=== PATIENT | male | born 1960 | race Caucasian/White ===

== ENCOUNTER → 2016-07-22 | Outpatient (CLI) | payer MEDICARE, OTHER ==
[2016-07-22 12:50] VITALS: BP 119/68; PULSE 66; RESP 16; TEMP 97.7
--- NOTE | 2016-07-22 13:18 | P.PN ---
Progress Note - Text This is a 56-year-old male with cervical and lumbar spondylosis. The patient feels increasing neck pain with a stable weakness in the right wrist due to previous fracture there. He occasionally drops things out of his right hand but this is not a constant complaint. He does have mild weakness in his right wrist extension and flexion to 4 out of 5 and also decreased right elbow flexion to 4 out of 5. There is tenderness in the cervical paravertebral musculature on the lower part of his neck. Lungs are clear to auscultation. Heart is regular no murmurs. The patient may benefit from getting cervical medial branch block under fluoroscopic guidance for levels C5-C6 and C7 bilaterally however the patient will see if he can tolerate this pain until his next visit if his pain is getting worse he will give us a call and then we can schedule her for this injection if not we will reevaluate him on his next visit and decide our course. The patient denies having any side effects to Percocet he does not show any drug -seeking behavior he does not show any suicidal ideation. I'll give him prescription for 2 months of Percocet and we'll see him then. PQRS measures: 1-Patient's medications are documented in the chart. 2-Tobacco use counseling given 3-Patient has had a pneumococcal vaccine. 4-Advanced care planning discussed, patient unable to give 5-Opioid contract signed with the patient. 6-Pain positive, follow-up visit or procedure scheduled 7-Patient's blood pressure measured and documented within normal limits. 8-Patient's weight was measured, and body mass index ABOVE the normal limits, and counseling was done. Patient instructed to follow up with PCP. 9-Patient WAS NOT identified as an unhealthy alcohol user.
== END ==
LOC: PNWHC3 12:27
PROVIDERS: ATTEND Anesthesiology
DX: M47.896 Other spondylosis, lumbar region (principal); M47.892 Other spondylosis, cervical region; Z87.81 Personal history of (healed) traumatic fracture
CPT/HCPCS: 99211

== ENCOUNTER → 2016-09-16 | Outpatient (CLI) | payer MEDICARE, OTHER ==
[2016-09-16 11:48] VITALS: BP 114/63; PULSE 70; RESP 18
--- NOTE | 2016-09-16 12:45 | P.PN ---
Subjective This is follow-up visit for this patient with a history of severe and chronic low back pain secondary to lumbar degenerative disc disease lumbar facet arthropathy, we have done interventional pain management injection, radiofrequency ablation of medial branch lumbar area several months ago, and is currently on pain medications 1-Percocet 10/325 every etc. hours when necessary 2- Zanaflex 4 mg every 8 hours 3-Lyrica 150 mg every 6 hours Patient denies any side effects of the medication, denies suicidal ideation , patient reported that he feels more pain when he does any physical activity, And he feels sleepy at night when he take the fourth tablet of Lyrica and reports that the current pain medication is helping To control the pain and improve activity of daily living Physical Examinations : 1-Constitutiona : Cooperative , not in acute distress . 2-HEENT : nech ; supple , no Lymphadenopathy , no Thyromegaly , normal thyroid size . eyes : no ptosis , no icterus, no photophobia . ENT : normal of hearing , normal oropharynx , no Thrush . 3- Respiratory : Chest clear to auscultations Bilaterally , no wheezing , no Rhonchi . 4- Cardiovascular : regular rate and rhythem , S1 , S2 , no S3 , no S4. 5- Gastrointestinal : abdomen soft no tenderness , bowel sounds positive all four quadrents , no organomegally . 6- Genitourinary : Defferred . 7- neurologic : Cranial nerve II to XII intact , no focal neurological deffecit . 8-psychatric : alert , oriented X 3 , appropriate affect , intact judgment and insight . 9-Lymphatic : no Lymphadenopathy . 10- musculoskeltal : exams of the cervical spine = motor strength normal bilateral upper extremities facet loading test cervical area positive. exams of the Lumber spine = motor strength lower extremities ,thigh and legs .5/5 deep tendon reflexes : normal Knee Jerk , normal ankle Jerk . lumber facet Loading Test positive strait leg raising test positive at 30 degree , RT ,LT , Fabere test positive RT and positive LT . Range of motion: Range of motion in flexion of the lumbar spine 30 degrees Range of motion range of motion of extension of the lumbar spine 10 Assessment and plan = - Chronic low back pain secondary to lumbar degenerative disc disease , lumbar spondylosis with facet arthropathy without myelopathy , - chronic and current use of high-risk medication (Opioids). The patient was counseled about risk of opioid use, psychological risk associated with opioids and was orally counseled to not overuse , divert,or sell dictations to take medications as prescribed only , and to restore medication in safe location , and the patient counseled against driving while using narcotic medications, and also not to use alcohol or any illicit recreational drugs, the patient's verbalized understanding that the lack of compliance will result in failure to renew narcotic prescription and possible discharge from the clinic - diagnoses, prognosis, and treatment options including but not limited to physical therapy, surgical interventions, interventional therapies , and medication management including narcotics and adjuvant medication were discussed with the patient and all The questions answered -medication management =1-continue Percocet 10/325 every 6 hours dispense 120 with one refill 2- Zanaflex 4 mg every 8 hours dispense 90 with 1 refill 3-degrees Lyrica to 150 mg every 8 hours dispense 90 with 1 refill and patient will be seen in the pain clinic in 2 months -procedure= none Objective - Vital Signs Vital signs: Vital Signs Temp Pulse 70 09/16/16 11:41 Resp 18 09/16/16 11:41 BP 114/63 09/16/16 11:41 Pulse Ox 97 09/16/16 11:41 Intake & Output 09/15/16 09/16/16 09/16/16 18:59 06:59 18:59 Weight 77.111 kg
== END | disposition home or self-care (01) ==
LOC: PNWHC3 11:22
PROVIDERS: ATTEND Specialist
DX: M51.36 Other intervertebral disc degeneration, lumbar region (principal); M47.816 Spondylosis without myelopathy or radiculopathy, lumbar region; M46.96 Unspecified inflammatory spondylopathy, lumbar region; Z79.891 Long term (current) use of opiate analgesic
CPT/HCPCS: 99211

== ENCOUNTER 2016-09-18 00:27 | Inpatient (IN) | payer MEDICARE, OTHER ==
[2016-09-18] MEDS ORDERED: ALBUTEROL NEBULIZED 2.5 MG/3 ML INHALATION STA (00:31)
[2016-09-18] MEDS ORDERED: TERBUTALINE 1 MG/ML VIAL SQ STA (00:31)
[2016-09-18] MEDS ORDERED: IPRATROPIUM 0.5 MG/2.5 ML NEBU INHALATION STA (00:31)
[2016-09-18] MEDS ORDERED: MAGNESIUM SULFATE-D5W PMX 1 GM in DEXTROSE/WATER 1 100ML.BAG IVPB STA (00:31)
[2016-09-18] MEDS ORDERED: SODIUM CHLORIDE 0.9% 1,000 ML IV STA (00:31)
--- NOTE | 2016-09-18 00:35 | ED ---
SOB HPI - General Stated Complaint: JOURDAN Time Seen by Provider: 09/18/16 00:27 Source: patient, EMS, RN notes reviewed Mode of arrival: EMS - History of Present Illness Initial Comments: This is a 56-year-old male who was a smoker who does have COPD who states he was cleaning using bleach and Lysol around 9:30 PM this past evening he started getting short of breath. It persisted he did call EMS he was brought here for evaluation he was given an updraft treatment as well as 125 mg of Solu-Medrol. He still very short of breath. He denies any chest pain fevers chills or sweats. MD Complaint: shortness of breath - Related Data Home Medications Medication Instructions Recorded Confirmed Atorvastatin Calcium [Lipitor] 40 mg PO DAILY 12/12/13 09/16/16 DULoxetine HCL [Cymbalta] 60 mg PO DAILY 12/12/13 09/16/16 ALPRAZolam 0.5 mg PO DAILY PRN 11/14/15 09/16/16 Lisinopril/Hydrochlorothiazide 1 tab PO DAILY 11/14/15 09/16/16 [Zestoretic 20-12.5 mg Tablet] Omeprazole [PriLOSEC] 20 mg PO DAILY 11/14/15 09/16/16 Folic Acid 1 mg PO DAILY 02/03/16 09/16/16 Tamsulosin HCl [Flomax] 0.8 mg PO QAM 02/03/16 09/16/16 Tamsulosin HCl [Flomax] 0.4 mg PO HS 03/08/16 09/16/16 Aspirin EC [Ecotrin Low Dose] 81 mg PO BID 07/22/16 09/16/16 Previous Rx's Medication Instructions Recorded Multivitamins, Thera [Multivitamin] 1 each PO DAILY@1200 #30 tab 03/10/16 Thiamine [Vitamin B-1] 100 mg PO DAILY@1200 #30 tab 03/10/16 Pregabalin [Lyrica] 150 mg PO Q8HR #90 capsule 09/16/16 oxyCODONE-APAP 10-325MG [Percocet 1 tab PO Q8HR PRN #120 tab 09/16/16 10-325 mg] tiZANidine [Zanaflex] 4 mg PO TID #90 tab 09/16/16 Allergies Allergy/AdvReac Type Severity Reaction Status Date / Time No Known Allergies Allergy Verified 09/18/16 00:34 Review of Systems ROS Statement: Those systems with pertinent positive or pertinent negative responses have been documented in the HPI. ROS Other: All systems not noted in ROS Statement are negative. Past Medical History Past Medical History: Hyperlipidemia, Hypertension, Liver Disease, Musculoskeletal Disorder, Osteoarthritis (OA), Prostate Disorder Additional Past Medical History / Comment(s): Hx Heart Murmur, Hx Head Injury, Migraines, Sciatica, Scoliosis, P[place] Down to KOURTNEY Feet, alcoholic cirrhosis - pt states he quit drinking in 2008,Enlarged Prostate. STATES AFTER PAIN CLINIC PROCEDURE ON 08/12/15 HIS LEGS WENT NUMB AND HE COULD NOT LIFT HIS LEG OR BEND HIS KNEE WHEN HE WAS LYING DOWN. STATES IT LASTED 12-14 HRS. HE WAS ABLE TO WALK. PT WILL SPEAK WITH PRIOR TO NEXT PROCEDURE. History of Any Multi-Drug Resistant Organisms: None Reported Past Surgical History: Hernia Repair, Orthopedic Surgery Additional Past Surgical History / Comment(s): Rt HAND, AC SEPARATION RIGHT COLLAR BONE -GRAFT FROM ELBOW, COLONOSCOPY, LEFT HIP ORIF,RT ING. HERNIA REPAIR ; MULT PAIN PROC Past Anesthesia/Blood Transfusion Reactions: No Reported Reaction Past Psychological History: Anxiety, Depression Smoking Status: Current every day smoker Past Alcohol Use History: Abuse Additional Past Alcohol Use History / Comment(s): SMOKER SINCE AGE 13 (1982)-1/ 2 ppd - pt states he had problems with alcoholism but has been clean since 2008 Past Drug Use History: None Reported - Past Family History Mother History Unknown: Yes Additional Family Medical History / Comment(s): pt was adopted General Exam - General Exam Comments Initial Comments: This is a well-developed well-nourished awake alert oriented x 3 male General appearance: alert, anxious, in distress Head exam: Present: atraumatic, normocephalic, normal inspection Eye exam: Present: normal appearance, PERRL, EOMI. Absent: scleral icterus, conjunctival injection, periorbital swelling ENT exam: Present: normal exam, mucous membranes moist Neck exam: Present: normal inspection. Absent: tenderness, meningismus, lymphadenopathy Respiratory exam: Present: wheezes, accessory muscle use, decreased breath sounds, prolonged expiratory Cardiovascular Exam: Present: normal rhythm, tachycardia GI/Abdominal exam: Present: soft, normal bowel sounds. Absent: distended, tenderness, guarding, rebound, rigid Extremities exam: Present: normal inspection, full ROM, normal capillary refill. Absent: tenderness, pedal edema, joint swelling, calf tenderness Back exam: Present: normal inspection Neurological exam: Present: alert, oriented X3, CN II-XII intact Psychiatric exam: Present: anxious Skin exam: Present: warm, dry, intact, normal color. 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 Reevaluation #2: 09/18/16 01:52 I did reevaluate the patient after the receive his medications he states he is feeling somewhat better he still dyspneic however his aeration has improved. Medical Decision Making - Medical Decision Making Patient will be admitted for further inpatient treatment. He states he mixed bleach with a snowbowll overhead cleaner because of stains with,. - Lab Data Result diagrams: 09/18/16 00:45 09/18/16 00:45 Lab Results 09/18/16 09/18/16 09/18/16 Range/Units 00:45 00:45 00:45 WBC 12.1 H (3.8-10.6) k/uL RBC 4.99 (4.30-5.90) m/uL Hgb 14.6 (13.0-17.5) gm/dL Hct 44.5 (39.0-53.0) % MCV 89.3 (80.0-100.0) fL MCH 29.2 (25.0-35.0) pg MCHC 32.7 (31.0-37.0) g/dL RDW 13.3 (11.5-15.5) % Plt Count 273 (150-450) k/uL Neutrophils % 75 % Lymphocytes % 15 % Monocytes % 4 % Eosinophils % 3 % Basophils % 0 % Neutrophils # 9.1 H (1.3-7.7) k/uL Lymphocytes # 1.9 (1.0-4.8) k/uL Monocytes # 0.5 (0-1.0) k/uL Eosinophils # 0.3 (0-0.7) k/uL Basophils # 0.0 (0-0.2) k/uL Sodium 141 (137-145) mmol/L Potassium 3.5 (3.5-5.1) mmol/L Chloride 105 (98-107) mmol/L Carbon Dioxide 23 (22-30) mmol/L Anion Gap 13 mmol/L BUN 11 (9-20) mg/dL Creatinine 0.90 (0.66-1.25) mg/dL Est GFR (MDRD) Af Amer >60 (>60 ml/min/1.73 sqM) Est GFR (MDRD) Non-Af >60 (>60 ml/min/1.73 sqM) Glucose 157 H (74-99) mg/dL Calcium 9.2 (8.4-10.2) mg/dL Magnesium 1.8 (1.6-2.3) mg/dL Total Bilirubin 0.4 (0.2-1.3) mg/dL AST 28 (17-59) U/L ALT 38 (21-72) U/L Alkaline Phosphatase 110 (38-126) U/L Total Creatine Kinase 89 (55-170) U/L CK-MB (CK-2) 0.6 (0.0-2.4) ng/mL CK-MB (CK-2) Rel Index 0.7 Troponin I <0.012 (0.000-0.034) ng/mL NT-Pro-B Natriuret Pep pg/mL Total Protein 7.2 (6.3-8.2) g/dL Albumin 4.0 (3.5-5.0) g/dL 09/18/16 Range/Units 00:45 WBC (3.8-10.6) k/uL RBC (4.30-5.90) m/uL Hgb (13.0-17.5) gm/dL Hct (39.0-53.0) % MCV (80.0-100.0) fL MCH (25.0-35.0) pg MCHC (31.0-37.0) g/dL RDW (11.5-15.5) % Plt Count (150-450) k/uL Neutrophils % % Lymphocytes % % Monocytes % % Eosinophils % % Basophils % % Neutrophils # (1.3-7.7) k/uL Lymphocytes # (1.0-4.8) k/uL Monocytes # (0-1.0) k/uL Eosinophils # (0-0.7) k/uL Basophils # (0-0.2) k/uL Sodium (137-145) mmol/L Potassium (3.5-5.1) mmol/L Chloride (98-107) mmol/L Carbon Dioxide (22-30) mmol/L Anion Gap mmol/L BUN (9-20) mg/dL Creatinine (0.66-1.25) mg/dL Est GFR (MDRD) Af Amer (>60 ml/min/1.73 sqM) Est GFR (MDRD) Non-Af (>60 ml/min/1.73 sqM) Glucose (74-99) mg/dL Calcium (8.4-10.2) mg/dL Magnesium (1.6-2.3) mg/dL Total Bilirubin (0.2-1.3) mg/dL AST (17-59) U/L ALT (21-72) U/L Alkaline Phosphatase (38-126) U/L Total Creatine Kinase (55-170) U/L CK-MB (CK-2) (0.0-2.4) ng/mL CK-MB (CK-2) Rel Index Troponin I (0.000-0.034) ng/mL NT-Pro-B Natriuret Pep 223 pg/mL Total Protein (6.3-8.2) g/dL Albumin (3.5-5.0) g/dL - Radiology Data Radiology results: report reviewed (Review the x-ray and report shows no acute findings), image reviewed Critical Care Time Critical Care Time: Yes Critical Care Time: 39 minutes of critical care time which included initial history physical lab and x-ray evaluation. Evaluation of the Supply Chain Systems Manager evaluation. Discussion with the patient regarding the findings. Reevaluation patient several occasions. Discussion with the admitting service initial orders and documentation the above. Disposition Clinical Impression: Adult respiratory distress syndrome, Acute exacerbation of chronic obstructive airways disease, Acute bronchospasm, Inhalation of cleaning agent Disposition: ADMITTED IP TO THIS HOSP Condition: Stable
[2016-09-18 00:50] LABS: Basophils % (A) 0 %; CH 29.9; CHCM 33.7; Eosinophils # (A) 0.3 k/uL (0-0.7); Eosinophils % (A) 3 %; HCT 44.5 % (39.0-53.0); HDW 2.49; HGB 14.6 gm/dL (13.0-17.5); Luc # (Auto) 0.28; Luc % (Auto) 2; Lymphocytes # (A) 1.9 k/uL (1.0-4.8); Lymphocytes % (A) 15 %; MCH 29.2 pg (25.0-35.0); MCHC 32.7 g/dL (31.0-37.0); MCV 89.3 fL (80.0-100.0); Monocytes # (A) 0.5 k/uL (0-1.0); Monocytes % (A) 4 %; Neutrophils # (A) 9.1 k/uL (1.3-7.7); Neutrophils % (A) 75 %; RBC 4.99 m/uL (4.30-5.90); RDW 13.3 % (11.5-15.5); WBC 12.1 k/uL (3.8-10.6); WBC (Perox) 12.42
[2016-09-18 01:00] LABS: ALT 38 U/L (21-72); AST 28 U/L (17-59); Alkaline Phosphatase 110 U/L (38-126); Anion Gap 13 mmol/L; Blood Urea Nitrogen 11 mg/dL (9-20); Calcium 9.2 mg/dL (8.4-10.2); Carbon Dioxide 23 mmol/L (22-30); Chloride 105 mmol/L (98-107); Glucose 157 mg/dL (74-99); Magnesium 1.8 mg/dL (1.6-2.3); Non-African American GFR(MDRD) >60 (>60 ml/min/1.73 sqM); Potassium 3.5 mmol/L (3.5-5.1); Sodium 141 mmol/L (137-145); Total Bilirubin 0.4 mg/dL (0.2-1.3); Total Protein 7.2 g/dL (6.3-8.2)
[2016-09-18 01:09] LABS: Creatine Kinase 89 U/L (55-170)
[2016-09-18 01:22] LABS: Creatine Kinase MB 0.6 ng/mL (0.0-2.4); Troponin I <0.012 ng/mL (0.000-0.034)
--- NOTE | 2016-09-18 01:34 | XR ---
EXAM: XR Chest, 1 View. CLINICAL HISTORY: Reason: Dyspnea TECHNIQUE: Frontal view of the chest. COMPARISON: X-ray 04/03/16. FINDINGS: Lungs: No consolidation. Pleural space: Unremarkable. No pneumothorax. Heart: Unremarkable. Mediastinum: Unremarkable. Bones/joints: No acute fracture. IMPRESSION: No acute cardiopulmonary disease.
[2016-09-18 01:54] LABS: Partial Thromboplastin Time 23.1 sec (22.0-30.0); Prothrombin Time 10.6 sec (9.0-12.0)
[2016-09-18] MEDS ORDERED: oxyCODONE-APAP 10-325MG 1 EACH TAB PO PRN ×2 (02:00→12:06)
[2016-09-18] MEDS ORDERED: SODIUM CHLORIDE 0.9% 1,000 ML IV SCH (02:00)
[2016-09-18 03:43] VITALS: BMI 26.6
[2016-09-18] MEDS: IPRATROPIUM-ALBUTEROL 3 ML NEB INHALATION SCH ×3 (03:45→11:21)
[2016-09-18] MEDS ORDERED: methylPREDNISolone SOD SUCCI 125 MG/2 ML VIAL IV SCH (06:00)
[2016-09-18] MEDS ORDERED: INSULIN LISPRO (humaLOG) 300 UNIT/3 ML VIAL SQ SCH (07:30)
[2016-09-18] MEDS ORDERED: PREGABALIN 75 MG CAP PO SCH (08:00)
[2016-09-18 08:26] LABS: Glucose,Whole Blood 239 mg/dL (75-99)
[2016-09-18] MEDS ORDERED: FOLIC ACID 1 MG TAB PO SCH (09:00)
[2016-09-18] MEDS ORDERED: LISINOPRIL-HCTZ 20-12.5 MG 1 EACH TAB PO SCH (09:00)
[2016-09-18] MEDS ORDERED: ATORVASTATIN 40 MG TAB PO SCH (09:00)
[2016-09-18] MEDS ORDERED: PANTOPRAZOLE 40 MG TABLET PO SCH (09:00)
[2016-09-18] MEDS ORDERED: ASPIRIN 81 MG CHEW PO SCH (09:00)
[2016-09-18] MEDS ORDERED: DULoxetine HCL 60 MG CAPSULE.DR PO SCH (09:00)
[2016-09-18 09:11] VITALS: BP 118/54; RESP 16; TEMP 97.7
[2016-09-18 11:34] VITALS: PULSE 102
[2016-09-18 11:37] LABS: Glucose,Whole Blood 316 mg/dL (75-99)
[2016-09-18] MEDS ORDERED: tiZANidine 4 MG TAB PO SCH (12:00)
[2016-09-18] MEDS ORDERED: THIAMINE 100 MG TAB PO SCH (12:00)
[2016-09-18] MEDS ORDERED: ALPRAZolam 0.25 MG TAB PO PRN (12:06)
[2016-09-18] MEDS ORDERED: TAMSULOSIN 0.4 MG CAP.ER.24H PO SCH ×2 (12:15→21:00)
[2016-09-18] MEDS ORDERED: ENOXAPARIN 40 MG/0.4 ML SYRINGE SQ SCH (12:30)
[2016-09-18] MEDS ORDERED: NICOTINE 14MG/24HR PATCH TRANSDERM SCH (12:30)
--- NOTE | 2016-09-18 14:42 | HP ---
DATE OF ADMISSION: 09/18/2016 PRESENTING COMPLAINT: Wheezing, short of breath. HISTORY OF PRESENTING COMPLAINT: This is a pleasant 56-year-old patient of Dr. Perez whose chronic stable medical conditions include anxiety, depression, BPH, cirrhosis, osteoarthritis, hypertension, hyperlipidemia, TIAs. Patient was cleaning the bathroom with a toilet glove cleaner and bleach; went out for some time, came back and was scrubbing again, and patient suddenly became very short of breath, wheezing; had to run to the window; started coughing; stuff started draining out of his nose; felt miserable; had to sit down on the floor; kept coughing and wheezing. Finally admitted to the hospital, started on Solu-Medrol and breathing treatment, to which he did respond. Denies any fever. REVIEW OF SYSTEMS: CONSTITUTIONAL: Tired. HEENT: As above. RESPIRATORY: As above. CARDIOVASCULAR: None. GASTROINTESTINAL: None. GENITOURINARY: None. MUSCULOSKELETAL: Pain in the joints. DERMATOLOGICAL: None. HEMATOLOGICAL: None. LYMPHATIC: None. PSYCHIATRY: Anxiety, depression. NEUROLOGICAL: None. PAST MEDICAL HISTORY: 1. COPD. 2. Anxiety. 3. Depression. 4. BPH. 5. Cirrhosis. 6. Osteoarthritis. 7. Hyperlipidemia. 8. Hypertension. 9. TIA. PAST SURGICAL HISTORY: 1. Hernia repair. 2. AC separation, right collar bone. 3. Colonoscopy. 4. Left hip ORIF. 5. Right inguinal hernia repair. 6. Multiple pain procedures. PAST PSYCHIATRIC HISTORY: Anxiety, depression. SOCIAL HISTORY: Patient has been smoking half pack a day for over 34 years. Stopped drinking excessive alcohol back in 2008. . FAMILY HISTORY: Patient is adopted. HOME MEDICATIONS: 1. Zanaflex 4 mg p.o. q.8. 2. Percocet 10 one tablet q.6 p.r.n. 3. Flomax 0.8 mg p.o. daily. 4. Lyrica 200 mg p.o. t.i.d. 5. Prilosec 20 mg p.o. daily. 6. Multivitamin 1 tablet p.o. daily. 7. Zestoretic 20/12.5 one tablet p.o. daily. 8. Motrin 800 mg p.o. t.i.d. p.r.n. 9. Folic acid 1 mg p.o. daily. 10. Cymbalta 60 mg p.o. daily. 11. Lipitor 40 mg p.o. daily. 12. Aspirin 81 mg p.o. b.i.d. 13. Ventolin HFA 2 puffs inhalation q.4 p.r.n. 14. Xanax 0.25 p.o. daily p.r.n. ALLERGIES: NONE. PHYSICAL EXAMINATION: VITAL SIGNS ON PRESENTATION: Temperature 97.1, pulse 106, respiration 38, blood pressure 172/77, pulse ox 96% on 2 L. Patient's breathing was labored; short of breath. GENERAL APPEARANCE: Sitting up, not in distress. EYES: Pupils equal. Conjunctivae normal. HEENT: Oral cavity normal. NECK: JVD not raised. Mass palpable. RESPIRATORY: Effort increased. LUNGS: Diminished breath sounds. Prolonged expiration and wheezing. CARDIOVASCULAR: First and second sounds normal. No edema. ABDOMEN: Soft, nontender. Liver and spleen not palpable. LYMPHATIC: No lymph node palpable in neck or axillae. PSYCHIATRY: Alert and oriented x3. Mood and affect normal. NEUROLOGICAL: Pupils equal. Cranial nerves grossly intact. Power and sensation grossly intact. INVESTIGATIONS: White count 12.1, hemoglobin 14.6. Potassium 3.5. BUN and creatinine are normal. ProBNP 223. Chest x-ray: Nil acute. ASSESSMENT: 1. Acute severe chronic obstructive pulmonary disease exacerbation probably precipitated by chemical agent. 2. Anxiety and depression not otherwise specified. 3. Benign prostatic hypertrophy. 4. Alcoholic cirrhosis, chronic, compensated. 5. Primary osteoarthritis in multiple joints, bilateral. 6. Hyperlipidemia. 7. Hypertension. 8. Chronic nicotine dependence. Patient is a smoker. PLAN: Patient was given a burst of steroids, put on nebulized bronchodilators. Home medications are resumed. Accu-Cheks will be followed. Care was discussed with the patient. Will give Lovenox for DVT prophylaxis.
[2016-09-18] MEDS ORDERED: PREGABALIN 100 MG CAP PO SCH (16:00)
--- NOTE | 2016-09-19 09:54 | DS ---
DATE OF ADMISSION: 09/18/2016 DATE OF DISCHARGE: 09/18/2016 FINAL DIAGNOSIS(ES): 1. Acute severe chronic obstructive pulmonary disease exacerbation precipitated by chemical agent. 2. Anxiety, depression, not otherwise specified. 3. Benign prostatic hypertrophy. 4. Alcoholic cirrhosis, chronic, compensated. 5. Primary osteoarthritis in multiple joints, bilateral. 6. Hyperlipidemia. 7. Essential hypertension. 8. Chronic nicotine dependence. Patient is a cigarette smoker. HOSPITAL COURSE: The patient exposed to toilet cleaning agent while cleaning and had severe COPD exacerbation, responded well to high dose ( ) steroids and nebulized bronchodilators. Reverted to baseline. On examination decreased breath sounds. CARDIOVASCULAR: First and second seconds normal. The patient advised against smoking. DISCHARGE MEDICATIONS: 1. Lipitor 40 mg a day. 2. Cymbalta 60 mg a day. 3. Xanax 0.25 mg p.o. daily p.r.n. 4. Zestoretic 20/12.5 1 tablet p.o. daily. 5. Prilosec 20 mg p.o. daily. 6. Folic acid 1 mg p.o. daily. 7. Flomax 0.8 mg p.o. daily. 8. Aspirin 81 mg b.i.d. 9. Ventolin HFA 2 puffs q.4 p.r.n. 10. Motrin 800 mg p.o. t.i.d. p.r.n. 11. Multivitamin 1 tablet p.o. daily p.r.n. 12. Nicotine 14 mg patch. 13. Lyrica 160 mg p.o. q8. 14. ( ) 200 mg p.o. t.i.d. 15. Percocet q.6 p.r.n. 16. Prednisone taper. 17. Zanaflex ( ) milligrams p.o. q.8. Follow with ( ) in three days.
== END 2016-09-18 14:20 | disposition home or self-care (01) | DRG 918 ==
LOC: EC 00:27 → 5MS5E 01:57
PROVIDERS: ADMIT Hospitalist; ATTEND Hospitalist
DX: T65.891A Toxic effect of other specified substances, accidental (unintentional), initial encounter (principal); K70.30 Alcoholic cirrhosis of liver without ascites; J44.1 Chronic obstructive pulmonary disease with (acute) exacerbation; M41.9 Scoliosis, unspecified; R00.0 Tachycardia, unspecified; I49.3 Ventricular premature depolarization; J98.01 Acute bronchospasm; I10 Essential (primary) hypertension; E78.5 Hyperlipidemia, unspecified; F41.9 Anxiety disorder, unspecified; M54.30 Sciatica, unspecified side; G43.909 Migraine, unspecified, not intractable, without status migrainosus; F32.9 Major depressive disorder, single episode, unspecified; F10.20 Alcohol dependence, uncomplicated; F17.210 Nicotine dependence, cigarettes, uncomplicated; N40.0 Benign prostatic hyperplasia without lower urinary tract symptoms; M19.91 Primary osteoarthritis, unspecified site; Z79.899 Other long term (current) drug therapy; Z86.73 Personal history of transient ischemic attack (TIA), and cerebral infarction without residual deficits; Z71.6 Tobacco abuse counseling; Z87.81 Personal history of (healed) traumatic fracture; Z87.828 Personal history of other (healed) physical injury and trauma; Z79.82 Long term (current) use of aspirin; Z79.1 Long term (current) use of non-steroidal anti-inflammatories (NSAID); Z79.891 Long term (current) use of opiate analgesic
CPT/HCPCS: 36415; 71010; 80053; 82550; 82553; 83735; 83880; 84484; 85025; 85610; 85730; 93005; 94640; 94644; 96365; 96366; 96372; 99211; 99291

== ENCOUNTER → 2016-11-11 | Outpatient (CLI) | payer MEDICARE, OTHER ==
[2016-11-11 12:36] VITALS: BP 115/67; PULSE 58; RESP 16
--- NOTE | 2016-11-11 13:00 | P.PN ---
Progress Note - Text This is a 56-year-old gentleman with history of lumbar spondylosis without myelopathy. The patient's pain has been well-controlled with a combination of opioids, non-opioid medications, and interventional pain procedures from time to time. The patient denies any side effects to his medications. He does not show any drug-seeking behavior. The patient denies any new neurologic changes in his lower extremities since last visit. I discussed with the patient the need to cut him down on Percocet 2-3 pills a day and hopefully slowly over time to much lower dose. The patient seems very acceptable to the idea. Today I'll give him prescription for Percocet up to 4 times a day for 2 months plus Zanaflex and Lyrica. On his next visit we will go down to 3 pills a day of Percocet if needed for his pain.
== END | disposition home or self-care (01) ==
LOC: PNWHC3 12:11
PROVIDERS: ATTEND Anesthesiology
DX: M47.816 Spondylosis without myelopathy or radiculopathy, lumbar region (principal); Z79.891 Long term (current) use of opiate analgesic; Z79.899 Other long term (current) drug therapy
CPT/HCPCS: 99211

== ENCOUNTER → 2017-01-05 | Outpatient (CLI) | payer MEDICARE, OTHER ==
[2017-01-05 14:08] VITALS: BP 127/76; PULSE 62; RESP 16; TEMP 97
--- NOTE | 2017-01-05 14:42 | P.PN ---
Subjective This is for visit for this 56 years old male with a chronic history of severe low back pain, diagnosed with lumbar spondylosis with lumbar facet arthropathy without myelopathy,and lumbar degenerative disc disease, pain well controlled with the medication and the radiofrequency ablation of the medial branch lumbar area, has been more than 6 months since we did the radiofrequency, antihistone pain medication Motrin 800 mg every 8 hours, Lyrica 50 mg every 8 hours, Zanaflex 4 mg every 8 hours, and Percocet 10/325 every 6 hours, he denies any side effect of the medication he denies any excessive drowsiness or sleepiness and he reported the current regimen helping him to control his pain Objective - Vital Signs Vital signs: Vital Signs Temp 97.0 F L 01/05/17 14:01 Pulse 62 01/05/17 14:01 Resp 16 01/05/17 14:01 BP 127/76 01/05/17 14:01 Pulse Ox 96 01/05/17 14:01 Intake & Output 01/04/17 01/05/17 01/05/17 18:59 06:59 18:59 Weight 78.471 kg - Exam Physical Examinations : 1-Constitutiona : Cooperative , not in acute distress . 2-HEENT : nech ; supple , no Lymphadenopathy , normal thyroid size . eyes : no ptosis , no icterus, no photophobia . ENT : normal of hearing , normal oropharynx , no Thrush . 3- Respiratory : Chest clear to auscultations Bilaterally , no wheezing , no Rhonchi . 4- Cardiovascular : regular rate and rhythem , S1 , S2 , no S3 , no S4. 5- Gastrointestinal : abdomen soft no tenderness , bowel sounds positive all four quadrents , no organomegally . 6- Genitourinary : Defferred . 7- neurologic : Cranial nerve II to XII intact , no focal neurological deffecit . 8-psychatric : alert , oriented X 3 , appropriate affect , intact judgment and insight . 9-Lymphatic : no Lymphadenopathy . 10- musculoskeltal : Lumber spine = normal moter stegnth lower extremities ,thigh and legs .11/20 Assessment and Plan Plan: Assessment and plan= chronic low back pain secondary to lumbar degenerative disc disease , lumbar spondylosis with lumbar facet arthropathy , chronic and current use of high-risk medication (opioids) Patient denies any side effects of the current pain medication and the current treatment/medication ML and the patient to do activity of daily living , Diagnoses, prognosis, treatment options, including but not limited to physical therapy, medication management, interventional therapies, and surgery, were discussed with the patient All the questions answered Patient signed the narcotic agreement, and he was orally counseled, not to overuse, not to abuse, not to Divert , not tp sell pain medication, and to take it as prescribed only, Patient was counseled not to drive or operate heavy equipment while using narcotic medication, and advised not to use alcohol or any Illicit drugs while using the narcotis, the patient's verbalized understanding that lack of compliance with any of the above instructions and will likely to cause discharge from the pain service, not to renew his narcotic prescriptions Medication managements= patient will be given prescription refills for 1-Percocet 10/325 every 6 hours dispense 120 with one refill 2-Lyrica 50 mg every 8 hours dispense 90 with 1 refill 3-Zanaflex 4 mg every 8 hours dispense 90 with 1 refill. 4-Motrin 800 mg every 8 hours dispense 90 with 1 refill Interventional pain management=none Refferal =none Follow-up= 2 month,s , Time with Patient: Less than 30
== END ==
LOC: PNWHC3 13:51
PROVIDERS: ATTEND Specialist
DX: M51.36 Other intervertebral disc degeneration, lumbar region (principal); M47.816 Spondylosis without myelopathy or radiculopathy, lumbar region; M46.86 Other specified inflammatory spondylopathies, lumbar region; G89.29 Other chronic pain; Z79.891 Long term (current) use of opiate analgesic
CPT/HCPCS: 99211

== ENCOUNTER → 2017-03-02 | Outpatient (CLI) | payer MEDICARE, OTHER ==
[2017-03-02 13:38] VITALS: BP 135/74; PULSE 61; RESP 16; TEMP 97.7
--- NOTE | 2017-03-02 14:00 | P.PN ---
Progress Note - Text Patient returns for followup for chronic back pain with some radiation to both legs. Patient has not had any interventions done recently, but got excellent benefit from lumbar RFAs done last . Patient continues on Percocet and Lyrica medications for pain with good relief. Patient denies adverse drug effects from medications. Today, pt denies new-onset weakness, bowel/bladder incontinence, or any other signs or symptoms of cauda equina syndrome. There are no signs of acute intoxication, and no indications of medication diversion or overuse. In addition to above, 13-point review of systems is also negative for chest pain , shortness of breath, changes in vision, changes in hearing, new onset weakness , abdominal pain, diarrhea, extreme fatigue, malaise, fever, skin changes, homicidal or suicidal ideation, or bowel or bladder incontinence. Vital Signs: Reviewed in EMR Gen: WDWN, AAOx3, NAD HEENT: NCAT, EOMI, hearing grossly normal Pulm: resp unlabored Abd: soft, NT, ND Neck: supple, trachea midline ROM in flexion lumbar spine: reduced ROM in extension lumbar spine: reduced Lumbar paravertebral tenderness: ++ Facet loading: ++ SI joint tenderness: + bilateral Keegan's test: neg bilateral Neuro: CN II-XII grossly intact, muscle strength lower extremities PRESERVED Imaging: Reviewed in EMR Assessment: 1. lumbar spondylosis without myelopathy 2. chronic pain syndrome 3. lumbar DDD Plan: 1. Explanation: Opioid and psychological risk scores were reviewed. Diagnoses , prognoses, and multiple treatment options including but not limited to physical therapy, interventional therapies, adjuvant medical therapies, narcotic medication therapies, and surgery were discussed with the patient and all questions were answered to the patient's satisfaction. 2. Opioid agreement: Patient has previously signed narcotic agreement, and was orally counseled to not overuse, abuse, divert, or cell medications, and to take them as prescribed by only 1 healthcare provider. The patient was also counseled to store opioid medications in a safe and preferably locked location. Patient was also counseled against driving while using narcotic medications and also to not use alcohol or any illicit or recreational drugs. The patient verbalized understanding that lack of compliance with any of the above and likely result in failure to renew narcotic prescriptions, possible discharge from the clinic, and possible legal ramifications thereafter if indicated. 3. Counseling: The patient was counseled extensively on SMOKING CESSATION, BODY MASS INDEX, EXERCISE. Specifically, the patient was instructed regarding the importance of smoking cessation, obesity, and exercise in the context of both chronic pain and overall health. 4. Procedures: R lumbar RFA, then left 5. Consultations: None 6. Investigations: UDS today (last UDS in May 2016 was negative for medications); patient states that he last used Percocet last night 7. Medications: Percocet 10/325 #105 for next month, #90 after; Lyrica, Zanaflex, and Motrin refilled 8. Disposition: f/u for procedure as scheduled PQRS measures: 1-Patient's medications are documented in the chart. 2-Tobacco use is positive/negative, counseling NOT given 3-Patient has not had a pneumococcal vaccine. 4-Advanced care planning discussed, patient unable to give. 5-Opioid contract signed with the patient. 6-Pain positive, follow-up visit or procedure scheduled 7-Patient's blood pressure measured and documented, and patient will follow up with the primary care due to hypertension. 8-Patient's weight was measured, and body mass index ABOVE the normal limits, and counseling was done. Patient instructed to follow up with PCP. 9-Patient WAS NOT identified as an unhealthy alcohol user.
== END | disposition home or self-care (01) ==
LOC: PNWHC3 12:58
PROVIDERS: ATTEND Anesthesiology
DX: M51.36 Other intervertebral disc degeneration, lumbar region (principal); M47.816 Spondylosis without myelopathy or radiculopathy, lumbar region; G89.4 Chronic pain syndrome; Z79.891 Long term (current) use of opiate analgesic
CPT/HCPCS: G0480; G0463; 80307; 80356; 80364; 99211

== ENCOUNTER 2017-04-01 06:25 | Day surgery (SDC) | payer MEDICARE, OTHER ==
[2017-03-31 09:38] VITALS: BMI 27.3
[~2017-04-01 06:25] MED LIST: LACTATED RINGERS 1,000 ML IV SCH
[2017-04-01] MEDS ORDERED: LACTATED RINGERS 1,000 ML IV ONE (06:50)
[2017-04-01 06:51] VITALS: TEMP 98
[2017-04-01] MEDS ORDERED: LIDOCAINE 1% 20 ML VIAL (10MG/ML) FOR IV START INTRADERMA ONE (06:51)
[2017-04-01] MEDS ORDERED: IV FLUID CONTINUATION 1,000 ML IV ONE (08:13)
[2017-04-01 08:17] VITALS: RESP 16
--- NOTE | 2017-04-01 08:17 | P.PCN ---
Date of Procedure: 04/01/17 Surgeon: Rafael Carrera Pathology: none sent Condition: stable Disposition: PACU Description of Procedure: PREOPERATIVE DIAGNOSIS: Lumbar spondylosis without myelopathy and facet arthropathy POSTOPERATIVE DIAGNOSIS: Lumbar spondylosis without myelopathy and facet arthropathy PROCEDURES: Right Radiofrequency thermocoagulation, L3-L4, L4-L5, and L5-S1 medial branch, with fluoroscopic guidance. ANESTHESIA: 1% lidocaine plain; Conscious sedation with versed/fentanyl EBL: Minimal PROCEDURE INDICATION: The patient with low back pain secondary to lumbar arthropathy who had more than 50% relief of pain with previous diagnostic lumbar medial branch block with bupivacaine. Patient presents for R lumbar RFA today; no use of blood thinners. PROCEDURE DESCRIPTION / TECHNIQUE: The patient was seen and identified in the preoperative area. Risks, benefits, complications, and alternatives were discussed with the patient (including but not limited to incomplete pain relief , bleeding, infection, nerve damage, and allergies to medications), the patient agreed to proceed with the procedure and signed the consent after all questions were answered. Patient was taken to the OR and time out was completed to verify proper patient , position, laterality of pain, and allergies. Pt was placed in the prone position. IV was started. Vital signs remained stable throughout the procedure. A pillow was placed under the patients chest to decrease lordosis. The lumbosacral area was prepped and draped in the usual sterile fashion. Vital signs were closely monitored during the procedure. Conscious sedation was used during the procedure to decrease patients anxiety. Using AP and then oblique fluoroscopy, the eye of the Michael dog corresponding to the connection between the superior and transverse articular processes of right L4, L5 and top of the sacrum were identified, marked, and localized with 1% lidocaine. Subsequently, a 18 gauge, 100-mm radiofrequency cannula with a 10-mm active tip was advanced guided by fluoroscopy to each of the eyes of the Michael dog at right L3, L4, and L5 medial branches. Each site then underwent sensory testing at 50 Hz and 0 to 1 volt and motor testing at 2 Hz and 0 to 3 volt with local stimulation, but no radicular symptoms down the legs. Thereafter the right L3, L4, and L5 medial branch sites underwent radiofrequency thermocoagulation at 80 degrees Celsius for 90 seconds after injecting 0.5 ml of PF lidocaine 1%. After thermocoagulation, 1 ml of the block solution containing Kenalog 40 mg and 2 mL of preservative-free normal saline was injected at the right L3, L4, and L5 medial branch levels after negative aspiration of CSF and blood and with no paresthesias. Cannulas were retracted while injecting lidocaine 1% until the needles were removed. At the end of the procedure, the skin was cleansed and bandages were applied. COMPLICATIONS: No acute complications. DISPOSITION / PLANS: The patient was placed in a supine position and transferred to the recovery area in a stable condition for observation and was discharged from the recovery room after meeting discharge criteria. Home discharge instructions given to the patient by the staff. The patient was reexamined prior to discharge and there were no issues. The patient will schedule a left lumbar RFA in 4-6 weeks.
[2017-04-01 08:30] VITALS: BP 121/58; PULSE 54
--- NOTE | 2017-04-01 10:11 | FL ---
EXAMINATION TYPE: FL guided pain mgmt statistic DATE OF EXAM: 04/01/2017 HISTORY: Pain 16 sec fl, 4 films scanned
== END 2017-04-01 08:42 | disposition home or self-care (01) ==
LOC: ORPAIN 06:25
PROVIDERS: ATTEND Anesthesiology
DX: M47.816 Spondylosis without myelopathy or radiculopathy, lumbar region (principal); G89.4 Chronic pain syndrome
CPT/HCPCS: 64635; 64636; 99152; 99153

== ENCOUNTER → 2017-04-20 | Outpatient (CLI) | payer MEDICARE, OTHER ==
[2017-04-20 11:26] VITALS: BP 122/67; PULSE 53; RESP 18; TEMP 97.7
--- NOTE | 2017-04-20 21:39 | P.PN ---
Subjective This is follow-up visit for this patient with a history of severe and chronic low back pain secondary to lumbar degenerative disc diseases , lumbar spondylosis with facet arthropathy, we have done interventional pain management injection, radiofrequency ablation of the right-sided medial branch lumbar area at L3/L4 5/L5-S1, and he will be scheduled to have the radiofrequency ablation of the medial branch lumbar area on the left side, currently on pain medication, 1-Lyrica 50 mg every 8 hours 2-Percocet 10/325 every 8 hours 3-Zanaflex 4 mg every 8 hours 4-Cymbalta 60 mg daily Patient denies any side effects of the medication, denies excessive drowsiness or sleepiness, denies suicidal ideation, and reports that the current pain medication is NOT helping To control the pain and improve activity of daily living Patient denies any motor or sensory deficit , patient denies any fever or night sweats, denies any change in the bowel movements or urination Physical Examinations : 1-Constitutiona : Cooperative , not in acute distress . 2-HEENT : nech ; supple , no Lymphadenopathy , no Thyromegaly , normal thyroid size . eyes : no ptosis , no icterus, no photophobia . ENT : normal of hearing , normal oropharynx , no Thrush . 3- Respiratory : Chest clear to auscultations Bilaterally , no wheezing , no Rhonchi . 4- Cardiovascular : regular rate and rhythem , S1 , S2 , no S3 , no S4. 5- Gastrointestinal : abdomen soft no tenderness , bowel sounds positive all four quadrents , no organomegally . 6- Genitourinary : Defferred . 7- neurologic : Cranial nerve II to XII intact , no focal neurological deffecit . 8-psychatric : alert , oriented X 3 , appropriate affect , intact judgment and insight . 9-Lymphatic : no Lymphadenopathy . 10- musculoskeltal : exams of the cervical spine = motor strength normal bilateral upper extremities facet loading test cervical area positive. exams of the Lumber spine = motor strength lower extremities ,thigh and legs .5/5 deep tendon reflexes : normal Knee Jerk , normal ankle Jerk . lumber facet Loading Test positive strait leg raising test positive at 30 degree , RT ,LT , Fabere test positive RT and positive LT . Range of motion: Range of motion in flexion of the lumbar spine 30 degrees Range of motion range of motion of extension of the lumbar spine 10 Sever tenderness over the Sacroiliac joint on the Right , and Left side Assessment and plan = Chronic low back pain secondary to lumbar degenerative disc disease , lumbar spondylosis with facet arthropathy without myelopathy , chronic and current use of high-risk medication (Opioids). The patient was counseled about risk of opioid use, psychological risk associated with opioids and was orally counseled to not overuse , divert,or sell dictations to take medications as prescribed only , and to restore medication in safe location , and the patient counseled against driving while using narcotic medications, and also not to use alcohol or any illicit recreational drugs, the patient's verbalized understanding that the lack of compliance will result in failure to renew narcotic prescription and possible discharge from the clinic - diagnoses, prognosis, and treatment options including but not limited to physical therapy, surgical interventions, interventional therapies , and medication management including narcotics and adjuvant medication were discussed with the patient and all the questions answered Patient given prescription refill for his pain medication Lyrica 50 mg every 8 hours dispense 90 with 1 refill Percocet 10/325 every 8 hours dispense 90 with 1 refill Zanaflex 4 mg every 8 hours dispense 90 with 1 refill and patient getting Cymbalta from his primary care 60 mg daily , we did order a urine drug screen today and also patient will be scheduled to have radiofrequency ablation of the medial branch lumbar area on the left side at the L3/L4 5/L5-S1 Objective - Vital Signs Vital signs: Vital Signs Temp 97.7 F 04/20/17 11:17 Pulse 53 L 04/20/17 11:17 Resp 18 04/20/17 11:17 BP 122/67 04/20/17 11:17 Pulse Ox 99 04/20/17 11:17 Intake & Output 04/20/17 04/20/17 04/21/17 06:59 18:59 06:59 Weight 79.379 kg
== END | disposition home or self-care (01) ==
LOC: PNWHC3 10:59
PROVIDERS: ATTEND Specialist
DX: M51.36 Other intervertebral disc degeneration, lumbar region (principal); M47.816 Spondylosis without myelopathy or radiculopathy, lumbar region; M46.86 Other specified inflammatory spondylopathies, lumbar region
CPT/HCPCS: 80307; G0480; G0463; 80356; 99211

== ENCOUNTER 2017-05-19 08:42 | Day surgery (SDC) | payer MEDICARE, OTHER ==
[2017-04-15 09:16] VITALS: BMI 28.1
[2017-05-19 09:02] VITALS: RESP 16; TEMP 97.7
[2017-05-19] MEDS ORDERED: LIDOCAINE 1% 20 ML VIAL (10MG/ML) FOR IV START INTRADERMA ONE (09:12)
--- NOTE | 2017-05-19 09:43 | P.PCN ---
Date of Procedure: 05/19/17 Surgeon: Rafael Carrera Pathology: none sent Condition: stable Disposition: PACU Description of Procedure: PREOPERATIVE DIAGNOSIS: Lumbar spondylosis without myelopathy and facet arthropathy POSTOPERATIVE DIAGNOSIS: Lumbar spondylosis without myelopathy and facet arthropathy PROCEDURES: Left Radiofrequency thermocoagulation, L3-L4, L4-L5, and L5-S1 medial branch, with fluoroscopic guidance. ANESTHESIA: 1% lidocaine plain; Conscious sedation with versed/fentanyl EBL: Minimal PROCEDURE INDICATION: The patient with low back pain secondary to lumbar arthropathy who had more than 50% relief of pain with previous diagnostic lumbar medial branch block with bupivacaine. Patient presents for left lumbar RFA today; no use of blood thinners. PROCEDURE DESCRIPTION / TECHNIQUE: The patient was seen and identified in the preoperative area. Risks, benefits, complications, and alternatives were discussed with the patient (including but not limited to incomplete pain relief , bleeding, infection, nerve damage, and allergies to medications), the patient agreed to proceed with the procedure and signed the consent after all questions were answered. Patient was taken to the OR and time out was completed to verify proper patient , position, laterality of pain, and allergies. Pt was placed in the prone position. IV was started. Vital signs remained stable throughout the procedure. A pillow was placed under the patients chest to decrease lordosis. The lumbosacral area was prepped and draped in the usual sterile fashion. Vital signs were closely monitored during the procedure. Conscious sedation was used during the procedure to decrease patients anxiety. Using AP and then oblique fluoroscopy, the eye of the Michael dog corresponding to the connection between the superior and transverse articular processes of left L4, L5 and top of the sacrum were identified, marked, and localized with 1% lidocaine. Subsequently, a 18 gauge, 100-mm radiofrequency cannula with a 10-mm active tip was advanced guided by fluoroscopy to each of the eyes of the Michael dog at left L3, L4, and L5 medial branches. Each site then underwent sensory testing at 50 Hz and 0 to 1 volt and motor testing at 2 Hz and 0 to 3 volt with local stimulation, but no radicular symptoms down the legs. Thereafter the left L3, L4, and L5 medial branch sites underwent radiofrequency thermocoagulation at 80 degrees Celsius for 90 seconds after injecting 0.5 ml of PF lidocaine 1%. After thermocoagulation, 1 ml of the block solution containing Kenalog 40 mg and 2 mL of preservative-free normal saline was injected at the left L3, L4, and L5 medial branch levels after negative aspiration of CSF and blood and with no paresthesias. Cannulas were retracted while injecting lidocaine 1% until the needles were removed. At the end of the procedure, the skin was cleansed and bandages were applied. COMPLICATIONS: No acute complications. DISPOSITION / PLANS: The patient was placed in a supine position and transferred to the recovery area in a stable condition for observation and was discharged from the recovery room after meeting discharge criteria. Home discharge instructions given to the patient by the staff. The patient was reexamined prior to discharge and there were no issues. The patient will schedule a follow-up in clinic next in 4-6 weeks.
[2017-05-19] MEDS ORDERED: IV FLUID CONTINUATION 1,000 ML IV ONE ×2 (09:57)
--- NOTE | 2017-05-19 10:34 | FL ---
EXAMINATION TYPE: FL guided pain mgmt statistic DATE OF EXAM: 05/19/2017 HISTORY: Flouroscopy time 18 seconds of fluoroscopy provided. IMPRESSION: 1. Fluoroscopy time.
[2017-05-19 10:44] VITALS: BP 178/80; PULSE 60
== END 2017-05-19 10:44 | disposition home or self-care (01) ==
LOC: ORPAIN 08:42
PROVIDERS: ATTEND Anesthesiology
DX: G89.29 Other chronic pain (principal); M47.816 Spondylosis without myelopathy or radiculopathy, lumbar region; M51.36 Other intervertebral disc degeneration, lumbar region; M46.96 Unspecified inflammatory spondylopathy, lumbar region; Z79.891 Long term (current) use of opiate analgesic; Z79.899 Other long term (current) drug therapy
CPT/HCPCS: 64635; 64636; 99152; 99153

== ENCOUNTER → 2017-06-07 | Outpatient (CLI) | payer MEDICARE, OTHER ==
[2017-06-07 12:48] VITALS: BP 155/55; PULSE 67; RESP 18
--- NOTE | 2017-06-07 13:11 | P.PN ---
Progress Note - Text Progress Note Date: 06/07/17 This is a 57-year-old male with history of lumbar degenerative disc disease and facet arthropathy. He is status post left lumbar medial branch RFA. This pain gets better after the procedure but he still gets fluctuations of his pain from time to time depending on his activities. He was hunting for the last week or so as he states and the and this had increased his pain however is doing well overall. He is alert oriented 3 in no apparent distress. He does not show any drug- seeking behavior at this point. He denies any suicidal or homicidal thoughts. No changes in the neurologic signs or symptoms in the lower extremities since his last visit. The his prescription for Percocet Lyrica Zanaflex and Motrin. PQRS measures: 1-Patient's medications are documented in the chart. 2-Tobacco use is positive, counseling given 3-Patient has not had a pneumococcal vaccine. 4-Advanced care planning discussed, patient unable to give 5-Opioid contract signed with the patient. 6-Pain positive, follow-up visit or procedure scheduled 7-Patient's blood pressure measured and documented , slightly elevated. Patient is recommended to follow up with his primary care physician. 8-Patient's weight was measured, and body mass index ABOVE the normal limits, and counseling was done. Patient instructed to follow up with PCP. 9-Patient WAS NOT identified as an unhealthy alcohol user.
== END | disposition home or self-care (01) ==
LOC: PNWHC3 12:31
PROVIDERS: ATTEND Anesthesiology
DX: M54.5 Low back pain (principal)
CPT/HCPCS: 99211

== ENCOUNTER → 2017-09-02 | Outpatient (CLI) | payer MEDICARE, OTHER ==
[2017-09-02 13:24] LABS: HCT 44.9 % (39.0-53.0); MCH 30.2 pg (25.0-35.0); MCHC 33.5 g/dL (31.0-37.0); Mean Platelet Volume 8.3; Platelet Count 255 k/uL (150-450); RBC 4.99 m/uL (4.30-5.90); RDW 13.3 % (11.5-15.5); WBC 8.1 k/uL (3.8-10.6)
[2017-09-02 13:31] LABS: ALT 26 U/L (21-72); AST 30 U/L (17-59); Albumin 4.2 g/dL (3.5-5.0); Alkaline Phosphatase 89 U/L (38-126); Anion Gap 8 mmol/L; Blood Urea Nitrogen 13 mg/dL (9-20); Calcium 9.7 mg/dL (8.4-10.2); Carbon Dioxide 28 mmol/L (22-30); Chloride 100 mmol/L (98-107); Cholesterol 218 mg/dL (<200); Glucose 98 mg/dL (74-99); HDL Cholesterol 45 mg/dL (40-60); LDL Cholesterol,Calculated 142 mg/dL (0-99); Potassium 4.5 mmol/L (3.5-5.1); Sodium 136 mmol/L (137-145); Total Bilirubin 0.7 mg/dL (0.2-1.3); Total Protein 7.3 g/dL (6.3-8.2); Triglycerides 157 mg/dL (<150)
[2017-09-02 13:47] LABS: T4, Free (Free Thyroxine) 1.11 ng/dL (0.78-2.19)
[2017-09-02 14:01] LABS: Prostate Specific Antigen 1.36 ng/mL (0.00-4.00)
[2017-09-02 14:26] LABS: Appearance,Urine Clear (Clear); Bilirubin,Urine Negative (Negative); Blood,Urine Negative (Negative); Color,Urine Light Yellow; Glucose,Urine (UA) Negative (Negative); Ketones,Urine Negative (Negative); Leukocyte Esterase,Urine Negative (Negative); Nitrite,Urine Negative (Negative); PH, Urine 6.5 (5.0-8.0); Protein,Urine Negative (Negative); Specific Gravity,Urine 1.007 (1.001-1.035); Urobilinogen,Urine <2.0 mg/dL (<2.0)
--- NOTE | 2017-09-02 14:51 | P.PN ---
Subjective Progress Note Date: 09/02/17 This is follow-up visit for this patient with a history of severe and chronic low back pain secondary to lumbar degenerative disc disease, lumbar facet arthropathy, we have done Radiofrequency ablation of the medial branch lumbar area done a few months ago , and this helped to improve his pain patient currently on Percocet 10/325 every 8 hours , Zanaflex 4 mg every 8 hours, Lyrica 50 mg every 8 hours, Motrin 800 mg 3 times a day Patient denies any side effects of the medication, denies excessive drowsiness or sleepiness, denies suicidal ideation, and reports that the current pain medication is helping To control the pain and improve activity of daily living . Patient denies any motor or sensory deficit, denies change in bowel movement or urination, patient denies any fever or night sweats and patient here for follow-up visit and medication refill Objective - Exam Physical Examinations : 1-Constitutiona : Cooperative , not in acute distress . 2-HEENT : nech ; supple , no Lymphadenopathy , normal thyroid size . eyes : no ptosis , no icterus, no photophobia . ENT : normal of hearing , normal oropharynx , no Thrush . 3- Respiratory : Chest clear to auscultations Bilaterally , no wheezing , no Rhonchi . 4- Cardiovascular : regular rate and rhythem , S1 , S2 , no S3 , no S4. 5- Gastrointestinal : abdomen soft no tenderness , bowel sounds positive all four quadrents , no organomegally . 6- Genitourinary : Defferred . 7- neurologic : Cranial nerve II to XII intact , no focal neurological deffecit . 8-psychatric : alert , oriented X 3 , appropriate affect , intact judgment and insight . 9-Lymphatic : no Lymphadenopathy . 10- musculoskeltal : , Lumber spine = normal moter stegnth lower extremities ,thigh and legs .5/5 - Labs CBC & Chem 7: 09/02/17 12:58 09/02/17 12:58 Labs: Abnormal Lab Results - Last 24 Hours (Table) 09/02/17 Range/Units 12:58 Sodium 136 L (137-145) mmol/L Triglycerides 157 H (<150) mg/dL Cholesterol 218 H (<200) mg/dL LDL Cholesterol, Calc 142 H (0-99) mg/dL Assessment and Plan Plan: Assessment and plan= chronic low back pain secondary to lumbar degenerative disc disease , lumbar spondylosis with lumbar facet arthropathy , chronic and current use of high-risk medication (opioids) Patient denies any side effects of the current pain medication and the current treatment/medication ML and the patient to do activity of daily living , Diagnoses, prognosis, treatment options, including but not limited to physical therapy, medication management, interventional therapies, and surgery, were discussed with the patient All the questions answered Patient signed the narcotic agreement, and he was orally counseled, not to overuse, not to abuse, not to Divert , not tp sell pain medication, and to take it as prescribed only, Patient was counseled not to drive or operate heavy equipment while using narcotic medication, and advised not to use alcohol or any Illicit drugs while using the narcotis, the patient's verbalized understanding that lack of compliance with any of the above instructions and will likely to cause discharge from the pain service, not to renew his narcotic prescriptions Medication managements= patient will be E prescription refills for Zanaflex 4 mg every 8 hours dispense 90 with 1 refill, Percocet 10/325 every 8 hours dispense 90 with 1 refill, Lyrica 50 mg every 8 hours dispense 90 with 1 refill , Motrin 800 mg 3 times a day dispense 90 with 1 refill, Patient's blood pressure today was 173/86 , and patient had history of high blood pressure , I encouraged patient to to see his primary care [facility],, and explained to the patient the risk of not treating her blood pressure could affect his heart and kidney and brain and vision , patient's sound understood and he is scheduled to see his primary care [facility] , Time with Patient: Less than 30
--- NOTE | 2017-09-02 15:55 | US ---
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 EXAM MEASUREMENTS: Post Void Residual Volume: 1.76 ml mL Color Doppler performed to assess ureteral jets. Bilateral Jets seen: yes Normal Post Void Residual (less than 50ml): yes IMPRESSION: No distinct abnormality seen.
== END | disposition home or self-care (01) ==
LOC: RADUSWWP 12:41
PROVIDERS: ATTEND Family Medicine
DX: N40.1 Benign prostatic hyperplasia with lower urinary tract symptoms (principal); I10 Essential (primary) hypertension; E78.5 Hyperlipidemia, unspecified
CPT/HCPCS: 36415; 76857; 80053; 80061; 81003; 84153; 84439; 84443; 85027

== ENCOUNTER → 2017-09-02 | Outpatient (CLI) | payer MEDICARE, OTHER ==
[2017-09-02 14:17] VITALS: BP 173/86; PULSE 67; RESP 16; TEMP 97.8
--- NOTE | 2017-09-02 14:51 | P.PN ---
Subjective Progress Note Date: 09/02/17 This is follow-up visit for this patient with a history of severe and chronic low back pain secondary to lumbar degenerative disc disease, lumbar facet arthropathy, we have done Radiofrequency ablation of the medial branch lumbar area done a few months ago , and this helped to improve his pain patient currently on Percocet 10/325 every 8 hours , Zanaflex 4 mg every 8 hours, Lyrica 50 mg every 8 hours, Motrin 800 mg 3 times a day Patient denies any side effects of the medication, denies excessive drowsiness or sleepiness, denies suicidal ideation, and reports that the current pain medication is helping To control the pain and improve activity of daily living . Patient denies any motor or sensory deficit, denies change in bowel movement or urination, patient denies any fever or night sweats and patient here for follow-up visit and medication refill Objective - Exam Physical Examinations : 1-Constitutiona : Cooperative , not in acute distress . 2-HEENT : nech ; supple , no Lymphadenopathy , normal thyroid size . eyes : no ptosis , no icterus, no photophobia . ENT : normal of hearing , normal oropharynx , no Thrush . 3- Respiratory : Chest clear to auscultations Bilaterally , no wheezing , no Rhonchi . 4- Cardiovascular : regular rate and rhythem , S1 , S2 , no S3 , no S4. 5- Gastrointestinal : abdomen soft no tenderness , bowel sounds positive all four quadrents , no organomegally . 6- Genitourinary : Defferred . 7- neurologic : Cranial nerve II to XII intact , no focal neurological deffecit . 8-psychatric : alert , oriented X 3 , appropriate affect , intact judgment and insight . 9-Lymphatic : no Lymphadenopathy . 10- musculoskeltal : , Lumber spine = normal moter stegnth lower extremities ,thigh and legs .5/5 - Labs Labs: Abnormal Lab Results - Last 24 Hours (Table) 09/02/17 Range/Units 12:58 Sodium 136 L (137-145) mmol/L Triglycerides 157 H (<150) mg/dL Cholesterol 218 H (<200) mg/dL LDL Cholesterol, Calc 142 H (0-99) mg/dL Assessment and Plan Plan: Assessment and plan= chronic low back pain secondary to lumbar degenerative disc disease , lumbar spondylosis with lumbar facet arthropathy , chronic and current use of high-risk medication (opioids) Patient denies any side effects of the current pain medication and the current treatment/medication ML and the patient to do activity of daily living , Diagnoses, prognosis, treatment options, including but not limited to physical therapy, medication management, interventional therapies, and surgery, were discussed with the patient All the questions answered Patient signed the narcotic agreement, and he was orally counseled, not to overuse, not to abuse, not to Divert , not tp sell pain medication, and to take it as prescribed only, Patient was counseled not to drive or operate heavy equipment while using narcotic medication, and advised not to use alcohol or any Illicit drugs while using the narcotis, the patient's verbalized understanding that lack of compliance with any of the above instructions and will likely to cause discharge from the pain service, not to renew his narcotic prescriptions Medication managements= patient will be E prescription refills for Zanaflex 4 mg every 8 hours dispense 90 with 1 refill, Percocet 10/325 every 8 hours dispense 90 with 1 refill, Lyrica 50 mg every 8 hours dispense 90 with 1 refill , Motrin 800 mg 3 times a day dispense 90 with 1 refill, Patient's blood pressure today was 173/86 , and patient had history of high blood pressure , I encouraged patient to to see his primary care [facility],, and explained to the patient the risk of not treating her blood pressure could affect his heart and kidney and brain and vision , patient's sound understood and he is scheduled to see his primary care [facility] , Time with Patient: Less than 30
== END | disposition home or self-care (01) ==
LOC: PNWHC3 13:26
PROVIDERS: ATTEND Specialist
DX: G89.29 Other chronic pain (principal); M51.36 Other intervertebral disc degeneration, lumbar region; M47.816 Spondylosis without myelopathy or radiculopathy, lumbar region; M46.96 Unspecified inflammatory spondylopathy, lumbar region; Z79.899 Other long term (current) drug therapy; Z79.1 Long term (current) use of non-steroidal anti-inflammatories (NSAID)
CPT/HCPCS: 99211

== ENCOUNTER → 2017-10-28 | Outpatient (CLI) | payer MEDICARE, OTHER ==
[2017-10-28 14:15] VITALS: BP 152/83; PULSE 61; RESP 18
--- NOTE | 2017-10-28 14:59 | P.PN ---
Progress Note - Text Progress Note Date: 10/28/17 Patient returns for follow-up visit with chief complaint of low back pain, neck pain. Patient is status post left RFA back in May, patient states that he has had good relief with radiofrequency ablation. Patient does not present with any new complaints, and he senses that the radio frequency ablation is beginning to wear off slightly and will want to be rescheduled for one in the future. Patient had elevated blood pressure on previous visit, however currently blood pressure is significantly improved. 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 Patient is tolerating his medications well is not describe any side effects. Today, pt denies new-onset weakness, bowel/bladder incontinence, or any other signs or symptoms of cauda equina syndrome. There are no signs of acute intoxication, and no indications of medication diversion or overuse. In addition to above, 13-point review of systems is also negative for chest pain , shortness of breath, changes in vision, changes in hearing, new onset weakness , abdominal pain, diarrhea, extreme fatigue, malaise, fever, skin changes, homicidal or suicidal ideation, or bowel or bladder incontinence. Vital Signs: Reviewed in EMR Gen: WDWN, AAOx3, NAD HEENT: NCAT, EOMI, hearing grossly normal Pulm: resp unlabored Abd: soft, NT, ND Neck: supple, trachea midline ROM in flexion lumbar spine: reduced ROM in extension lumbar spine: reduced Lumbar paravertebral tenderness: ++ Facet loading: ++ Bilateral SI joint tenderness: + bilateral Keegan's test: neg bilateral Neuro: CN II-XII grossly intact, muscle strength lower extremities PRESERVED Imaging: Reviewed in EMR Assessment: 1. lumbar spondylosis without myelopathy 2. chronic pain syndrome 3. lumbar DDD Plan: 1. Explanation: Opioid and psychological risk scores were reviewed. Diagnoses , prognoses, and multiple treatment options including but not limited to physical therapy, interventional therapies, adjuvant medical therapies, narcotic medication therapies, and surgery were discussed with the patient and all questions were answered to the patient's satisfaction. 2. Opioid agreement: Patient has previously signed narcotic agreement, and was orally counseled to not overuse, abuse, divert, or cell medications, and to take them as prescribed by only 1 healthcare provider. The patient was also counseled to store opioid medications in a safe and preferably locked location. Patient was also counseled against driving while using narcotic medications and also to not use alcohol or any illicit or recreational drugs. The patient verbalized understanding that lack of compliance with any of the above and likely result in failure to renew narcotic prescriptions, possible discharge from the clinic, and possible legal ramifications thereafter if indicated. 3. Counseling: The patient was counseled extensively on SMOKING CESSATION, BODY MASS INDEX, EXERCISE. Specifically, the patient was instructed regarding the importance of smoking cessation, obesity, and exercise in the context of both chronic pain and overall health. 4. Procedures: none 5. Consultations: None 6. Investigations: none 7. Medications: Percocet 10/325 #90 with one refill, #90 after; Lyrica, Zanaflex, and Motrin refilled with three refills 8. Disposition: patient advised to go to ER for extremely high BP; otherwise, f /u for re-eval 8 weeks PQRS measures: 1-Patient's medications are documented in the chart. 2-Tobacco use is positive/negative, counseling NOT given 3-Patient has not had a pneumococcal vaccine. 4-Advanced care planning discussed, patient unable to give. 5-Opioid contract signed with the patient. 6-Pain positive, follow-up visit or procedure scheduled 7-Patient's blood pressure measured and documented, and patient will follow up with the primary care due to hypertension. 8-Patient's weight was measured, and body mass index ABOVE the normal limits, and counseling was done. Patient instructed to follow up with PCP. 9-Patient WAS NOT identified as an unhealthy alcohol user.
== END | disposition home or self-care (01) ==
LOC: PNWHC3 12:38
PROVIDERS: ATTEND Anesthesiology
DX: G89.4 Chronic pain syndrome (principal); M51.36 Other intervertebral disc degeneration, lumbar region; M47.816 Spondylosis without myelopathy or radiculopathy, lumbar region
CPT/HCPCS: 99211

== ENCOUNTER → 2017-12-23 | Outpatient (CLI) | payer MEDICARE, OTHER ==
[2017-12-23 13:33] VITALS: BP 121/70; PULSE 57; RESP 18
--- NOTE | 2017-12-23 14:00 | P.PN ---
Progress Note - Text Progress Note Date: 12/23/17 Patient returns for followup for chronic back pain with some radiation to both legs. Patient has had relief from left lumbar RFA done in May. Patient continues on Percocet/Zanaflex, and Lyrica medications for pain with good relief. Patient denies adverse drug effects from medications. Today, pt denies new-onset weakness, bowel/bladder incontinence, or any other signs or symptoms of cauda equina syndrome. There are no signs of acute intoxication, and no indications of medication diversion or overuse. In addition to above, 13-point review of systems is also negative for chest pain , shortness of breath, changes in vision, changes in hearing, new onset weakness , abdominal pain, diarrhea, extreme fatigue, malaise, fever, skin changes, homicidal or suicidal ideation, or bowel or bladder incontinence. Vital Signs: Reviewed in EMR Gen: WDWN, AAOx3, NAD HEENT: NCAT, EOMI, hearing grossly normal Pulm: resp unlabored Abd: soft, NT, ND Neck: supple, trachea midline ROM in flexion lumbar spine: reduced ROM in extension lumbar spine: reduced Lumbar paravertebral tenderness: ++ Facet loading: ++ bilateral SI joint tenderness: + bilateral Keegan's test: neg Imaging: Reviewed in EMR Assessment: 1. lumbar spondylosis without myelopathy 2. chronic pain syndrome 3. lumbar DDD Plan: 1. Explanation: Opioid and psychological risk scores were reviewed. Diagnoses , prognoses, and multiple treatment options including but not limited to physical therapy, interventional therapies, adjuvant medical therapies, narcotic medication therapies, and surgery were discussed with the patient and all questions were answered to the patient's satisfaction. 2. Opioid agreement: Patient has previously signed narcotic agreement, and was orally counseled to not overuse, abuse, divert, or cell medications, and to take them as prescribed by only 1 healthcare provider. The patient was also counseled to store opioid medications in a safe and preferably locked location. Patient was also counseled against driving while using narcotic medications and also to not use alcohol or any illicit or recreational drugs. The patient verbalized understanding that lack of compliance with any of the above and likely result in failure to renew narcotic prescriptions, possible discharge from the clinic, and possible legal ramifications thereafter if indicated. 3. Counseling: The patient was counseled extensively on SMOKING CESSATION, BODY MASS INDEX, EXERCISE. Specifically, the patient was instructed regarding the importance of smoking cessation, obesity, and exercise in the context of both chronic pain and overall health. 4. Procedures: R lumbar RFA 3-4 weeks 5. Consultations: None 6. Investigations: UDS today; MAPS queried and appropriate 7. Medications: Percocet 10/325 #90 with no refill; Lyrica, Zanaflex both refilled with one refill 8. MME/day: 45 (unchanged) 9. Disposition: f/u for procedure as scheduled PQRS measures: 1-Patient's medications are documented in the chart. 2-Tobacco use is positive, counseling given 3-Patient has not had a pneumococcal vaccine. 4-Advanced care planning discussed, patient unable to give. 5-Opioid contract signed with the patient. 6-Pain positive, follow-up visit or procedure scheduled 7-Patient's blood pressure measured and documented, and patient will follow up with the primary care due to hypertension. 8-Patient's weight was measured, and body mass index ABOVE the normal limits, and counseling was done. Patient instructed to follow up with PCP. 9-Patient WAS NOT identified as an unhealthy alcohol user.
== END | disposition home or self-care (01) ==
LOC: PNWHC3 13:08
PROVIDERS: ATTEND Anesthesiology
DX: G89.4 Chronic pain syndrome (principal); M51.36 Other intervertebral disc degeneration, lumbar region; M47.816 Spondylosis without myelopathy or radiculopathy, lumbar region; Z79.891 Long term (current) use of opiate analgesic; Z79.899 Other long term (current) drug therapy; Z72.0 Tobacco use
CPT/HCPCS: 80356; 99211

== ENCOUNTER → 2018-01-20 | Outpatient (CLI) | payer MEDICARE, OTHER ==
[2018-01-20 13:52] VITALS: BP 135/83; PULSE 68; RESP 20
--- NOTE | 2018-01-20 14:37 | P.PAINPG ---
Subjective Progress Note Date: 01/20/18 Principal diagnosis: Low back pain This is a 57 showed gentleman with a history of significant low back pain. He is undergone radio frequency ablation in the past. This is been helpful for him to reduce his pain. He is now wanting to repeat this procedure as his pain has returned significantly. He also complains of abdominal swelling. Both the patient and his report that this is a variable experience and that his abdomen will expand based on different foods. They also report that he is quite constipated. He denies bowel or bladder dysfunction or lumbar radicular symptoms. Objective - Vital Signs Vital signs: Vital Signs Temp Pulse 68 01/20/18 13:44 Resp 20 01/20/18 13:44 BP 135/83 01/20/18 13:44 Pulse Ox 98 01/20/18 13:44 Intake & Output 01/19/18 01/20/18 01/20/18 18:59 06:59 18:59 Weight 74.843 kg - Exam General: The patient is alert and oriented. Patient is not sedateded Patient answers all question appropriately. Cardiac: Heart is regular in rate and rhythm Respiratory: Clear to auscultation. No audible wheezes. Abdomen: His abdomen is distended and nontender. It is tympanic to percussion. Lower extremities: Strength is normal bilaterally. Sensation is normal bilaterally. Reflexes are preserved and symmetric bilaterally. Straight leg raise is negative bilaterally. Facet loading maneuvers are positive on the left and somewhat positive on the right. Assessment and Plan Plan: Plan of Care 1. Medications: I reviewed the patient's maps report. It reveals appropriate results. He has signed a consent talking form. I will refill his medicines today. He reports that these are helpful and to improve his functioning. He is requesting an elevation of his opiates which I have denied. I've encouraged him to pursue Senokot and a gluten-free diet to see if these maneuvers will help with his abdominal distention which I believe is playing a role in his back pain. I have reviewed the patient's MAPS report and it reveals expected results. Patient has signed an opiate agreement as well as opiate consent for treatment in our clinic. They understand the risks and benefits of opiate medications. They are aware of the potential for addiction. 2. Interventions: We'll schedule the patient for left lumbar radio frequency ablation at L4, L5 and the sacral ala. This will be scheduled in April. 3. Referrals: I refer the patient back to his family physician for evaluation of his abdominal distention and management of his hypertension 4. Testing: None 5. Psychological: Patient denies depression or anxiety today. I would not refer him to a psychologist. PQRS Measure Charge Sheet Measure #130: Documentation of Current Meds in Medical Chart: Patient's medications documented in chart Measure #226: Tobacco Use: Screen & Cessation Intervention: Pt screened for tobacco use AND intervention given Measure #111: Pneumonia Vaccination: Pneumococcal vaccine NOT administered or previously given Measure #47: Advance Care Plan: Advance care planning discussed & documented, pt chose/unable to give Measure #412: Opioid Treatment Agreement: Documented signed opioid trtmnt agreemnt min once during opioid trtmnt Measure #408: Opioid Therapy Follow-up Evaluation: Patient had f/u eval minimum every 3 months during opioid therapy Measure #317: Preventitive Care & Scrn High Bld Press & F/U: Pre-hypertensive or hypertensive BP documented, pt will f/u with PCP Measure #128: Body Mass Index (BMI) Screening & Follow-up: BMI documented ABOVE normal parameters - f/u documented Measure #131: Pain Assessment & Follow-up: Pain positive & plan documented Measure #431: Unhealthy Alcohol Use Preventative Care & Scrn: Patient not identified as an unhealthy alcohol user PQRS Narrative: Smoking Status Current every day smoker Do You Want the Pneumonia No Vaccine AT THIS TIME? Narcotic Agreement Date Signed 04/04/12 Blood Pressure 135/83 Pain Intensity [Left Lower 10 Back] Scale Used Numeric (1 - 10) Hx Alcohol Use (MH) No Home Medications: Ambulatory Orders DULoxetine HCL [Cymbalta] 60 mg PO DAILY 12/12/13 Lisinopril/Hydrochlorothiazide [Zestoretic 20-12.5] 1 tab PO DAILY 11/14/15 Tamsulosin HCl [Flomax] 0.8 mg PO HS 02/03/16 Aspirin EC [Ecotrin Low Dose] 162 mg PO TID 07/22/16 Albuterol Inhaler [Ventolin Hfa Inhaler] 2 puff INHALATION RT-Q4H PRN 09/18/16 Naproxen [Naprosyn] 1 tab PO TID 10/28/17 Pregabalin [Lyrica] 150 mg PO Q8HR #90 capsule 12/23/17 oxyCODONE-APAP 10-325MG [Percocet 10-325 mg] 1 tab PO Q8HR PRN 30 Days #90 tab 12/23/17 tiZANidine [Zanaflex] 4 mg PO Q8H PRN 30 Days #90 tab 12/23/17 Controlled Substance Measures - Controlled Substance Measures Is patient prescribed a controlled substance at discharge?: Yes When asked, does pt state using other controlled substances?: No If Rx opioid, was Start Talking consent form obtained?: Yes Was information provided regarding opioid addiction?: Yes
== END | disposition home or self-care (01) ==
LOC: PNWHC3 12:58
PROVIDERS: ATTEND Pain Medicine Pain Medicine
DX: M54.5 Low back pain (principal); F17.200 Nicotine dependence, unspecified, uncomplicated; Z79.899 Other long term (current) drug therapy; Z79.82 Long term (current) use of aspirin; Z79.2 Long term (current) use of antibiotics; Z79.891 Long term (current) use of opiate analgesic
CPT/HCPCS: 99211

== ENCOUNTER → 2018-02-17 | Outpatient (CLI) | payer MEDICARE, OTHER ==
[2018-02-17 13:00] VITALS: BP 133/56; PULSE 56
--- NOTE | 2018-02-17 13:35 | P.PN ---
Subjective Progress Note Date: 02/17/18 A 57-year-old gentleman with history of lower back pain that fluctuates in intensity and radiates down both legs. Sometimes if his the right side is worse than the left side and other days if it is the opposite. He denies any bowel or bladder dysfunction or any weakness in the lower extremities. He takes Percocet 3 times a day which helps him do his daily activities however he asked me to increase the dose for increasing intensity of pain. In addition to above, 13-point review of systems is also negative for chest pain , shortness of breath, changes in vision, changes in hearing, new onset weakness , abdominal pain, diarrhea, extreme fatigue, malaise, fever, skin changes, homicidal or suicidal ideation, or bowel or bladder incontinence. Vital Signs: Reviewed in EMR Gen: WDWN, AAOx3, NAD HEENT: NCAT, EOMI, hearing grossly normal Pulm: resp unlabored Neck: supple, trachea midline ROM in flexion lumbar spine: reduced ROM in extension lumbar spine: reduced Lumbar paravertebral tenderness: ++ Facet loading: ++ bilateral SI joint tenderness: + bilateral Keegan's test: neg Imaging: Reviewed in EMR Assessment: 1. lumbar spondylosis without myelopathy 2. chronic pain syndrome 3. lumbar DDD Plan: 1. Explanation: Opioid and psychological risk scores were reviewed. Diagnoses , prognoses, and multiple treatment options including but not limited to physical therapy, interventional therapies, adjuvant medical therapies, narcotic medication therapies, and surgery were discussed with the patient and all questions were answered to the patient's satisfaction. 2. Opioid agreement: Patient has previously signed narcotic agreement, and was orally counseled to not overuse, abuse, divert, or cell medications, and to take them as prescribed by only 1 healthcare provider. The patient was also counseled to store opioid medications in a safe and preferably locked location. Patient was also counseled against driving while using narcotic medications and also to not use alcohol or any illicit or recreational drugs. The patient verbalized understanding that lack of compliance with any of the above and likely result in failure to renew narcotic prescriptions, possible discharge from the clinic, and possible legal ramifications thereafter if indicated. 3. Counseling: The patient was counseled extensively on SMOKING CESSATION, BODY MASS INDEX, EXERCISE. Specifically, the patient was instructed regarding the importance of smoking cessation, obesity, and exercise in the context of both chronic pain and overall health. 4. Procedures: None at this point 5. Consultations: None 6. Investigations: MAPS queried and appropriate 7. Medications: Percocet 10/325 #90 with no refill; Lyrica, Zanaflex both refilled with one refill. I denied the patient's request to increase his Percocet dose at this point. 8. MME/day: 45 (unchanged) 9. Disposition: Follow up in the pain clinic in 2 months. Objective - Vital Signs Vital signs: Vital Signs Temp Pulse 56 L 02/17/18 12:49 Resp BP 133/56 02/17/18 12:49 Pulse Ox 99 02/17/18 12:49 Intake & Output 02/16/18 02/17/18 02/17/18 18:59 06:59 18:59 Weight 74.843 kg
== END | disposition home or self-care (01) ==
LOC: PNWHC3 11:40
PROVIDERS: ATTEND Anesthesiology
DX: G89.4 Chronic pain syndrome (principal); M54.5 Low back pain; M51.36 Other intervertebral disc degeneration, lumbar region; M47.816 Spondylosis without myelopathy or radiculopathy, lumbar region; Z79.891 Long term (current) use of opiate analgesic
CPT/HCPCS: 99211

== ENCOUNTER → 2018-03-01 | Outpatient (CLI) | payer MEDICARE, OTHER ==
[2018-03-01 14:09] LABS: Basophils % (A) 0 %; Eosinophils # (A) 0.1 k/uL (0-0.7); Eosinophils % (A) 0 %; HCT 43.2 % (39.0-53.0); HGB 14.9 gm/dL (13.0-17.5); Lymphocytes # (A) 1.4 k/uL (1.0-4.8); Lymphocytes % (A) 9 %; MCH 30.6 pg (25.0-35.0); MCHC 34.5 g/dL (31.0-37.0); MCV 88.7 fL (80.0-100.0); Mean Platelet Volume 8.3; Monocytes # (A) 0.8 k/uL (0-1.0); Monocytes % (A) 6 %; Neutrophils # (A) 12.3 k/uL (1.3-7.7); Neutrophils % (A) 83 %; Platelet Count 248 k/uL (150-450); RBC 4.87 m/uL (4.30-5.90); RDW 13.4 % (11.5-15.5); WBC 14.9 k/uL (3.8-10.6)
[2018-03-01 14:22] LABS: ALT 24 U/L (21-72); AST 17 U/L (17-59); Alkaline Phosphatase 97 U/L (38-126); Amylase 45 U/L (30-110); Anion Gap 7 mmol/L; Blood Urea Nitrogen 11 mg/dL (9-20); Calcium 9.7 mg/dL (8.4-10.2); Carbon Dioxide 28 mmol/L (22-30); Chloride 102 mmol/L (98-107); Glucose 102 mg/dL (74-99); Potassium 4.6 mmol/L (3.5-5.1); Sodium 137 mmol/L (137-145); Total Bilirubin 0.6 mg/dL (0.2-1.3); Total Protein 6.9 g/dL (6.3-8.2)
--- NOTE | 2018-03-01 14:36 | CT ---
EXAMINATION TYPE: CT angio abdomen DATE OF EXAM: 03/01/2018 COMPARISON: CT abdomen and pelvis December 30, 2010 HISTORY: Abdominal distension and LLQ pain. Severe pain for [address] DLP: 567 mGycm, Automated Exposure Control for Dose Reduction was Utilized. CONTRAST: CTA scan of the abdomen is performed without oral and with IV Contrast, patient injected with 100 mL of Isovue 370. Three-D reconstructed images are created and reviewed. FINDINGS: VASCULAR: There is moderate mixed plaque in the abdominal aorta extending into iliac branch vessels. There is patent celiac access, SMA, bilateral single renal renal arteries and HUONG without significant plaque or stenosis. Patent internal/external iliac arteries are seen bilaterally without significant stenosis. No aneurysmal change is evident. No linear hypodensity to suggest dissection is seen. LUNG BASES: New small patchy lingular consolidation and/or atelectasis axial image 3. LIVER/GB: No significant abnormality is appreciated. PANCREAS: No significant abnormality is seen. SPLEEN: No significant abnormality is seen. ADRENALS: No significant abnormality is seen. KIDNEYS: There is 3.2 cm simple appearing cyst anteriorly lower pole level left kidney axial image 39 redemonstrated. BOWEL: No significant abnormality is seen. LYMPH NODES: No greater than 1cm abdominal lymph nodes are appreciated. There is new prominent but s ubcentimeter right iliac chain lymph node measuring 8 x 8 mm axial image 52. OSSEOUS STRUCTURES: Moderate multilevel lateral spurring in the visualized lower thoracic spine is no kervin. OTHER: There is new small fat-containing left periumbilical hernia axial image 46. IMPRESSION: No abdominal aortic aneurysm or dissection. No ascites is noted.
== END | disposition home or self-care (01) ==
LOC: RADCTMAIN 12:54
PROVIDERS: ATTEND Family Medicine
DX: R14.0 Abdominal distension (gaseous) (principal); R10.84 Generalized abdominal pain
CPT/HCPCS: 80053; 82150; 85025; 74175; 36415; Q9967

== ENCOUNTER 2018-03-02 15:40 | Inpatient (IN) | payer MEDICARE, OTHER ==
[2018-03-02] MEDS ORDERED: SODIUM CHLORIDE 0.9% 1,000 ML IV STA ×2 (16:29)
[2018-03-02] MEDS ORDERED: ONDANSETRON 4 MG/2 ML VIAL IVP STA (16:29)
[2018-03-02 16:46] LABS: Basophils % (A) 0 %; Eosinophils # (A) 0.1 k/uL (0-0.7); Eosinophils % (A) 1 %; HCT 39.2 % (39.0-53.0); HGB 13.1 gm/dL (13.0-17.5); Lymphocytes # (A) 1.1 k/uL (1.0-4.8); Lymphocytes % (A) 7 %; MCH 29.8 pg (25.0-35.0); MCHC 33.5 g/dL (31.0-37.0); MCV 88.9 fL (80.0-100.0); Mean Platelet Volume 7.9; Monocytes # (A) 1.4 k/uL (0-1.0); Monocytes % (A) 9 %; Neutrophils # (A) 13.1 k/uL (1.3-7.7); Neutrophils % (A) 82 %; Platelet Count 234 k/uL (150-450); RBC 4.41 m/uL (4.30-5.90); RDW 13.4 % (11.5-15.5); WBC 16.1 k/uL (3.8-10.6)
[2018-03-02 16:55] LABS: Prothrombin Time 10.2 sec (9.0-12.0)
--- NOTE | 2018-03-02 17:00 | ED ---
General Adult HPI - General Chief complaint: Abdominal Pain Stated complaint: altered mental status Time Seen by Provider: 03/02/18 16:18 Source: EMS, RN notes reviewed, old records reviewed Mode of arrival: EMS Limitations: altered mental status - History of Present Illness Initial comments: This is a 57-year-old male the ER for evaluation. Please presenting for evaluation regards to fever, not feeling well. Patient is brought in per history obtained by secondary to patient's altered mental state. Patient' s poor strain secondary to clinical status. Patient has known fever per patient denies any nausea vomiting diarrhea no rashes. States patient was seen by family doctor and labwork and CAT scan negative and is is not improved. Patient denies any complaint - Related Data Home Medications Medication Instructions Recorded Confirmed DULoxetine HCL [Cymbalta] 60 mg PO DAILY 12/12/13 03/02/18 Lisinopril/Hydrochlorothiazide 1 tab PO DAILY 11/14/15 03/02/18 [Zestoretic 20-12.5] Tamsulosin HCl [Flomax] 0.4 mg PO HS 02/03/16 03/02/18 Aspirin EC [Ecotrin Low Dose] 81 mg PO DAILY 07/22/16 03/02/18 Acetaminophen [Tylenol] 500 mg PO TID PRN 03/02/18 03/02/18 Atorvastatin [Lipitor] 40 mg PO HS 03/02/18 03/02/18 Folic Acid 1 mg PO DAILY 03/02/18 03/02/18 Omeprazole 20 mg PO DAILY 03/02/18 03/02/18 oxyCODONE-APAP 10-325MG [Percocet 1 tab PO Q6HR PRN 03/02/18 03/02/18 10-325 mg] Previous Rx's Medication Instructions Recorded Pregabalin [Lyrica] 150 mg PO Q8HR #90 capsule 12/23/17 tiZANidine [Zanaflex] 4 mg PO Q8H PRN 30 Days #90 tab 12/23/17 Allergies Allergy/AdvReac Type Severity Reaction Status Date / Time No Known Allergies Allergy Verified 03/02/18 17:46 Review of Systems ROS Statement: Those systems with pertinent positive or pertinent negative responses have been documented in the HPI. ROS Other: All systems not noted in ROS Statement are negative. Past Medical History Past Medical History: Hyperlipidemia, Hypertension, Liver Disease, Musculoskeletal Disorder, Osteoarthritis (OA), Prostate Disorder Additional Past Medical History / Comment(s): Hx Heart Murmur, Hx Head Injury, Migraines, Sciatica, Scoliosis, Pins & Rochelle Down to KOURTNEY Feet, alcoholic cirrhosis , Enlarged Prostate History of Any Multi-Drug Resistant Organisms: None Reported Past Surgical History: Hernia Repair, Orthopedic Surgery Additional Past Surgical History / Comment(s): Rt HAND, AC SEPARATION RIGHT COLLAR BONE -GRAFT FROM ELBOW, COLONOSCOPY, LEFT HIP ORIF,RT ING. HERNIA REPAIR ; MULT PAIN PROC Past Anesthesia/Blood Transfusion Reactions: No Reported Reaction Past Psychological History: Anxiety, Depression Smoking Status: Current every day smoker Past Alcohol Use History: Occasional Past Drug Use History: None Reported - Past Family History Mother History Unknown: Yes Family Medical History: Unable to Obtain Additional Family Medical History / Comment(s): pt was adopted General Exam Limitations: altered mental status General appearance: alert, in no apparent distress, in distress, obese Head exam: Present: atraumatic, normocephalic, normal inspection Eye exam: Present: normal appearance, PERRL, EOMI. Absent: scleral icterus, conjunctival injection, periorbital swelling ENT exam: Present: normal exam, mucous membranes moist Neck exam: Present: normal inspection. Absent: tenderness, meningismus, lymphadenopathy Respiratory exam: Present: normal lung sounds bilaterally. Absent: respiratory distress, wheezes, rales, rhonchi, stridor Cardiovascular Exam: Present: regular rate, normal rhythm, normal heart sounds. Absent: systolic murmur, diastolic murmur, rubs, gallop, clicks GI/Abdominal exam: Present: soft, normal bowel sounds. Absent: distended, tenderness, guarding, rebound, rigid Extremities exam: Present: normal inspection, full ROM, normal capillary refill. Absent: tenderness, pedal edema, joint swelling, calf tenderness Back exam: Present: normal inspection Neurological exam: Present: alert, oriented X3, CN II-XII intact Psychiatric exam: Present: normal affect, normal mood Skin exam: Present: warm, dry, intact, normal color. Absent: rash Course Vital Signs 03/02/18 03/02/18 16:14 17:07 Temperature 101.4 F H Pulse Rate 66 71 Respiratory 18 18 Rate Blood Pressure 104/58 102/53 O2 Sat by Pulse 95 96 Oximetry - Reevaluation(s) Reevaluation #1: 03/02/18 18:09 Patient has does have significant improvement in mental state with IV hydration fever control Reevaluation #2: 03/02/18 18:09 Medical records thoroughly reviewed including prior CAT scans EKG Findings - EKG Comments: EKG Findings:: EKG shows sinus rhythm rate of 66, NE 122, QRS 86, QTC 369 Medical Decision Making - Medical Decision Making 57 male the ER for evaluation of persistent fever, patient will be admitted to rule out bacteremia. Patient is CAT scan of abdomen and pelvis is normal, chest x-ray is negative. No source of fever found - Lab Data Result diagrams: 03/02/18 16:32 03/02/18 16:32 Lab Results 03/02/18 03/02/1818 Range/Units 16:32 16:32 16:32 WBC (3.8-10.6) k/uL RBC (4.30-5.90) m/uL Hgb (13.0-17.5) gm/dL Hct (39.0-53.0) % MCV (80.0-100.0) fL MCH (25.0-35.0) pg MCHC (31.0-37.0) g/dL RDW (11.5-15.5) % Plt Count (150-450) k/uL Neutrophils % % Lymphocytes % % Monocytes % % Eosinophils % % Basophils % % Neutrophils # (1.3-7.7) k/uL Lymphocytes # (1.0-4.8) k/uL Monocytes # (0-1.0) k/uL Eosinophils # (0-0.7) k/uL Basophils # (0-0.2) k/uL PT (9.0-12.0) sec INR (<1.2) APTT (22.0-30.0) sec Sodium 135 L (137-145) mmol/L Potassium 4.1 (3.5-5.1) mmol/L Chloride 100 (98-107) mmol/L Carbon Dioxide 25 (22-30) mmol/L Anion Gap 10 mmol/L BUN 16 (9-20) mg/dL Creatinine 1.45 H (0.66-1.25) mg/dL Est GFR (CKD-EPI)AfAm 62 (>60 ml/min/1.73 sqM) Est GFR (CKD-EPI)NonAf 53 (>60 ml/min/1.73 sqM) Glucose 101 H (74-99) mg/dL Plasma Lactic Acid Gurwinder 1.4 (0.7-2.0) mmol/L Calcium 9.0 (8.4-10.2) mg/dL Total Bilirubin 0.6 (0.2-1.3) mg/dL AST 17 (17-59) U/L ALT 19 L (21-72) U/L Alkaline Phosphatase 75 (38-126) U/L Ammonia <9 (<30) umol/L Total Creatine Kinase 43 L (55-170) U/L CK-MB (CK-2) <0.2 (0.0-2.4) ng/mL CK-MB (CK-2) Rel Index Troponin I <0.012 (0.000-0.034) ng/mL Total Protein 6.4 (6.3-8.2) g/dL Albumin 3.5 (3.5-5.0) g/dL Amylase 41 (30-110) U/L Lipase 29 (23-300) U/L Urine Color Urine Appearance (Clear) Urine pH (5.0-8.0) Ur Specific [place] (1.001-1.035) Urine Protein (Negative) Urine Glucose (UA) (Negative) Urine Ketones (Negative) Urine Blood (Negative) Urine Nitrite (Negative) Urine Bilirubin (Negative) Urine Urobilinogen (<2.0) mg/dL Ur Leukocyte Esterase (Negative) Serum Alcohol <10 mg/dL 03/02/18 03/02/18 03/02/18 Range/Units 16:32 16:32 17:25 WBC 16.1 H (3.8-10.6) k/uL RBC 4.41 (4.30-5.90) m/uL Hgb 13.1 (13.0-17.5) gm/dL Hct 39.2 (39.0-53.0) % MCV 88.9 (80.0-100.0) fL MCH 29.8 (25.0-35.0) pg MCHC 33.5 (31.0-37.0) g/dL RDW 13.4 (11.5-15.5) % Plt Count 234 (150-450) k/uL Neutrophils % 82 % Lymphocytes % 7 % Monocytes % 9 % Eosinophils % 1 % Basophils % 0 % Neutrophils # 13.1 H (1.3-7.7) k/uL Lymphocytes # 1.1 (1.0-4.8) k/uL Monocytes # 1.4 H (0-1.0) k/uL Eosinophils # 0.1 (0-0.7) k/uL Basophils # 0.0 (0-0.2) k/uL PT 10.2 (9.0-12.0) sec INR 1.0 (<1.2) APTT 28.0 (22.0-30.0) sec Sodium (137-145) mmol/L Potassium (3.5-5.1) mmol/L Chloride (98-107) mmol/L Carbon Dioxide (22-30) mmol/L Anion Gap mmol/L BUN (9-20) mg/dL Creatinine (0.66-1.25) mg/dL Est GFR (CKD-EPI)AfAm (>60 ml/min/1.73 sqM) Est GFR (CKD-EPI)NonAf (>60 ml/min/1.73 sqM) Glucose (74-99) mg/dL Plasma Lactic Acid Gurwinder (0.7-2.0) mmol/L Calcium (8.4-10.2) mg/dL Total Bilirubin (0.2-1.3) mg/dL AST (17-59) U/L ALT (21-72) U/L Alkaline Phosphatase (38-126) U/L Ammonia (<30) umol/L Total Creatine Kinase (55-170) U/L CK-MB (CK-2) (0.0-2.4) ng/mL CK-MB (CK-2) Rel Index Troponin I (0.000-0.034) ng/mL Total Protein (6.3-8.2) g/dL Albumin (3.5-5.0) g/dL Amylase (30-110) U/L Lipase (23-300) U/L Urine Color Yellow Urine Appearance Clear (Clear) Urine pH 6.0 (5.0-8.0) Ur Specific [place] 1.007 (1.001-1.035) Urine Protein Negative (Negative) Urine Glucose (UA) Negative (Negative) Urine Ketones Negative (Negative) Urine Blood Negative (Negative) Urine Nitrite Negative (Negative) Urine Bilirubin Negative (Negative) Urine Urobilinogen <2.0 (<2.0) mg/dL Ur Leukocyte Esterase Negative (Negative) Serum Alcohol mg/dL - Radiology Data Radiology results: report reviewed (Chest x-ray negative for acute disease), image reviewed Disposition Clinical Impression: Acute exacerbation of chronic obstructive airways disease, Abdominal pain, Fever Narrative: ro Bacteremia Disposition: ADMITTED IP TO THIS HOSP Condition: Fair Is patient prescribed a controlled substance at d/c from ED?: No Referrals: Ariel Guerra DO [Primary Care Provider] - 1-2 days
[2018-03-02 17:04] LABS: Ammonia <9 umol/L (<30); Lactic Acid, Venous 1.4 mmol/L (0.7-2.0)
[2018-03-02 17:12] LABS: ALT 19 U/L (21-72); AST 17 U/L (17-59); Albumin 3.5 g/dL (3.5-5.0); Alcohol <10 mg/dL; Alkaline Phosphatase 75 U/L (38-126); Amylase 41 U/L (30-110); Anion Gap 10 mmol/L; Blood Urea Nitrogen 16 mg/dL (9-20); Carbon Dioxide 25 mmol/L (22-30); Chloride 100 mmol/L (98-107); Glucose 101 mg/dL (74-99); Lipase 29 U/L (23-300); Potassium 4.1 mmol/L (3.5-5.1); Sodium 135 mmol/L (137-145); Total Bilirubin 0.6 mg/dL (0.2-1.3); Total Protein 6.4 g/dL (6.3-8.2)
[2018-03-02 17:17] LABS: Creatine Kinase 43 U/L (55-170)
[2018-03-02 17:28] LABS: Creatine Kinase MB <0.2 ng/mL (0.0-2.4); Troponin I <0.012 ng/mL (0.000-0.034)
--- NOTE | 2018-03-02 17:31 | XR ---
EXAMINATION TYPE: XR chest 2V DATE OF EXAM: 03/02/2018 COMPARISON: 07/08/2017 HISTORY: Altered mental status TECHNIQUE: Frontal and lateral views of the chest are obtained. FINDINGS: There is mild linear density at the left lung base. The other lung skelton are clear. There is no heart failure. Heart size is normal. There is no pleural effusion. Bony thorax is intact. IMPRESSION: Mild scarring at the left lung base without change. Normal heart.
[2018-03-02 17:48] LABS: Appearance,Urine Clear (Clear); Bilirubin,Urine Negative (Negative); Blood,Urine Negative (Negative); Color,Urine Yellow; Glucose,Urine (UA) Negative (Negative); Ketones,Urine Negative (Negative); Leukocyte Esterase,Urine Negative (Negative); Nitrite,Urine Negative (Negative); Protein,Urine Negative (Negative); Specific Gravity,Urine 1.007 (1.001-1.035); Urobilinogen,Urine <2.0 mg/dL (<2.0)
[2018-03-02] MEDS ORDERED: PIPERACILLIN-TAZOBACTAM 3.375 GM in DEXTROSE/WATER 1 50ML.BAG IVPB STA (18:07)
[2018-03-02] MEDS ORDERED: VANCOMYCIN IV PER PHARMACY 1 EACH MISC MISCELLANE PRN (18:07)
[2018-03-02] MEDS ORDERED: IPRATROPIUM-ALBUTEROL 3 ML NEB INHALATION PRN (18:10)
[2018-03-02] MEDS ORDERED: PNEUMONIA PROTOCOL UTILIZED 1 EACH MISC PO PRN (18:10)
[2018-03-02] MEDS ORDERED: VANCOMYCIN 1,500 MG in SODIUM CHLORIDE 0.9% 250 ML IVPB ONE (19:00)
[2018-03-02] MEDS: SODIUM CHLORIDE 0.9% 1,000 ML IV SCH (20:23)
[2018-03-02 20:44] VITALS: BMI 26.7
[2018-03-02] MEDS ORDERED: HYDROcodone/APAP 5-325MG 1 EACH TAB PO PRN (21:11)
[2018-03-02] MEDS ORDERED: TAMSULOSIN 0.4 MG CAP.ER.24H PO SCH (21:11)
[2018-03-02] MEDS: PREGABALIN 50 MG CAP PO SCH (22:00)
[2018-03-02] MEDS: TAMSULOSIN 0.4 MG CAP.ER.24H PO SCH (22:01)
[2018-03-03] MEDS: PIPERACILLIN-TAZOBACTAM 3.375 GM in DEXTROSE/WATER 1 50ML.BAG IVPB SCH ×3 (00:11→17:07)
[2018-03-03] MEDS ORDERED: ACETAMINOPHEN TAB 500 MG TAB PO PRN (00:23)
[2018-03-03] MEDS ORDERED: oxyCODONE-APAP 10-325MG 1 EACH TAB PO PRN (00:23)
[2018-03-03] MEDS ORDERED: ALPRAZolam 0.25 MG TAB PO PRN (00:25)
[2018-03-03] MEDS ORDERED: TEMAZEPAM 15 MG CAP PO PRN (00:25)
[2018-03-03] MEDS: tiZANidine 4 MG TAB PO PRN ×2 (01:55→10:14)
[2018-03-03] MEDS: SODIUM CHLORIDE 0.9% 1,000 ML IV SCH ×2 (04:26→13:46)
--- NOTE | 2018-03-03 05:20 | HP ---
HISTORY AND PHYSICAL DATE OF SERVICE: 03/02/2018 CHIEF COMPLAINTS: Fever, rigors, chills and abdominal distention. HISTORY OF PRESENT ILLNESS: This 57-year-old gentleman with a past medical history of multiple medical problems including COPD, hypertension, hyperlipidemia, liver disease, history of heart murmurs, anxiety, depression, being followed by Dr. Guerra in the outpatient setting, not feeling well for the past several days. The patient had a high white count. The patient also feeling chills and cold sweats and patient came to [facility] and admitted for evaluation and treatment. The patient also had COPD. There is no history of any headache, loss of consciousness or seizures at this time. The white count is elevated to 16.1. PAST MEDICAL HISTORY: History of COPD, hypertension, hyperlipidemia, liver disease, history of DJD, history of prostate disorder. MEDICATIONS: Medications prior to admission include: 1. Flomax 0.4 t.i.d. 2. Zanaflex 4 mg p.o. q.8. 3. Percocet 1 tablet q.6 p.r.n. 4. Lyrica 150 mg p.o. q.8. 5. Omeprazole 20 mg p.o. daily. 6. Zestoretic 1 tablet p.o. daily. 7. Folic acid 1 mg. 8. Cymbalta 60 mg daily. 9. Lipitor 40 mg at bedtime. 10.Ecotrin 81 mg daily. 11.Tylenol 500 mg t.i.d. p.r.n. ALLERGIES: Allergies are none. FAMILY HISTORY: The patient is adopted, unable to obtain. SOCIAL HISTORY: History of smoking. Previous history of alcohol intake. REVIEW OF SYSTEMS: ENT: No diminished hearing or diminished vision. CARDIOVASCULAR SYSTEM: No angina. RESPIRATORY SYSTEM: No cough or hemoptysis. GI: As mentioned earlier. : No dysuria. NERVOUS SYSTEM: No numbness or weakness. ALLERGY/IMMUNOLOGY: No asthma. MUSCULOSKELETAL: As mentioned earlier. HEMATOLOGY/ONCOLOGY: No history of anemia. ENDOCRINE: No history of diabetes or hypothyroidism. CONSTITUTIONAL: As mentioned earlier. DERMATOLOGY: Negative. RHEUMATOLOGY: Negative. PSYCHIATRY: As mentioned earlier. PHYSICAL EXAMINATION: The patient is alert and oriented x3. Pulse is 75, blood pressure 121/52, respiration 18, temperature 97.8, pulse ox 96% on room air. LEGS: No edema. No swelling. ABDOMEN: Soft. Diffuse distention. No ascites. LABS: WBC 16.1, hemoglobin 13.1, sodium 135. ASSESSMENT: 1. Fever for evaluation, possible sepsis. 2. Increased WBC. 3. Possible alcoholic liver disease. 4. Increased creatinine with mild acute renal failure, possibly prerenal. 5. History of chronic pain syndrome. 6. History of chronic obstructive pulmonary disease. 7. Hypertension. 8. Hyperlipidemia. 9. History of degenerative joint disease. 10.History of prostate disorder. 11.History of head injury. 12.History of migraine. 13.History of hernia repair. 14.Anxiety, depression. 15.History of nicotine dependence. RECOMMENDATIONS AND DISCUSSION: This 57-year-old gentleman who presented with multiple complex medical issues. Will monitor the patient closely. Continue the current medications. Continue symptomatic treatment. Broad-spectrum IV antibiotic has been initiated. Recommend gastroenterology and infectious disease evaluation, blood cultures otherwise resume the home medications, symptomatic treatment provided, DVT prophylaxis. Guarded prognosis because of multiple complex medical issues. Further recommendations to follow. A copy of dictation forwarded to Dr. Guerra, who is the primary physician. MMODL / IJN: [id number] / MTDD
[2018-03-03] MEDS ORDERED: IOPAMIDOL-300 CONTRAST 30 ML VIAL (ORAL USE) PO PRN (06:00)
[2018-03-03] MEDS ORDERED: VANCOMYCIN 1,250 MG in SODIUM CHLORIDE 0.9% 250 ML IVPB SCH (08:00)
[2018-03-03 08:03] LABS: ALT 24 U/L (21-72); AST 19 U/L (17-59); Alkaline Phosphatase 79 U/L (38-126); Anion Gap 7 mmol/L; Blood Urea Nitrogen 11 mg/dL (9-20); Calcium 8.4 mg/dL (8.4-10.2); Carbon Dioxide 24 mmol/L (22-30); Chloride 104 mmol/L (98-107); Glucose 111 mg/dL (74-99); Potassium 3.8 mmol/L (3.5-5.1); Sodium 135 mmol/L (137-145); Total Bilirubin 0.3 mg/dL (0.2-1.3); Total Protein 5.6 g/dL (6.3-8.2)
[2018-03-03] MEDS: TAMSULOSIN 0.4 MG CAP.ER.24H PO SCH (08:15)
[2018-03-03] MEDS: PREGABALIN 50 MG CAP PO SCH ×2 (08:34→17:07)
[2018-03-03] MEDS ORDERED: PANTOPRAZOLE 40 MG/10 ML VIAL IVP SCH (09:00)
[2018-03-03] MEDS ORDERED: TAMSULOSIN 0.4 MG CAP.ER.24H PO SCH (09:00)
[2018-03-03] MEDS ORDERED: ASPIRIN 81 MG PO SCH (09:00)
[2018-03-03] MEDS ORDERED: LISINOPRIL-HCTZ 20-12.5 MG 1 EACH TAB PO SCH (09:00)
[2018-03-03] MEDS ORDERED: DULoxetine HCL 60 MG CAPSULE.DR PO SCH (09:00)
[2018-03-03] MEDS ORDERED: ENOXAPARIN 40 MG/0.4 ML SYRINGE SQ SCH (09:00)
[2018-03-03] MEDS ORDERED: NON-FORMULARY DRUG (Omeprazole [Omeprazole] 20 MG) PO SCH (09:00)
[2018-03-03 09:30] LABS: HCT 35.4 % (39.0-53.0); HGB 12.1 gm/dL (13.0-17.5); MCH 30.7 pg (25.0-35.0); MCHC 34.3 g/dL (31.0-37.0); MCV 89.6 fL (80.0-100.0); Mean Platelet Volume 8.9; Platelet Count 207 k/uL (150-450); RBC 3.95 m/uL (4.30-5.90); RDW 13.5 % (11.5-15.5); WBC 13.3 k/uL (3.8-10.6)
[2018-03-03] MEDS ORDERED: FOLIC ACID 1 MG TAB PO SCH (12:00)
--- NOTE | 2018-03-03 14:33 | XR ---
EXAMINATION TYPE: XR chest 2V DATE OF EXAM: 03/03/2018 COMPARISON: 03/02/2018 TECHNIQUE: PA and lateral views submitted. HISTORY: Pain FINDINGS: The lungs are clear and there is no pneumothorax, pleural effusion, or focal pneumonia. Hypertrophi c and degenerative change spine. Hyperinflation noted. Subsegmental changes seen at the left lung bas e. IMPRESSION: 1. Left basilar atelectasis favored over pneumonia correlate clinically for confirmation..
--- NOTE | 2018-03-03 14:38 | US ---
EXAMINATION TYPE: US abdomen complete DATE OF EXAM: 03/03/2018 COMPARISON: CT 2018 CLINICAL HISTORY: fever , vomiting. Abdomen pain and distension. EXAM MEASUREMENTS: Liver Length: 13.9 cm Gallbladder Wall: 0.2 cm CBD: 0.3 cm Spleen: 10.0 cm Right Kidney: 11.0 x 5.4 x 5.3 cm Left Kidney: 11.2 x 5.7 x 5.2 cm Pancreas: Pancreas Limited by bowel gas. Liver: Liver somewhat heterogeneous in pattern Gallbladder: wnl Evidence for sonographic Souza's sign: yes CBD: visualized portions wnl, limited by overlying bowel gas Spleen: wnl Right Kidney: wnl Left Kidney: 3.5 x 2.5 x 2.9cm hypoechoic area medial inferior pole Upper IVC: wnl Abd Aorta: visualized portions wnl, limited by overlying midline bowel gas IMPRESSION: 1. Liver is somewhat heterogeneous pattern consider fatty infiltration. Hepatitis or hepatocellular d isease in the differential. 2. Left simple renal cyst
[2018-03-03 15:24] VITALS: BP 114/73; PULSE 62; RESP 16; TEMP 97.8
[2018-03-03] MEDS ORDERED: VANCOMYCIN 1,500 MG in SODIUM CHLORIDE 0.9% 250 ML IVPB SCH (19:00)
[2018-03-03] MEDS ORDERED: ATORVASTATIN 40 MG TAB PO SCH (21:00)
--- NOTE | 2018-03-03 21:41 | P.DS ---
Providers Date of admission: 03/02/18 18:10 Attending physician: Reno Ding Consults: 03/03/18 00:03 Consult Physician Routine Consulting Provider: Lata White Consult Reason/Comments: Abdominal distention Do you want consulting provider notified?: Yes, Notify in am 03/03/18 00:24 Consult Physician Routine Consulting Provider: Dallas King Consult Reason/Comments: sepsis Do you want consulting provider notified?: Yes Primary care physician: [facility] Mental Health Course: Patient left AMA Plan - Discharge Summary New Discharge Prescriptions: No Action DULoxetine HCL [Cymbalta] 60 mg PO DAILY Lisinopril/Hydrochlorothiazide [Zestoretic 20-12.5] 1 tab PO DAILY Tamsulosin HCl [Flomax] 0.4 mg PO TID@0900,2100 Aspirin EC [Ecotrin Low Dose] 81 mg PO DAILY Pregabalin [Lyrica] 150 mg PO Q8HR #90 capsule tiZANidine [Zanaflex] 4 mg PO Q8H PRN 30 Days #90 tab PRN Reason: Spasms Acetaminophen [Tylenol] 500 mg PO TID PRN PRN Reason: Pain Or Fever > 100.5 Atorvastatin [Lipitor] 40 mg PO HS Folic Acid 1 mg PO DAILY Omeprazole 20 mg PO DAILY oxyCODONE-APAP 10-325MG [Percocet 10-325 mg] 1 tab PO Q6HR PRN PRN Reason: Pain Discharge Medication List DULoxetine HCL [Cymbalta] 60 mg PO DAILY 12/12/13 [History] Lisinopril/Hydrochlorothiazide [Zestoretic 20-12.5] 1 tab PO DAILY 11/14/15 [ History] Tamsulosin HCl [Flomax] 0.4 mg PO TID@0900,2100 02/03/16 [History] Aspirin EC [Ecotrin Low Dose] 81 mg PO DAILY 07/22/16 [History] Pregabalin [Lyrica] 150 mg PO Q8HR #90 capsule 12/23/17 [Rx] tiZANidine [Zanaflex] 4 mg PO Q8H PRN 30 Days #90 tab 12/23/17 [Rx] Acetaminophen [Tylenol] 500 mg PO TID PRN 03/02/18 [History] Atorvastatin [Lipitor] 40 mg PO HS 03/02/18 [History] Folic Acid 1 mg PO DAILY 03/02/18 [History] Omeprazole 20 mg PO DAILY 03/02/18 [History] oxyCODONE-APAP 10-325MG [Percocet 10-325 mg] 1 tab PO Q6HR PRN 03/02/18 [History ] Follow up Appointment(s)/Referral(s): Ariel Guerra DO [Primary Care Provider] - 1-2 days Discharge Disposition: Left Against Medical Advice
--- NOTE | 2018-03-04 07:27 | CONS ---
CONSULTATION DATE OF SERVICE: 03/03/2018. REASON FOR CONSULTATION: Fever and possible sepsis. HISTORY OF PRESENT ILLNESS: The patient is a 57-year-old male presenting to the ER at [facility] yesterday afternoon for evaluation of a fever and not feeling well. The patient recently did have a component in outpatient setting with the patient did have a CT of abdomen that was negative for any obstruction. The patient also had blood work and he was told that his white count was elevated. Subsequently he was advised to go back to the ER for further evaluation of the same. The patient denies any redness or chills and denies any headache or URI symptoms. No chest pain, shortness of breath. Very minimal cough. No abdominal pain. The patient complaining of some nausea and some vomiting. No diarrhea though. With these symptoms, the patient was evaluated by the ER physician. On arrival to the ER, the patient and did have a fever of 101.4 degrees Fahrenheit. The patient did have an elevated white count of 16,000. The patient did have a UA that was negative. The patient did have a chest x-ray, shows mild scarring in the left lung base without any change. Repeat x-ray done this morning shows the left pneumonia. The patient has been treated with Zosyn. Infectious Disease was consulted for further recommendation regarding antibiotic therapy. Patient is seen on rounds this morning. REVIEW OF SYSTEMS: Constitutional: Positive for weakness and fever. Eyes: No complaint. ENT no complaint. Respiratory as per HPI. Cardiovascular: No complaint. Genitourinary no complaint. Gastrointestinal: As per HPI. Musculoskeletal no complaint. Integumentary: No complaint. Psychological no complaint. Endocrine no complaint. Neurologic no complaint. Psychological: No complaint. PAST MEDICAL HISTORY: Significant for hypertension, hyperlipidemia, prostate disorder. Osteoarthritis. Alcoholic liver cirrhosis and . PAST SURGICAL HISTORY: Hernia repair. Left hip ORIF, colonoscopy. Right inguinal repair. SOCIAL HISTORY: The patient is currently every day smoker. Patient drinks. No drug use. FAMILY HISTORY: No pertinent findings noticed. ALLERGIES: No known drug allergies. MEDICATIONS: The patient is currently on Tylenol, [place], DuoNeb, Xanax, aspirin, Lipitor, Cymbalta, Lovenox, folic acid, Zestoretic. Percocet, Protonix, Zosyn 3.375 g q8. EXAMINATION: Blood pressure is 114/73 with a pulse of 62, temperature 97.8. He is 97% on room air. General description is a middle aged male up in the bed in no distress. No tachypnea or respiration muscles use. HEENT: Shows no pallor or scleral icterus. Oral mucosa membranes dry. Neck: Neck trachea central. No thyromegaly. Lungs unlabored breathing with decreased breath sounds in the bases. No wheeze. Heart S1, S2. Regular rate and rhythm. ABDOMEN: Soft, mildly distended. No guarding. No rigidity. No organomegaly. EXTREMITIES: No edema of the feet. Skin examination: No rash or mass palpable. Neurological: Patient is awake, alert and oriented times three. Mood and affect normal. LABS: White count was elevated at 16,000. Urine is negative. Chest x-ray with left lower lobe atelectasis. The patient did have a CT of abdomen that was reported to be negative. DIAGNOSTIC IMPRESSION/PLAN: Patient admitted to the hospital with sepsis. The patient did have fever, did have elevated white count. The patient symptoms have been cough and vomiting with source questionably left lower lobe pneumonia. However in view of his alcoholic liver disease, with underlying abdominal source needs to be ruled out, especially peritonitis spontaneous bacteria likely intraabdominal pathogen. PLAN: 1. We will obtain ultrasound of the abdomen evidence of ascitic fluid recommend tapping of the same. 2. We will try to obtain sputum for Gram stain culture and sensitivity. 3. We will keep the patient on Zosyn 3.75 g q.8 hours while workup is completed. 4. We will follow up on clinical condition and culture to further adjust medication if needed. Thank you for this consultation. We will follow this patient along with you. MMODL / IJN: [id number] /
[2018-03-04] MEDS ORDERED: PANTOPRAZOLE 40 MG TABLET PO SCH (07:30)
--- NOTE | 2018-03-04 19:59 | P.PN ---
Subjective Progress Note Date: 03/03/18 Progress note being dictated for Dr. Ding. Interval history: This is a 57-year-old gentleman admitted with fever for evaluation, possible sepsis, possible alcoholic liver disease, acute renal failure and multiple other medical issues. Chest x-ray reporting left basilar atelectasis, possible pneumonia. Ultrasound reporting to be infiltrated liver, hepatitis or hepatocellular disease, left simple renal cyst. Afebrile. Improving WBC. Objective - Vital Signs Vital signs: Vital Signs Temp 97.8 F 03/03/18 15:00 Pulse 62 03/03/18 15:00 Resp 16 03/03/18 15:00 BP 114/73 03/03/18 15:00 Pulse Ox 97 03/03/18 15:00 Intake & Output 03/03/18 03/03/18 03/04/18 06:59 18:59 06:59 Intake Total 725 Balance 725 Weight 77.4 kg Intake: Oral 725 Other: Voiding Method Toilet # Voids 3 2 - Exam PHYSICAL EXAM: VITAL SIGNS: As above GENERAL: Sitting up at side, no acute distress HEENT: Conjunctivae normal. eyes normal. Oral mucosa moist NECK: No JVD. No thyroid enlargement. No LNs CARDIOVASCULAR: S1, S2 muffled. No murmur RESPIRATION: Breath sounds diminished in the bases. No rhonchi or crackles. No expiratory wheezing ABDOMEN: Soft, mildly distended, nontender . No guarding. no masses palpable. No ascites.Bowel sounds heard. LEGS: No edema. no swelling PSYCHIATRY: Alert and oriented -3, mood and affect normal. NERVOUS SYSTEM: Cranial N 2-12 grossly normal. Moves all 4 limbs. Diffuse weakness No focal deficits Skin: no ulcer no rash - Labs CBC & Chem 7: 03/03/18 07:07 03/03/18 07:07 Labs: Abnormal Lab Results - Last 24 Hours (Table) 03/03/18 03/03/18 Range/Units 07:07 07:07 WBC 13.3 H (3.8-10.6) k/uL RBC 3.95 L (4.30-5.90) m/uL Hgb 12.1 L (13.0-17.5) gm/dL Hct 35.4 L (39.0-53.0) % Sodium 135 L (137-145) mmol/L Glucose 111 H (74-99) mg/dL Total Protein 5.6 L (6.3-8.2) g/dL Albumin 3.0 L (3.5-5.0) g/dL Microbiology - Last 24 Hours (Table) 03/02/18 18:30 Blood Culture - Preliminary Blood No Growth after 24 hours 03/02/18 16:05 Blood Culture - Preliminary Blood No Growth after 24 hours 03/02/18 17:25 Urine Culture - Preliminary Urine,Voided Assessment and Plan Assessment: 1. Fever for evaluation, possible sepsis secondary to possible acute UTI, left lower lobe pneumonia or intra-abdominal related. 2. Leukocytosis 3. Possible alcoholic liver disease, fatty liver 4. Acute renal failure, improving 5. Chronic pain syndrome 6. History of COPD Plan: Continue current medication regime ,monitoring and symptomatic treatment. Maintain IV antibiotics of Zosyn as per infectious disease. Sputum culture ordered. Follow cultures closely. Patient is eager for discharge as he has no one at home to take care of his dogs. senior sourcing manager notified. Discussed possibly discharge home tomorrow further recommendations to follow. The impression and plan of care has been dictated as directed. : I performed a history and examination of this patient, discussed the same with the dictator. I agree with the dictator's note ,documented as a scribe. Any additional findings or plans will be noted..
== END 2018-03-03 18:30 | disposition left against medical advice (07) | DRG 872 ==
LOC: EC 15:40 → 4MS4W 18:10
PROVIDERS: ADMIT Hospitalist; ATTEND Hospitalist
DX: A41.9 Sepsis, unspecified organism (principal); J44.0 Chronic obstructive pulmonary disease with (acute) lower respiratory infection; J44.1 Chronic obstructive pulmonary disease with (acute) exacerbation; N17.9 Acute kidney failure, unspecified; E78.5 Hyperlipidemia, unspecified; F17.200 Nicotine dependence, unspecified, uncomplicated; F32.9 Major depressive disorder, single episode, unspecified; F41.9 Anxiety disorder, unspecified; G89.4 Chronic pain syndrome; I10 Essential (primary) hypertension; J98.4 Other disorders of lung; K70.30 Alcoholic cirrhosis of liver without ascites; M41.9 Scoliosis, unspecified; N40.0 Benign prostatic hyperplasia without lower urinary tract symptoms; Z79.899 Other long term (current) drug therapy; Z87.820 Personal history of traumatic brain injury
CPT/HCPCS: 36415; 71046; 76700; 80053; 80320; 81003; 82140; 82150; 82550; 82553; 83605; 83690; 84484; 85025; 85027; 85610; 85730; 87040; 87086; 96361; 96374; 99285

== ENCOUNTER → 2018-04-14 | Outpatient (CLI) | payer MEDICARE, OTHER ==
[2018-04-13 10:32] VITALS: BMI 26.6
[2018-04-14 13:07] VITALS: BP 130/69; PULSE 61; RESP 16
--- NOTE | 2018-04-14 19:22 | P.PAINPG ---
Subjective Progress Note Date: 04/14/18 This is follow-up visit for this patient with a history of severe and chronic low back pain secondary to lumbar degenerative disc diseases , lumbar spondylosis with facet arthropathy, We have done interventional pain procedures, radiofrequency ablation of the medial branch lumbar area and this helped his low back pain significantly Patients currently on Percocet 10/325 every 8 hours, Lyrica 50 mg 3 times a day , Zanaflex 4 mg every 8 hours Patient denies any side effects of the medication, denies excessive drowsiness or sleepiness, denies suicidal ideation, and reports that the current pain medication is helping to control the pain ,and improve activity of daily living Patient denies any motor or sensory deficit , patient denies any fever or night sweats, denies any change in the bowel movements or urination Physical Examinations : 1-Constitutional : Cooperative , not in acute distress . 2-HEENT : nech ; supple , no Lymphadenopathy , no Thyromegaly , normal thyroid size . eyes : no ptosis , no icterus, no photophobia . ENT : normal of hearing , normal oropharynx , no Thrush . 3- Respiratory : Chest clear to auscultations Bilaterally , no wheezing , no Rhonchi . 4- Cardiovascular : regular rate and rhythem , S1 , S2 , no S3 , no S4. 5- Gastrointestinal : abdomen soft no tenderness , bowel sounds positive all four quadrents , no organomegally . 6- Genitourinary : Defferred . 7- neurologic: Cranial nerve II to XII intact , no focal neurological deffecit . 8- Psychatric: alert , oriented X 3 , appropriate affect , intact judgment and insight . 9- Lymphatic : no Lymphadenopathy . 10- Musculoskeltal : exams of the cervical spine = motor strength normal bilateral upper extremities facet loading test cervical area positive. exams of the Lumber spine =motor strength lower extremities ,thigh and legs .5/5 deep tendon reflexes : normal Knee Jerk , normal ankle Jerk . lumber facet Loading Test positive strait leg raising test positive at 30 degree , RT ,LT , Fabere test positive RT 30 and positive LT . Range of motion: Range of motion in flexion of the lumbar spine 30 degrees Range of motion range of motion of extension of the lumbar spine 10 Sever tenderness over the Sacroiliac joint on the Right , and Left side Assessment and plan = Chronic low back pain secondary to lumbar degenerative disc disease , lumbar spondylosis with facet arthropathy without myelopathy chronic and current use of high-risk medication (Opioids). The patient was counseled about risk of opioid use, psychological risk associated with opioids and was orally counseled to not overuse , divert,or sell dictations to take medications as prescribed only , and to restore medication in safe location , the patient counseled against driving while using narcotic medications , and also not to use alcohol or any illicit recreational drugs, patient's verbalized understanding that the lack of compliance will result in failure to renew narcotic prescription and possible discharge from the clinic - diagnoses, prognosis, and treatment options including but not limited to physical therapy, surgical interventions, interventional therapies , and medication management including narcotics and adjuvant medication were discussed with the patient and all the questions answered MAPS reviewed and it was apropriate Prescription refill for Percocet 10/325 every 8 hours dispense 90 with 1 refill, Lyrica 150 mg 3 times a day dispense 90 with 1 refill, Zanaflex 4 mg every 8 hours dispense 90 with 1 refill. Patient already scheduled to have radiofrequency ablation of the medial branch lumbar area in the next few days Objective - Vital Signs Vital signs: Vital Signs Temp Pulse 61 04/14/18 12:58 Resp 16 04/14/18 12:58 BP 130/69 04/14/18 12:58 Pulse Ox 98 04/14/18 12:58 PQRS Measure Charge Sheet Measure #130: Documentation of Current Meds in Medical Chart: Patient's medications documented in chart Measure #226: Tobacco Use: Screen & Cessation Intervention: Pt screened for tobacco use AND intervention given Measure #111: Pneumonia Vaccination: Pneumococcal vaccine NOT administered or previously given Measure #47: Advance Care Plan: Advance care planning discussed & documented, pt chose/unable to give Measure #412: Opioid Treatment Agreement: Documented signed opioid trtmnt agreemnt min once during opioid trtmnt Measure #408: Opioid Therapy Follow-up Evaluation: Patient had f/u eval minimum every 3 months during opioid therapy Measure #317: Preventitive Care & Scrn High Bld Press & F/U: Normal blood pressure, f/u not required Measure #128: Body Mass Index (BMI) Screening & Follow-up: BMI documented within normal parameters Measure #131: Pain Assessment & Follow-up: Pain positive & plan documented, Follow-up scheduled Measure #431: Unhealthy Alcohol Use Preventative Care & Scrn: Patient not identified as an unhealthy alcohol user PQRS Narrative: Smoking Status Current every day smoker Do You Want the Pneumonia No Vaccine AT THIS TIME? Narcotic Agreement Date Signed 07/21/16 Blood Pressure 130/69 Pain Intensity [Bilateral 7 Lower Back] Scale Used Numeric (1 - 10) Hx Alcohol Use (MH) No Home Medications: Ambulatory Orders DULoxetine HCL [Cymbalta] 60 mg PO DAILY 12/12/13 Lisinopril/Hydrochlorothiazide [Zestoretic 20-12.5] 1 tab PO DAILY 11/14/15 Tamsulosin HCl [Flomax] 0.4 mg PO TID@0900,2100 02/03/16 Aspirin EC [Ecotrin Low Dose] 81 mg PO DAILY 07/22/16 Acetaminophen [Tylenol] 500 mg PO TID PRN 03/02/18 Atorvastatin [Lipitor] 40 mg PO HS 03/02/18 Folic Acid 1 mg PO DAILY 03/02/18 Omeprazole 20 mg PO DAILY 03/02/18 Pregabalin [Lyrica] 150 mg PO Q8HR #90 capsule 04/14/18 oxyCODONE-APAP 10-325MG [Percocet 10-325 mg] 1 tab PO Q8H PRN #90 tab 04/14/18 oxyCODONE-APAP 10-325MG [Percocet 10-325 mg] 1 tab PO Q8HR PRN 30 Days #90 tab 04/14/18 tiZANidine [Zanaflex] 4 mg PO Q8H PRN 30 Days #90 tab 04/14/18 Controlled Substance Measures - Controlled Substance Measures Is patient prescribed a controlled substance at discharge?: Yes When asked, does pt state using other controlled substances?: No If prescribed controlled substance>3 days was MAPS reviewed?: Yes If Rx opioid, was Start Talking consent form obtained?: Yes If opioid is for acute pain is fill amount 7 days or less?: No Was information provided regarding opioid addiction?: Yes
== END | disposition home or self-care (01) ==
LOC: PNWHC3 11:57
PROVIDERS: ATTEND Specialist
DX: G89.29 Other chronic pain (principal); M54.5 Low back pain; M51.36 Other intervertebral disc degeneration, lumbar region; M47.816 Spondylosis without myelopathy or radiculopathy, lumbar region; M46.86 Other specified inflammatory spondylopathies, lumbar region; F11.90 Opioid use, unspecified, uncomplicated; F17.200 Nicotine dependence, unspecified, uncomplicated; Z71.89 Other specified counseling; Z71.6 Tobacco abuse counseling; Z79.899 Other long term (current) drug therapy
CPT/HCPCS: 99211

== ENCOUNTER 2018-04-18 06:58 | Day surgery (SDC) | payer MEDICARE, OTHER ==
[2018-04-13 10:44] VITALS: BMI 26.6
[2018-04-18] MEDS ORDERED: LACTATED RINGERS 1,000 ML IV SCH (07:00)
[2018-04-18 07:22] VITALS: RESP 16; TEMP 97.8
[2018-04-18] MEDS ORDERED: LIDOCAINE 1% 20 ML VIAL (10MG/ML) FOR IV START INTRADERMA ONE (07:29)
--- NOTE | 2018-04-18 08:25 | P.PCN ---
Date of Procedure: 04/18/18 Procedure(s) Performed: PREOPERATIVE DIAGNOSIS: 1-Lumbar Spondylosis with Facet Arthropathy without myelopathy. 2- Lumber degenerative disc disease POSTOPERATIVE DIAGNOSIS: 1- Lumbar Spondylosis with Facet Arthropathy without myelopathy. 2- Lumber degenerative disc disease PROCEDURES : Right Radiofrequency thermocoagulation, L3-L4, L4-L5, and L5-S1 medial branch, with fluoroscopic guidance ANESTHESIA: Moderate sedation with intravenous versed 2 mg and fentaneyl 100 mcg, and local infiltration with Ropivacaine 0.5 % . EBL: Minimal PROCEDURE INDICATION: The patient with low back pain secondary to lumbar facet arthropathy who had more than 50% relief of her pain with previous diagnostic lumbar medial branch block with bupivacaine. PROCEDURE DESCRIPTION / TECHNIQUE: The patient was seen and identified in the preoperative area. Risks, benefits, complications, including but not limited to risk of infection ,bleeding , allergic reactions to the medications and no complete pain releife , and alternatives were discussed with the patient, the patient agreed to proceed with the procedure and signed the consent. IV was started. Vital signs remained stable throughout the procedure. Patient was taken to the OR and time out was completed. The patient was placed in the prone position on the procedure table. The lumber area was prepped and draped in the usual sterile fashion. . Vital signs were closely monitored during the procedure .IV sedation was used during the procedure to decrease patients anxiety. Using AP and then oblique fluoroscopy, the ``eye of the Michael dog corresponding to the connection between the superior and transverse articular processes of right L3, L4, and L5 were identified, marked, and localized with 1% lidocaine. Subsequently, a 18 -ax ( VENUM ) radiofrequency cannula with a 10-mm active tip was advanced guided by fluoroscopy to each of the `` eyes of the Michael dog at right L3, L4, and L5. Each site then underwent sensory testing at 50 Hz and 0 to 1 volt and motor testing at 2.5 Hz and 0 to 3 volt with local stimulation, but no radicular symptoms down the legs. Thereafter the right L3-4, L4-5, and L5-S1 sites underwent radiofrequency thermocoagulation at 80 degrees celsius for 90 seconds after injecting 0.5 ml of PF Ropivacaine 1ml ,then After the thermocoagulation done , 1 ml of the block solution containing Kenalog 40 mg and 3 ml of Ropivacaine 0.5% was injected at the right L3-4 , L4-5 , and L5-S1, levels after negative aspiration of CSF and blood and with no paresthesias. Cannulas were retracted while injecting lidocaine 1% until the needle is out. At the end of the procedure, the skin was cleansed and bandages were applied. COMPLICATIONS: No acute complications. DISPOSITION / PLANS: The patient was placed in a supine position and transferred to the recovery area in a stable condition for observation and was discharged from the recovery room after meeting discharge criteria. Home discharge instructions given to the patient by the staff. The patient was reexamined prior to discharge. The patient will schedule a follow up in the clinic in 2-4 weeks.
[2018-04-18] MEDS ORDERED: IV FLUID CONTINUATION 700 ML IV ONE (08:31)
--- NOTE | 2018-04-18 08:49 | FL ---
EXAMINATION TYPE: FL guided pain mgmt statistic DATE OF EXAM: 04/18/2018 HISTORY: Flouroscopy time 7 seconds of fluoroscopy provided. IMPRESSION: 1. Fluoroscopy time.
[2018-04-18 08:50] VITALS: BP 134/80; PULSE 54
== END 2018-04-18 09:03 | disposition home or self-care (01) ==
LOC: ORPAIN 06:58
PROVIDERS: ATTEND Specialist
DX: M47.816 Spondylosis without myelopathy or radiculopathy, lumbar region (principal); M51.36 Other intervertebral disc degeneration, lumbar region; F17.200 Nicotine dependence, unspecified, uncomplicated
CPT/HCPCS: 64635; 64636; 64633; J2250; J3301; J3010; 99152

== ENCOUNTER → 2018-06-14 | Outpatient (CLI) | payer MEDICARE, OTHER ==
[2018-06-14 13:16] VITALS: BP 145/83; PULSE 60; RESP 18
--- NOTE | 2018-06-14 14:19 | P.PN ---
Subjective Progress Note Date: 06/14/18 This is follow-up visit for this patient with a history of severe and chronic low back pain secondary to lumbar degenerative disc diseases , lumbar spondylosis with facet arthropathy, We have done interventional pain procedures, radiofrequency ablation of the right medial branch lumbar area and this helped his low back pain significantly Patients currently on Percocet 10/325 every 8 hours, Lyrica 50 mg 3 times a day , Zanaflex 4 mg every 8 hours Patient denies any side effects of the medication, denies excessive drowsiness or sleepiness, denies suicidal ideation, and reports that the current pain medication is helping to control the pain ,and improve activity of daily living Patient denies any motor or sensory deficit , patient denies any fever or night sweats, denies any change in the bowel movements or urination Physical Examinations : 1-Constitutional : Cooperative , not in acute distress . 2-HEENT : nech ; supple , no Lymphadenopathy , no Thyromegaly , normal thyroid size . eyes : no ptosis , no icterus, no photophobia . ENT : normal of hearing , normal oropharynx , no Thrush . 3- Respiratory : Chest clear to auscultations Bilaterally , no wheezing , no Rhonchi . 4- Cardiovascular : regular rate and rhythem , S1 , S2 , no S3 , no S4. 5- Gastrointestinal : abdomen soft no tenderness , bowel sounds positive all four quadrents , no organomegally . 6- Genitourinary : Defferred . 7- neurologic: Cranial nerve II to XII intact , no focal neurological deffecit . 8- Psychatric: alert , oriented X 3 , appropriate affect , intact judgment and insight . 9- Lymphatic : no Lymphadenopathy . 10- Musculoskeltal : exams of the cervical spine = motor strength normal bilateral upper extremities facet loading test cervical area positive. exams of the Lumber spine =motor strength lower extremities ,thigh and legs .5/5 deep tendon reflexes : normal Knee Jerk , normal ankle Jerk . lumber facet Loading Test positive strait leg raising test positive at 30 degree , RT ,LT , Fabere test positive RT 30 and positive LT . Range of motion: Range of motion in flexion of the lumbar spine 30 degrees Range of motion range of motion of extension of the lumbar spine 10 Sever tenderness over the Sacroiliac joint on the Right , and Left side Assessment and plan = Chronic low back pain secondary to lumbar degenerative disc disease , lumbar spondylosis with facet arthropathy without myelopathy chronic and current use of high-risk medication (Opioids). The patient was counseled about risk of opioid use, psychological risk associated with opioids and was orally counseled to not overuse , divert,or sell dictations to take medications as prescribed only , and to restore medication in safe location , the patient counseled against driving while using narcotic medications , and also not to use alcohol or any illicit recreational drugs, patient's verbalized understanding that the lack of compliance will result in failure to renew narcotic prescription and possible discharge from the clinic - diagnoses, prognosis, and treatment options including but not limited to physical therapy, surgical interventions, interventional therapies , and medication management including narcotics and adjuvant medication were discussed with the patient and all the questions answered MAPS reviewed and it was apropriate Prescription refill for Percocet 10/325 every 8 hours dispense 90 with 1 refill, Lyrica 150 mg 3 times a day dispense 90 with 1 refill, Zanaflex 4 mg every 8 hours dispense 90 with 1 refill. Patient signed the narcotic agreement renewal today Patient already scheduled to have radiofrequency ablation of the left medial branch lumbar area in the next few days PQRS Measure Charge Sheet Measure #130: Documentation of Current Meds in Medical Chart: Patient's medications documented in chart Measure #226: Tobacco Use: Screen & Cessation Intervention: Pt screened for tobacco use AND intervention given Measure #111: Pneumonia Vaccination: Pneumococcal vaccine NOT administered or previously given Measure #47: Advance Care Plan: Advance care planning discussed & documented, pt chose/unable to give Measure #412: Opioid Treatment Agreement: Documented signed opioid trtmnt agreemnt min once during opioid trtmnt Measure #408: Opioid Therapy Follow-up Evaluation: Patient had f/u eval minimum every 3 months during opioid therapy Measure #317: Preventitive Care & Scrn High Bld Press & F/U: hypertensive, patient will follow up with her primary care Measure #128: Body Mass Index (BMI) Screening & Follow-up: BMI documented , above the normal parameters Measure #131: Pain Assessment & Follow-up: Pain positive & plan documented, Follow-up scheduled Measure #431: Unhealthy Alcohol Use Preventative Care & Scrn: Patient not identified as an unhealthy alcohol user PQRS Narrative: Smoking Status Current every day smoker Do You Want the Pneumonia No Vaccine AT THIS TIME? Narcotic Agreement Date Signed today 06/14/18 Blood Pressure 145/83 Pain Intensity [Bilateral 7 Lower Back] Scale Used Numeric (1 - 10) Hx Alcohol Use (MH) No Home Medications: Ambulatory Orders DULoxetine HCL [Cymbalta] 60 mg PO DAILY 12/12/13 Lisinopril/Hydrochlorothiazide [Zestoretic 20-12.5] 1 tab PO DAILY 11/14/15 Tamsulosin HCl [Flomax] 0.4 mg PO TID@0900,2100 02/03/16 Aspirin EC [Ecotrin Low Dose] 81 mg PO DAILY 07/22/16 Acetaminophen [Tylenol] 500 mg PO TID PRN 03/02/18 Atorvastatin [Lipitor] 40 mg PO HS 03/02/18 Folic Acid 1 mg PO DAILY 03/02/18 Omeprazole 20 mg PO DAILY 03/02/18 Pregabalin [Lyrica] 150 mg PO Q8HR #90 capsule 04/14/18 oxyCODONE-APAP 10-325MG [Percocet 10-325 mg] 1 tab PO Q8H PRN #90 tab 04/14/18 oxyCODONE-APAP 10-325MG [Percocet 10-325 mg] 1 tab PO Q8HR PRN 30 Days #90 tab 04/14/18 tiZANidine [Zanaflex] 4 mg PO Q8H PRN 30 Days #90 tab 04/14/18 Controlled Substance Measures - Controlled Substance Measures Is patient prescribed a controlled substance at discharge?: Yes When asked, does pt state using other controlled substances?: No If prescribed controlled substance>3 days was MAPS reviewed?: Yes If Rx opioid, was Start Talking consent form obtained?: Yes If opioid is for acute pain is fill amount 7 days or less?: No Was information provided regarding opioid addiction?: Yes Additional CC's: Ariel Guerra Objective - Vital Signs Vital signs: Vital Signs Temp Pulse 60 06/14/18 13:16 Resp 18 06/14/18 13:16 BP 145/83 06/14/18 13:16 Pulse Ox 98 06/14/18 13:16 Intake & Output 06/13/18 06/14/18 06/14/18 18:59 06:59 18:59 Weight 77.111 kg
== END | disposition home or self-care (01) ==
LOC: PNWHC3 12:47
PROVIDERS: ATTEND Specialist
DX: G89.29 Other chronic pain (principal); M51.36 Other intervertebral disc degeneration, lumbar region; M47.816 Spondylosis without myelopathy or radiculopathy, lumbar region; M46.96 Unspecified inflammatory spondylopathy, lumbar region; F17.200 Nicotine dependence, unspecified, uncomplicated; Z79.891 Long term (current) use of opiate analgesic; Z79.899 Other long term (current) drug therapy; Z79.82 Long term (current) use of aspirin
CPT/HCPCS: 99211

== ENCOUNTER → 2018-08-09 | Outpatient (CLI) | payer MEDICARE, OTHER ==
[2018-08-09 14:22] VITALS: BP 150/72; PULSE 66; RESP 18
--- NOTE | 2018-08-09 14:44 | P.PN ---
Subjective Progress Note Date: 08/09/18 This is follow-up visit for this 58 years old male with history of severe and chronic low back pain secondary to lumbar degenerative disc diseases , lumbar spondylosis with facet arthropathy, We have done interventional pain procedures, radiofrequency ablation of the medial branch lumbar area on the right side and he is supposed to have the radiofrequency and the medial branch lumbar area on the left side but the day of the procedure he had a family emergency as to counseled. Patients currently on Percocet 10/325 every 8 hours, Lyrica 150 mg 3 times a day , Zanaflex 4 mg every 8 hours Patient denies any side effects of the medication, denies excessive drowsiness or sleepiness, denies suicidal ideation, and reports that the current pain medication is helping to control the pain ,and improve activity of daily living Patient denies any motor or sensory deficit , patient denies any fever or night sweats, denies any change in the bowel movements or urination Physical Examinations : 1-Constitutional : Cooperative , not in acute distress . 2-HEENT : nech ; supple , no Lymphadenopathy , no Thyromegaly , normal thyroid size . eyes : no ptosis , no icterus, no photophobia . ENT : normal of hearing , normal oropharynx , no Thrush . 3- Respiratory : Chest clear to auscultations Bilaterally , no wheezing , no Rhonchi . 4- Cardiovascular : regular rate and rhythem , S1 , S2 , no S3 , no S4. 5- Gastrointestinal : abdomen soft no tenderness , bowel sounds positive all four quadrents , no organomegally . 6- Genitourinary : Defferred . 7- neurologic: Cranial nerve II to XII intact , no focal neurological deffecit . 8- Psychatric: alert , oriented X 3 , appropriate affect , intact judgment and insight . 9- Lymphatic : no Lymphadenopathy . 10- Musculoskeltal : exams of the cervical spine = motor strength normal bilateral upper extremities exams of the Lumber spine =motor strength lower extremities ,thigh and legs .5/5 deep tendon reflexes : normal Knee Jerk , normal ankle Jerk . lumber facet Loading Test positive strait leg raising test positive at 30 degree , RT ,LT , Fabere test positive RT 30 and positive LT . Range of motion: Range of motion in flexion of the lumbar spine 30 degrees Range of motion range of motion of extension of the lumbar spine 10 Assessment and plan = Chronic low back pain secondary to lumbar degenerative disc disease , lumbar spondylosis with facet arthropathy without myelopathy chronic and current use of high-risk medication (Opioids). The patient was counseled about risk of opioid use, psychological risk associated with opioids and was orally counseled to not overuse , divert,or sell dictations to take medications as prescribed only , and to restore medication in safe location , the patient counseled against driving while using narcotic medications , and also not to use alcohol or any illicit recreational drugs, patient's verbalized understanding that the lack of compliance will result in failure to renew narcotic prescription and possible discharge from the clinic - diagnoses, prognosis, and treatment options including but not limited to physical therapy, surgical interventions, interventional therapies , and medication management including narcotics and adjuvant medication were discussed with the patient and all the questions answered MAPS reviewed and it was apropriate Prescription refill for Percocet 10/325 every 8 hours dispense 90 with 1 refill, Lyrica 150 mg 3 times a day dispense 90 with 1 refill, Zanaflex 4 mg every 8 hours dispense 90 with 1 refill. Patient already scheduled to have radiofrequency ablation of the Left medial branch lumbar area PQRS Measure Charge Sheet Measure #130: Documentation of Current Meds in Medical Chart: Patient's medications documented in chart Measure #226: Tobacco Use: Screen & Cessation Intervention: Pt screened for tobacco use AND intervention given Measure #111: Pneumonia Vaccination: Pneumococcal vaccine NOT administered or previously given Measure #47: Advance Care Plan: Advance care planning discussed & documented, pt chose/unable to give Measure #412: Opioid Treatment Agreement: Documented signed opioid trtmnt agreemnt min once during opioid trtmnt Measure #408: Opioid Therapy Follow-up Evaluation: Patient had f/u eval minimum every 3 months during opioid therapy Measure #317: Preventitive Care & Scrn High Bld Press & F/U: blood pressure elevated 150/72 and he will follow up with his primary care Measure #128: Body Mass Index (BMI) Screening & Follow-up: BMI above the normal barameters 26.2 Measure #131: Pain Assessment & Follow-up: Pain positive & plan documented, Follow-up scheduled Measure #431: Unhealthy Alcohol Use Preventative Care & Scrn: Patient not identified as an unhealthy alcohol user PQRS Narrative: - Controlled Substance Measures Is patient prescribed a controlled substance at discharge?: Yes When asked, does pt state using other controlled substances?: No If prescribed controlled substance>3 days was MAPS reviewed?: Yes If Rx opioid, was Start Talking consent form obtained?: Yes If opioid is for acute pain is fill amount 7 days or less?: No Was information provided regarding opioid addiction?: Yes Objective - Vital Signs Vital signs: Vital Signs Temp Pulse 66 08/09/18 14:16 Resp 18 08/09/18 14:16 BP 150/72 08/09/18 14:16 Pulse Ox 97 08/09/18 14:16 Intake & Output 08/08/18 08/09/18 08/09/18 18:59 06:59 18:59 Weight 75.75 kg
== END ==
LOC: PNWHC3 13:54
PROVIDERS: ATTEND Specialist
DX: G89.29 Other chronic pain (principal); M51.36 Other intervertebral disc degeneration, lumbar region; M47.816 Spondylosis without myelopathy or radiculopathy, lumbar region; M46.96 Unspecified inflammatory spondylopathy, lumbar region; Z79.891 Long term (current) use of opiate analgesic; Z79.899 Other long term (current) drug therapy
CPT/HCPCS: 99211

== ENCOUNTER 2018-08-29 07:54 | Day surgery (SDC) | payer MEDICARE, OTHER ==
[~2018-08-29 07:54] MED LIST changes: -LACTATED RINGERS 1,000 ML IV SCH; +SODIUM CHLORIDE 0.9% 500 ML 500 ML IV SCH
[2018-08-29 08:22] VITALS: TEMP 98.4
[2018-08-29] MEDS ORDERED: LACTATED RINGERS 1,000 ML IV ONE ×2 (08:31→09:33)
--- NOTE | 2018-08-29 09:32 | P.PCN ---
Date of Procedure: 08/29/18 Description of Procedure: PREOPERATIVE DIAGNOSIS: 1-Lumbar Spondylosis with Facet Arthropathy without myelopathy. 2- Lumber degenerative disc disease POSTOPERATIVE DIAGNOSIS: 1- Lumbar Spondylosis with Facet Arthropathy without myelopathy. 2- Lumber degenerative disc disease PROCEDURES : Left Radiofrequency thermocoagulation, L3-L4, L4-L5, and L5-S1 medial branch, with fluoroscopic guidance ANESTHESIA: Moderate sedation with intravenous versed 2 mg and fentaneyl 100 mcg, and local infiltration with lidocaine 1% % . EBL: Minimal PROCEDURE INDICATION: Patient had excellent relief with previous previous lumbar radio frequency ablation is greater than 80%. PROCEDURE DESCRIPTION / TECHNIQUE: The patient was seen and identified in the preoperative area. Risks, benefits, complications, including but not limited to risk of infection ,bleeding , allergic reactions to the medications and no complete pain relief , and alternatives were discussed with the patient, the patient agreed to proceed with the procedure and signed the consent. IV was started. Vital signs remained stable throughout the procedure. Patient was taken to the OR and time out was completed. The patient was placed in the prone position on the procedure table. The lumber area was prepped and draped in the usual sterile fashion. . Vital signs were closely monitored during the procedure .IV sedation was used during the procedure to decrease patients anxiety. Using AP and then oblique fluoroscopy, the `eye of the Michael dog corresponding to the connection between the superior and transverse articular processes of right L3, L4, and L5 were identified, marked, and localized with 1% lidocaine. Subsequently, a 18 [id number] ( VENUM ) radiofrequency cannula with a 10-mm active tip was advanced guided by fluoroscopy to each of the `` eyes of the Michael dog at right L3, L4, and L5. Each site then underwent sensory testing at 50 Hz and 0 to 1 volt and motor testing at 2.5 Hz and 0 to 3 volt with local stimulation, but no radicular symptoms down the legs. Thereafter the right L3-4, L4-5, and L5-S1 sites underwent radiofrequency thermocoagulation at 80 degrees celsius for 90 seconds after injecting 0.5 ml of PF Ropivacaine 1ml ,then After the thermocoagulation done , 1 ml of the block solution containing Depo-Medrol 40 mg and 3 ml of lidocaine 1% % was injected at the left L3-4 , L4-5 , and L5-S1, levels after negative aspiration of CSF and blood and with no paresthesias. Cannulas were retracted while injecting lidocaine 1% until the needle is out. At the end of the procedure, the skin was cleansed and bandages were applied. COMPLICATIONS: No acute complications. DISPOSITION / PLANS: The patient was placed in a supine position and transferred to the recovery area in a stable condition for observation and was discharged from the recovery room after meeting discharge criteria. Home discharge instructions given to the patient by the staff. The patient was reexamined prior to discharge. The patient will schedule a follow up in the clinic in 4 weeks.
[2018-08-29 09:38] VITALS: RESP 16
--- NOTE | 2018-08-29 09:39 | P.GSHP ---
History of Present Illness H&P Date: 08/29/18 58-year-old male presenting for left radio frequency ablation of left L3-L4, L4- L5, L5-S1 medial branches. Had right-sided done recently with greater than 60% relief. Has had them in the past with overall improved function and ADLs. Pain today is a 4-10 in severity. Physical exam: CVS: Regular rate and rhythm, no peripheral edema. Pulmonary: Nonlabored, no wheezing. plan: Left lumbar radiofrequency ablation L3-L4, L4-L5, L5-S1 area follow up in clinic in 4-8 weeks. Past Medical History Past Medical History: COPD, Hyperlipidemia, Hypertension, Liver Disease, Musculoskeletal Disorder, Osteoarthritis (OA), Prostate Disorder Additional Past Medical History / Comment(s): Hx Heart Murmur, Hx Head Injury, Migraines, Sciatica, Scoliosis, Pins & [place] Down to KOURTNEY Feet, alcoholic cirrhosis , Enlarged Prostate History of Any Multi-Drug Resistant Organisms: None Reported Past Surgical History: Hernia Repair, Orthopedic Surgery Additional Past Surgical History / Comment(s): Rt HAND, AC SEPARATION RIGHT COLLAR BONE -GRAFT FROM ELBOW, COLONOSCOPY, LEFT HIP ORIF,RT ING. HERNIA REPAIR ; MULT PAIN PROC Past Anesthesia/Blood Transfusion Reactions: No Reported Reaction Past Psychological History: Anxiety, Depression Smoking Status: Current every day smoker Past Alcohol Use History: Occasional Additional Past Alcohol Use History / Comment(s): SMOKER SINCE AGE 11 1 pack per day. Patient states he had problems with alcoholism ; quit in 2008 but now drinks occ. Past Drug Use History: None Reported - Past Family History Mother History Unknown: Yes Family Medical History: Unable to Obtain Additional Family Medical History / Comment(s): pt was adopted Medications and Allergies Home Medications Medication Instructions Recorded Confirmed Type DULoxetine HCL [Cymbalta] 60 mg PO QAM 12/12/13 08/29/18 History Lisinopril/Hydrochlorothiazide 1 tab PO QAM 11/14/15 08/29/18 History [Zestoretic 20-12.5] Tamsulosin HCl [Flomax] 0.4 mg PO DAILY 02/03/16 08/29/18 History Aspirin EC [Ecotrin Low Dose] 81 mg PO DAILY 07/22/16 08/29/18 History Acetaminophen [Tylenol] 500 mg PO TID PRN 03/02/18 08/29/18 History Atorvastatin [Lipitor] 40 mg PO HS 03/02/18 08/29/18 History Folic Acid 1 mg PO DAILY 03/02/18 08/29/18 History Omeprazole 20 mg PO QAM 03/02/18 08/29/18 History Pregabalin [Lyrica] 150 mg PO Q8HR #90 capsule 08/09/18 08/29/18 Rx oxyCODONE-APAP 10-325MG [Percocet 1 tab PO Q8HR PRN 30 Days #90 tab 08/09/1806/06 Rx 10-325 mg] tiZANidine [Zanaflex] 4 mg PO Q8H PRN 30 Days #90 tab 08/09/18 08/29/18 Rx Allergies Allergy/AdvReac Type Severity Reaction Status Date / Time No Known Allergies Allergy Verified 08/29/18 08:06 Surgical - Exam Vital Signs Temp Pulse Resp BP Pulse Ox 98.4 F 65 18 178/96 98 08/29/18 08:19 08/29/18 08:19 08/29/18 08:19 08/29/18 08:19 08/29/18 08:19
--- NOTE | 2018-08-29 09:49 | FL ---
Fluoroscopy HISTORY: Pain 3 seconds fluoroscopy time supplied to the referring clinician. 2 intraoperative C-arm images docume nt the procedure. See dictated report from anesthesia.
[2018-08-29 09:51] VITALS: BP 164/90; PULSE 59
== END 2018-08-29 10:04 | disposition home or self-care (01) ==
LOC: ORPAIN 07:54
PROVIDERS: ATTEND Anesthesiology
DX: G89.29 Other chronic pain (principal); M47.816 Spondylosis without myelopathy or radiculopathy, lumbar region; M51.36 Other intervertebral disc degeneration, lumbar region; J44.9 Chronic obstructive pulmonary disease, unspecified; E78.5 Hyperlipidemia, unspecified; I10 Essential (primary) hypertension; M19.90 Unspecified osteoarthritis, unspecified site; N40.0 Benign prostatic hyperplasia without lower urinary tract symptoms; G43.909 Migraine, unspecified, not intractable, without status migrainosus; M54.30 Sciatica, unspecified side; M41.9 Scoliosis, unspecified; K70.30 Alcoholic cirrhosis of liver without ascites; F41.9 Anxiety disorder, unspecified; F32.9 Major depressive disorder, single episode, unspecified; F17.210 Nicotine dependence, cigarettes, uncomplicated; F10.21 Alcohol dependence, in remission; Z79.891 Long term (current) use of opiate analgesic; Z79.899 Other long term (current) drug therapy; Z79.82 Long term (current) use of aspirin
CPT/HCPCS: 64635; 64636; J2250; J1030; J2001; J3010; 99152

== ENCOUNTER → 2018-10-04 | Outpatient (CLI) | payer MEDICARE, OTHER ==
[2018-10-04 13:43] VITALS: BP 144/89; PULSE 77; RESP 16
--- NOTE | 2018-10-06 14:47 | P.PAINPG ---
Subjective Progress Note Date: 10/06/18 Principal diagnosis: Lumbar spondylosis, bilateral sacroiliitis This is a 58-year-old gentleman who has a long-standing history of mechanical low back pain. He presents today for medication management. He reports that he is doing status quo since we last saw him. He is requesting a refill of his Percocet as well as Lyrica and Zanaflex. He says his medications are very helpful in controlling his symptoms and he believes that his functioning would be significantly worse without them. He denies bowel or bladder dysfunction. He denies any new onset of neurologic symptoms. Objective - Vital Signs Vital signs: Vital Signs Temp Pulse 77 10/04/18 13:38 Resp 16 10/04/18 13:38 BP 144/89 10/04/18 13:38 Pulse Ox 98 10/04/18 13:38 - Exam General: The patient is alert and oriented. Patient is not sedated Patient answers all question appropriately. Cardiac: Heart is regular in rate and rhythm Respiratory: Clear to auscultation. No audible wheezes. Abdomen: Soft nontender nondistended. Musculoskeletal: Strength is normal bilaterally. Sensation is normal bilaterally. Straight leg raise is negative bilaterally. Neurological: Reflexes are preserved and symmetric bilaterally. Assessment and Plan (1) Degenerative disc disease Narrative/Plan: We will refill the patient's medications today. I reviewed his maps report and urine drug screen in these revealed expected results. He will follow-up in 8 weeks. Current Visit: Yes Status: Acute Code(s): ZQO0249 - SNOMED Code(s): 64341051 (2) Lumbar spondylosis Current Visit: Yes Status: Acute Code(s): M47.816 - SPONDYLOSIS W/O MYELOPATHY OR RADICULOPATHY, LUMBAR REGION SNOMED Code(s): 955266758 (3) Chronic, continuous use of opioids Narrative/Plan: We will continue the patient is currently medications. He is taking Percocet as well as Lyrica and Zanaflex. He reports that these are helpful in controlling his pain. He denies any signs or symptoms of addiction. I reviewed his urine drug screen as well as his maps report and these revealed expected results. Current Visit: No Status: Acute Code(s): F11.90 - OPIOID USE, UNSPECIFIED, UNCOMPLICATED SNOMED Code(s): 311061785 (4) Lumbar facet arthropathy Current Visit: No Status: Chronic Code(s): M46.96 - UNSPECIFIED INFLAMMATORY SPONDYLOPATHY, LUMBAR REGION SNOMED Code(s): 666412660 (5) Sacroiliitis Current Visit: No Status: Chronic Code(s): M46.1 - SACROILIITIS, NOT ELSEWHERE CLASSIFIED SNOMED Code(s): 20115078 PQRS Measure Charge Sheet Measure #130: Documentation of Current Meds in Medical Chart: Patient's medications documented in chart Measure #226: Tobacco Use: Screen & Cessation Intervention: Pt screened for tobacco use AND intervention given Measure #111: Pneumonia Vaccination: Pneumococcal vaccine administered or previously received Measure #47: Advance Care Plan: Advance care planning discussed & documented, plan or surrogate given Measure #412: Opioid Treatment Agreement: Documented signed opioid trtmnt agreemnt min once during opioid trtmnt Measure #408: Opioid Therapy Follow-up Evaluation: Patient had f/u eval minimum every 3 months during opioid therapy Measure #317: Preventitive Care & Scrn High Bld Press & F/U: Normal blood pressure, f/u not required Measure #128: Body Mass Index (BMI) Screening & Follow-up: BMI documented ABOVE normal parameters - f/u documented Measure #131: Pain Assessment & Follow-up: Pain positive & plan documented Measure #431: Unhealthy Alcohol Use Preventative Care & Scrn: Patient not identified as an unhealthy alcohol user PQRS Narrative: Smoking Status Current every day smoker Do You Want the Pneumonia No Vaccine AT THIS TIME? Narcotic Agreement Date Signed 08/09/18 Blood Pressure 144/89 Pain Intensity [Lower Back] 7 Scale Used Numeric (1 - 10) Hx Alcohol Use (MH) Yes: social Home Medications: Ambulatory Orders DULoxetine HCL [Cymbalta] 60 mg PO QAM 12/12/13 Lisinopril/Hydrochlorothiazide [Zestoretic 20-12.5] 1 tab PO QAM 11/14/15 Tamsulosin HCl [Flomax] 0.4 mg PO DAILY 02/03/16 Aspirin EC [Ecotrin Low Dose] 81 mg PO DAILY 07/22/16 Acetaminophen [Tylenol] 500 mg PO TID PRN 03/02/18 Atorvastatin [Lipitor] 40 mg PO HS 03/02/18 Folic Acid 1 mg PO DAILY 03/02/18 Omeprazole 20 mg PO QAM 03/02/18 Pregabalin [Lyrica] 150 mg PO Q8HR #90 capsule 08/09/18 oxyCODONE-APAP 10-325MG [Percocet 10-325 mg] 1 tab PO Q8HR PRN 30 Days #90 tab 08/09/18 tiZANidine [Zanaflex] 4 mg PO Q8H PRN 30 Days #90 tab 08/09/18 Controlled Substance Measures - Controlled Substance Measures Is patient prescribed a controlled substance at discharge?: Yes When asked, does pt state using other controlled substances?: No If prescribed controlled substance>3 days was MAPS reviewed?: Yes
== END | disposition home or self-care (01) ==
LOC: PNWHC3 13:30
PROVIDERS: ATTEND Pain Medicine Pain Medicine
DX: M51.36 Other intervertebral disc degeneration, lumbar region (principal); M47.816 Spondylosis without myelopathy or radiculopathy, lumbar region; M46.96 Unspecified inflammatory spondylopathy, lumbar region; M46.1 Sacroiliitis, not elsewhere classified; F17.200 Nicotine dependence, unspecified, uncomplicated; Z79.891 Long term (current) use of opiate analgesic
CPT/HCPCS: 99211

== ENCOUNTER → 2018-10-13 | Outpatient (CLI) | payer MEDICARE, OTHER | END | disposition home or self-care (01) | LOC: LABWHC1 12:18 | PROVIDERS: ATTEND Family Medicine | DX: R00.2 Palpitations (principal); K70.30 Alcoholic cirrhosis of liver without ascites; R41.3 Other amnesia | CPT/HCPCS: 36415; 82140 ==

== ENCOUNTER → 2018-10-14 | Outpatient (CLI) | payer MEDICARE, OTHER ==
--- NOTE | 2018-10-14 15:20 | CT ---
EXAMINATION TYPE: CT brain wo con DATE OF EXAM: 10/14/2018 COMPARISON: 07/08/2017 HISTORY: Short term memory loss CT DLP: 1121 mGycm Automated exposure control for dose reduction was used. FINDINGS: There is no acute intracranial hemorrhage or midline shift identified. Central ventricular system is slightly prominent relative to the sulci overlying the convexities. The globes are intact bilaterally. There is moderate mucosal thickening visualized portion of right m axillary sinus on current study. Remainder paranasal sinuses are clear. There is old slightly displac ed fracture deformity of nasal bones redemonstrated. IMPRESSION: THERE IS PROMINENCE OF THE CENTRAL VENTRICULAR SYSTEM WHICH COULD BE ON THE BASIS OF NORMAL PRESSURE HYDROCEPHALUS OR HYDROCEPHALUS. MRI FOLLOW-UP IS RECOMMENDED.
== END | disposition home or self-care (01) ==
LOC: RADCTMAIN 14:50
PROVIDERS: ATTEND Family Medicine
DX: R41.3 Other amnesia (principal)
CPT/HCPCS: 70450

== ENCOUNTER → 2018-10-21 | Outpatient (CLI) | payer MEDICARE, OTHER ==
--- NOTE | 2018-10-23 18:06 | US ---
EXAMINATION TYPE: US kidneys/renal and bladder DATE OF EXAM: 10/21/2018 COMPARISON: NONE CLINICAL HISTORY: R74.8 Abnormal Levels of Serum Enzymes. EXAM MEASUREMENTS: Right Kidney: 9.6 x 4.6 x 5.0 cm Left Kidney: 10.9 x 6.3 x 5.0 cm Right Kidney: cyst noted measuring 0.7 x .06 x 0.7cm Left Kidney: inferior cyst noted measuring 2.0 x 2.3 x 2.2cm, triangular anechoic structure seen in sinus measuring 0.9 x 0.7 x 0.5, tubular anechoic area seen within superior sinus measuring 2.8 x 0.7 x 1.0cm Bladder: wnl IMPRESSION: 1. There appear to be cysts within the left kidney. One of these at the superior pole is somewhat mor e linear arrangement. Peripelvic cysts could be considered. Dilated infundibulum could be considered. Follow-up is recommended.
== END | disposition home or self-care (01) ==
LOC: RADUSWWP 15:41
PROVIDERS: ATTEND Family Medicine
DX: R74.8 Abnormal levels of other serum enzymes (principal)
CPT/HCPCS: 76770

== ENCOUNTER → 2018-11-08 | Outpatient (CLI) | payer MEDICARE, OTHER ==
--- NOTE | 2018-11-08 10:53 | MR ---
EXAMINATION TYPE: MR brain wo/w con DATE OF EXAM: 11/08/2018 COMPARISON: Prior head CT 07/08/2017, brain MRI 03/09/2016 HISTORY: Hydrocephalus TECHNIQUE: Multiplanar, multisequence images of the brain and brainstem is performed without and with IV contras t, utilizing 7.5 mL intravenous Gadavist . FINDINGS: There is artifact on the exam, likely patient motion. Diffusion weighted images demonstrate no evidence of a recent infarct or other diffusion abnormality. There is no extra-axial fluid collection or significant interval change in white matter signal abno rmality. Some scattered hyperintensities in the deep white matter are again noted, approximately 10 l esions. The ventricular system and cisternal spaces are normal in size and appearance. The brain vol ume is age appropriate. Midline structures demonstrate normal morphology. The craniocervical junction appears within normal limits. Post contrast images demonstrate no abnormal enhancement. The dural venous sinuses appear pa tent. The visualized sinuses are improved, minimal mucosal disease present in the right maxillary sin us, ethmoid air cells and the globes are intact. IMPRESSION: Essentially stable brain MRI. Ventricles are stable in size and configuration.
== END | disposition home or self-care (01) ==
LOC: RADMRIMAIN 09:48
PROVIDERS: ATTEND Family Medicine
DX: G91.9 Hydrocephalus, unspecified (principal)
CPT/HCPCS: 70553; A9585

== ENCOUNTER → 2018-11-28 | Outpatient (CLI) | payer MEDICARE, OTHER ==
[2018-11-28 13:20] VITALS: BP 161/83; PULSE 72; RESP 16
--- NOTE | 2018-11-28 13:22 | P.PN ---
Progress Note - Text Progress Note Date: 11/28/18 Patient returns for follow-up visit with chief complaint of low back pain, neck pain. Patient is status post left lumbar RFA. Patient states that he has had good relief with radiofrequency ablation. He's complaining of left hip pain, he is had a history of dislocated left hip over 30 years ago. He has limited mobility with regards to hip flexion and internal rotation. Pain radiates into the posterior part of his hamstring to his knee. He reports very intermittent n umbness and tingling in his left toes as well. We discussed getting imaging of his left hip as well as doing a left intra-articular hip injection. Patient is tolerating his medications well is not describe any side effects. Today, pt denies new-onset weakness, bowel/bladder incontinence, or any other signs or symptoms of cauda equina syndrome. There are no signs of acute intoxication, and no indications of medication diversion or overuse. In addition to above, 13-point review of systems is also negative for chest pain, shortness of breath, changes in vision, changes in hearing, new onset w eakness, abdominal pain, diarrhea, extreme fatigue, malaise, fever, skin changes, homicidal or suicidal ideation, or bowel or bladder incontinence. Vital Signs: Reviewed in EMR Gen: WDWN, AAOx3, NAD HEENT: NCAT, EOMI, hearing grossly normal Pulm: resp unlabored Abd: soft, NT, ND Neck: supple, trachea midline ROM in flexion lumbar spine: reduced ROM in extension lumbar spine: reduced Lumbar paravertebral tenderness: No tenderness present Facet loading: Set loading negative SI joint tenderness: Mild tenderness to palpation bilateral SI joints. Keegan's test: neg bilateral Left hip exam: Positive pain with hip flexion, positive pain with flexion and internal rotation, positive crepitus noted in pain with motion. Neuro: CN II-XII grossly intact, muscle strength lower extremities PRESERVED Imaging: Reviewed in EMR Assessment: 1. lumbar spondylosis without myelopathy 2. chronic pain syndrome 3. lumbar DDD 4. Left hip osteoarthritis Plan: 1. Explanation: Opioid and psychological risk scores were reviewed. Diagnoses, prognoses, and multiple treatment options including but not limited to physical therapy, interventional therapies, adjuvant medical therapies, narcotic medication therapies, and surgery were discussed with the patient and all questions were answered to the patient's satisfaction. 2. Opioid agreement: Patient has previously signed narcotic agreement, and was orally counseled to not overuse, abuse, divert, or cell medications, and to take them as prescribed by only 1 healthcare provider. The patient was also counseled to store opioid medications in a safe and preferably locked location. Patient was also counseled against driving while using narcotic medications and also to not use alcohol or any illicit or recreational drugs. The patient verbalized understanding that lack of compliance with any of the above and likely result in failure to renew narcotic prescriptions, possible discharge from the clinic, and possible legal ramifications thereafter if indicated. 3. Counseling: The patient was counseled extensively on obesity and exercise in the context of both chronic pain and overall health. 4. Procedures: Left hip intra-articular injection with fluoroscopy 5. Consultations: None 6. Investigations: MRI left hip fell contrast. 7. Medications: Percocet 10/325 #80 with one refill, #90 after; Lyrica, Zanaflex 8. Disposition: Follow-up for left hip injection, MRI left hip. Risks and benefits procedure discussed with patient which include infection, bleeding, rare nerve injury. Patient wants to proceed knowing these risks. Tobacco negative, counseling NOT given 3-Patient has not had a pneumococcal vaccine. 4-Advanced care planning discussed, patient unable to give. 5-Opioid contract signed with the patient. 6-Pain positive, follow-up visit or procedure scheduled 7-Patient's blood pressure measured and documented, and patient will follow up with the primary care due to hypertension. 8-Patient's weight was measured, and body mass index ABOVE the normal limits, and counseling was done. Patient instructed to follow up with PCP. 9-Patient WAS NOT identified as an unhealthy alcohol user.
== END | disposition home or self-care (01) ==
LOC: PNWHC3 13:00
PROVIDERS: ATTEND Anesthesiology
DX: G89.4 Chronic pain syndrome (principal); M51.36 Other intervertebral disc degeneration, lumbar region; M47.816 Spondylosis without myelopathy or radiculopathy, lumbar region; M16.12 Unilateral primary osteoarthritis, left hip; E66.9 Obesity, unspecified; Z51.81 Encounter for therapeutic drug level monitoring; Z98.890 Other specified postprocedural states; Z79.891 Long term (current) use of opiate analgesic; Z68.27 Body mass index [BMI] 27.0-27.9, adult
CPT/HCPCS: 80307; G0482

== ENCOUNTER → 2018-12-10 | Outpatient (CLI) | payer MEDICARE, OTHER ==
--- NOTE | 2018-12-12 22:21 | MR ---
MR left hip HISTORY: Osteoarthritis Multiplanar multisequence imaging obtained through the pelvis with small [id number] images through the left hip. No comparisons There is serpiginous low signal with some central high signal on T1, low signal on T2-weighted sequen yumiko within the femoral head on the left, mild contour anomaly present, there is marginal spurring, pr ominence along the femoral neck which could be indicative of osteoarthritis or possibly femoral aceta bular impingement. Minimal similar signal noted in the right femoral head. There is no sizable joint effusion. The right hip show some cluster of grapes T2 intense signal lateral to the acetabulum which may represent a para labral cyst. Some increased signal is less conspicuous lateral to the acetabula r labrum on the left with abnormal labral signal on T2-weighted sequences, findings suggest paralabra l cysts and labral tears. Articular cartilage signal relatively maintained, apparent joint space loss , possible chondromalacia grade 2. Some questionable abnormal signal felt possible herniation. Lung the anterior proximal femur on the r ight. No free fluid in the pelvis. IMPRESSION: Osteonecrosis of the femoral head, bilateral labral tears, consider femoral acetabular im pingement, suspect some osteoarthritis bilateral hips
== END | disposition home or self-care (01) ==
LOC: RADMRIMAIN 14:39
PROVIDERS: ATTEND Anesthesiology
DX: S73.102A Unspecified sprain of left hip, initial encounter (principal); S73.101A Unspecified sprain of right hip, initial encounter; M87.852 Other osteonecrosis, left femur; M25.852 Other specified joint disorders, left hip; M16.12 Unilateral primary osteoarthritis, left hip

== ENCOUNTER 2018-12-14 07:50 | Day surgery (SDC) | payer MEDICARE, OTHER ==
[2018-12-09 09:42] VITALS: BMI 27.1
[~2018-12-14 07:50] MED LIST changes: +LACTATED RINGERS 1,000 ML IV SCH; -SODIUM CHLORIDE 0.9% 500 ML 500 ML IV SCH
[2018-12-14 08:07] VITALS: RESP 18; TEMP 97.8
[2018-12-14] MEDS ORDERED: LIDOCAINE 1% 20 ML VIAL (10MG/ML) FOR IV START INTRADERMA ONE (08:14)
[2018-12-14] MEDS ORDERED: LACTATED RINGERS 1,000 ML IV ONE (08:14)
--- NOTE | 2018-12-14 09:24 | P.PCN ---
Date of Procedure: 12/14/18 Procedure(s) Performed: PREOPERATIVE DIAGNOSIS: Left hip osteoarthritis POSTOPERATIVE DIAGNOSIS: same as Pre op Diagnosis. PROCEDURES: left intra-articular hip injection with fluoroscopy ANESTHESIA:Moderate sedation with versed 2 mg ,and fentanyl 50 mcg . EBL: Minimal PROCEDURE INDICATION: The patient with left hip pain secondary to osteoarthritis who has been unresponsive to conservative therapy. No use of blood thinners. PROCEDURE DESCRIPTION / TECHNIQUE: The patient was seen and identified in the preoperative area. Risks, benefits, complications, and alternatives were discussed with the patient (including but not limited to incomplete pain relief, bleeding, infection, nerve damage, and allergies to medications), the patient agreed to proceed with the procedure and signed the consent after all questions were answered. Patient was taken to the OR and time out was completed ,patient, placed in supine position, Vital signs remained stable throughout the procedure. Sedation was given to decrese the patient's exactly , the left hip and groin area prepped with chlorhexidine 3 Using AP fluoroscopy, the femoral neck was identified, marked, and localized with 1% lidocaine. Subsequently, a 22 gauge 3.5-inch spinal needle was advanced guided by fluoroscopy to the 1 o'clock position on the left femoral neck until the needle was felt entering the left hip capsule. Isovue 2 mL injected, showed appropriate needle placement and there was no intravascular spread, demonstrate an arthrogram. After negative aspiration for CSF or heme and in the absence of paresthesias, the full 5 ml ml of the block solution containing Depo- Medrol 40 mg and 5 mL of preservative-free 0.5% Ropivacaine was injected. At the end of the procedure, the skin was cleansed and bandages were applied. COMPLICATIONS: No acute complications.
[2018-12-14] MEDS ORDERED: IV FLUID CONTINUATION 600 ML IV ONE (09:25)
[2018-12-14 09:43] VITALS: BP 122/74; PULSE 68
--- NOTE | 2018-12-14 10:54 | FL ---
EXAMINATION TYPE: FL guided pain mgmt statistic DATE OF EXAM: 12/14/2018 HISTORY: Pain dr. méndez supervised use of abelardo for pain management 12 secs fl paper image
== END 2018-12-14 09:54 | disposition home or self-care (01) ==
LOC: ORPAIN 07:50
PROVIDERS: ATTEND Specialist
DX: M16.12 Unilateral primary osteoarthritis, left hip (principal); M51.36 Other intervertebral disc degeneration, lumbar region; M47.816 Spondylosis without myelopathy or radiculopathy, lumbar region
CPT/HCPCS: 20610; J2250; J1030; J3010; Q9966; 99152

== ENCOUNTER 2018-12-17 09:06 | Emergency (ER) | payer MEDICARE, OTHER ==
[2018-12-17 09:14] VITALS: PULSE 63; TEMP 97.5
[2018-12-17] MEDS ORDERED: ONDANSETRON 4 MG/2 ML VIAL IVP STA (09:25)
[2018-12-17] MEDS ORDERED: MORPHINE SULFATE 4 MG/ML SYRINGE IV STA (09:25)
[2018-12-17] MEDS ORDERED: SODIUM CHLORIDE 0.9% 1,000 ML IV STA (09:25)
[2018-12-17] MEDS ORDERED: SODIUM CHLORIDE 0.9% 2,000 ML IV ONE (09:26)
--- NOTE | 2018-12-17 09:32 | ED ---
Male Urogenital HPI - General Chief complaint: Urogenital Stated complaint: swollen testicle Time Seen by Provider: 12/17/18 09:15 Source: patient, RN notes reviewed Mode of arrival: wheelchair Limitations: no limitations - History of Present Illness Initial comments: 58-year-old male presents emergency Department with chief complaint of scrotal pain and swelling. Patient states started a few days ago he is now developed low back pain, dysuria. Patient states she has no history kidney stones. Denies any trauma to the scrotum. Patient states his does not feel well denies any nausea vomiting diarrhea constipation no chest pain or shortness breath patient does take Percocet but states that it is not helping his pain at this time. - Related Data Home Medications Medication Instructions Recorded Confirmed DULoxetine HCL [Cymbalta] 60 mg PO QAM 12/12/13 12/17/18 Lisinopril/Hydrochlorothiazide 1 tab PO QAM 11/14/15 12/17/18 [Zestoretic 20-12.5] Tamsulosin HCl [Flomax] 0.4 mg PO DAILY 02/03/16 12/17/18 Aspirin EC [Ecotrin Low Dose] 81 mg PO DAILY 07/22/16 12/17/18 Acetaminophen [Tylenol] 500 mg PO TID PRN 03/02/18 12/17/18 Atorvastatin [Lipitor] 10 mg PO HS 12/17/18 12/17/18 Pregabalin [Lyrica] 150 mg PO Q6H 12/17/18 12/17/18 Previous Rx's Medication Instructions Recorded oxyCODONE-APAP 10-325MG [Percocet 1 tab PO Q8HR PRN 30 Days #90 tab 08/09/18 10-325 mg] tiZANidine [Zanaflex] 4 mg PO Q8H PRN 30 Days #90 tab 08/09/18 Ciprofloxacin HCl [Cipro] 500 mg PO Q12HR #20 tablet 12/17/18 Allergies Allergy/AdvReac Type Severity Reaction Status Date / Time No Known Allergies Allergy Verified 12/17/18 09:57 Review of Systems ROS Statement: Those systems with pertinent positive or pertinent negative responses have been documented in the HPI. ROS Other: All systems not noted in ROS Statement are negative. Past Medical History Past Medical History: COPD, Hyperlipidemia, Hypertension, Liver Disease, Musculoskeletal Disorder, Osteoarthritis (OA), Prostate Disorder Additional Past Medical History / Comment(s): "11/29/18 had fluid drained from [facility] brain [facility]. Was having severe migraines and balance issues. Goes back for recheck 12/22/18." Hx Heart Murmur. Hx Head Injury. Migraines, Sciatica, Scoliosis. Pins & [place] bilateral legs, feet and back. Alcoholic cirrhosis, Enlarged Prostate. History of Any Multi-Drug Resistant Organisms: None Reported Past Surgical History: Hernia Repair, Orthopedic Surgery Additional Past Surgical History / Comment(s): "11/29/18 Had fluid drained from around brain." Right hand surgery, AC SEPARATION RIGHT COLLAR BONE -GRAFT FROM ELBOW, COLONOSCOPY, LEFT HIP SURGERY, RIGHT INGUINAL HERNIA REPAIR, MULTIPLE PAIN PROCEDURES. Past Anesthesia/Blood Transfusion Reactions: No Reported Reaction Past Psychological History: Anxiety, Depression Smoking Status: Current every day smoker Past Alcohol Use History: Occasional Past Drug Use History: None Reported - Past Family History Mother History Unknown: Yes Family Medical History: Unable to Obtain Additional Family Medical History / Comment(s): Pt was adopted. General Exam Limitations: no limitations General appearance: alert, in no apparent distress Head exam: Present: atraumatic, normocephalic, normal inspection Eye exam: Present: normal appearance, PERRL, EOMI. Absent: scleral icterus, conjunctival injection, periorbital swelling ENT exam: Present: normal exam, normal oropharynx, mucous membranes moist Respiratory exam: Present: wheezes. Absent: respiratory distress, rales, rhonchi, stridor Cardiovascular Exam: Present: regular rate, normal rhythm, normal heart sounds. Absent: systolic murmur, diastolic murmur, rubs, gallop, clicks GI/Abdominal exam: Present: soft, tenderness (Mild lower abdominal), normal bowel sounds. Absent: distended, guarding, rebound, rigid exam: Present: testicular tenderness, scrotal swelling (Right-sided), circumcision. Absent: normal inspection, urethral discharge Back exam: Present: full ROM. Absent: tenderness, CVA tenderness (R), CVA t enderness (L) Neurological exam: Present: alert, oriented X3, CN II-XII intact Skin exam: Present: warm, dry, intact, normal color. Absent: rash Course Vital Signs 12/17/18 12/17/18 12/17/18 09:10 09:53 10:00 Temperature 97.5 F L Pulse Rate 63 Respiratory 18 16 Rate Blood Pressure 85/52 111/60 111/60 O2 Sat by Pulse 97 Oximetry 12/17/18 10:27 Temperature Pulse Rate Respiratory Rate Blood Pressure 114/62 O2 Sat by Pulse Oximetry Medical Decision Making - Medical Decision Making 58-year-old male presented from for scrotal pain, abdominal pain. Patient had lab work, ultrasound and CT. This does reveal evidence of epididymal orchitis. Patient was given Rocephin emergency department will be discharged on ciprofloxacin.patient will follow-up with urology and return parameters were di scussed. - Lab Data Result diagrams: 12/17/18 09:44 12/17/18 09:44 Lab Results 12/17/18 12/17/18 12/17/18 Range/Units 09:44 09:44 09:44 WBC 21.4 H (3.8-10.6) k/uL RBC 4.75 (4.30-5.90) m/uL Hgb 13.7 (13.0-17.5) gm/dL Hct 40.8 (39.0-53.0) % MCV 86.0 (80.0-100.0) fL MCH 28.9 (25.0-35.0) pg MCHC 33.7 (31.0-37.0) g/dL RDW 15.0 (11.5-15.5) % Plt Count 299 (150-450) k/uL Sodium 135 L (137-145) mmol/L Potassium 3.8 (3.5-5.1) mmol/L Chloride 98 (98-107) mmol/L Carbon Dioxide 28 (22-30) mmol/L Anion Gap 9 mmol/L BUN 16 (9-20) mg/dL Creatinine 1.21 (0.66-1.25) mg/dL Est GFR (CKD-EPI)AfAm 77 (>60 ml/min/1.73 sqM) Est GFR (CKD-EPI)NonAf 66 (>60 ml/min/1.73 sqM) Glucose 102 H (74-99) mg/dL Plasma Lactic Acid Gurwinder 1.2 (0.7-2.0) mmol/L Calcium 9.8 (8.4-10.2) mg/dL Total Bilirubin 0.7 (0.2-1.3) mg/dL AST 14 L (17-59) U/L ALT 12 L (21-72) U/L Alkaline Phosphatase 83 (38-126) U/L Total Protein 7.0 (6.3-8.2) g/dL Albumin 4.0 (3.5-5.0) g/dL Lipase 32 (23-300) U/L Urine Color Urine Appearance (Clear) Urine pH (5.0-8.0) Ur Specific [place] (1.001-1.035) Urine Protein (Negative) Urine Glucose (UA) (Negative) Urine Ketones (Negative) Urine Blood (Negative) Urine Nitrite (Negative) Urine Bilirubin (Negative) Urine Urobilinogen (<2.0) mg/dL Ur Leukocyte Esterase (Negative) Urine RBC (0-5) /hpf Urine WBC (0-5) /hpf Urine Bacteria (None) /hpf Urine Mucus (None) /hpf 12/17/18 Range/Units 11:09 WBC (3.8-10.6) k/uL RBC (4.30-5.90) m/uL Hgb (13.0-17.5) gm/dL Hct (39.0-53.0) % MCV (80.0-100.0) fL MCH (25.0-35.0) pg MCHC (31.0-37.0) g/dL RDW (11.5-15.5) % Plt Count (150-450) k/uL Sodium (137-145) mmol/L Potassium (3.5-5.1) mmol/L Chloride (98-107) mmol/L Carbon Dioxide (22-30) mmol/L Anion Gap mmol/L BUN (9-20) mg/dL Creatinine (0.66-1.25) mg/dL Est GFR (CKD-EPI)AfAm (>60 ml/min/1.73 sqM) Est GFR (CKD-EPI)NonAf (>60 ml/min/1.73 sqM) Glucose (74-99) mg/dL Plasma Lactic Acid Gurwinder (0.7-2.0) mmol/L Calcium (8.4-10.2) mg/dL Total Bilirubin (0.2-1.3) mg/dL AST (17-59) U/L ALT (21-72) U/L Alkaline Phosphatase (38-126) U/L Total Protein (6.3-8.2) g/dL Albumin (3.5-5.0) g/dL Lipase (23-300) U/L Urine Color Yellow Urine Appearance Clear (Clear) Urine pH 6.5 (5.0-8.0) Ur Specific [place] 1.013 (1.001-1.035) Urine Protein Negative (Negative) Urine Glucose (UA) Negative (Negative) Urine Ketones Negative (Negative) Urine Blood Negative (Negative) Urine Nitrite Positive (Negative) Urine Bilirubin Negative (Negative) Urine Urobilinogen <2.0 (<2.0) mg/dL Ur Leukocyte Esterase Large H (Negative) Urine RBC <1 (0-5) /hpf Urine WBC 26 H (0-5) /hpf Urine Bacteria Moderate H (None) /hpf Urine Mucus Few H (None) /hpf Disposition Clinical Impression: Epididymo-orchitis Disposition: HOME SELF-CARE Condition: Stable Instructions (If sedation given, give patient instructions): Epididymo-Orchitis (ED) Additional Instructions: Please return to the Emergency Department if symptoms worsen or any other concerns. Prescriptions: Ciprofloxacin HCl [Cipro] 500 mg PO Q12HR #20 tablet Is patient prescribed a controlled substance at d/c from ED?: No Referrals: Ariel Guerra DO [Primary Care Provider] - 1-2 days Varghese Wilson MD [STAFF PHYSICIAN] - 1-2 days Time of Disposition: 12:16
[2018-12-17 09:53] VITALS: RESP 16
[2018-12-17 10:25] LABS: HCT 40.8 % (39.0-53.0); HGB 13.7 gm/dL (13.0-17.5); MCH 28.9 pg (25.0-35.0); MCHC 33.7 g/dL (31.0-37.0); Mean Platelet Volume 7.9; Platelet Count 299 k/uL (150-450); RBC 4.75 m/uL (4.30-5.90); WBC 21.4 k/uL (3.8-10.6)
--- NOTE | 2018-12-17 10:25 | US ---
EXAMINATION TYPE: US scrotum with doppler. Grayscale and color Doppler Duplex imaging performed of t el scrotum. DATE OF EXAM: 12/17/2018 COMPARISON: NONE CLINICAL HISTORY: Pain. Right sided testicular pain and swelling x2 days, worse today EXAM MEASUREMENTS: TESTICLES: Right Testicle: 3.2 x 2.4 x 2.5 cm Left Testicle: 3.8 x 1.9 x 2.1 cm EPIDIDYMIS HEAD: Right Epididymis: 1.3 cm Left Epididymis: 1.1 cm Doppler performed to assess for testicular vascularity; good bilateral color flow and waveforms are s een. There is no evidence of testicular torsion. Presence of hydroceles: Yes, complex fluid collection visualized on the right Presence of varicoceles: No Right epididymis and testicle appear hypervascular, possible right sided epididymo-orchitis. IMPRESSION: 1. COMPLEX RIGHT-SIDED HYDROCELE. 2. HYPERVASCULARITY OF THE RIGHT EPIDIDYMIS AND TESTICLE SUGGESTS RIGHT-SIDED EPIDIDYMOORCHITIS.
[2018-12-17 10:28] LABS: Calcium 9.8 mg/dL (8.4-10.2); Potassium 3.8 mmol/L (3.5-5.1); Total Bilirubin 0.7 mg/dL (0.2-1.3)
[2018-12-17] MEDS ORDERED: cefTRIAXone IN SWFI 1,000 MG/10 ML SYRINGE IVP STA (10:41)
--- NOTE | 2018-12-17 12:03 | CT ---
EXAMINATION TYPE: CT abdomen pelvis w con DATE OF EXAM: 12/17/2018 REFERENCE: Previous study dated 03/01/2018 HISTORY: Pain CT DLP: 1051 mGy Automated exposure control for dose reduction was used. TECHNIQUE: Helical acquisition through the abdomen and pelvis was obtained following the oral ingesti on of without Oral Contrast and following intravenous administration of 100 mL of Isovue 300. The laura a was reformatted in axial, coronal and sagittal projections. FINDINGS: There is some scarring or atelectasis at the right lung base. There is no pleural or peric ardial fluid. The heart is not enlarged. Within the abdomen, the liver, spleen and gallbladder appear normal. Both adrenal glands appear normal. There is a 3 cm cyst involving the left kidney which appears simply cystic and is unchanged from prev ious. The kidneys are otherwise unremarkable. The pancreas appears normal. There is moderate atheromatous calcification of the visualized arterial tree. There is no significant retroperitoneal, iliac or inguinal adenopathy. The bladder is unremarkable. There is evidence of a right-sided hydrocele and the right testicle appears to be hypervascular. There is no significant diverticular change and there is no radiographic evidence of diverticulitis. The appendix is unremarkable. Small bowel loops are normal. There is no free fluid and no free air. There is a periumbilical hernia containing fat only with a mouth measuring 16 mm. There are degenerative changes present in both hips. There is hypertrophic spondylosis, facet arthrop athy and degenerative disc disease within the spine. IMPRESSION: 1. RIGHT-SIDED HYDROCELE WITH A HYPERVASCULAR TESTICLE MAY REFLECT EPIDIDYMOORCHITIS. 2. SIMPLE APPEARING LEFT RENAL CYST. 3. DEGENERATIVE CHANGES WITHIN THE SPINE. 4. PERIUMBILICAL HERNIA CONTAINING FAT ONLY WITH A 13 MM MOUTH.
[2018-12-17 12:06] LABS: Appearance,Urine Clear (Clear); Bacteria,Urine Moderate /hpf; Bilirubin,Urine Negative (Negative); Blood,Urine Negative (Negative); Color,Urine Yellow; Glucose,Urine (UA) Negative (Negative); Ketones,Urine Negative (Negative); Leukocyte Esterase,Urine Large (Negative); Mucus,Urine Few /hpf; Nitrite,Urine Positive (Negative); PH, Urine 6.5 (5.0-8.0); Protein,Urine Negative (Negative); RBC,Urine <1 /hpf (0-5); Specific Gravity,Urine 1.013 (1.001-1.035); Urobilinogen,Urine <2.0 mg/dL (<2.0)
[2018-12-17 12:14] LABS: Eosinophils # (M) 0.21 k/uL (0-0.7); Lymphocytes # (M) 2.14 k/uL (1.0-4.8); Monocytes # (M) 2.14 k/uL (0-1.0); Neutrophils # (M) 16.91 k/uL (1.3-7.7); Neutrophils % (M) 79 %; Nucleated Red Blood Cells 0 /100 WBC (0-0); Total Cells Counted 100
[2018-12-17 12:35] VITALS: BP 124/68
== END 2018-12-17 12:44 | disposition home or self-care (01) ==
LOC: EC 09:06
DX: N45.3 Epididymo-orchitis (principal); N43.3 Hydrocele, unspecified; N28.1 Cyst of kidney, acquired; F41.9 Anxiety disorder, unspecified; F32.9 Major depressive disorder, single episode, unspecified; I10 Essential (primary) hypertension; E78.5 Hyperlipidemia, unspecified; F17.200 Nicotine dependence, unspecified, uncomplicated; Z79.82 Long term (current) use of aspirin; Z79.899 Other long term (current) drug therapy
CPT/HCPCS: 99284; 96374; 96375 ×2; 96361 ×2; 36415; 80053; 83605; 83690; 85025; 81001; 87086; 87077; 87186; 93975; 76870; 74177; J2270; J2405; J0696; Q9967

== ENCOUNTER 2018-12-17 23:10 | Observation (INO) | payer MEDICARE, OTHER ==
--- NOTE | 2018-12-17 23:30 | ED ---
Weakness HPI - General Chief complaint: Weakness Stated complaint: Weakness Time Seen by Provider: 12/17/18 23:26 Source: patient Mode of arrival: ambulatory Limitations: no limitations - History of Present Illness Initial comments: This patient is a 58-year-old man who comes in by ambulance to be evaluated for generalized weakness and fatigue. The patient states he has been feeling rundown for 1-2 days. He states that he was seen here earlier for right scrotum pain and swelling, and diagnosed with a "scrotal infection." The patient states was given antibiotic and then is to start prescription for same. Patient denies focal weakness. MD Complaint: generalized weakness, lack of energy -: hour(s) Location: generalized Severity: moderate Consistency: constant Improves with: none Worsens with: none Context: recent illness Associated Symptoms: other (Right scrotal pain) - Related Data Home Medications Medication Instructions Recorded Confirmed DULoxetine HCL [Cymbalta] 60 mg PO QAM 12/12/13 12/18/18 Lisinopril/Hydrochlorothiazide 1 tab PO QAM 11/14/15 12/18/18 [Zestoretic 20-12.5] Tamsulosin HCl [Flomax] 0.4 mg PO DAILY 02/03/16 12/18/18 Aspirin EC [Ecotrin Low Dose] 81 mg PO DAILY 07/22/16 12/18/18 Acetaminophen [Tylenol] 500 mg PO TID PRN 03/02/18 12/18/18 Atorvastatin [Lipitor] 10 mg PO HS 12/17/18 12/18/18 Pregabalin [Lyrica] 150 mg PO Q6H 12/17/18 12/18/18 Previous Rx's Medication Instructions Recorded oxyCODONE-APAP 10-325MG [Percocet 1 tab PO Q8HR PRN 30 Days #90 tab 08/09/18 10-325 mg] tiZANidine [Zanaflex] 4 mg PO Q8H PRN 30 Days #90 tab 08/09/18 Amoxicillin/Potassium Clav 1 tab PO Q12HR #56 tab 12/20/18 [Augmentin 875-125 Tablet] Allergies Allergy/AdvReac Type Severity Reaction Status Date / Time No Known Allergies Allergy Verified 12/18/18 08:15 Review of Systems ROS Statement: Those systems with pertinent positive or pertinent negative responses have been documented in the HPI. ROS Other: All systems not noted in ROS Statement are negative. Constitutional: Reports: chills, weakness Respiratory: Denies: cough, dyspnea Cardiovascular: Denies: chest pain, palpitations, orthopnea, edema, syncope Gastrointestinal: Reports: nausea. Denies: abdominal pain, vomiting, diarrhea Genitourinary: Reports: testicular pain, testicular mass. Denies: dysuria, frequency, hematuria Musculoskeletal: Denies: back pain Skin: Denies: rash Neurological: Denies: headache, weakness, numbness Past Medical History Past Medical History: COPD, Hyperlipidemia, Hypertension, Liver Disease, Musculoskeletal Disorder, Osteoarthritis (OA), Prostate Disorder Additional Past Medical History / Comment(s): "11/29/18 had fluid drained from ar ound brain at [facility]. Was having severe migraines and balance issues. Goes back for recheck 12/22/18." Hx Heart Murmur. Hx Head Injury. Migraines, Sciatica, Scoliosis. Pins & [place] bilateral legs, feet and back. Alcoholic cirrhosis, Enlarged Prostate. History of Any Multi-Drug Resistant Organisms: None Reported Past Surgical History: Hernia Repair, Orthopedic Surgery Additional Past Surgical History / Comment(s): "11/29/18 Had fluid drained from around brain." Right hand surgery, AC SEPARATION RIGHT COLLAR BONE -GRAFT FROM ELBOW, COLONOSCOPY, LEFT HIP SURGERY, RIGHT INGUINAL HERNIA REPAIR, MULTIPLE PA IN PROCEDURES. Past Anesthesia/Blood Transfusion Reactions: No Reported Reaction Past Psychological History: Anxiety, Depression Smoking Status: Current every day smoker Past Alcohol Use History: Occasional Past Drug Use History: None Reported - Past Family History Mother History Unknown: Yes Family Medical History: Unable to Obtain Additional Family Medical History / Comment(s): Pt was adopted. General Exam Limitations: no limitations General appearance: alert, in no apparent distress Head exam: Present: atraumatic, normocephalic Eye exam: Present: normal appearance. Absent: scleral icterus, conjunctival injection ENT exam: Present: mucous membranes dry Neck exam: Present: full ROM. Absent: meningismus Respiratory exam: Present: normal lung sounds bilaterally. Absent: respiratory distress, wheezes, rales, rhonchi, stridor Cardiovascular Exam: Present: regular rate, normal rhythm, normal heart sounds. Absent: systolic murmur, diastolic murmur, rubs, gallop GI/Abdominal exam: Present: soft, hernia (Umbilical hernia which is nontender). Absent: distended, tenderness, guarding, rebound, rigid, mass, pulsatile mass exam: Present: other (There is Tenderness and swelling of the right hemiscrotum/testicle.) Extremities exam: Present: normal inspection, normal capillary refill. Absent: pedal edema, calf tenderness Back exam: Present: normal inspection. Absent: CVA tenderness (R), CVA tenderness (L) Neurological exam: Present: alert, oriented X3. Absent: motor sensory deficit Skin exam: Present: warm, dry, intact, normal color. Absent: rash Course Vital Signs 12/17/18 12/18/18 23:14 02:15 Temperature 98.7 F Pulse Rate 55 L 55 L Respiratory 20 20 Rate Blood Pressure 100/55 112/66 O2 Sat by Pulse 99 98 Oximetry EKG Findings - EKG Results: EKG: interpreted by ERMD, sinus rhythm, normal axis, normal QRS, normal ST/T, no acute changes EKG shows: bradycardia (Rate 53 bpm) Medical Decision Making - Medical Decision Making Patient's 58-year-old man seen here earlier and diagnosed with epididymal orchitis. Patient discharged but has had worsening symptoms. On presentation tonight process appears to be the same however the patient did have some mental status changes and given this and his intractable pain will admit the patient for further IV antibiotics and treatment as well as neurology consultation. - Lab Data Result diagrams: 12/20/18 08:19 12/20/18 08:19 Lab Results 12/17/18 12/17/18 12/17/18 Range/Units 23:51 23:51 23:51 WBC 19.9 H (3.8-10.6) k/uL RBC 4.42 (4.30-5.90) m/uL Hgb 12.7 L (13.0-17.5) gm/dL Hct 38.3 L (39.0-53.0) % MCV 86.8 (80.0-100.0) fL MCH 28.8 (25.0-35.0) pg MCHC 33.1 (31.0-37.0) g/dL RDW 14.8 (11.5-15.5) % Plt Count 229 (150-450) k/uL Neutrophils % 86 % Lymphocytes % 7 % Monocytes % 5 % Eosinophils % 1 % Basophils % 0 % Neutrophils # 17.1 H (1.3-7.7) k/uL Lymphocytes # 1.3 (1.0-4.8) k/uL Monocytes # 1.1 H (0-1.0) k/uL Eosinophils # 0.1 (0-0.7) k/uL Basophils # 0.1 (0-0.2) k/uL PT 11.2 (9.0-12.0) sec INR 1.1 (<1.2) APTT 27.0 (22.0-30.0) sec Sodium 136 L (137-145) mmol/L Potassium 3.7 (3.5-5.1) mmol/L Chloride 105 (98-107) mmol/L Carbon Dioxide 23 (22-30) mmol/L Anion Gap 8 mmol/L BUN 21 H (9-20) mg/dL Creatinine 1.67 H (0.66-1.25) mg/dL Est GFR (CKD-EPI)AfAm 52 (>60 ml/min/1.73 sqM) Est GFR (CKD-EPI)NonAf 45 (>60 ml/min/1.73 sqM) Glucose 118 H (74-99) mg/dL Plasma Lactic Acid Gurwinder (0.7-2.0) mmol/L Calcium 8.6 (8.4-10.2) mg/dL Magnesium 2.1 (1.6-2.3) mg/dL Total Bilirubin 0.6 (0.2-1.3) mg/dL AST 13 L (17-59) U/L ALT 10 L (21-72) U/L Alkaline Phosphatase 73 (38-126) U/L Ammonia (<30) umol/L Troponin I (0.000-0.034) ng/mL Total Protein 6.0 L (6.3-8.2) g/dL Albumin 3.3 L (3.5-5.0) g/dL Urine Color Urine Appearance (Clear) Urine pH (5.0-8.0) Ur Specific [place] (1.001-1.035) Urine Protein (Negative) Urine Glucose (UA) (Negative) Urine Ketones (Negative) Urine Blood (Negative) Urine Nitrite (Negative) Urine Bilirubin (Negative) Urine Urobilinogen (<2.0) mg/dL Ur Leukocyte Esterase (Negative) Urine RBC (0-5) /hpf Urine WBC (0-5) /hpf Ur Squamous Epith Cells (0-4) /hpf Urine Bacteria (None) /hpf 12/17/18 12/17/18 12/18/18 Range/Units 23:51 23:51 00:01 WBC (3.8-10.6) k/uL RBC (4.30-5.90) m/uL Hgb (13.0-17.5) gm/dL Hct (39.0-53.0) % MCV (80.0-100.0) fL MCH (25.0-35.0) pg MCHC (31.0-37.0) g/dL RDW (11.5-15.5) % Plt Count (150-450) k/uL Neutrophils % % Lymphocytes % % Monocytes % % Eosinophils % % Basophils % % Neutrophils # (1.3-7.7) k/uL Lymphocytes # (1.0-4.8) k/uL Monocytes # (0-1.0) k/uL Eosinophils # (0-0.7) k/uL Basophils # (0-0.2) k/uL PT (9.0-12.0) sec INR (<1.2) APTT (22.0-30.0) sec Sodium (137-145) mmol/L Potassium (3.5-5.1) mmol/L Chloride (98-107) mmol/L Carbon Dioxide (22-30) mmol/L Anion Gap mmol/L BUN (9-20) mg/dL Creatinine (0.66-1.25) mg/dL Est GFR (CKD-EPI)AfAm (>60 ml/min/1.73 sqM) Est GFR (CKD-EPI)NonAf (>60 ml/min/1.73 sqM) Glucose (74-99) mg/dL Plasma Lactic Acid Gurwinder 1.3 (0.7-2.0) mmol/L Calcium (8.4-10.2) mg/dL Magnesium (1.6-2.3) mg/dL Total Bilirubin (0.2-1.3) mg/dL AST (17-59) U/L ALT (21-72) U/L Alkaline Phosphatase (38-126) U/L Ammonia 13 (<30) umol/L Troponin I <0.012 (0.000-0.034) ng/mL Total Protein (6.3-8.2) g/dL Albumin (3.5-5.0) g/dL Urine Color Yellow Urine Appearance Clear (Clear) Urine pH 5.5 (5.0-8.0) Ur Specific [place] 1.024 (1.001-1.035) Urine Protein Negative (Negative) Urine Glucose (UA) Negative (Negative) Urine Ketones Negative (Negative) Urine Blood Negative (Negative) Urine Nitrite Negative (Negative) Urine Bilirubin Negative (Negative) Urine Urobilinogen <2.0 (<2.0) mg/dL Ur Leukocyte Esterase Small H (Negative) Urine RBC 1 (0-5) /hpf Urine WBC 18 H (0-5) /hpf Ur Squamous Epith Cells <1 (0-4) /hpf Urine Bacteria Rare H (None) /hpf Disposition Clinical Impression: Epididymo-orchitis, Altered mental status, Intractable pain Disposition: ADMITTED IP TO THIS HOSP Condition: Serious
[2018-12-18 00:26] LABS: Basophils # (A) 0.1 k/uL (0-0.2); Basophils % (A) 0 %; Eosinophils # (A) 0.1 k/uL (0-0.7); Eosinophils % (A) 1 %; HCT 38.3 % (39.0-53.0); HGB 12.7 gm/dL (13.0-17.5); Lymphocytes # (A) 1.3 k/uL (1.0-4.8); Lymphocytes % (A) 7 %; MCH 28.8 pg (25.0-35.0); MCHC 33.1 g/dL (31.0-37.0); MCV 86.8 fL (80.0-100.0); Mean Platelet Volume 7.8; Monocytes # (A) 1.1 k/uL (0-1.0); Monocytes % (A) 5 %; Neutrophils # (A) 17.1 k/uL (1.3-7.7); Neutrophils % (A) 86 %; Platelet Count 229 k/uL (150-450); RBC 4.42 m/uL (4.30-5.90); RDW 14.8 % (11.5-15.5); WBC 19.9 k/uL (3.8-10.6)
[2018-12-18 00:37] LABS: Lactic Acid, Venous 1.3 mmol/L (0.7-2.0)
[2018-12-18 00:38] LABS: Albumin 3.3 g/dL (3.5-5.0); Calcium 8.6 mg/dL (8.4-10.2); Magnesium 2.1 mg/dL (1.6-2.3); Potassium 3.7 mmol/L (3.5-5.1); Total Bilirubin 0.6 mg/dL (0.2-1.3)
[2018-12-18 00:40] LABS: INR 1.1 (<1.2); Prothrombin Time 11.2 sec (9.0-12.0)
[2018-12-18] MEDS ORDERED: SODIUM CHLORIDE 0.9% 1,000 ML IV ONE (00:41)
[2018-12-18] MEDS ORDERED: SODIUM CHLORIDE 0.9% 1,000 ML IV STA (00:41)
[2018-12-18 00:42] LABS: Appearance,Urine Clear (Clear); Bacteria,Urine Rare /hpf; Bilirubin,Urine Negative (Negative); Blood,Urine Negative (Negative); Color,Urine Yellow; Glucose,Urine (UA) Negative (Negative); Ketones,Urine Negative (Negative); Leukocyte Esterase,Urine Small (Negative); Nitrite,Urine Negative (Negative); PH, Urine 5.5 (5.0-8.0); Protein,Urine Negative (Negative); RBC,Urine 1 /hpf (0-5); Specific Gravity,Urine 1.024 (1.001-1.035); Squamous Epithelial Cell,Urine <1 /hpf (0-4); Urobilinogen,Urine <2.0 mg/dL (<2.0); WBC,Urine 18 /hpf (0-5)
[2018-12-18] MEDS ORDERED: NALOXONE 0.4 MG/ML 1 ML VIAL IV PRN (00:43)
[2018-12-18] MEDS ORDERED: ONDANSETRON 4 MG/2 ML VIAL IVP PRN (00:43)
--- NOTE | 2018-12-18 00:43 | XR ---
EXAM: XR Chest, 2 Views CLINICAL HISTORY: ITS.REASON XR Reason: Weakness TECHNIQUE: Frontal and lateral views of the chest. COMPARISON: 03/03/18 FINDINGS: Lungs: Left basilar atelectasis or scarring. No consolidation. Pleural space: Unremarkable. No pneumothorax. Heart: Unremarkable. No cardiomegaly. Mediastinum: Unremarkable. Bones/joints: Unremarkable. IMPRESSION: No acute findings.
--- NOTE | 2018-12-18 01:11 | CT ---
EXAM: CT Head Without Intravenous Contrast CLINICAL HISTORY: ITS.REASON CT Reason: weakness TECHNIQUE: Axial computed tomography images of the head/brain without intravenous contrast. CTDI is 49 mGy and DLP is 1015 mGy-cm. This CT exam was performed using one or more of the following dose reduction techniques: automated exposure control, adjustment of the mA and/or kV according to patient size, and/or use of iterative reconstruction technique. COMPARISON: CT head 10/14/18 FINDINGS: Brain: No hemorrhage, large hypodensity, or mass effect. Ventricles: No hydrocephalus. Bones/joints: Unremarkable. Soft tissues: Unremarkable. Sinuses: Unremarkable. Mastoid air cells: Clear. IMPRESSION: No acute hemorrhage, hydrocephalus, or mass effect.
[2018-12-18] MEDS ORDERED: LEVOFLOXACIN 750MG-D5W PMX 750 MG in DEXTROSE/WATER 1 150ML.BAG IVPB SCH (02:00)
[2018-12-18] MEDS: MORPHINE SULFATE 4 MG/ML SYRINGE IV PRN ×2 (02:31→08:13)
[2018-12-18] MEDS ORDERED: oxyCODONE-APAP 10-325MG 1 EACH TAB PO PRN (09:44)
[2018-12-18] MEDS ORDERED: LISINOPRIL-HCTZ 20-12.5 MG 1 EACH TAB PO SCH (10:00)
[2018-12-18] MEDS: PREGABALIN 75 MG CAP PO SCH ×3 (10:07→21:23)
[2018-12-18] MEDS: TAMSULOSIN 0.4 MG CAP.ER.24H PO SCH (10:08)
[2018-12-18] MEDS: DULoxetine HCL 60 MG CAPSULE.DR PO SCH (10:08)
[2018-12-18] MEDS: tiZANidine 4 MG TAB PO PRN (10:43)
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
[2018-12-18] MEDS: ACETAMINOPHEN TAB 325 MG TAB PO PRN (14:56)
[2018-12-18] MEDS: ATORVASTATIN 10 MG TAB PO SCH (21:23)
[2018-12-18] MEDS: ENOXAPARIN 40 MG/0.4 ML SYRINGE SQ SCH (21:26)
[2018-12-18] MEDS: PIPERACILLIN-TAZOBACTAM 3.375 GM in SODIUM CHLORIDE 0.9% 100 ML IVPB SCH (21:28)
[2018-12-18] MEDS: LACTATED RINGERS 1,000 ML IV SCH (21:29)
--- NOTE | 2018-12-18 22:18 | HP ---
HISTORY AND PHYSICAL DATE OF ADMISSION: December 18, 2018. DATE OF SERVICE: December 18, 2018. PRESENTING COMPLAINT: Swelling, painful right scrotum. HISTORY OF PRESENTING COMPLAINT: This is a 58-year-old patient of Dr. Guerra. Chronic stable medical conditions include COPD, hypertension, hyperlipidemia, osteoarthritis, has fluid drained from around the brain [facility] on October [facility]. History of head injury. He had a scoliosis and what appears to be radiculopathy, alcoholic cirrhosis, enlarged prostate. The patient for 3 days noted increasing swelling in the right scrotum. He also developed fever. The patient presented to the ER. Earlier yesterday, was discharged on ciprofloxacin, started feeling weak, tired, rundown, low blood pressure, febrile, and decided to come back. Patient is started on antibiotics and admitted for the same. Urology was consulted. The patient denies any boil or any local trauma. Pretty tender in the right scrotum. REVIEW OF SYSTEMS: CONSTITUTIONAL fever. HEENT: None. RESPIRATORY: Some shortness of breath at baseline. CARDIOVASCULAR none. GASTROINTESTINAL none. GENITOURINARY as above. MUSCULOSKELETAL: Arthritic pain in the joints. DERMATOLOGICAL, HEMATOLOGIC, LYMPHATIC: none. PSYCHIATRY none. NEUROLOGICAL: Some numbness and tingling in the hands and legs. PAST MEDICAL HISTORY: COPD, hyperlipidemia, hypertension, osteoarthritis, enlarged prostate. The patient on November 29 this year had fluid drained from around the brain at [facility], was having headaches and balance issues. Supposed to go back for a recheck, migraines, sciatica, scoliosis, pins and needles in both the legs, alcoholic cirrhosis, enlarged prostate. PAST SURGICAL HISTORY: As above including hernia surgery, right hand surgery, colonoscopy, left hip surgery, right inguinal hernia repair, multiple pain procedures. PSYCH HISTORY: Anxiety, depression. SOCIAL HISTORY: The patient is smoking a pack a day for close to 47 years, alcohol problems up till 2009. . FAMILY HISTORY: The patient is adopted. HOME MEDICATIONS: 1. Zanaflex 4 mg q.8 p.r.n. 2. Percocet 10 one tablet every 8 p.r.n. 3. Flomax 0.4 mg p.o. daily. 4. Lyrica 150 mg p.o. q.6h. 5. Zestoretic 20/12.5 one tab p.o. daily. 6. Cymbalta 60 mg daily. 7. Cipro 500 mg q.12. 8. Lipitor 10 mg q.h.s. 9. Aspirin 81 mg p.o. daily. 10.Tylenol 500 mg t.i.d. p.r.n. ALLERGIES: None. PHYSICAL EXAMINATION: VITAL SIGNS: Temperature 102.8, pulse 83, respiratory rate 20. Blood pressure 106/77. Pulse ox 95% on room air. GENERAL APPEARANCE: Average build, lying in bed, tired-appearing. EYES: Pupils are equal. Conjunctivae normal. HEENT: External appearance of nose and ears normal. Oral cavity normal. NECK: JVD not raised. Mass not palpable. RESPIRATORY: Effort normal. LUNGS: Slightly decreased breath sounds. CARDIOVASCULAR: 1st and 2nd sounds no edema. ABDOMEN: Soft, nontender. Liver and spleen not palpable. LYMPHATICS: No lymph nodes palpable in the neck and axilla. PSYCHIATRY: Alert and oriented x3. Mood and affect normal. NEUROLOGICAL: Pupils equal. Cranial nerves grossly intact. GENITOURINARY: The right scrotum is enlarged. He has got a hydrocele, firm feeling. Very tender on the outside. INVESTIGATIONS: White count 19.9, hemoglobin 12.7, potassium 3.7, BUN 21, creatinine 1.67. The patient's BUN and creatinine earlier was 60/1.21. The patient's creatinine was 0.96 back on March 03, 2018. UA showing leuko esterase. WBC and moderate bacteria. ASSESSMENT: 1. Acute prostatitis with acute epididymitis and possibly orchitis, suspect bacterial organism causing sepsis, POA. 2. Acute renal failure likely acute tubular necrosis. 3. Chronic obstructive pulmonary disease in a current smoker. 4. Hyperlipidemia. 5. Essential hypertension. 6. Primary osteoarthritis. 7. Benign prostatic hypertrophy. 8. Fluid around the brain, problem being worked up by Neurology as an outpatient. PLAN: Patient was put on Levaquin in the ER. We will switch the patient over to IV Zosyn. Other home medications to continue. Blood cultures were done. Urology was consulted. Care was discussed with the patient. Questions were answered. Also patient will be put on IV fluids and Lovenox for DVT prophylaxis. Copy to Dr. Guerra. HAILEY / FRANDY: [id number] /
[2018-12-19] MEDS: PREGABALIN 75 MG CAP PO SCH ×4 (04:38→20:51)
[2018-12-19] MEDS: PIPERACILLIN-TAZOBACTAM 3.375 GM in SODIUM CHLORIDE 0.9% 100 ML IVPB SCH ×3 (05:15→20:55)
[2018-12-19] MEDS: LACTATED RINGERS 1,000 ML IV SCH ×3 (05:16→20:51)
[2018-12-19] MEDS: DULoxetine HCL 60 MG CAPSULE.DR PO SCH (09:34)
[2018-12-19] MEDS: ASPIRIN 81 MG PO SCH (09:34)
[2018-12-19] MEDS: ENOXAPARIN 40 MG/0.4 ML SYRINGE SQ SCH (09:34)
[2018-12-19] MEDS: TAMSULOSIN 0.4 MG CAP.ER.24H PO SCH (09:34)
[2018-12-19] MEDS: ACETAMINOPHEN TAB 325 MG TAB PO PRN ×2 (09:40→20:51)
[2018-12-19 10:01] LABS: African American GFR (CKD) >90 (>60 ml/min/1.73 sqM); Anion Gap 9 mmol/L; Blood Urea Nitrogen 10 mg/dL (9-20); Calcium 9.1 mg/dL (8.4-10.2); Carbon Dioxide 24 mmol/L (22-30); Chloride 101 mmol/L (98-107); Glucose 136 mg/dL (74-99); Sodium 134 mmol/L (137-145)
[2018-12-19 10:04] LABS: Basophils % (A) 0 %; Eosinophils # (A) 0.1 k/uL (0-0.7); Eosinophils % (A) 1 %; HCT 39.3 % (39.0-53.0); HGB 13.2 gm/dL (13.0-17.5); Lymphocytes # (A) 1.2 k/uL (1.0-4.8); Lymphocytes % (A) 9 %; MCH 28.8 pg (25.0-35.0); MCHC 33.5 g/dL (31.0-37.0); Mean Platelet Volume 8.5; Monocytes # (A) 0.7 k/uL (0-1.0); Monocytes % (A) 6 %; Neutrophils # (A) 10.8 k/uL (1.3-7.7); Neutrophils % (A) 83 %; Platelet Count 256 k/uL (150-450); RBC 4.57 m/uL (4.30-5.90); RDW 14.9 % (11.5-15.5); WBC 13.1 k/uL (3.8-10.6)
--- NOTE | 2018-12-19 13:22 | P.PN ---
Subjective Progress Note Date: 12/19/18 The patient is in his second hospital day for a right epididymal orchitis. He is afebrile. His white count is down from 19,000 to 13,000. He is feeling better. His exam is less tender. Once the culture and sensitivities back he can be sent home on oral antibiotics. He should be treated for 30 days because this was consistent with a prostatitis with a secondary epididymal orchitis. Objective - Vital Signs Vital signs: Vital Signs Temp 98.0 F 12/19/18 05:20 Pulse 64 12/19/18 05:20 Resp 16 12/19/18 08:00 BP 160/70 12/19/18 05:20 Pulse Ox 97 12/19/18 07:08 Intake & Output 12/18/18 12/19/18 12/19/18 18:59 06:59 18:59 Intake Total 320 320 Balance 320 320 Intake: Oral 320 320 Other: Voiding Method Toilet Toilet # Voids 2 2 # Bowel Movements 0 - Labs CBC & Chem 7: 12/19/18 09:12 12/19/18 09:12 Labs: Abnormal Lab Results - Last 24 Hours (Table) 12/19/18 12/19/18 Range/Units 09:12 09:12 WBC 13.1 H (3.8-10.6) k/uL Neutrophils # 10.8 H (1.3-7.7) k/uL Sodium 134 L (137-145) mmol/L Glucose 136 H (74-99) mg/dL Microbiology - Last 24 Hours (Table) 12/18/18 01:26 Blood Culture - Preliminary Blood No Growth after 24 hours
[2018-12-19] MEDS: ATORVASTATIN 10 MG TAB PO SCH (20:51)
[2018-12-19] MEDS: tiZANidine 4 MG TAB PO PRN (20:53)
--- NOTE | 2018-12-19 22:25 | PN ---
PROGRESS NOTE DATE OF SERVICE: December 19, 2018. PRESENTING COMPLAINT: Painful right scrotum. INTERVAL HISTORY: This patient presented with acute prostatitis and acute epididymal orchitis. Pain and swelling is better today. Patient is able to actually touch it, it is less angry appearing. Fevers are settling down. Last fever was yesterday afternoon. The patient is actually able to walk around the bed. REVIEW OF SYSTEMS: Done for constitutional, cardiovascular, GI, pulmonary; relevant findings as above. CURRENT MEDICATIONS: Reviewed that include IV Zosyn. PHYSICAL EXAMINATION: VITAL SIGNS: On examination T-max 102.8 yesterday evening. No fever today. Pulse 64, respiration 16, blood pressure 160/70, pulse ox 97% on room air. GENERAL APPEARANCE: Sitting up. More comfortable. EYES: Pupils are equal. Conjunctivae normal. NECK: JVD not raised. Mass not palpable. RESPIRATORY effort normal. LUNGS: Decreased breath sounds. CARDIOVASCULAR: 1st and 2nd sounds normal. No edema. ABDOMEN: Soft, nontender. Liver and spleen not palpable. GENITOURINARY: Decreased tenderness and redness of the right scrotum. Hydrocele is a bit more lax. INVESTIGATIONS: White count 13.1, potassium 4.0, creatinine 0.79. Blood cultures negative till now. ASSESSMENT: 1. Acute prostatitis with acute epididymis and orchitis, suspect bacterial causing sepsis, POA. 2. Acute renal failure likely acute tubular necrosis, POA. 3. Chronic obstructive pulmonary disease in a current smoker. 4. Hyperlipidemia. 5. Essential hypertension. 6. Primary osteoarthritis. 7. Benign prostatic hypertrophy. 8. Fluid around the brain, chronic, being worked up by Neurology as an outpatient. PLAN: Care was discussed with the patient. The patient responding well to IV Zosyn. Hoping patient can probably be discharged by tomorrow. MMODL / IJN: [id number] /
[2018-12-20] MEDS: PREGABALIN 75 MG CAP PO SCH ×2 (04:56→08:15)
[2018-12-20] MEDS: tiZANidine 4 MG TAB PO PRN (04:57)
[2018-12-20] MEDS: LACTATED RINGERS 1,000 ML IV SCH (04:59)
[2018-12-20] MEDS: PIPERACILLIN-TAZOBACTAM 3.375 GM in SODIUM CHLORIDE 0.9% 100 ML IVPB SCH (05:01)
[2018-12-20 05:18] VITALS: BP 145/76; PULSE 56; TEMP 98.1
[2018-12-20] MEDS: ENOXAPARIN 40 MG/0.4 ML SYRINGE SQ SCH (08:15)
[2018-12-20] MEDS: TAMSULOSIN 0.4 MG CAP.ER.24H PO SCH (08:15)
[2018-12-20] MEDS: ASPIRIN 81 MG PO SCH (08:15)
[2018-12-20] MEDS: DULoxetine HCL 60 MG CAPSULE.DR PO SCH (08:15)
[2018-12-20 09:16] LABS: Basophils % (A) 0 %; Eosinophils # (A) 0.3 k/uL (0-0.7); Eosinophils % (A) 3 %; HCT 40.6 % (39.0-53.0); HGB 13.2 gm/dL (13.0-17.5); Lymphocytes # (A) 0.9 k/uL (1.0-4.8); Lymphocytes % (A) 11 %; MCH 28.5 pg (25.0-35.0); MCHC 32.5 g/dL (31.0-37.0); MCV 87.7 fL (80.0-100.0); Monocytes # (A) 0.5 k/uL (0-1.0); Monocytes % (A) 6 %; Neutrophils # (A) 6.6 k/uL (1.3-7.7); Neutrophils % (A) 77 %; Platelet Count 256 k/uL (150-450); RBC 4.63 m/uL (4.30-5.90); RDW 15.3 % (11.5-15.5); WBC 8.6 k/uL (3.8-10.6)
[2018-12-20 09:34] LABS: African American GFR (CKD) >90 (>60 ml/min/1.73 sqM); Anion Gap 7 mmol/L; Blood Urea Nitrogen 8 mg/dL (9-20); Calcium 9.2 mg/dL (8.4-10.2); Carbon Dioxide 27 mmol/L (22-30); Chloride 102 mmol/L (98-107); Glucose 128 mg/dL (74-99); Potassium 4.9 mmol/L (3.5-5.1); Sodium 136 mmol/L (137-145)
[2018-12-20 11:18] VITALS: RESP 18
--- NOTE | 2018-12-22 12:45 | DS ---
DISCHARGE SUMMARY DATE OF ADMISSION: 12/18/2018. DATE OF DISCHARGE: 12/20/2018 FINAL DIAGNOSES: 1. Acute severe prostatitis with acute epididymitis and orchitis causing sepsis on admission. 2. Acute renal failure, acute tubular necrosis from sepsis on admission. 3. Chronic obstructive pulmonary disease in a current smoker. 4. Hyperlipidemia. 5. Essential hypertension. 6. Primary osteoarthritis. 7. Benign prostatic hypertrophy. 8. Fluid around the brain, chronic, being followed as an outpatient by Neurology. HOSPITAL COURSE: This patient presented with acute prostatitis, acute hepatitis now currently manifesting as acute painful swelling of the right scrotum with sepsis picture. Blood cultures were negative. The patient is doing much better at the time of discharge. The swelling had greatly come down. Nontender. Patient was seen by Dr. Wilson from Urology. PHYSICAL EXAMINATION: Temperature 98.1, pulse 67, respiration 20, blood pressure 140/76. The swelling of the right scrotum is present, but not point tenderness, less angry appearing. INVESTIGATIONS: White count 8.6, potassium 4.9, BUN 8, creatinine 0.81. Creatinine was 1.6 on admission. Cultures were negative. CONSULTATION: Dr. Wilson from Urology. DISCHARGE MEDICATIONS: 1. Cymbalta 60 mg p.o. daily. 2. Zestoretic 20/12.5 one tablet p.o. daily. 3. Flomax 0.4 mg p.o. daily. 4. Aspirin 81 mg p.o. daily. 5. Tylenol 500 mg p.o. t.i.d. p.r.n. 6. Percocet 10 one tablet q.8 p.r.n. 7. Zanaflex 4 mg q.8 p.r.n. 8. Lipitor 10 mg q.h.s. 9. Lyrica 150 mg p.o. q.6. 10.Augmentin 875 one tablet p.o. q.12, 56 tablets status for 4 weeks. Follow up with Dr. Guerra on 12/27/2018, follow up with Dr. Wilson on 01/13/2019. MMODL / IJN: [id number] /
== END 2018-12-20 13:50 | disposition home or self-care (01) ==
LOC: EC 23:10 → 4MS4W 12-18 00:45
PROVIDERS: ADMIT Hospitalist; ATTEND Hospitalist
DX: A41.9 Sepsis, unspecified organism (principal); R65.20 Severe sepsis without septic shock; N45.3 Epididymo-orchitis; N41.0 Acute prostatitis; N17.0 Acute kidney failure with tubular necrosis; J44.9 Chronic obstructive pulmonary disease, unspecified; E78.5 Hyperlipidemia, unspecified; I10 Essential (primary) hypertension; N43.3 Hydrocele, unspecified; M19.91 Primary osteoarthritis, unspecified site; N40.0 Benign prostatic hyperplasia without lower urinary tract symptoms; F17.210 Nicotine dependence, cigarettes, uncomplicated; M47.9 Spondylosis, unspecified; K70.30 Alcoholic cirrhosis of liver without ascites; G43.909 Migraine, unspecified, not intractable, without status migrainosus; M41.9 Scoliosis, unspecified; M54.30 Sciatica, unspecified side; F41.9 Anxiety disorder, unspecified; F32.9 Major depressive disorder, single episode, unspecified; F10.21 Alcohol dependence, in remission; R20.2 Paresthesia of skin; R20.0 Anesthesia of skin; G91.9 Hydrocephalus, unspecified; Z79.82 Long term (current) use of aspirin; Z79.891 Long term (current) use of opiate analgesic; Z79.899 Other long term (current) drug therapy; Z87.820 Personal history of traumatic brain injury; Z87.828 Personal history of other (healed) physical injury and trauma
CPT/HCPCS: 99285 ×2; 96376; 96361 ×3; 96366 ×3; 96367 ×2; 96372 ×3; 96365; 96375; 36415; 93005; 80053; 80048 ×2; 82140; 83605; 83735; 84484; 85025 ×3; 85610; 85730; 81001; 87040; 71046; 70450; G0378 ×3; J2543 ×3; J2270; J1650 ×3; J0696; J1956

== ENCOUNTER → 2019-01-23 | Outpatient (CLI) | payer MEDICARE, OTHER ==
[2019-01-23 11:53] VITALS: BP 154/89; PULSE 67; RESP 16
--- NOTE | 2019-01-23 12:15 | P.PAINPG ---
Subjective Progress Note Date: 01/23/19 Patient returns for follow-up visit with chief complaint of low back pain, left hip pain and neck pain. He is complaining of left hip pain, he has a history of dislocated left hip over 30 years ago. He underwent a left hip intra-articular steroid injection on [id number] and returns for follow-up today. He reports that this injection gave him a reasonable amount of pain relief, and he still has ongoing pain relief. He would like to schedule a repeat procedure. He has limited mobility with regards to hip flexion and internal rotation. Pain radiates into the posterior part of his hamstring to his knee. He reports that he was [facility] in [place] on where a lumbar puncture was done to "relieve the fluid around his brain". He also had cervical paraspinal trigger point injections done with that clinic. Patient is tolerating his medications well and does not describe any side effects. Today, pt denies new-onset weakness, bowel/bladder incontinence, or any other signs or symptoms of cauda equina syndrome. There are no signs of acute intoxication, and no indications of medication diversion or overuse. In addition to above, 4-point review of systems is also negative for new onset weakness, constipation, homicidal or suicidal ideation, or bowel or bladder incontinence. Vital Signs: Reviewed in EMR Gen: WDWN, AAOx3, NAD HEENT: NCAT, EOMI, hearing grossly normal Pulm: resp unlabored Abd: ND Neck: supple, trachea midline ROM in flexion lumbar spine: Normal ROM in extension lumbar spine: reduced Lumbar paravertebral tenderness: No tenderness present Facet loading: Positive bilaterally SI joint tenderness: None Keegan's test: neg on right, reduced range of motion of left hip and unable to perform test. Left hip exam: Positive pain with hip flexion, positive pain with flexion and internal rotation Neuro: CN II-XII grossly intact, muscle strength lower extremities PRESERVED Imaging: MRI left hip done on [id number] showed osteonecrosis of the left femoral head, labral tear, osteoarthritis, with concern for femoral neck impingement. Assessment: 1. lumbar spondylosis without myelopathy 2. chronic pain syndrome 3. lumbar DDD 4. Left hip osteoarthritis 5. Chronic opioid use Plan: 1. Explanation: Opioid and psychological risk scores were reviewed. Diagnoses, prognoses, and multiple treatment options including but not limited to physical therapy, interventional therapies, adjuvant medical therapies, narcotic medication therapies, and surgery were discussed with the patient and all questions were answered to the patient's satisfaction. 2. Opioid agreement: Patient has previously signed narcotic agreement, and was orally counseled to not overuse, abuse, divert, or cell medications, and to take them as prescribed by only 1 healthcare provider. The patient was also counseled to store opioid medications in a safe and preferably locked location. Patient was also counseled against driving while using narcotic medications and also to not use alcohol or any illicit or recreational drugs. The patient v erbalized understanding that lack of compliance with any of the above and likely result in failure to renew narcotic prescriptions, possible discharge from the clinic, and possible legal ramifications thereafter if indicated. 3. Counseling: The patient was counseled on exercise in the context of both chronic pain and overall health. 4. Procedures: Repeat Left hip intra-articular injection with fluoroscopy to be scheduled 5. Consultations: None, in the future, if no benefit from hip injection, would recommend orthopedic evaluation. 6. Investigations: None 7. Medications: Percocet 10/325 #90 with one refill; Lyrica 150 mg #90 with 2 refills, Zanaflex 8. Disposition: Follow-up for left hip injection. Objective - Vital Signs Vital signs: Intake & Output 01/22/19 01/23/19 01/23/19 18:59 06:59 18:59 Weight 77.111 kg PQRS Measure Charge Sheet Measure #226: Tobacco Use: Screen & Cessation Intervention: Pt screened for tobacco use AND intervention given Measure #111: Pneumonia Vaccination: Pneumococcal vaccine NOT administered or previously given Measure #47: Advance Care Plan: Advance care planning discussed & documented, pt chose/unable to give Measure #412: Opioid Treatment Agreement: Documented signed opioid trtmnt agreemnt min once during opioid trtmnt Measure #317: Preventitive Care & Scrn High Bld Press & F/U: Pre-hypertensive or hypertensive BP documented, pt will f/u with PCP Measure #128: Body Mass Index (BMI) Screening & Follow-up: BMI documented within normal parameters Measure #131: Pain Assessment & Follow-up: Pain positive & plan documented, Follow-up scheduled Measure #431: Unhealthy Alcohol Use Preventative Care & Scrn: Patient not identified as an unhealthy alcohol user PQRS Narrative: Smoking Status Current every day smoker Narcotic Agreement Date Signed 08/09/18 Hx Alcohol Use (MH) Yes: social Home Medications: Ambulatory Orders DULoxetine HCL [Cymbalta] 60 mg PO QAM 12/12/13 Lisinopril/Hydrochlorothiazide [Zestoretic 20-12.5] 1 tab PO QAM 11/14/15 Tamsulosin HCl [Flomax] 0.4 mg PO DAILY 02/03/16 Aspirin EC [Ecotrin Low Dose] 81 mg PO DAILY 07/22/16 Acetaminophen [Tylenol] 500 mg PO TID PRN 03/02/18 Atorvastatin [Lipitor] 10 mg PO HS 12/17/18 Pregabalin [Lyrica] 150 mg PO Q6H 30 Days #90 capsule 01/23/19 oxyCODONE-APAP 10-325MG [Percocet 10-325 mg] 1 tab PO Q8HR PRN 30 Days #90 tab 01/23/19 oxyCODONE-APAP 10-325MG [Percocet 10-325 mg] 1 tab PO Q8HR PRN 30 Days #90 tab 01/23/19 tiZANidine [Zanaflex] 4 mg PO Q8H PRN 30 Days #90 tab 01/23/19 Controlled Substance Measures - Controlled Substance Measures Is patient prescribed a controlled substance at discharge?: Yes When asked, does pt state using other controlled substances?: No If prescribed controlled substance>3 days was MAPS reviewed?: Yes If Rx opioid, was Start Talking consent form obtained?: Yes If opioid is for acute pain is fill amount 7 days or less?: No Was information provided regarding opioid addiction?: Yes
== END | disposition home or self-care (01) ==
LOC: PNWHC3 11:26
PROVIDERS: ATTEND Anesthesiology
DX: G89.4 Chronic pain syndrome (principal); M51.36 Other intervertebral disc degeneration, lumbar region; M47.816 Spondylosis without myelopathy or radiculopathy, lumbar region; M16.12 Unilateral primary osteoarthritis, left hip; F11.90 Opioid use, unspecified, uncomplicated; F17.200 Nicotine dependence, unspecified, uncomplicated; Z79.82 Long term (current) use of aspirin; Z79.899 Other long term (current) drug therapy
CPT/HCPCS: 99211

== ENCOUNTER → 2019-03-21 | Outpatient (CLI) | payer MEDICARE, OTHER ==
[2019-03-21 11:42] VITALS: BP 157/78; PULSE 60; RESP 18
--- NOTE | 2019-03-23 06:24 | P.PAINPG ---
Subjective Progress Note Date: 03/21/19 This is follow-up visit for this patient with a history of severe and chronic low back pain secondary to lumbar degenerative disc diseases , lumbar spondylosis with facet arthropathy,and left hip artheralgia ,We have done interventional pain procedures, radiofrequency ablation of the medial branch lumbar area and this helped his low back pain significantly, and we have done left hip intraarticular steroid injections ,which helped his left hip pain significantly Patients currently on Percocet 10/325 every 8 hours, Lyrica 50 mg 3 times a day, Zanaflex 4 mg every 8 hours Patient denies any side effects of the medication, denies excessive drowsiness or sleepiness, denies suicidal ideation, and reports that the current pain medication is helping to control the pain ,and improve activity of daily living Patient denies any motor or sensory deficit , patient denies any fever or night sweats, denies any change in the bowel movements or urination Physical Examinations : -Constitutional : Cooperative , not in acute distress . -HEENT : nech ; supple , no Lymphadenopathy , no Thyromegaly , normal thyroid size . eyes : no ptosis , no icterus, no photophobia . - neurologic: Cranial nerve II to XII intact , no focal neurological de ffecit . - Psychatric: alert , oriented X 3 , appropriate affect , intact judgment and insight . - Lymphatic : no Lymphadenopathy . - Musculoskeltal : exams of the cervical spine = motor strength normal bilateral upper extremities facet loading test cervical area positive. exams of the Lumber spine =motor strength lower extremities ,thigh and legs .5/5 deep tendon reflexes : normal Knee Jerk , normal ankle Jerk . lumber facet Loading Test positive strait leg raising test positive at 30 degree , RT ,LT , Fabere test positive RT 30 and positive LT . Range of motion: Range of motion in flexion of the lumbar spine 30 degrees Range of motion range of motion of extension of the lumbar spine 10 Assessment and plan = Chronic low back pain secondary to lumbar degenerative disc disease , lumbar spondylosis with facet arthropathy without myelopathy chronic and current use of high-risk medication (Opioids). The patient was counseled about risk of opioid use, psychological risk associated with opioids and was orally counseled to not overuse , divert,or sell dictations to take medications as prescribed only , and to restore medication in safe location , the patient counseled against driving while using narcotic medications, and also not to use alcohol or any illicit recreational drugs, patient's verbalized understanding that the lack of compliance will result in failure to renew narcotic prescription and possible discharge from the clinic - diagnoses, prognosis, and treatment options including but not limited to physical therapy, surgical interventions, interventional therapies , and medication management including narcotics and adjuvant medication were discussed with the patient and all the questions answered MAPS reviewed and it was apropriate Prescription refill for Percocet 10/325 every 8 hours dispense 90 with 1 refill, Lyrica 150 mg 3 times a day dispense 90 with 1 refill, Zanaflex 4 mg every 8 hours dispense 90 with 1 refill. Urine drug screen done last visit it was negative for opioid , (she was distracted by his neurosurgeon to stop taking any opioid for special test to be done, MRI ) We will repeat urine drug screen in the near future PQRS Measure Charge Sheet Measure #130: Documentation of Current Meds in Medical Chart: Patient's medications documented in chart Measure #226: Tobacco Use: Screen & Cessation Intervention: Pt screened for tobacco use AND intervention given Measure #111: Pneumonia Vaccination: Pneumococcal vaccine NOT administered or previously given Measure #47: Advance Care Plan: Advance care planning discussed & documented, pt chose/unable to give Measure #412: Opioid Treatment Agreement: Documented signed opioid trtmnt agreemnt min once during opioid trtmnt Measure #408: Opioid Therapy Follow-up Evaluation: Patient had f/u eval minimum every 3 months during opioid therapy Measure #317: Preventitive Care & Scrn High Bld Press & F/U: Pre-hypertensive or hypertensive BP documented, pt will f/u with PCP Measure #128: Body Mass Index (BMI) Screening & Follow-up: BMI documented ABOVE normal parameters - f/u documented Measure #131: Pain Assessment & Follow-up: Pain positive & plan documented, Follow-up scheduled Measure #431: Unhealthy Alcohol Use Preventative Care & Scrn: Patient not cain ntified as an unhealthy alcohol user PQRS Narrative: Smoking Status Current every day smoker Narcotic Agreement Date Signed 08/09/18 Hx Alcohol Use (MH) Yes: social Home Medications: Ambulatory Orders DULoxetine HCL [Cymbalta] 60 mg PO QAM 12/12/13 Lisinopril/Hydrochlorothiazide [Zestoretic 20-12.5] 1 tab PO QAM 11/14/15 Tamsulosin HCl [Flomax] 0.4 mg PO DAILY 02/03/16 Aspirin EC [Ecotrin Low Dose] 81 mg PO DAILY 07/22/16 Acetaminophen [Tylenol] 500 mg PO TID PRN 03/02/18 Atorvastatin [Lipitor] 10 mg PO HS 12/17/18 Pregabalin [Lyrica] 150 mg PO Q8H 30 Days #90 capsule 03/21/19 oxyCODONE HCL/ACETAMINOPHEN [Percocet 10-325 mg] 1 tab PO Q8HR PRN 30 Days #90 tab 03/21/19 oxyCODONE-APAP 10-325MG [Percocet 10-325 mg] 1 tab PO Q8HR PRN 30 Days #90 tab 03/21/19 tiZANidine [Zanaflex] 4 mg PO Q8H PRN 30 Days #90 tab 03/21/19 Controlled Substance Measures - Controlled Substance Measures Is patient prescribed a controlled substance at discharge?: Yes When asked, does pt state using other controlled substances?: No If prescribed controlled substance>3 days was MAPS reviewed?: Yes If Rx opioid, was Start Talking consent form obtained?: Yes If opioid is for acute pain is fill amount 7 days or less?: No Was information provided regarding opioid addiction?: Yes
== END | disposition home or self-care (01) ==
LOC: PNWHC3 11:21
PROVIDERS: ATTEND Specialist
DX: G89.29 Other chronic pain (principal); M51.36 Other intervertebral disc degeneration, lumbar region; M47.816 Spondylosis without myelopathy or radiculopathy, lumbar region; M46.96 Unspecified inflammatory spondylopathy, lumbar region; F17.200 Nicotine dependence, unspecified, uncomplicated; Z79.891 Long term (current) use of opiate analgesic; Z79.899 Other long term (current) drug therapy; Z79.82 Long term (current) use of aspirin
CPT/HCPCS: 99211

== ENCOUNTER 2019-05-03 09:49 | Emergency (ER) | payer MEDICARE, OTHER ==
[2019-05-03 09:57] VITALS: RESP 18; TEMP 97.9
[2019-05-03] MEDS ORDERED: MORPHINE SULFATE 4 MG/ML SYRINGE IVP STA ×2 (10:05→11:58)
[2019-05-03] MEDS ORDERED: ONDANSETRON 4 MG/2 ML VIAL IVP STA (10:05)
--- NOTE | 2019-05-03 10:17 | ED ---
Fall HPI - General Chief Complaint: Fall Stated Complaint: fall Time Seen by Provider: 05/03/19 09:58 Source: patient, RN notes reviewed Mode of arrival: ambulatory Limitations: no limitations - History of Present Illness Initial Comments: 59-year-old male presents emergency Department with chief complaint of fall, left-sided chest and abdominal pain. Patient states that he was up on a farm elevator and states that he fell because he lost his footing. Patient fell directly onto one of the ridges of the elevator. Patient states that this was a ground-level. Patient went to severe pain is left-sided his abdomen with bruising, chest pain on the left side and pain with deep inspiration along with shortness of breath. Patient states the pain is uncontrolled this time no head injury no loss conscious no known blood thinners. - Related Data Home Medications Medication Instructions Recorded Confirmed DULoxetine HCL [Cymbalta] 60 mg PO DAILY 12/12/13 05/03/19 Lisinopril/Hydrochlorothiazide 1 tab PO DAILY 11/14/15 05/03/19 [Zestoretic 20-12.5] Tamsulosin HCl [Flomax] 0.4 mg PO DAILY 02/03/16 05/03/19 Aspirin EC [Ecotrin Low Dose] 81 mg PO BID 07/22/16 05/03/19 Acetaminophen [Tylenol] 500 mg PO TID PRN 03/02/18 05/03/19 Atorvastatin [Lipitor] 10 mg PO HS 12/17/18 05/03/19 Folic Acid 1 mg PO DAILY 05/03/19 05/03/19 Omeprazole [PriLOSEC] 20 mg PO AC-BRKFST 05/03/19 05/03/19 Pregabalin [Lyrica] 150 mg PO TID 05/03/19 05/03/19 Previous Rx's Medication Instructions Recorded oxyCODONE HCL/ACETAMINOPHEN 1 tab PO Q8HR PRN 30 Days #90 tab 03/21/19 [Percocet 10-325 mg] tiZANidine [Zanaflex] 4 mg PO Q8H PRN 30 Days #90 tab 03/21/19 Ketorolac [Toradol] 10 mg PO Q8HR #15 tab 05/03/19 Allergies Allergy/AdvReac Type Severity Reaction Status Date / Time No Known Allergies Allergy Verified 05/03/19 11:49 Review of Systems ROS Statement: Those systems with pertinent positive or pertinent negative responses have been documented in the HPI. ROS Other: All systems not noted in ROS Statement are negative. Past Medical History Past Medical History: COPD, Hyperlipidemia, Hypertension, Liver Disease, Mus culoskeletal Disorder, Osteoarthritis (OA), Prostate Disorder Additional Past Medical History / Comment(s): "11/29/18 had fluid drained from around brain at [facility]. Was having severe migraines and balance issues. Goes back for recheck 12/22/18." Hx Heart Murmur. Hx Head Injury. Migraines, Sciatica, Scoliosis. [place] bilateral legs, feet and back. Alcoholic cirrhosis, Enlarged Prostate. Pt. states (on 01-23-19) that his follow- up visit with Neuro/Spine clinic is moved to April 2019. Right Testicular Swelling - October 2018 (antibiotics started) History of Any Multi-Drug Resistant Organisms: None Reported Past Surgical History: Hernia Repair, Orthopedic Surgery Additional Past Surgical History / Comment(s): "11/29/18 Had fluid drained from around brain." Right hand surgery, AC SEPARATION RIGHT COLLAR BONE -GRAFT FROM ELBOW, COLONOSCOPY, LEFT HIP SURGERY, RIGHT INGUINAL HERNIA REPAIR, MULTIPLE PAIN PROCEDURES. Past Anesthesia/Blood Transfusion Reactions: No Reported Reaction Past Psychological History: Anxiety, Depression Smoking Status: Current every day smoker Past Alcohol Use History: Occasional Past Drug Use History: None Reported - Past Family History Mother History Unknown: Yes Family Medical History: Unable to Obtain Additional Family Medical History / Comment(s): Pt was adopted. General Exam Limitations: no limitations General appearance: alert, in no apparent distress Head exam: Present: atraumatic, normocephalic, normal inspection Eye exam: Present: normal appearance, PERRL, EOMI. Absent: scleral icterus, conjunctival injection, periorbital swelling ENT exam: Present: normal exam, mucous membranes moist Neck exam: Present: normal inspection, full ROM. Absent: tenderness, meningismus, lymphadenopathy Respiratory exam: Present: normal lung sounds bilaterally, chest wall tenderness (Moderate left-sided ). Absent: respiratory distress, wheezes, rales, rhonchi, stridor Cardiovascular Exam: Present: regular rate, normal rhythm, normal heart sounds. Absent: systolic murmur, diastolic murmur, rubs, gallop, clicks GI/Abdominal exam: Present: soft, tenderness (Left-sided with ecchymosis noted ), normal bowel sounds. Absent: distended, guarding, rebound, rigid Back exam: Absent: CVA tenderness (R), CVA tenderness (L) Neurological exam: Present: alert, oriented X3, CN II-XII intact, reflexes normal. Absent: motor sensory deficit Skin exam: Present: warm, dry, intact, normal color. Absent: rash Course Vital Signs 05/03/19 05/03/19 09:55 11:46 Temperature 97.9 F Pulse Rate 63 52 L Respiratory 18 18 Rate Blood Pressure 113/63 121/69 O2 Sat by Pulse 99 97 Oximetry Medical Decision Making - Medical Decision Making 59-year-old male presented for fall, injury CT chest and approximate pain no acute abnormality. Patient has rib contusions, abdominal contusion. I did discuss return parameters. Patient was improved after morphine in emergency department. - Lab Data Result diagrams: 05/03/19 10:20 05/03/19 10:20 Lab Results 05/03/19 05/03/19 05/03/19 Range/Units 10:20 10:20 11:45 WBC 7.0 (3.8-10.6) k/uL RBC 4.74 (4.30-5.90) m/uL Hgb 14.6 (13.0-17.5) gm/dL Hct 42.0 (39.0-53.0) % MCV 88.6 (80.0-100.0) fL MCH 30.8 (25.0-35.0) pg MCHC 34.8 (31.0-37.0) g/dL RDW 12.7 (11.5-15.5) % Plt Count 259 (150-450) k/uL Neutrophils % 64 % Lymphocytes % 20 % Monocytes % 8 % Eosinophils % 4 % Basophils % 1 % Neutrophils # 4.5 (1.3-7.7) k/uL Lymphocytes # 1.4 (1.0-4.8) k/uL Monocytes # 0.5 (0-1.0) k/uL Eosinophils # 0.3 (0-0.7) k/uL Basophils # 0.0 (0-0.2) k/uL Sodium 136 L (137-145) mmol/L Potassium 4.4 (3.5-5.1) mmol/L Chloride 100 (98-107) mmol/L Carbon Dioxide 26 (22-30) mmol/L Anion Gap 10 mmol/L BUN 15 (9-20) mg/dL Creatinine 0.90 (0.66-1.25) mg/dL Est GFR (CKD-EPI)AfAm >90 (>60 ml/min/1.73 sqM) Est GFR (CKD-EPI)NonAf >90 (>60 ml/min/1.73 sqM) Glucose 68 L (74-99) mg/dL Calcium 9.7 (8.4-10.2) mg/dL Urine Color Light Yellow Urine Appearance Clear (Clear) Urine pH 6.5 (5.0-8.0) Ur Specific [place] 1.028 (1.001-1.035) Urine Protein Negative (Negative) Urine Glucose (UA) Negative (Negative) Urine Ketones Negative (Negative) Urine Blood Negative (Negative) Urine Nitrite Negative (Negative) Urine Bilirubin Negative (Negative) Urine Urobilinogen <2.0 (<2.0) mg/dL Ur Leukocyte Esterase Negative (Negative) Disposition Clinical Impression: Fall, Contusion of rib on left side, Abdominal contusion Disposition: HOME SELF-CARE Condition: Stable Instructions (If sedation given, give patient instructions): Rib Contusion (ED) Additional Instructions: Please return to the Emergency Department if symptoms worsen or any other concerns. Prescriptions: Ketorolac [Toradol] 10 mg PO Q8HR #15 tab Is patient prescribed a controlled substance at d/c from ED?: No Referrals: Ariel Guerra DO [Primary Care Provider] - 1-2 days Time of Disposition: 12:00
[2019-05-03 10:52] LABS: African American GFR (CKD) >90 (>60 ml/min/1.73 sqM); Anion Gap 10 mmol/L; Blood Urea Nitrogen 15 mg/dL (9-20); Calcium 9.7 mg/dL (8.4-10.2); Carbon Dioxide 26 mmol/L (22-30); Chloride 100 mmol/L (98-107); Glucose 68 mg/dL (74-99); Potassium 4.4 mmol/L (3.5-5.1); Sodium 136 mmol/L (137-145)
[2019-05-03 10:54] LABS: Basophils % (A) 1 %; Eosinophils # (A) 0.3 k/uL (0-0.7); Eosinophils % (A) 4 %; HGB 14.6 gm/dL (13.0-17.5); Lymphocytes # (A) 1.4 k/uL (1.0-4.8); Lymphocytes % (A) 20 %; MCH 30.8 pg (25.0-35.0); MCHC 34.8 g/dL (31.0-37.0); MCV 88.6 fL (80.0-100.0); Mean Platelet Volume 7.1; Monocytes # (A) 0.5 k/uL (0-1.0); Monocytes % (A) 8 %; Neutrophils # (A) 4.5 k/uL (1.3-7.7); Neutrophils % (A) 64 %; Platelet Count 259 k/uL (150-450); RBC 4.74 m/uL (4.30-5.90); RDW 12.7 % (11.5-15.5)
--- NOTE | 2019-05-03 11:43 | CT ---
EXAMINATION TYPE: CT ChestAbdPelvis w con DATE OF EXAM: 05/03/2019 COMPARISON: CT abdomen and pelvis December 17, 2018 HISTORY: Fall and trauma injury, left sided abdomen, dyspnea CT DLP: 694.3 mGycm. Automated Exposure Control for Dose Reduction was Utilized. CONTRAST: CT scan of the thorax, abdomen and pelvis is performed with IV Contrast, patient injected with 100 ml mL of Isovue 370. FINDINGS: LUNGS: Slightly elevated left hemidiaphragm with left basilar linear scarring and/or atelectasis.. No suspicious focal consolidation or groundglass opacity. No pleural effusion or pneumothorax. MEDIASTINUM: There are no greater than 1 cm hilar or mediastinal lymph nodes. No cardiomegaly or pe ricardial effusion is seen. OTHER: No additional significant abnormality is seen. LIVER/GB: No significant abnormality is appreciated. PANCREAS: No significant abnormality is seen. SPLEEN: No significant abnormality is seen. ADRENALS: No significant abnormality is seen. KIDNEYS: Simple appearing thin-walled 2.8 cm cyst anteriorly left kidney axial image 76. BOWEL: Some redundancy of the sigmoid colon. Scattered distal colonic diverticula. No CT evidence for acute diverticulitis. GENITAL ORGANS: No gross abnormality seen. LYMPH NODES: No greater than 1cm abdominal or pelvic lymph nodes are appreciated. OSSEOUS STRUCTURES: Facet arthropathy lower lumbar spine. Moderate narrowing and spurring in both hip joints. Nonspecific sclerotic lesion right hip coronal image 62 favors benign bone island. OTHER: Small moderate-sized fat-containing umbilical hernia. Moderate calcification of the abdominal aorta extending to iliac branch vessels. Small fat-containing left inguinal hernia. Small fat-contain ing left inguinal hernia. IMPRESSION: No acute posttraumatic finding in particular no acute osseous fracture, abnormal fluid co llection, or evidence of solid organ injury in the thorax, abdomen, or pelvis.
[2019-05-03 11:47] VITALS: PULSE 52
[2019-05-03 11:56] LABS: Appearance,Urine Clear (Clear); Bilirubin,Urine Negative (Negative); Blood,Urine Negative (Negative); Color,Urine Light Yellow; Glucose,Urine (UA) Negative (Negative); Ketones,Urine Negative (Negative); Leukocyte Esterase,Urine Negative (Negative); Nitrite,Urine Negative (Negative); PH, Urine 6.5 (5.0-8.0); Protein,Urine Negative (Negative); Specific Gravity,Urine 1.028 (1.001-1.035); Urobilinogen,Urine <2.0 mg/dL (<2.0)
[2019-05-03] MEDS ORDERED: KETOROLAC 30 MG/ML 1 ML VIAL IVP STA (11:58)
[2019-05-03 12:25] VITALS: BP 108/73
== END 2019-05-03 12:25 | disposition home or self-care (01) ==
LOC: EC 09:49
DX: S20.212A Contusion of left front wall of thorax, initial encounter (principal); S30.1XXA Contusion of abdominal wall, initial encounter; J44.9 Chronic obstructive pulmonary disease, unspecified; I10 Essential (primary) hypertension; E78.5 Hyperlipidemia, unspecified; F41.9 Anxiety disorder, unspecified; F32.9 Major depressive disorder, single episode, unspecified; F17.200 Nicotine dependence, unspecified, uncomplicated; Z79.82 Long term (current) use of aspirin; Z79.899 Other long term (current) drug therapy; W17.89XA Other fall from one level to another, initial encounter
CPT/HCPCS: 36415; 80048; 85025; 81003; 71260; 74177; 99284; 96374; 96375 ×2; 96376; J2270; J2405; J1885; Q9967

== ENCOUNTER → 2019-05-17 | Outpatient (CLI) | payer MEDICARE, OTHER ==
[2019-05-17 09:28] VITALS: BP 113/54; PULSE 66; RESP 16
--- NOTE | 2019-05-17 13:55 | P.PAINPG ---
Subjective Progress Note Date: 05/17/19 Patient returns for follow-up visit with chief complaint of low back pain, he has been managed with a combination of interventional pain procedures and medications. He continues to take Percocet 10/325 every 8 hours when necessary, Lyrica 150 mg 3 times a day and Zanaflex 4 mg to 8 hours when necessary. He does get significant pain benefit from this procedure, it allows him to function on a daily basis, he denies any side effects. Today, pt denies new-onset weakness, bowel/bladder incontinence, or any other signs or symptoms of cauda equina syndrome. There are no signs of acute intoxication, and no indications of medication diversion or overuse. Review of systems is negative for chest pain, shortness of breath, new onset weakness, numbness/tingling, abdominal pain, malaise, fever, night sweats, chills, homicidal or suicidal ideation, or bowel or bladder incontinence. Physical exam: Vitals: Reviewed in EMR GENERAL: Well appearing, in no acute distress PSYCH: Mood and affect is appropriate. Awake, alert, and oriented SKIN: Skin color, texture, turgor normal, no rashes or lesions HEENT: Normocephalic, atraumatic. EOM intact CV: No pedal edema RESP: Respirations are unlabored, no audible wheezing GI: Abdomen non-distended MUSCULOSKELETAL: Bilateral lower extremity strength is normal and symmetric. No atrophy or tone abnormalities are noted. Lumbar spine: Tenderness to palpation over the lumbar spine and paraspinous muscles bilaterally. Positive for pain with facet loading and back extension/rotation. Reduced range of motion of lumbar spine Extremities: Peripheral joint ROM is full and pain free without obvious instability or laxity in all four extremities. No edema or skin discolorations noted. Gait: Gait is normal NEUR: Cranial nerves are grossly intact Imaging: MRI left hip done on [id number] showed osteonecrosis of the left femoral head, labral tear, osteoarthritis, with concern for femoral neck impingement. Assessment: 1. lumbar spondylosis without myelopathy 2. chronic pain syndrome 3. lumbar DDD 4. Left hip osteoarthritis 5. Chronic opioid use Plan: 1. Explanation: Opioid and psychological risk scores were reviewed. Diagnoses, prognoses, and multiple treatment options including but not limited to physical therapy, interventional therapies, adjuvant medical therapies, narcotic medication therapies, and surgery were discussed with the patient and all questions were answered to the patient's satisfaction. 2. Opioid agreement: Patient has previously signed narcotic agreement, and was orally counseled to not overuse, abuse, divert, or cell medications, and to take them as prescribed by only 1 healthcare provider. The patient was also counseled to store opioid medications in a safe and preferably locked location. Patient was also counseled against driving while using narcotic medications and also to not use alcohol or any illicit or recreational drugs. The patient verbalized understanding that lack of compliance with any of the above and likely result in failure to renew narcotic prescriptions, possible discharge f rom the clinic, and possible legal ramifications thereafter if indicated. 3. Counseling: The patient was counseled on exercise in the context of both chronic pain and overall health. He was also counseled for 3 minutes on smoking cessation, as it pertains to chronic pain. He has cut down from about 3 packs per day to 1 pack a day of cigarettes. I provided him with lumbar stretching and strengthening as well as core strengthening exercise handout. 4. Procedures: None at this time 5. Consultations: None 6. Investigations: Urine drug screen ordered today 7. Medications: Percocet 10/325 #90 with one refill; Lyrica 150 mg #90 with 1 refills, Zanaflex 4 mg #90 with 1 refill 8. Disposition: In 8 weeks for medication management Objective - Vital Signs Vital signs: Vital Signs Temp Pulse 66 05/17/19 09:22 Resp 16 05/17/19 09:22 BP 113/54 05/17/19 09:22 Pulse Ox 96 05/17/19 09:22 PQRS Measure Charge Sheet Measure #130: Documentation of Current Meds in Medical Chart: Patient's medications documented in chart Measure #226: Tobacco Use: Screen & Cessation Intervention: Pt screened for tobacco use AND intervention given Measure #111: Pneumonia Vaccination: Pneumococcal vaccine NOT administered or previously given Measure #47: Advance Care Plan: Advance care planning discussed & documented, pt chose/unable to give Measure #412: Opioid Treatment Agreement: Documented signed opioid trtmnt agreemnt min once during opioid trtmnt Measure #408: Opioid Therapy Follow-up Evaluation: Patient had f/u eval minimum every 3 months during opioid therapy Measure #317: Preventitive Care & Scrn High Bld Press & F/U: Normal blood pressure, f/u not required Measure #128: Body Mass Index (BMI) Screening & Follow-up: BMI documented within normal parameters Measure #131: Pain Assessment & Follow-up: Pain positive & plan documented, Follow-up scheduled Measure #431: Unhealthy Alcohol Use Preventative Care & Scrn: Patient not identified as an unhealthy alcohol user PQRS Narrative: Smoking Status Current every day smoker Narcotic Agreement Date Signed 08/09/18 Blood Pressure 113/54 Pain Intensity [Lower Back] 7 Scale Used Numeric (1 - 10) Hx Alcohol Use (MH) Yes: social Home Medications: Ambulatory Orders DULoxetine HCL [Cymbalta] 60 mg PO DAILY 12/12/13 Lisinopril/Hydrochlorothiazide [Zestoretic 20-12.5] 1 tab PO DAILY 11/14/15 Tamsulosin HCl [Flomax] 0.4 mg PO DAILY 02/03/16 Aspirin EC [Ecotrin Low Dose] 81 mg PO BID 07/22/16 Acetaminophen [Tylenol] 500 mg PO TID PRN 03/02/18 Atorvastatin [Lipitor] 10 mg PO HS 12/17/18 Folic Acid 1 mg PO DAILY 05/03/19 Ketorolac [Toradol] 10 mg PO Q8HR #15 tab 05/03/19 Omeprazole [PriLOSEC] 20 mg PO AC-BRKFST 05/03/19 Pregabalin [Lyrica] 150 mg PO TID #90 cap 05/17/19 oxyCODONE-APAP 10-325MG [Percocet 10-325 mg] 1 tab PO Q8HR PRN 30 Days #90 tab 05/17/19 tiZANidine [Zanaflex] 4 mg PO Q8H PRN 30 Days #90 tab 05/17/19 Controlled Substance Measures - Controlled Substance Measures Is patient prescribed a controlled substance at discharge?: Yes When asked, does pt state using other controlled substances?: No If prescribed controlled substance>3 days was MAPS reviewed?: Yes If Rx opioid, was Start Talking consent form obtained?: Yes If opioid is for acute pain is fill amount 7 days or less?: No Was information provided regarding opioid addiction?: Yes
== END ==
LOC: PNWHC3 08:52
PROVIDERS: ATTEND Anesthesiology
DX: M54.5 Low back pain (principal); M47.816 Spondylosis without myelopathy or radiculopathy, lumbar region; G89.4 Chronic pain syndrome; M51.36 Other intervertebral disc degeneration, lumbar region; M16.12 Unilateral primary osteoarthritis, left hip; Z79.891 Long term (current) use of opiate analgesic; F17.200 Nicotine dependence, unspecified, uncomplicated; Z79.899 Other long term (current) drug therapy; Z79.82 Long term (current) use of aspirin
CPT/HCPCS: 80307; G0482; G0463; 99211

== ENCOUNTER → 2019-07-06 | Outpatient (CLI) | payer MEDICARE, OTHER ==
[2019-07-06 12:54] VITALS: BP 157/92; PULSE 86; RESP 16
--- NOTE | 2019-07-11 11:04 | P.PAINPG ---
Subjective Progress Note Date: 07/06/19 Patient returns for follow-up visit with chief complaint of low back pain, he has been managed with a combination of interventional pain procedures and medications. He continues to take Percocet 10/325 every 8 hours when necessary, Lyrica 150 mg 3 times a day and Zanaflex 4 mg to 8 hours when necessary. He does get significant pain benefit from this, it allows him to function on a daily basis, he denies any side effects. Today, pt denies new-onset weakness, bowel/bladder incontinence, or any other signs or symptoms of cauda equina syndrome. There are no signs of acute intoxication, and no indications of medication diversion or overuse. Review of systems is negative for chest pain, shortness of breath, new onset weakness, numbness/tingling, abdominal pain, malaise, fever, night sweats, chills, homicidal or suicidal ideation, or bowel or bladder incontinence. Physical exam: Vitals: Reviewed in EMR GENERAL: Well appearing, in no acute distress PSYCH: Mood and affect is appropriate. Awake, alert, and oriented SKIN: Skin color, texture, turgor normal, no rashes or lesions HEENT: Normocephalic, atraumatic. EOM intact CV: No pedal edema RESP: Respirations are unlabored, no audible wheezing GI: Abdomen non-distended MUSCULOSKELETAL: Bilateral lower extremity strength is normal and symmetric. No atrophy or tone abnormalities are noted. Lumbar spine: Tenderness to palpation over the lumbar spine and paraspinous muscles bilaterally. Positive for pain with facet loading and back extension/rotation. Reduced range of motion of lumbar spine Extremities: Peripheral joint ROM is full and pain free without obvious instability or laxity in all four extremities. No edema or skin discolorations noted. Gait: Gait is normal NEUR: Cranial nerves are grossly intact Imaging: MRI left hip done on [id number] showed osteonecrosis of the left femoral head, labral tear, osteoarthritis, with concern for femoral neck impingement. Assessment: 1. lumbar spondylosis without myelopathy 2. chronic pain syndrome 3. lumbar DDD 4. Left hip osteoarthritis 5. Chronic opioid use Plan: 1. Explanation: Opioid and psychological risk scores were reviewed. Diagnoses, prognoses, and multiple treatment options including but not limited to physical therapy, interventional therapies, adjuvant medical therapies, narcotic medication therapies, and surgery were discussed with the patient and all questions were answered to the patient's satisfaction. 2. Opioid agreement: Patient has previously signed narcotic agreement, and was orally counseled to not overuse, abuse, divert, or cell medications, and to take them as prescribed by only 1 healthcare provider. The patient was also counseled to store opioid medications in a safe and preferably locked location. Patient was also counseled against driving while using narcotic medications and also to not use alcohol or any illicit or recreational drugs. The patient verbalized understanding that lack of compliance with any of the above and likely result in failure to renew narcotic prescriptions, possible discharge from the clinic, and possible legal ramifications thereafter if indicated. 3. Counseling: The patient was counseled on exercise in the context of both chronic pain and overall health. He was also counseled for 3 minutes on smoking cessation, as it pertains to chronic pain. 4. Procedures: In the past, he has benefitted from lumbar RFA, last done in August 2018. He will likely benefit from repeat procedure. Will schedule left side first, L3,L4,L5 medial branches. 5. Consultations: None 6. Investigations: Urine drug screen ordered today 7. Medications: Percocet 10/325 #90 with one refill; Lyrica 150 mg #90 with 1 refills, Zanaflex 4 mg #90 with 1 refill. I also provided a new prescription for mobic 7.5mg daily, as his pain is worse in winter. We will plan on gradually weaning opioids in summer. I also gave him a script for a back brace and asked him to use it only with activity. 8. Disposition: for above mentioned procedure and in 8 weeks for medication management PQRS Measure Charge Sheet Measure #130: Documentation of Current Meds in Medical Chart: Patient's medications documented in chart Measure #226: Tobacco Use: Screen & Cessation Intervention: Pt screened for tobacco use AND intervention given Measure #111: Pneumonia Vaccination: Pneumococcal vaccine NOT administered or previously given Measure #47: Advance Care Plan: Advance care planning discussed & documented, pt chose/unable to give Measure #412: Opioid Treatment Agreement: Documented signed opioid trtmnt agreemnt min once during opioid trtmnt Measure #408: Opioid Therapy Follow-up Evaluation: Patient had f/u eval minimum every 3 months during opioid therapy Measure #317: Preventitive Care & Scrn High Bld Press & F/U: pre-hypertensive or hypertensive, followup with primary care physician Measure #128: Body Mass Index (BMI) Screening & Follow-up: BMI documented within normal parameters Measure #131: Pain Assessment & Follow-up: Pain positive & plan documented, Follow-up scheduled Measure #431: Unhealthy Alcohol Use Preventative Care & Scrn: Patient not identified as an unhealthy alcohol user Objective - Vital Signs Vital signs: Vital Signs Temp Pulse 86 07/06/19 12:48 Resp 16 07/06/19 12:48 BP 157/92 07/06/19 12:48 Pulse Ox 94 L 07/06/19 12:48 PQRS Measure Charge Sheet PQRS Narrative: Smoking Status Current every day smoker Narcotic Agreement Date Signed 08/09/18 Blood Pressure 157/92 Pain Intensity [Lower Back] 6 Scale Used Numeric (1 - 10) Hx Alcohol Use (MH) Yes: social Home Medications: Ambulatory Orders DULoxetine HCL [Cymbalta] 60 mg PO DAILY 12/12/13 Lisinopril/Hydrochlorothiazide [Zestoretic 20-12.5] 1 tab PO DAILY 11/14/15 Tamsulosin HCl [Flomax] 0.4 mg PO DAILY 02/03/16 Aspirin EC [Ecotrin Low Dose] 81 mg PO DAILY 07/22/16 Acetaminophen [Tylenol] 500 mg PO TID PRN 03/02/18 Atorvastatin [Lipitor] 10 mg PO HS 12/17/18 Folic Acid 1 mg PO DAILY 05/03/19 Ketorolac [Toradol] 10 mg PO Q8HR #15 tab 05/03/19 Omeprazole [PriLOSEC] 20 mg PO AC-BRKFST 05/03/19 Pregabalin [Lyrica] 150 mg PO TID #90 cap 05/17/19 oxyCODONE-APAP 10-325MG [Percocet 10-325 mg] 1 tab PO Q8HR PRN 30 Days #90 tab 05/17/19 tiZANidine [Zanaflex] 4 mg PO Q8H PRN 30 Days #90 tab 05/17/19 Meloxicam [Mobic] 1 tab PO DAILY 07/06/19 Controlled Substance Measures - Controlled Substance Measures Is patient prescribed a controlled substance at discharge?: Yes When asked, does pt state using other controlled substances?: No If prescribed controlled substance>3 days was MAPS reviewed?: Yes If Rx opioid, was Start Talking consent form obtained?: Yes If opioid is for acute pain is fill amount 7 days or less?: No Was information provided regarding opioid addiction?: Yes
== END | disposition home or self-care (01) ==
LOC: PNWHC3 12:10
PROVIDERS: ATTEND Anesthesiology
DX: M47.816 Spondylosis without myelopathy or radiculopathy, lumbar region (principal); G89.29 Other chronic pain; M51.36 Other intervertebral disc degeneration, lumbar region; M16.12 Unilateral primary osteoarthritis, left hip; F11.20 Opioid dependence, uncomplicated; F17.200 Nicotine dependence, unspecified, uncomplicated; Z79.891 Long term (current) use of opiate analgesic; Z79.899 Other long term (current) drug therapy; Z79.82 Long term (current) use of aspirin; Z79.1 Long term (current) use of non-steroidal anti-inflammatories (NSAID)
CPT/HCPCS: 99211

== ENCOUNTER → 2019-09-06 | Outpatient (CLI) | payer MEDICARE, OTHER ==
[2019-09-06 13:45] VITALS: BP 124/80; PULSE 61; RESP 18
--- NOTE | 2019-09-06 13:58 | P.PAINPG ---
Subjective Progress Note Date: 09/06/19 Rip is a 59-year-old gentleman who presents today for follow-up and medication refill. He is a gentleman with chronic low back pain. He's been on chronic Percocet 10 mg 3 times a day and reports that the medication significantly improve his overall function. The offer him significant pain benefit. He feels that the medications Changes life for the better when he uses them. He uses Percocet 10 mg 3 times a day as well as Lyrica. He denies any side effects from the medications. As for his pain he reports today VAS is been about 8 out of 10. He has pain going across his back and reporting increase in muscle spasms in his low back. He does have radicular symptoms which sometimes when on his left leg to the mid and in his right leg to about the top of the knee. He reports this is on and off sensation. Denies any bowel or bladder incontinence. He denies any chest pain or shortness of breath. Denies any syncope. He denies any significant constipation or diarrhea. Objective - Exam General: Awake and alert oriented 3 no distress Respiratory exam: No audible wheezing no accessory muscle usage Cardiovascular exam: regular rate, palpable bilateral pulses, no lower extremity edema Abdominal exam: No distention nontender to palpation Cervical spine: Normal alignment, Spurling's negative, facet loading negative, Communications Systems Engineer strength is 5/5, pacheco negative Lumbar spine: Loss of lumbar lordosis, normal alignment, tender to palpation over bilateral paraspinal muscles, facet loading is positive bilaterally. Straight leg raise is negative. Limited range of motion due to pain with flexion, extension and side bending. Sacroiliac joints: Nontender to palpation, IGOR is negative, [place] negative Neuro exam: Normal sensation in bilateral upper extremities, deep tendon reflexes are 2+ bilateral upper extremities. Normal sensation in bilateral lower extremities. Deep tendon reflexes are 2+ in lower extremities Psych exam: Cooperative, appropriate mood Assessment and Plan Assessment: #1 lumbar spondylosis without myelopathy #2 chronic opioid dependence #3 chronic pain syndrome. Plan: After review the records and examination the patient, we discussed the patient's pain medication in detail. The patient continues use the pain medication responsibly. We discussed using medications only as needed. Maps were checked, opioid start talking form is on the chart. SOAP score is documented. Patient is given refills for Percocet 10 mg 3 times a day for 2 months dated 28 days apart. We also given a prescription for Lyrica 150 g 3 times a day, as well as Zanaflex 4 mg 3 times a day. We'll schedule him for a left-sided radiofrequency ablation of L3 4, L4 5, L5-S1 and then to the right side of the separate occasion. PQRS Measure Charge Sheet Measure #130: Documentation of Current Meds in Medical Chart: Patient's medications documented in chart Measure #226: Tobacco Use: Screen & Cessation Intervention: Pt screened for tobacco use AND intervention given Measure #111: Pneumonia Vaccination: Pneumococcal vaccine NOT administered or previously given Measure #47: Advance Care Plan: Advance care planning discussed & documented, pt chose/unable to give Measure #412: Opioid Treatment Agreement: Documented signed opioid trtmnt agreemnt min once during opioid trtmnt Measure #408: Opioid Therapy Follow-up Evaluation: Patient had f/u eval minimum every 3 months during opioid therapy Measure #317: Preventitive Care & Scrn High Bld Press & F/U: Normal blood pressure, f/u not required Measure #128: Body Mass Index (BMI) Screening & Follow-up: BMI documented within normal parameters Measure #131: Pain Assessment & Follow-up: Pain positive & plan documented Measure #431: Unhealthy Alcohol Use Preventative Care & Scrn: Patient not identified as an unhealthy alcohol user PQRS Narrative: Smoking Status Current every day smoker Narcotic Agreement Date Signed 08/09/18 Pain Intensity [Lower Back] 8 Scale Used Numeric (1 - 10) Hx Alcohol Use (MH) Yes: social Home Medications: Ambulatory Orders DULoxetine HCL [Cymbalta] 60 mg PO DAILY 12/12/13 Lisinopril/Hydrochlorothiazide [Zestoretic 20-12.5] 1 tab PO DAILY 11/14/15 Tamsulosin HCl [Flomax] 0.4 mg PO DAILY 02/03/16 Aspirin EC [Ecotrin Low Dose] 81 mg PO DAILY 07/22/16 Acetaminophen [Tylenol] 500 mg PO TID PRN 03/02/18 Atorvastatin [Lipitor] 10 mg PO HS 12/17/18 Folic Acid 1 mg PO DAILY 05/03/19 Omeprazole [PriLOSEC] 20 mg PO AC-BRKFST 05/03/19 Pregabalin [Lyrica] 150 mg PO TID #90 cap 05/17/19 oxyCODONE-APAP 10-325MG [Percocet 10-325 mg] 1 tab PO Q8HR PRN 30 Days #90 tab 05/17/19 tiZANidine [Zanaflex] 4 mg PO Q8H PRN 30 Days #90 tab 05/17/19 Meloxicam [Mobic] 1 tab PO DAILY 07/06/19 Controlled Substance Measures - Controlled Substance Measures Is patient prescribed a controlled substance at discharge?: Yes When asked, does pt state using other controlled substances?: No If prescribed controlled substance>3 days was MAPS reviewed?: Yes If Rx opioid, was Start Talking consent form obtained?: Yes If opioid is for acute pain is fill amount 7 days or less?: No Was information provided regarding opioid addiction?: Yes
== END | disposition home or self-care (01) ==
LOC: PNWHC3 13:10
PROVIDERS: ATTEND Hospitalist
DX: G89.29 Other chronic pain (principal); M47.816 Spondylosis without myelopathy or radiculopathy, lumbar region; F11.20 Opioid dependence, uncomplicated; F17.200 Nicotine dependence, unspecified, uncomplicated; Z79.82 Long term (current) use of aspirin; Z79.1 Long term (current) use of non-steroidal anti-inflammatories (NSAID); Z79.899 Other long term (current) drug therapy
CPT/HCPCS: 99211

== ENCOUNTER 2019-09-18 08:03 | Day surgery (SDC) | payer MEDICARE, OTHER ==
[2019-09-14 13:11] VITALS: BMI 27.8
[2019-09-18 08:28] VITALS: TEMP 97
[2019-09-18] MEDS ORDERED: LIDOCAINE 1% (10MG/ML) FOR IV START INTRADERMA ONE (08:35)
[2019-09-18] MEDS ORDERED: fentaNYL (PF) 50 MCG/ML 2 ML AMP ONE (08:56)
[2019-09-18] MEDS ORDERED: LIDOCAINE 4% (PF) 5 ML AMP ONE (08:56)
[2019-09-18] MEDS ORDERED: MIDAZOLAM 2 MG/2 ML VIAL ONE (08:56)
[2019-09-18] MEDS ORDERED: IV FLUID CONTINUATION 1,000 ML IV ONE (09:26)
--- NOTE | 2019-09-18 09:30 | FL ---
EXAMINATION TYPE: FL guided pain mgmt statistic DATE OF EXAM: 09/18/2019 CLINICAL HISTORY: Low back pain. TECHNIQUE: Fluoroscopy. COMPARISON: None. FINDINGS: Fluoroscopic guidance was provided during pain relief procedure performed by Dr. Tirado . A total of 13 seconds of fluoroscopic time was utilized during the procedure and 7 spot images are acquired. Images acquired shows needle localization of the lumbosacral junction. IMPRESSION: As Above.
--- NOTE | 2019-09-18 09:52 | P.PCN ---
Date of Procedure: 09/18/19 Procedure(s) Performed: PREOPERATIVE DIAGNOSIS: Lumbar Spondylosis POSTOPERATIVE DIAGNOSIS: Same PROCEDURES: Radiofrequency ablation of the L3, L4, L5 medial branches with fluoroscopic guidance on the left side SURGEON: Emily Bruno MD. ANESTHESIA: Lidocaine 1% 5 mL, Moderate sedation with intravenous Versed and fentanyl, sedation time 21 minutes EBL: Minimal Fluoroscopy was used for the procedure and images were saved in the radiology portion of the chart. PROCEDURE INDICATION: The patient with low back pain secondary to lumbar facet arthropathy who had more than 50% relief of pain with previous diagnostic lumbar medial branch block X2. PROCEDURE DESCRIPTION / TECHNIQUE: The patient was seen and identified in the preoperative area. Risks, benefits, complications, including but not limited to risk of infection ,bleeding , allergic reactions to the medications and incomplete pain relief , and alternatives were discussed with the patient, the patient agreed to proceed with the procedure and signed the consent. IV was started. The operative site was marked. Patient was taken to the OR and time out was completed. The patient was placed in the prone position on the procedure table. The lumbar area was prepped and draped in the usual sterile fashion. . Vital signs were closely monitored during the procedure .IV sedation was used during the procedure to decrease patients anxiety. Using AP and then oblique fluoroscopy, the "eye of the Michael dog" corresponding to the connection between the superior and transverse articular processes of the L4 and L5 as well as the sacral ala were identified, marked, and localized with 1% lidocaine. Subsequently, an 18 guage 100 mm radiofrequency cannula with a 10-mm active tip was advanced guided by fluoroscopy to the identified target at each site. Needle positioning was confirmed on AP, oblique and lateral fluoroscopy. Motor testing at 2.5 Hz was done with paraspinal muscle stimulation only, and no radicular symptoms down the legs. Then 1 mL of 4% lidocaine was injected in each site. Radiofrequency thermocoagulation at 80 degrees celsius for 90 seconds was then performed. [place] were removed. Sterile dressings were applied. COMPLICATIONS: No acute complications. DISPOSITION / PLANS: The patient was placed in a supine position and transferred to the recovery area in a stable condition for observation and was discharged from the recovery room after meeting discharge criteria. Home discharge instructions given to the patient by the staff. The patient will follow up for right-sided radiofrequency ablation in 2 weeks.
[2019-09-18 09:54] VITALS: BP 146/79; PULSE 61; RESP 17
== END 2019-09-18 10:11 | disposition home or self-care (01) ==
LOC: ORPAIN 08:03
PROVIDERS: ATTEND Anesthesiology
DX: M47.816 Spondylosis without myelopathy or radiculopathy, lumbar region (principal)
CPT/HCPCS: 64635; 64636; J2001; J2250; J3010; 99152

== ENCOUNTER 2019-09-19 08:37 | Emergency (ER) | payer MEDICARE, OTHER ==
[2019-09-19 08:43] VITALS: TEMP 97.8
[2019-09-19] MEDS ORDERED: KETOROLAC 30 MG/ML 1 ML VIAL IVP STA (08:54)
[2019-09-19] MEDS ORDERED: NITROGLYCERIN SL TABS 0.4 MG TAB SUBLINGUAL STA (08:54)
[2019-09-19] MEDS ORDERED: ASPIRIN 81 MG PO STA (08:54)
[2019-09-19] MEDS ORDERED: SODIUM CHLORIDE 0.9% 500 ML 500 ML IV STA (08:54)
[2019-09-19] MEDS ORDERED: SODIUM CHLORIDE 0.9% 1,000 ML IV STA (08:54)
--- NOTE | 2019-09-19 08:59 | ED ---
Chest Pain HPI - General Chief Complaint: Chest Pain Stated Complaint: chest pain Time Seen by Provider: 09/19/19 08:45 Source: patient, RN notes reviewed Mode of arrival: wheelchair Limitations: no limitations - History of Present Illness Initial Comments: This is a 59-year-old male who presents with complaints of chest pain back pain he states last night started developing difficulty with breathing exertional dyspnea. He is a smoker who does not want to quit he states the pain was in the upper back he's describes as being at times sharp dull achy throbbing as severe as 8/10 in severity. No cough or phlegm production no fevers chills or sweats of note he did have an ablation done of his low back yesterday he states. Additionally he also states he feels very full after eating he gets midsternal pain he has no history of gallbladder disease. Information obtained both from him and his . MD Complaint: chest pain, other - Related Data Home Medications Medication Instructions Recorded Confirmed DULoxetine HCL [Cymbalta] 60 mg PO DAILY 12/12/13 09/19/19 Lisinopril/Hydrochlorothiazide 1 tab PO DAILY 11/14/15 09/19/19 [Zestoretic 20-12.5] Tamsulosin HCl [Flomax] 0.4 mg PO HS 02/03/16 09/19/19 Acetaminophen [Tylenol] 500 mg PO TID PRN 03/02/18 09/19/19 Atorvastatin [Lipitor] 10 mg PO HS 12/17/18 09/19/19 Folic Acid 1 mg PO DAILY@1200 05/03/19 09/19/19 Previous Rx's Medication Instructions Recorded Pregabalin [Lyrica] 150 mg PO TID #90 cap 05/17/19 oxyCODONE-APAP 10-325MG [Percocet 1 tab PO Q8HR PRN 30 Days #90 tab 05/17/19 10-325 mg] tiZANidine [Zanaflex] 4 mg PO Q8H PRN 30 Days #90 tab 05/17/19 Azithromycin [Zithromax Z-pack] 250 mg PO DIRECTED #6 tab 09/19/19 Ibuprofen 800 mg PO Q6HR PRN #20 tablet 09/19/19 Allergies Allergy/AdvReac Type Severity Reaction Status Date / Time No Known Allergies Allergy Verified 09/19/19 10:29 Review of Systems ROS Statement: Those systems with pertinent positive or pertinent negative responses have been documented in the HPI. ROS Other: All systems not noted in ROS Statement are negative. EKG Findings - EKG Results: EKG: interpreted by BRITTANI, sinus rhythm (Says bradycardia rate of 52. Interval 120 QRS duration 100 QT since QTC 422/[address]-T wave changes) Past Medical History Past Medical History: Asthma, COPD, Hyperlipidemia, Hypertension, Liver Disease, Osteoarthritis (OA), Prostate Disorder Additional Past Medical History / Comment(s): Hx Heart Murmur. Hx Head Injury. Migraines, Sciatica, Scoliosis. Pins & [employer] bilateral legs, feet and back. Alcoholic cirrhosis, Enlarged Prostate. fx ribs on left side 05/03/19-fell on roof of a barn, hiatal hernia History of Any Multi-Drug Resistant Organisms: None Reported Past Surgical History: Hernia Repair, Orthopedic Surgery Additional Past Surgical History / Comment(s): "11/29/18 Had fluid drained from around brain." Right hand surgery, AC SEPARATION RIGHT COLLAR BONE -GRAFT FROM ELBOW, COLONOSCOPY, LEFT HIP SURGERY, RIGHT INGUINAL HERNIA REPAIR, MULTIPLE PAIN PROCEDURES. Past Anesthesia/Blood Transfusion Reactions: No Reported Reaction, Unable to Obtain Additional Past Anesthesia/Blood Transfusion Reaction / Comment(s): adopted Past Psychological History: Anxiety, Depression Smoking Status: Current every day smoker Past Alcohol Use History: Occasional Past Drug Use History: None Reported - Past Family History Mother History Unknown: Yes Family Medical History: Unable to Obtain Additional Family Medical History / Comment(s): Pt was adopted. General Exam - General Exam Comments Initial Comments: This is a well-developed well-nourished awake alert oriented 3 male Limitations: no limitations General appearance: alert, in no apparent distress Head exam: Present: atraumatic, normocephalic, normal inspection Eye exam: Present: normal appearance, PERRL, EOMI. Absent: scleral icterus, conjunctival injection, periorbital swelling ENT exam: Present: mucous membranes dry Neck exam: Present: normal inspection, full ROM, other. Absent: tenderness, meningismus, lymphadenopathy Respiratory exam: Present: normal lung sounds bilaterally, chest wall tenderness. Absent: respiratory distress, wheezes, rales, rhonchi, stridor Cardiovascular Exam: Present: regular rate, normal rhythm, normal heart sounds. Absent: systolic murmur, diastolic murmur, rubs, gallop, clicks GI/Abdominal exam: Present: soft, normal bowel sounds. Absent: distended, tenderness, guarding, rebound, rigid, bruit, pulsatile mass Rectal exam: Present: deferred Extremities exam: Present: normal inspection, full ROM, normal capillary refill. Absent: tenderness, pedal edema, joint swelling, calf tenderness Back exam: Present: normal inspection, other. Absent: tenderness Neurological exam: Present: alert, oriented X3, CN II-XII intact Psychiatric exam: Present: normal affect, normal mood Skin exam: Present: warm, dry, intact, normal color. Absent: rash Course Vital Signs 09/19/19 09/19/19 08:39 09:13 Temperature 97.8 F Pulse Rate 61 52 L Respiratory 18 16 Rate Blood Pressure 165/100 124/76 O2 Sat by Pulse 100 99 Oximetry - Reevaluation(s) Reevaluation #1: 09/19/19 10:14 EKG is compared to one dated 12/17/18 no acute changes Procedures - Smoking Cessation Time Spent Discussing Smoking Cessation w/Patient (Minutes): 3 Patient Acknowledges Need for Cessation: No (States he has no desire to stop smoking) Chest Pain MDM - MDM I did review the imaging and report is some evidence of possible early lingular infiltrate. Patient has not had any cough fevers chills sweats or other symptoms we did discuss this current presentation is consistent with costochondritis and exacerbation of his chronic back pain he did get relief from the medication that was given with respect to the Toradol. He'll be discharged we did discuss the possibility of pneumonia he'll be given a prescription to be taken only if he starts developing symptoms we did discuss. He does family are in agreement with this. Disposition Clinical Impression: Costochondritis, Chest wall syndrome Disposition: HOME SELF-CARE Condition: Good Instructions (If sedation given, give patient instructions): Costochondritis (ED) Additional Instructions: Using antibiotic only if he started developing these symptoms we discussed Prescriptions: Ibuprofen 800 mg PO Q6HR PRN #20 tablet PRN Reason: Pain Azithromycin [Zithromax Z-pack] 250 mg PO DIRECTED #6 tab Is patient prescribed a controlled substance at d/c from ED?: No Referrals: Ariel Guerra DO [Primary Care Provider] - 1-2 days
[2019-09-19 09:14] LABS: Basophils % (A) 0 %; Eosinophils # (A) 0.2 k/uL (0-0.7); Eosinophils % (A) 3 %; HGB 16.4 gm/dL (13.0-17.5); Lymphocytes # (A) 1.8 k/uL (1.0-4.8); Lymphocytes % (A) 20 %; MCH 29.8 pg (25.0-35.0); MCHC 34.2 g/dL (31.0-37.0); MCV 87.2 fL (80.0-100.0); Mean Platelet Volume 9.8; Monocytes # (A) 0.6 k/uL (0-1.0); Monocytes % (A) 7 %; Neutrophils # (A) 6.2 k/uL (1.3-7.7); Neutrophils % (A) 68 %; Platelet Count 285 k/uL (150-450); RBC 5.51 m/uL (4.30-5.90); RDW 12.7 % (11.5-15.5); WBC 9.1 k/uL (3.8-10.6)
[2019-09-19 09:17] VITALS: BP 124/76; PULSE 52; RESP 16
--- NOTE | 2019-09-19 09:30 | XR ---
EXAMINATION TYPE: XR chest 2V DATE OF EXAM: 09/19/2019 COMPARISON: 12/18/2018 INDICATION: Chest pain, short of breath TECHNIQUE: Frontal and lateral views of the chest are obtained. FINDINGS: The heart size is normal. The pulmonary vasculature is normal. Mild lingular infiltrate is present. Correlate for developing pneumonia.. IMPRESSION: 1. Clinical correlation recommended for developing lingular pneumonia.
[2019-09-19 09:31] LABS: ALT 18 U/L (4-49); African American GFR (CKD) >90 (>60 ml/min/1.73 sqM); Albumin 4.6 g/dL (3.5-5.0); Anion Gap 10 mmol/L; Blood Urea Nitrogen 11 mg/dL (9-20); Calcium 10.1 mg/dL (8.4-10.2); Carbon Dioxide 24 mmol/L (22-30); Chloride 101 mmol/L (98-107); Creatine Kinase 158 U/L (55-170); Glucose 90 mg/dL (74-99); Non-African American GFR(CKD) >90 (>60 ml/min/1.73 sqM); Sodium 135 mmol/L (137-145); Total Bilirubin 0.8 mg/dL (0.2-1.3)
[2019-09-19 09:36] LABS: D-Dimer 0.46 mg/L FEU (<0.60); INR 0.9 (<1.2); Prothrombin Time 9.7 sec (9.0-12.0)
[2019-09-19 09:38] LABS: Partial Thromboplastin Time 18.6 sec (22.0-30.0)
[2019-09-19 09:44] LABS: AST 31 U/L (17-59); Alkaline Phosphatase 105 U/L (38-126); Potassium 4.5 mmol/L (3.5-5.1)
== END 2019-09-19 11:26 | disposition home or self-care (01) ==
LOC: EC 08:37
DX: M94.0 Chondrocostal junction syndrome [Tietze] (principal); Z71.6 Tobacco abuse counseling; M54.6 Pain in thoracic spine; G89.29 Other chronic pain; R06.09 Other forms of dyspnea; E78.5 Hyperlipidemia, unspecified; I10 Essential (primary) hypertension; M19.90 Unspecified osteoarthritis, unspecified site; N40.0 Benign prostatic hyperplasia without lower urinary tract symptoms; F32.9 Major depressive disorder, single episode, unspecified; F41.9 Anxiety disorder, unspecified; F17.200 Nicotine dependence, unspecified, uncomplicated; Z79.891 Long term (current) use of opiate analgesic; Z79.899 Other long term (current) drug therapy; Z98.890 Other specified postprocedural states; Z53.8 Procedure and treatment not carried out for other reasons
CPT/HCPCS: 36415; 93005; 85379; 83880; 80053; 82550; 83690; 83735; 84484; 85025; 85610; 85730; 71046; 99285; 96374; 99406; J1885

== ENCOUNTER → 2019-12-04 | Outpatient (CLI) | payer MEDICARE, OTHER ==
--- NOTE | 2019-12-04 10:27 | P.PAINPG ---
Subjective Progress Note Date: 12/04/19 THIS ENCOUNTER WAS PERFORMED A TELEMEDICINE VISIT VIA SECURE TWO-WAY AUDIO TO MINIMIZE RISK AND TRANSMISSION OF COVID-19Ya Erwin is a 59-year-old gentleman who presents today for follow-up and medication refill. He is a gentleman with chronic low back pain, diagnosed with lumbar spondylosis. He has been managed with a combination of interventional pain procedures and medications. He most recently underwent left-sided lumbar radiofrequency ablation on 09/18/2019. He reports good ongoing relief from this. Unfortunately, we were not able to perform the right side due to coronavirus outbreak. He's been on Percocet 10 mg 3 times a day , Lyrica 150 mg 3 times a day and Zanaflex 4 mg 3 times a day. He reports that the medication significantly improve his overall function. The offer him significant pain benefit. He denies any side effects from the medications. Current pain located in low back R>L, radiating to b/l buttock and into leg, rated as 8/10, described as sharp, throbbing, pins and needles, spasms, worse with weather, mowing lawn; better with medications. Review of systems is negative for chest pain, shortness of breath, new onset weakness, numbness/tingling, malaise, fever, night sweats, chills, homicidal or suicidal ideation, or bowel or bladder incontinence. He does have abdominal pain from a hernia. Objective Physical exam was unable to be performed due to audio only telemetry medicine visit Assessment and Plan Assessment: #1 lumbar spondylosis without myelopathy #2 chronic opioid dependence #3 chronic pain syndrome. Plan: Maps were checked, opioid contract is on the chart. Patient is given refills for Percocet 10 mg 3 times a day for 2 months dated 28 days apart. We also given a prescription for Lyrica 150 g 3 times a day, as well as Zanaflex 8 mg 3 times a day. (increased from 4mg TID). Patient was also told to take OTC magnesium glycinate 400mg QD for muscle spasms. We'll schedule him for a right radiofrequency ablation of L3, L4, L5 medial branches for facets L4-5 and L5-S1 PQRS Measure Charge Sheet PQRS Narrative: Smoking Status Current every day smoker Narcotic Agreement Date Signed 09/06/19 Hx Alcohol Use (MH) Yes: social Home Medications: Ambulatory Orders DULoxetine HCL [Cymbalta] 60 mg PO DAILY 12/12/13 Lisinopril/Hydrochlorothiazide [Zestoretic 20-12.5] 1 tab PO DAILY 11/14/15 Tamsulosin HCl [Flomax] 0.4 mg PO HS 02/03/16 Acetaminophen [Tylenol] 500 mg PO TID PRN 03/02/18 Atorvastatin [Lipitor] 10 mg PO HS 12/17/18 Folic Acid 1 mg PO DAILY@1200 05/03/19 Pregabalin [Lyrica] 150 mg PO TID #90 cap 10/23/19 oxyCODONE-APAP 10-325MG [Percocet 10-325 mg] 1 tab PO Q8HR PRN 30 Days #90 tab 10/23/19 tiZANidine [Zanaflex] 4 mg PO Q8H PRN 30 Days #90 tab 10/23/19 Controlled Substance Measures - Controlled Substance Measures Is patient prescribed a controlled substance at discharge?: Yes When asked, does pt state using other controlled substances?: No If prescribed controlled substance>3 days was MAPS reviewed?: Yes If Rx opioid, was Start Talking consent form obtained?: Yes If opioid is for acute pain is fill amount 7 days or less?: No Was information provided regarding opioid addiction?: Yes
== END | disposition home or self-care (01) ==
LOC: PNWHC3 07:40
PROVIDERS: ATTEND Anesthesiology
DX: Z53.9 Procedure and treatment not carried out, unspecified reason (principal)

== ENCOUNTER → 2019-12-15 | Outpatient (CLI) | payer MEDICARE, OTHER | END | disposition home or self-care (01) | LOC: LABWHC1 09:35 | PROVIDERS: ATTEND Family Medicine | DX: Z11.59 Encounter for screening for other viral diseases (principal) ==

== ENCOUNTER 2019-12-19 08:38 | Day surgery (SDC) | payer MEDICARE, OTHER ==
[2019-12-18 12:27] VITALS: BMI 27.8
[2019-12-19 09:13] VITALS: RESP 16; TEMP 97.2
--- NOTE | 2019-12-19 09:25 | P.PCN ---
Date of Procedure: 12/19/19 Description of Procedure: PREOPERATIVE DIAGNOSIS: Lumbar Facet Arthropathy without myelopathy POSTOPERATIVE DIAGNOSIS: Same PROCEDURES: RIGHT Radiofrequency thermocoagulation of L3-4, L4-5, L5-S1 medial branches, with fluoroscopic guidance ANESTHESIA: IV sedation with versed and fentanyl and local infiltration with lidocaine 1% 10 ml Imaging: Fluoroscopy was used, images where saved to the medical record PROCEDURE INDICATION: The patient with low back pain secondary to lumbar facet arthropathy who had more than 50% relief of pain with previous diagnostic lumbar medial branch block with local anesthetic. PROCEDURE DESCRIPTION / TECHNIQUE: The patient was seen and identified in the preoperative area. Risks, benefits, complications, including but not limited to risk of infection, bleeding, allergic reactions to the medications and no complete pain relief, and alternatives were discussed with the patient, the patient agreed to proceed with the procedure and signed the consent. IV was started. Vital signs remained stable throughout the procedure. Patient was taken to the OR and time out was completed. The patient was placed in the prone position on the procedure table. The lumber area was prepped and draped in the usual sterile fashion. Vital signs were closely monitored during the procedure. IV sedation was used during the procedure to decrease patient anxiety. Using AP and then oblique fluoroscopy, the eye of the Michael dog corresponding to the connection between the superior and transverse articular processes of L4, L5, and sacral Ala were identified, marked, and localized with 1% lidocaine. Subsequently, a 20 [id number] radiofrequency cannula with a 10-mm active tip was advanced guided by fluoroscopy to the junction of the pedicle and transverse process of each identified level. Each site then underwent sensory testing at 50 Hz and 0 to 1 volt and motor testing at 2.5 Hz and 0 to 3 volt with local stimulation, no radicular symptoms sensed by the patient and no obvious motor stimulation noted. Thereafter the tested sites underwent radiofrequency thermocoagulation at 80 degrees celsius for 90 seconds after injecting 1 ml of PF lidocaine 1%. Then after the thermocoagulation was done, 1 ml of the block solution containing ropivaciane 0.5% was injected at the lesioned sites after negative aspiration of CSF and blood and with no paresthesias. Cannulas were retracted. At the end of the procedure, the skin was cleansed and bandages were applied. COMPLICATIONS: No acute complications. DISPOSITION / PLANS: The patient was placed in a supine position and transferred to the recovery area in a stable condition for observation and was discharged from the recovery room after meeting discharge criteria. Home discharge instructions given to the patient by the staff. The patient was reexamined prior to discharge. Patient will follow up as directed For med refill
[2019-12-19] MEDS ORDERED: LIDOCAINE 1% (10MG/ML) FOR IV START INTRADERMA ONE (09:30)
[2019-12-19] MEDS ORDERED: fentaNYL (PF) 50 MCG/ML 2 ML AMP ONE (09:38)
[2019-12-19] MEDS ORDERED: BUPIVACAINE (PF) 0.5% 30 ML VIAL ONE (09:38)
[2019-12-19] MEDS ORDERED: MIDAZOLAM 2 MG/2 ML VIAL ONE (09:38)
--- NOTE | 2019-12-19 10:07 | FL ---
EXAMINATION TYPE: FL guided pain mgmt statistic DATE OF EXAM: 12/19/2019 HISTORY: Fluoroscopy time Less than 60 seconds of fluoroscopy provided. IMPRESSION: 1. Fluoroscopy time.
[2019-12-19] MEDS ORDERED: IV FLUID CONTINUATION 1,000 ML IV ONE (10:16)
[2019-12-19 10:17] VITALS: BP 149/83; PULSE 57
== END 2019-12-19 10:31 | disposition home or self-care (01) ==
LOC: ORPAIN 08:38
PROVIDERS: ATTEND Hospitalist
DX: M47.816 Spondylosis without myelopathy or radiculopathy, lumbar region (principal)
CPT/HCPCS: 64635; 64636 ×2; J2250; J3010; 99152

== ENCOUNTER → 2020-01-24 | Outpatient (CLI) | payer MEDICARE, OTHER ==
--- NOTE | 2020-01-24 12:41 | P.PAINPG ---
Subjective Progress Note Date: 01/24/20 This is follow-up visit for this patient with a history of severe and chronic low back pain secondary to lumbar degenerative disc diseases , lumbar spondylosis with facet arthropathy,and left hip artheralgia , his pain management between interventional pain management and medication management, rec ently we did RFA of the medial branch lumbar area Patients currently on Percocet 10/325 every 8 hours, Lyrica 150 mg 3 times a day, Zanaflex 4 mg every 8 hours Patient denies any side effects of the medication, denies excessive drowsiness or sleepiness, denies suicidal ideation, and reports that the current pain medication is helping to control the pain ,and improve activity of daily living Patient denies any motor or sensory deficit , patient denies any fever or night sweats, denies any change in the bowel movements or urination Objective - Vital Signs Vital signs: Intake & Output 01/23/20 01/24/20 01/24/20 18:59 06:59 18:59 Weight 81.647 kg - Exam Physical Examinations : -Constitutiona : Cooperative , not in acute distress . -HEENT : nech : supple , no Lymphadenopathy , normal thyroid size . : eyes : no ptosis , no icterus, no photophobia . - neurologic : Cranial nerve II to XII intact , no focal neurological deffecit . -psychatric : alert , oriented X 3 , appropriate affect , intact judgment and insight . -Lymphatic : no Lymphadenopathy . - musculoskeltal : Lumber spine moter stegnth lower extremities ,thigh and legs 5/5 Right side , 5/5 Left side deep tendon reflexes : normal Knee Jerk , normal ankle Jerk lumber facet Loading Test =positive Right , positive Left Range of motion of the lumbar spine Flexion 30 degrees, extension 10 degrees strait leg raising test = positive at 45 degree Fabere test= positive Right , and positive LT . mild tenderness over the Sacroiliac joint on the Right , and Left sides Assessment and Plan Plan: Chronic low back pain secondary to lumbar degenerative disc disease , lumbar spondylosis with facet arthropathy without myelopathy chronic and current use of high-risk medication (Opioids). The patient was counseled about risk of opioid use, psychological risk associated with opioids and was orally counseled to not overuse , divert,or sell dictations to take medications as prescribed only , and to restore medication in safe location , the patient counseled against driving while using narcotic medications, and also not to use alcohol or any illicit recreational drugs, patient's verbalized understanding that the lack of compliance will result in failure to renew narcotic prescription and possible discharge from the clinic - diagnoses, prognosis, and treatment options including but not limited to physical therapy, surgical interventions, interventional therapies , and medication management including narcotics and adjuvant medication were discussed with the patient and all the questions answered MAPS reviewed and it was apropriate Prescription refill for Percocet 10/325 every 8 hours dispense 90 with 1 refill, Lyrica 150 mg 3 times a day dispense 90 with 1 refill, Zanaflex 4 mg every 8 hours dispense 90 with 1 refill. Urine drug screen done earlier today, Time with Patient: Less than 30 PQRS Measure Charge Sheet Measure #130: Documentation of Current Meds in Medical Chart: Patient's medications documented in chart Measure #226: Tobacco Use: Screen & Cessation Intervention: Pt screened for tobacco use AND intervention given Measure #111: Pneumonia Vaccination: Pneumococcal vaccine NOT administered or previously given Measure #47: Advance Care Plan: Advance care planning discussed & documented, pt chose/unable to give Measure #412: Opioid Treatment Agreement: Documented signed opioid trtmnt agreemnt min once during opioid trtmnt Measure #408: Opioid Therapy Follow-up Evaluation: Patient had f/u eval minimum every 3 months during opioid therapy Measure #317: Preventitive Care & Scrn High Bld Press & F/U: Normal blood pressure, f/u not required Measure #128: Body Mass Index (BMI) Screening & Follow-up: BMI documented ABOVE normal parameters - f/u documented Measure #131: Pain Assessment & Follow-up: Pain positive & plan documented, Follow-up scheduled Measure #431: Unhealthy Alcohol Use Preventative Care & Scrn: Patient not identified as an unhealthy alcohol user PQRS Narrative: Smoking Status Current every day smoker Narcotic Agreement Date Signed 09/06/19 Pain Intensity [Lower Back] 8 Hx Alcohol Use (MH) Yes: occ. Home Medications: Ambulatory Orders DULoxetine HCL [Cymbalta] 60 mg PO DAILY 12/12/13 Lisinopril/Hydrochlorothiazide [Zestoretic 20-12.5] 1 tab PO DAILY 11/14/15 Tamsulosin HCl [Flomax] 0.4 mg PO HS 07/18/16 Acetaminophen [Tylenol] 500 mg PO TID PRN 03/02/18 Atorvastatin [Lipitor] 10 mg PO HS 12/17/18 Folic Acid 1 mg PO DAILY@1200 05/03/19 Pregabalin 150 mg PO TID 30 Days #90 cap 12/04/19 oxyCODONE-APAP 10-325MG [Percocet 10-325 mg] 1 tab PO Q8HR PRN 30 Days #90 tab 12/04/19 tiZANidine [Zanaflex] 4 - 8 mg PO Q8H PRN 01/23/20 Controlled Substance Measures - Controlled Substance Measures Is patient prescribed a controlled substance at discharge?: Yes When asked, does pt state using other controlled substances?: No If prescribed controlled substance>3 days was MAPS reviewed?: Yes If Rx opioid, was Start Talking consent form obtained?: Yes If opioid is for acute pain is fill amount 7 days or less?: No Was information provided regarding opioid addiction?: Yes
== END | disposition home or self-care (01) ==
LOC: PNWHC3 12:45
PROVIDERS: ATTEND Specialist
DX: G89.29 Other chronic pain (principal); M51.36 Other intervertebral disc degeneration, lumbar region; M47.816 Spondylosis without myelopathy or radiculopathy, lumbar region; F11.90 Opioid use, unspecified, uncomplicated; F17.200 Nicotine dependence, unspecified, uncomplicated; Z79.899 Other long term (current) drug therapy
CPT/HCPCS: 99211

== ENCOUNTER → 2020-03-20 | Outpatient (CLI) | payer MEDICARE, OTHER ==
[2020-03-20 11:12] VITALS: BP 138/79; PULSE 64; RESP 14; TEMP 98.1
--- NOTE | 2020-03-23 07:14 | P.PAINPG ---
Subjective Progress Note Date: 03/20/20 This is follow-up visit for this patient with a history of severe and chronic low back pain secondary to lumbar degenerative disc diseases , lumbar spondylosis with facet arthropathy,and left hip artheralgia , his pain management between interventional pain management and medication management, rec ently we did RFA of the medial branch lumbar area Patients currently on Percocet 10/325 every 8 hours, Lyrica 150 mg 3 times a day, Zanaflex 4 mg every 8 hours Patient denies any side effects of the medication, denies excessive drowsiness or sleepiness, denies suicidal ideation, and reports that the current pain medication is helping to control the pain ,and improve activity of daily living patient reported he had frequent muscle spasm in the low back area and the lower extremity and the current muscle relaxant Zanaflex is not helping ,Patient denies any motor or sensory deficit , patient denies any fever or night sweats, denies any change in the bowel movements or urination Physical Examinations : -Constitutiona : Cooperative , not in acute distress . -HEENT : nech : supple , no Lymphadenopathy , normal thyroid size . : eyes : no ptosis , no icterus, no nell tophobia . - neurologic : Cranial nerve II to XII intact , no focal neurological deffecit . -psychatric : alert , oriented X 3 , appropriate affect , intact judgment and insight . -Lymphatic : no Lymphadenopathy . - musculoskeltal : Lumber spine moter stegnth lower extremities ,thigh and legs 5/5 Right side , 5/5 Left side deep tendon reflexes : normal Knee Jerk , normal ankle Jerk lumber facet Loading Test =positive Right , positive Left Range of motion of the lumbar spine Flexion 30 degrees, extension 10 degrees strait leg raising test = positive at 45 degree Fabere test= positive Right , and positive LT . mild tenderness over the Sacroiliac joint on the Right , and Left sides Assessment and Plan Chronic low back pain secondary to lumbar degenerative disc disease , lumbar spondylosis with facet arthropathy without myelopathy chronic and current use of high-risk medication (Opioids). The patient was counseled about risk of opioid use, psychological risk associated with opioids and was orally counseled to not overuse , divert,or sell dictations to take medications as prescribed only , and to restore medication in safe location , the patient counseled against driving while using narcotic medications, and also not to use alcohol or any illicit recreational drugs, patient's verbalized understanding that the lack of compliance will result in failure to renew narcotic prescription and possible discharge from the clinic - diagnoses, prognosis, and treatment options including but not limited to physical therapy, surgical interventions, interventional therapies , and medication management including narcotics and adjuvant medication were discussed with the patient and all the questions answered MAPS reviewed and it was apropriate Prescription refill for Percocet 10/325 every 8 hours dispense 90 with 1 refill, Lyrica 150 mg 3 times a day dispense 90 with 1 refill, discontinue Zanaflex Start baclofen 10 mg every 8 hour Objective - Vital Signs Vital signs: Vital Signs Temp 98.1 F 03/20/20 11:02 Pulse 64 03/20/20 11:02 Resp 14 03/20/20 11:02 BP 138/79 03/20/20 11:02 Pulse Ox 97 03/20/20 11:02 Assessment and Plan Time with Patient: Less than 30 PQRS Measure Charge Sheet Measure #130: Documentation of Current Meds in Medical Chart: Patient's medications documented in chart Measure #226: Tobacco Use: Screen & Cessation Intervention: Pt screened for tobacco use AND intervention given Measure #111: Pneumonia Vaccination: Pneumococcal vaccine NOT administered or previously given Measure #47: Advance Care Plan: Advance care planning discussed & documented, pt chose/unable to give Measure #412: Opioid Treatment Agreement: Documented signed opioid trtmnt agreemnt min once during opioid trtmnt Measure #408: Opioid Therapy Follow-up Evaluation: Patient had f/u eval minimum every 3 months during opioid therapy Measure #317: Preventitive Care & Scrn High Bld Press & F/U: Normal blood pressure, f/u not required Measure #128: Body Mass Index (BMI) Screening & Follow-up: BMI documented ABOVE normal parameters - f/u documented Measure #131: Pain Assessment & Follow-up: Pain positive & plan documented, Follow-up scheduled Measure #431: Unhealthy Alcohol Use Preventative Care & Scrn: Patient not identified as an unhealthy alcohol user PQRS Narrative: Smoking Status Current every day smoker Narcotic Agreement Date Signed 09/06/19 Blood Pressure 138/79 Pain Intensity [Lower Back] 6 Scale Used Numeric (1 - 10) Hx Alcohol Use (MH) Yes: occ. Home Medications: Ambulatory Orders DULoxetine HCL [Cymbalta] 60 mg PO DAILY 12/12/13 Lisinopril/Hydrochlorothiazide [Zestoretic 20-12.5] 1 tab PO DAILY 11/14/15 Tamsulosin HCl [Flomax] 0.4 mg PO HS 02/03/16 Acetaminophen [Tylenol] 500 mg PO TID PRN 03/02/18 Atorvastatin [Lipitor] 10 mg PO HS 12/17/18 Folic Acid 1 mg PO DAILY@1200 05/03/19 Baclofen [Lioresal] 10 mg PO TID #90 tablet 03/20/20 Pregabalin 150 mg PO TID 30 Days #90 cap 03/20/20 oxyCODONE HCL/ACETAMINOPHEN [Percocet 10-325 mg] 1 tab PO Q8HR PRN 30 Days #90 tab 03/20/20 oxyCODONE-APAP 10-325MG [Percocet 10-325 mg] 1 tab PO Q8HR PRN 30 Days #90 tab 03/20/20 Controlled Substance Measures - Controlled Substance Measures Is patient prescribed a controlled substance at discharge?: Yes
== END | disposition home or self-care (01) ==
LOC: PNWHC3 10:38
PROVIDERS: ATTEND Specialist
DX: G89.29 Other chronic pain (principal); M51.36 Other intervertebral disc degeneration, lumbar region; M47.816 Spondylosis without myelopathy or radiculopathy, lumbar region; M25.552 Pain in left hip; F17.200 Nicotine dependence, unspecified, uncomplicated; Z98.890 Other specified postprocedural states; Z79.899 Other long term (current) drug therapy
CPT/HCPCS: 99211

== ENCOUNTER 2020-05-15 18:55 | Emergency (ER) | payer MEDICARE, OTHER ==
[2020-05-15 19:00] VITALS: RESP 18
[2020-05-15] MEDS ORDERED: KETOROLAC 15 MG/ML 1 ML VIAL IVP STA (20:00)
[2020-05-15] MEDS ORDERED: SODIUM CHLORIDE 0.9% 500 ML 500 ML IV ONE (20:00)
--- NOTE | 2020-05-15 20:13 | ED ---
General Adult HPI - General Chief complaint: Recheck/Abnormal Lab/Rx Stated complaint: abd Time Seen by Provider: 05/15/20 19:37 Source: patient, RN notes reviewed, old records reviewed Mode of arrival: ambulatory Limitations: no limitations - History of Present Illness Initial comments: 60-year-old male patient ED for evaluation. Patient reports that one year ago he fell landing of left side. Patient reports that since the fall he has had persistent pain in his left flank. Patient reports that he saw his pain management physician today who ordered an outpatient CT. However patient reports that the pain was getting worse and he came to the emergency department. Patient is currently complaining of left flank pain. He reports that about 3 days ago he had a brief episode of a sharp pain in his sternum. He has not had any pain since. Denies any other acute complaints. Systemic: Pt denies fatigue, fever/chills, rash. Pt denies weakness, night sweats, weight loss. Neuro: Pt denies headache, visual disturbances, syncope or pre-syncope. HEENT: Pt denies ocular discharge or irritation, otalgia, rhinorrhea, pharyngitis or notable lymphadenopathy. Cardiopulmonary: Pt denies chest pain, SOB, heart palpitations, dyspnea on exertion. Abdominal/GI: Pt denies abdominal pain, n/v/d. : Pt denies dysuria, burning w/ urination, frequency/urgency. Denies new onset urinary or bowel incontinence. MSK: Pt denies loss of strength or function in extremities. Neuro: Pt denies new onset weakness, paresthesias. - Related Data Home Medications Medication Instructions Recorded Confirmed Lisinopril/Hydrochlorothiazide 1 tab PO DAILY 11/14/15 05/15/20 [Zestoretic 20-12.5] Tamsulosin HCl [Flomax] 0.4 mg PO DAILY 02/03/16 05/15/20 Atorvastatin [Lipitor] 10 mg PO DAILY 12/17/18 05/15/20 Folic Acid 1 mg PO DAILY 05/03/19 05/15/20 oxyCODONE HCL/ACETAMINOPHEN 1 tab PO Q8H PRN 05/15/20 05/15/20 [Percocet 10-325 mg] tiZANidine HCL [Zanaflex] 4 mg PO TID 05/15/20 05/15/20 Previous Rx's Medication Instructions Recorded Pregabalin 150 mg PO TID 30 Days #90 cap 05/15/20 Allergies Allergy/AdvReac Type Severity Reaction Status Date / Time No Known Allergies Allergy Verified 05/15/20 22:09 Review of Systems ROS Statement: Those systems with pertinent positive or pertinent negative responses have been documented in the HPI. ROS Other: All systems not noted in ROS Statement are negative. Past Medical History Past Medical History: Asthma, COPD, Hyperlipidemia, Hypertension, Liver Disease, Osteoarthritis (OA), Prostate Disorder Additional Past Medical History / Comment(s): Hx Heart Murmur. Hx Head Injury. Migraines, Sciatica, Scoliosis. [place] bilateral legs, feet and back. Alcoholic cirrhosis, Enlarged Prostate. fx ribs on left side 05/03/19-fell on roof of a barn, hiatal hernia History of Any Multi-Drug Resistant Organisms: None Reported Past Surgical History: Hernia Repair, Orthopedic Surgery Additional Past Surgical History / Comment(s): "11/29/18 Had fluid drained from around brain." Right hand surgery, AC SEPARATION RIGHT COLLAR BONE -GRAFT FROM ELBOW, COLONOSCOPY, LEFT HIP SURGERY, RIGHT INGUINAL HERNIA REPAIR, MULTIPLE PAIN PROCEDURES. Past Anesthesia/Blood Transfusion Reactions: No Reported Reaction, Unable to Obtain Additional Past Anesthesia/Blood Transfusion Reaction / Comment(s): adopted Past Psychological History: Anxiety, Depression Smoking Status: Current every day smoker Past Alcohol Use History: None Reported Past Drug Use History: None Reported - Past Family History Mother History Unknown: Yes Family Medical History: Unable to Obtain Additional Family Medical History / Comment(s): Pt was adopted. General Exam - General Exam Comments Initial Comments: Constitutional: NAD, AOX3, Pt has pleasant affect. HEENT: NC/AT, trachea midline, neck supple, no lymphadenopathy. Posterior pharynx non erythematous, without exudates. External ears appear normal, without discharge. Mucous membranes moist. Eyes PERRLA, EOM intact. There is no scleral icterus. No pallor noted. Cardiopulmonary: RRR, no murmurs, rubs or gallops, no JVD noted. Lungs CTAB in anterior and posterior skelton. No peripheral edema. Abdominal exam: Abdomen soft and non-distended. Abdomen non-tender to palpation in all 4 quadrants. Bowel sounds active in LLQ. No hepatosplenomegaly. No ecchymosis Neuro: CN II-XII grossly intact. No nuchal rigidity. MSK: Left flank mildly tender to palpation. No skin changes. No posterior calf tenderness bilaterally, homans sign negative bilaterally. Posterior tibialis and radial pulse +2 bilaterally. Sensation intact in upper and lower extremities. Full active ROM in upper and lower extremities, 5/5 stregnth. Limitations: no limitations Course Vital Signs 05/15/20 05/15/20 18:57 19:38 Temperature 98.4 F Pulse Rate 70 84 Respiratory 18 18 Rate Blood Pressure 155/89 135/69 O2 Sat by Pulse 99 97 Oximetry Medical Decision Making - Medical Decision Making 60-year-old male patient to ED for evaluation of left flank pain following a fall one year ago. Patient will signs stable, afebrile. Physical exam displayed tenderness the left flank region. Advanced imaging was obtained. CTA did not display any evidence of pulmonary embolism, no filling defects, old 50% wedging of T5, no aneurysm or dissection. CT abdomen and pelvis does not display any sign acute abdomen and pelvis. No change compared to old exam. EKG is nonischemic. Troponin is negative. Patient feeling much improved with Toradol. Patient will be discharged will follow up with primary care provider I did advise patient to also follow up with cardiology. He will return to ER if any worsening symptoms. Case discussed with Dr. Ha. - Lab Data Result diagrams: 05/15/20 20:24 05/15/20 20:24 Lab Results 05/15/20 05/15/20 05/15/20 Range/Units 20:24 20:24 20:24 WBC 9.5 (3.8-10.6) k/uL RBC 4.88 (4.30-5.90) m/uL Hgb 14.5 (13.0-17.5) gm/dL Hct 44.3 (39.0-53.0) % MCV 90.7 (80.0-100.0) fL MCH 29.7 (25.0-35.0) pg MCHC 32.7 (31.0-37.0) g/dL RDW 13.1 (11.5-15.5) % Plt Count 295 (150-450) k/uL Neutrophils % 62 % Lymphocytes % 24 % Monocytes % 7 % Eosinophils % 5 % Basophils % 0 % Neutrophils # 5.9 (1.3-7.7) k/uL Lymphocytes # 2.3 (1.0-4.8) k/uL Monocytes # 0.7 (0-1.0) k/uL Eosinophils # 0.4 (0-0.7) k/uL Basophils # 0.0 (0-0.2) k/uL PT (9.0-12.0) sec INR (<1.2) APTT (22.0-30.0) sec Sodium 136 L (137-145) mmol/L Potassium 4.3 (3.5-5.1) mmol/L Chloride 101 (98-107) mmol/L Carbon Dioxide 30 (22-30) mmol/L Anion Gap 5 mmol/L BUN 16 (9-20) mg/dL Creatinine 0.92 (0.66-1.25) mg/dL Est GFR (CKD-EPI)AfAm >90 (>60 ml/min/1.73 sqM) Est GFR (CKD-EPI)NonAf >90 (>60 ml/min/1.73 sqM) Glucose 104 H (74-99) mg/dL Calcium 9.7 (8.4-10.2) mg/dL Total Bilirubin 0.4 (0.2-1.3) mg/dL AST 27 (17-59) U/L ALT 22 (4-49) U/L Alkaline Phosphatase 95 (38-126) U/L Troponin I <0.012 (0.000-0.034) ng/mL Total Protein 7.2 (6.3-8.2) g/dL Albumin 4.0 (3.5-5.0) g/dL 05/15/20 Range/Units 20:24 WBC (3.8-10.6) k/uL RBC (4.30-5.90) m/uL Hgb (13.0-17.5) gm/dL Hct (39.0-53.0) % MCV (80.0-100.0) fL MCH (25.0-35.0) pg MCHC (31.0-37.0) g/dL RDW (11.5-15.5) % Plt Count (150-450) k/uL Neutrophils % % Lymphocytes % % Monocytes % % Eosinophils % % Basophils % % Neutrophils # (1.3-7.7) k/uL Lymphocytes # (1.0-4.8) k/uL Monocytes # (0-1.0) k/uL Eosinophils # (0-0.7) k/uL Basophils # (0-0.2) k/uL PT 10.0 (9.0-12.0) sec INR 1.0 (<1.2) APTT 24.1 (22.0-30.0) sec Sodium (137-145) mmol/L Potassium (3.5-5.1) mmol/L Chloride (98-107) mmol/L Carbon Dioxide (22-30) mmol/L Anion Gap mmol/L BUN (9-20) mg/dL Creatinine (0.66-1.25) mg/dL Est GFR (CKD-EPI)AfAm (>60 ml/min/1.73 sqM) Est GFR (CKD-EPI)NonAf (>60 ml/min/1.73 sqM) Glucose (74-99) mg/dL Calcium (8.4-10.2) mg/dL Total Bilirubin (0.2-1.3) mg/dL AST (17-59) U/L ALT (4-49) U/L Alkaline Phosphatase (38-126) U/L Troponin I (0.000-0.034) ng/mL Total Protein (6.3-8.2) g/dL Albumin (3.5-5.0) g/dL - EKG Data -: EKG Interpreted by Me (and Dr. Ha ) EKG Comments: Ventricular rate 58, MS interval 126, QRS 90, QT/QTc 410/402. Sinus bradycardia, otherwise normal EKG. No concern for acute ischemia at this time. No significant change from prior. 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 I will provide a name of an additional knitting machine tender if you are no longer established. Return to ED if you have any worsening symptoms. Remove the lido derm patch tomorrow morning. Is patient prescribed a controlled substance at d/c from ED?: No Referrals: Ariel Guerra DO [Primary Care Provider] - 1-2 days Ra Martins MD [STAFF PHYSICIAN] - 1-2 days
[2020-05-15 20:40] LABS: Basophils % (A) 0 %; Eosinophils # (A) 0.4 k/uL (0-0.7); Eosinophils % (A) 5 %; HCT 44.3 % (39.0-53.0); HGB 14.5 gm/dL (13.0-17.5); Lymphocytes # (A) 2.3 k/uL (1.0-4.8); Lymphocytes % (A) 24 %; MCH 29.7 pg (25.0-35.0); MCHC 32.7 g/dL (31.0-37.0); MCV 90.7 fL (80.0-100.0); Mean Platelet Volume 8.4; Monocytes # (A) 0.7 k/uL (0-1.0); Monocytes % (A) 7 %; Neutrophils # (A) 5.9 k/uL (1.3-7.7); Neutrophils % (A) 62 %; Platelet Count 295 k/uL (150-450); RBC 4.88 m/uL (4.30-5.90); RDW 13.1 % (11.5-15.5); WBC 9.5 k/uL (3.8-10.6)
[2020-05-15 20:49] LABS: Partial Thromboplastin Time 24.1 sec (22.0-30.0)
[2020-05-15 20:51] LABS: ALT 22 U/L (4-49); AST 27 U/L (17-59); African American GFR (CKD) >90 (>60 ml/min/1.73 sqM); Alkaline Phosphatase 95 U/L (38-126); Anion Gap 5 mmol/L; Blood Urea Nitrogen 16 mg/dL (9-20); Calcium 9.7 mg/dL (8.4-10.2); Carbon Dioxide 30 mmol/L (22-30); Chloride 101 mmol/L (98-107); Glucose 104 mg/dL (74-99); Non-African American GFR(CKD) >90 (>60 ml/min/1.73 sqM); Potassium 4.3 mmol/L (3.5-5.1); Sodium 136 mmol/L (137-145); Total Bilirubin 0.4 mg/dL (0.2-1.3); Total Protein 7.2 g/dL (6.3-8.2)
--- NOTE | 2020-05-15 21:14 | CT ---
EXAMINATION TYPE: CT chest angio for PE DATE OF EXAM: 05/15/2020 COMPARISON: None HISTORY: Left lower chest/upper abdominal pain x1 year, worse today. CT DLP: 443.3 mGycm Automated exposure control for dose reduction was used. CONTRAST: Performed with IV Contrast, patient injected with 100ml mL of Isovue 370. There are 3-D post processed images. The lungs are clear of consolidation. There is no evidence of a pulmonary mass. There is no pleural e ffusion. There is no mediastinal adenopathy. There are no hilar masses. Heart size is normal. There i s no pericardial effusion. Thoracic aorta is atheromatous. There is no aneurysm or dissection. There is normal contrast opacification of the pulmonary arteries. There are no filling defect. The th oracic spine is intact. There is old 15% wedging of T5 vertebra. IMPRESSION: No evidence of pulmonary embolism.
--- NOTE | 2020-05-15 21:18 | CT ---
EXAMINATION TYPE: CT abdomen pelvis w con DATE OF EXAM: 05/15/2020 COMPARISON: 05/03/2019 HISTORY: Left lower chest/upper abdominal pain x1 year, worse today. CT DLP: 1285.2 mGycm Automated exposure control for dose reduction was used. CONTRAST: Performed with IV Contrast, patient injected with 100ml mL of Isovue 370. Lung bases are clear. There is no pleural effusion. Liver spleen stomach pancreas gallbladder appear normal. Bile ducts are not dilated. There is no adrenal mass. Kidneys show satisfactory contrast opac ification. There is no hydronephrosis. There is 3.8 cm cortical cyst anterior left kidney. The delaye d images show normal renal excretion. Ureters are not dilated. There is no retroperitoneal adenopathy . Bladder distends smoothly. There is no inguinal hernia. There is no evidence of a pelvic mass. Ther e is no free fluid in the pelvis. There is 2 cm umbilical hernia that contains fat. Appendix is media l and appears normal. There is no mesenteric edema. There is no ascites or free air. There is no bowel obstruction. Lumbar vertebra have normal alignment. Disc spaces are fairly normal. Bony pelvis is intact. IMPRESSION: No sign of acute abdomen and pelvis. No adverse change compared to old exam..
[2020-05-15] MEDS ORDERED: LIDOCAINE 5% PATCH TOPICAL STA (22:15)
[2020-05-15 22:47] VITALS: BP 144/80; PULSE 58; TEMP 98
== END 2020-05-15 22:52 | disposition home or self-care (01) ==
LOC: EC 18:55
DX: R10.9 Unspecified abdominal pain (principal); R07.2 Precordial pain; E78.5 Hyperlipidemia, unspecified; I10 Essential (primary) hypertension; M19.90 Unspecified osteoarthritis, unspecified site; N40.0 Benign prostatic hyperplasia without lower urinary tract symptoms; Z79.899 Other long term (current) drug therapy; F17.200 Nicotine dependence, unspecified, uncomplicated; Z87.81 Personal history of (healed) traumatic fracture
CPT/HCPCS: 99285 ×2; 96374 ×2; 96361 ×3; 36415; 93005; 80053; 84484; 85025; 85610; 85730; 71275; 74177; J1885; Q9967; G0463; 99211

== ENCOUNTER → 2020-05-15 | Outpatient (CLI) | payer MEDICARE, OTHER ==
[2020-05-15 10:36] VITALS: BP 146/82; PULSE 52; RESP 18; TEMP 97.9
--- NOTE | 2020-05-15 11:55 | P.PAINPG ---
Subjective Progress Note Date: 05/15/20 Rip presents today for follow-up of his low back pain and chronic opioid use. He is here for medication refill. He reports medication been helping very well. He denies any side effects of medication. He reports a VAS today is about 5 out of 10 at rest. He has some continued pain in his chest which radiates to his back. He is unsure if it starts in his back or starts his chest. He has not had any imaging or any workup for this. He's had pain medication and injections in his low back. He denies any chronic indigestion. He does have a history of high blood pressure. He's never had any investigation of this chest pain and just wants to make sure there is nothing is okay. Objective - Vital Signs Vital signs: Vital Signs Temp 97.9 F 05/15/20 10:34 Pulse 52 L 05/15/20 10:34 Resp 18 05/15/20 10:34 BP 146/82 05/15/20 10:34 Pulse Ox 99 05/15/20 10:34 - Exam General: Awake and alert oriented 3 no distress Respiratory exam: No audible wheezing no accessory muscle usage Cardiovascular exam: regular rate, palpable bilateral pulses, no lower extremity edema Abdominal exam: No distention nontender to palpation Cervical spine: Normal alignment, Spurling's negative, facet loading negative, Supervisor Pigment Making strength is 5/5, pacheco negative Thoracic spine: There is no tenderness to palpation over the thoracic spine. There is no reproducible pain over the sternum. Pulses are palpable bilaterally. Lumbar spine: Loss of lumbar lordosis, normal alignment, tender to palpation over bilateral paraspinal muscles, facet loading is positive bilaterally. Straight leg raise is negative. Limited range of motion due to pain with flexion, extension and side bending. Sacroiliac joints: Nontender to palpation, IGOR is negative, Ga[place]elon negative Neuro exam: Normal sensation in bilateral upper extremities, deep tendon reflexes are 2+ bilateral upper extremities. Normal sensation in bilateral lower extremities. Deep tendon reflexes are 2+ in lower extremities Psych exam: Cooperative, appropriate mood Assessment and Plan Assessment: #1 lumbar spondylosis without myelopathy #2 lumbar radiculopathy #3 chronic opioid dependence #4 chest pain Plan: At this point we'll continue the current medication regimen. I will refill medications after review of the maps and all appropriate augmentation. I will also send the patient for computed tomography scan of his chest to rule out any lung mass, pleuritic effusion, or any thoracic aneurysm. If all those are negative with a focus on the spinal pathology for his pain. PQRS Measure Charge Sheet Measure #130: Documentation of Current Meds in Medical Chart: Patient's medications documented in chart Measure #226: Tobacco Use: Screen & Cessation Intervention: Pt screened for tobacco use AND intervention given Measure #111: Pneumonia Vaccination: Pneumococcal vaccine administered or previously received Measure #47: Advance Care Plan: Advance care planning discussed & documented, plan or surrogate given Measure #412: Opioid Treatment Agreement: Documented signed opioid trtmnt agreemnt min once during opioid trtmnt Measure #408: Opioid Therapy Follow-up Evaluation: Patient had f/u eval minimum every 3 months during opioid therapy Measure #317: Preventitive Care & Scrn High Bld Press & F/U: Pre-hypertensive or hypertensive BP documented, pt will f/u with PCP Measure #128: Body Mass Index (BMI) Screening & Follow-up: BMI documented ABOVE normal parameters - f/u documented Measure #131: Pain Assessment & Follow-up: Pain positive & plan documented Measure #431: Unhealthy Alcohol Use Preventative Care & Scrn: Patient not identified as an unhealthy alcohol user PQRS Narrative: Smoking Status Current every day smoker Narcotic Agreement Date Signed 09/06/19 Blood Pressure 146/82 Pain Intensity [Lower Back] 8 Scale Used Numeric (1 - 10) Hx Alcohol Use (MH) Yes: occ. Home Medications: Ambulatory Orders DULoxetine HCL [Cymbalta] 60 mg PO DAILY 12/12/13 Lisinopril/Hydrochlorothiazide [Zestoretic 20-12.5] 1 tab PO DAILY 11/14/15 Tamsulosin HCl [Flomax] 0.4 mg PO HS 02/03/16 Acetaminophen [Tylenol] 500 mg PO TID PRN 03/02/18 Atorvastatin [Lipitor] 10 mg PO HS 12/17/18 Folic Acid 1 mg PO DAILY@1200 05/03/19 Pregabalin 150 mg PO TID 30 Days #90 cap 05/15/20 oxyCODONE HCL/ACETAMINOPHEN [Percocet 10-325 mg] 1 tab PO Q8HR PRN 30 Days #90 tab 05/15/20 oxyCODONE HCL/ACETAMINOPHEN [Percocet 10-325 mg] 1 tab PO Q8HR PRN 30 Days #90 tab 05/15/20 tiZANidine HCL [Zanaflex] 4 mg PO TID PRN 30 Days #90 capsule 05/15/20 Controlled Substance Measures - Controlled Substance Measures Is patient prescribed a controlled substance at discharge?: Yes When asked, does pt state using other controlled substances?: No If prescribed controlled substance>3 days was MAPS reviewed?: Yes If Rx opioid, was Start Talking consent form obtained?: Yes If opioid is for acute pain is fill amount 7 days or less?: No Was information provided regarding opioid addiction?: Yes
== END | disposition home or self-care (01) ==
LOC: PNWHC3 10:01
PROVIDERS: ATTEND Hospitalist
DX: M47.26 Other spondylosis with radiculopathy, lumbar region (principal); R07.9 Chest pain, unspecified; F11.20 Opioid dependence, uncomplicated; F17.210 Nicotine dependence, cigarettes, uncomplicated; Z79.899 Other long term (current) drug therapy
CPT/HCPCS: 99211

== ENCOUNTER 2020-06-26 16:33 | Emergency (ER) | payer MEDICARE, OTHER ==
[2020-06-26] MEDS ORDERED: PROPARACAINE 0.5% OPHTH DROPS 15 ML BTL LEFT EYE STA (17:36)
[2020-06-26] MEDS ORDERED: FLUORESCEIN STRIPS 1 MG STRIP LEFT EYE ONE (17:36)
--- NOTE | 2020-06-26 18:16 | CT ---
EXAMINATION TYPE: CT brain cspine wo con DATE OF EXAM: 06/26/2020 COMPARISON: CT brain 6 December 22, 2018 CT cervical spine January 04, 2016 HISTORY: Fall, swollen left eye, neck pain CT DLP: 976.1 mGycm Automated exposure control for dose reduction was used. Ventricles have normal size. There is no mass effect nor midline shift. There is no sign of intracran ial hemorrhage. The calvarium is intact. The skull base is intact. There is normal aeration of the ma stoid sinuses. Cervical vertebra have normal alignment. There is narrowing of C6-7 disc space with spur formation. F acet joints are intact. There is mild hypertrophic facet arthropathy in the upper cervical spine. There is no evidence of cer vical spine fracture. IMPRESSION: Negative CT scan of the brain. No change compared to old exam. Mild spondylotic changes in the lower cervical spine. No fracture. No change compared to old exam.
[2020-06-26 18:22] LABS: Appearance,Urine Clear (Clear); Bilirubin,Urine Negative (Negative); Blood,Urine Negative (Negative); Color,Urine Colorless; Glucose,Urine (UA) Negative (Negative); Ketones,Urine Negative (Negative); Leukocyte Esterase,Urine Negative (Negative); Nitrite,Urine Negative (Negative); PH, Urine 6.5 (5.0-8.0); Protein,Urine Negative (Negative); Specific Gravity,Urine 1.003 (1.001-1.035); Urobilinogen,Urine <2.0 mg/dL (<2.0)
--- NOTE | 2020-06-26 18:23 | CT ---
EXAMINATION TYPE: CT orbits wo con DATE OF EXAM: 06/26/2020 COMPARISON: None HISTORY: Fall, swollen left eye CT DLP: Included in brain dose mGycm Automated exposure control for dose reduction was used. Images were obtained from the bottom of the maxilla to the top of the bony orbits without contrast. There is fluid level in the right maxillary sinus. The orbital margins however appear intact. There i s no evidence of a blowout fracture. There is no retro-orbital mass. The globes are symmetric. There is deformity of the nasal bone which is deviated slightly to the left side related to fracture. The z ygomatic arches appear normal. The maxilla is intact. There is normal aeration of the temporal bones. There is normal aeration of the frontal ethmoid sphenoid sinuses. IMPRESSION: Mucosal thickening in the right maxillary sinus consistent with mild sinusitis. No acute fracture see n. Deformity of the nasal bone related to old fracture also present on the old exam of December 18 2018.
--- NOTE | 2020-06-26 19:57 | ED ---
Head Injury HPI - General Chief complaint: Head Injury Stated complaint: fall/1 wk ago-hit head/blurred vision now Time Seen by Provider: 06/26/20 16:40 Source: patient Mode of arrival: ambulatory Limitations: no limitations - History of Present Illness Initial comments: Patient is a 60-year-old male with past history of normal pressure hydrocephalus who presents to the emergency department after he sustained a fall. Patient states that he fell about a week ago. Went down approximately 7 steps. He hit left side of his head and neck. States that he had neck pain for a few days however this went away. He reports for the past 3 days he's had pain around his left eye with blurred vision and increased tearing. He denies getting anything in his eye. Has had some crusting over the top of it. Admits to photophobia. No fevers or chills. Denies any continued neck pain. No numbness, tingling or weakness in his extremities. No other alleviating, precipitating or modifying factors - Related Data Home Medications Medication Instructions Recorded Confirmed Lisinopril/Hydrochlorothiazide 1 tab PO DAILY 11/14/15 05/15/20 [Zestoretic 20-12.5] Tamsulosin HCl [Flomax] 0.4 mg PO DAILY 02/03/16 05/15/20 Atorvastatin [Lipitor] 10 mg PO DAILY 12/17/18 05/15/20 Folic Acid 1 mg PO DAILY 05/03/19 05/15/20 oxyCODONE HCL/ACETAMINOPHEN 1 tab PO Q8H PRN 05/15/20 05/15/20 [Percocet 10-325 mg] tiZANidine HCL [Zanaflex] 4 mg PO TID 05/15/20 05/15/20 Previous Rx's Medication Instructions Recorded Pregabalin 150 mg PO TID 30 Days #90 cap 05/15/20 Allergies/Adverse reactions: Allergies Allergy/AdvReac Type Severity Reaction Status Date / Time No Known Allergies Allergy Verified 06/28/20 13:54 Review of Systems ROS Statement: Those systems with pertinent positive or pertinent negative responses have been documented in the HPI. ROS Other: All systems not noted in ROS Statement are negative. Past Medical History Past Medical History: Asthma, COPD, Hyperlipidemia, Hypertension, Liver Disease, Osteoarthritis (OA), Prostate Disorder Additional Past Medical History / Comment(s): Hx Heart Murmur. Hx Head Injury. Migraines, Sciatica, Scoliosis. Pins & [place] bilateral legs, feet and back. Alcoholic cirrhosis, Enlarged Prostate. fx ribs on left side 05/03/19-fell on roof of a barn, hiatal hernia History of Any Multi-Drug Resistant Organisms: None Reported Past Surgical History: Hernia Repair, Orthopedic Surgery Additional Past Surgical History / Comment(s): "11/29/18 Had fluid drained from around brain." Right hand surgery, AC SEPARATION RIGHT COLLAR BONE -GRAFT FROM ELBOW, COLONOSCOPY, LEFT HIP SURGERY, RIGHT INGUINAL HERNIA REPAIR, MULTIPLE PAIN PROCEDURES. Past Anesthesia/Blood Transfusion Reactions: No Reported Reaction, Unable to Obtain Additional Past Anesthesia/Blood Transfusion Reaction / Comment(s): adopted Past Psychological History: Anxiety, Depression Smoking Status: Current every day smoker Past Alcohol Use History: None Reported Past Drug Use History: None Reported - Past Family History Mother History Unknown: Yes Family Medical History: Unable to Obtain Additional Family Medical History / Comment(s): Pt was adopted. General Exam Limitations: no limitations General appearance: alert, in no apparent distress Head exam: Present: atraumatic, normocephalic, normal inspection Eye exam: Present: conjunctival injection (left eye. Left eye drainage. No hyphema or hypopyon. Negative lily sign. No conreal abrasion identified) ENT exam: Present: normal exam, mucous membranes moist Neck exam: Present: normal inspection. Absent: tenderness, meningismus, lymphadenopathy Neurological exam: Present: alert, oriented X3, CN II-XII intact Course Vital Signs 06/26/20 06/26/20 06/26/20 16:39 19:08 20:05 Temperature 97.4 F L 98.2 F 97.6 F Pulse Rate 64 60 58 L Respiratory 18 18 19 Rate Blood Pressure 186/92 148/85 176/91 O2 Sat by Pulse 100 96 96 Oximetry Medical Decision Making - Medical Decision Making On arrival the patient is placed into hallway . A thorough history and physical exam was performed. Patient does want a urinalysis sent as he is reporting increased frequency of urination. This is sent to the lab and is unremarkable. The patient is sent over for a CT of his head, cervical spine and orbits because of his reported vision changes after trauma. Demonstrates no acute findings in the brain. Only minor cellulitic changes in the lower cervical spine. No fractures. CT the orbit demonstrates an old nasal bone fracture. Mucosal thickening the right and x-ray sinus. No acute fractures. Results are discussed the patient. Intraocular pressures obtained and is 9, 10 and 9. Visual acuity is performed and demonstrates that the patient has 20/40 vision in each eye as well as bilateral. I did a floor seen stain the patient's eye. Once proparacaine is applied to the eye the patient is able open it. No corneal abrasions grossly identified. Patient reports improvement in his pain with the proparacaine. We did instill ofloxacin drops. The patient is able to take these home. I did discuss results with the patient. Instructed him to follow-up with ophthalmology within 1-2 days. Use eye drops every 4 hours. Also recommended that the patient follow up with Dr. Costello. Return to the emergency room for any new or worsening symptoms. Patient was in agreement with this he was discharged home in stable condition - Lab Data Lab Results 06/26/20 Range/Units 17:40 Urine Color Colorless Urine Appearance Clear (Clear) Urine pH 6.5 (5.0-8.0) Ur Specific Rudolph 1.003 (1.001-1.035) Urine Protein Negative (Negative) Urine Glucose (UA) Negative (Negative) Urine Ketones Negative (Negative) Urine Blood Negative (Negative) Urine Nitrite Negative (Negative) Urine Bilirubin Negative (Negative) Urine Urobilinogen <2.0 (<2.0) mg/dL Ur Leukocyte Esterase Negative (Negative) Disposition Clinical Impression: Left eye pain, Fall, Head injury Disposition: HOME SELF-CARE Condition: Stable Instructions (If sedation given, give patient instructions): Concussion (ED) Additional Instructions: Please follow up with the eye doctor in 1-2 days. Use the antibiotics drops - 2 drops every 4 hours. See doctor Sergio in office in 1 week. Return to the emergency room for any new or worsening symptoms Is patient prescribed a controlled substance at d/c from ED?: No Referrals: Ariel Guerra DO [Primary Care Provider] - 1-2 days Abraham Solis MD [STAFF PHYSICIAN] - 1-2 days Time of Disposition: 19:57
[2020-06-26] MEDS ORDERED: OFLOXACIN 0.3% OPHTH DROPS 5 ML BOTTLE LEFT EYE ONE (20:15)
[2020-06-26 20:26] VITALS: BP 176/91; PULSE 58; RESP 19; TEMP 97.6
== END 2020-06-26 20:05 | disposition home or self-care (01) ==
LOC: EC 16:33
DX: S09.90XA Unspecified injury of head, initial encounter (principal); H57.12 Ocular pain, left eye; J34.89 Other specified disorders of nose and nasal sinuses; I10 Essential (primary) hypertension; E78.5 Hyperlipidemia, unspecified; N40.1 Benign prostatic hyperplasia with lower urinary tract symptoms; R35.0 Frequency of micturition; F17.200 Nicotine dependence, unspecified, uncomplicated; Z79.899 Other long term (current) drug therapy; W10.9XXA Fall (on) (from) unspecified stairs and steps, initial encounter; Y92.009 Unspecified place in unspecified non-institutional (private) residence as the place of occurrence of the external cause
CPT/HCPCS: 70450; 70480; 72125; 81003; 99284

== ENCOUNTER 2020-06-28 13:48 | Emergency (ER) | payer MEDICARE, OTHER ==
[2020-06-28 13:54] VITALS: RESP 18
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
[2020-06-28 16:21] VITALS: BP 164/81; PULSE 66; TEMP 98.3
== END 2020-06-28 16:21 | disposition home or self-care (01) ==
LOC: EC 13:48
DX: M62.830 Muscle spasm of back (principal); G89.29 Other chronic pain; M54.2 Cervicalgia; R51.9 Headache, unspecified; F41.9 Anxiety disorder, unspecified; F32.9 Major depressive disorder, single episode, unspecified; E78.5 Hyperlipidemia, unspecified; M19.90 Unspecified osteoarthritis, unspecified site; N40.0 Benign prostatic hyperplasia without lower urinary tract symptoms; F17.200 Nicotine dependence, unspecified, uncomplicated; Z79.899 Other long term (current) drug therapy; Z98.890 Other specified postprocedural states; V49.50XA Passenger injured in collision with unspecified motor vehicles in traffic accident, initial encounter; Y92.488 Other paved roadways as the place of occurrence of the external cause; Y93.89 Activity, other specified
CPT/HCPCS: 70450; 72125; 99284

== ENCOUNTER → 2020-07-10 | Outpatient (CLI) | payer MEDICARE, OTHER ==
[2020-07-10 10:10] VITALS: BP 136/76; PULSE 60; RESP 18; TEMP 97.8
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
== END | disposition home or self-care (01) ==
LOC: PNWHC3 09:48
PROVIDERS: ATTEND Specialist
DX: M51.36 Other intervertebral disc degeneration, lumbar region (principal); M47.816 Spondylosis without myelopathy or radiculopathy, lumbar region; M54.2 Cervicalgia; Z79.891 Long term (current) use of opiate analgesic; M54.6 Pain in thoracic spine
CPT/HCPCS: 99211

== ENCOUNTER → 2020-07-29 | Outpatient (CLI) | payer OTHER, MEDICARE ==
--- NOTE | 2020-07-29 13:14 | CT ---
EXAMINATION TYPE: CT cervical spine wo con DATE OF EXAM: 07/29/2020 COMPARISON: CT cervical spine June 28, 2020 HISTORY: neck pain CT DLP: 713.3 mGycm. Automated Exposure Control for Dose Reduction was Utilized. TECHNIQUE: CT scan of the cervical spine is obtained without contrast, axial images are obtained, sa gittal and coronal reformatted images are also reviewed. FINDINGS: Cervical spine is visualized in its entirety from C1 through upper thoracic levels, demonst rates satisfactory alignment without evidence of acute fracture or dislocation. Prevertebral soft ti ssue appears within normal limits. The C1-C2 articulation is within normal limits on the coronal dejan ges. Vertebral body heights are maintained. Mild disc space narrowing C5-C6 and C6-C7 levels. Posteri or spur disc complex effaces the anterior thecal sac at C3-C4 and C6-C7 levels on sagittal and axial images. Review of axial images shows additional uncovertebral facet degenerative changes at C3-C4 and C6-C7 l evels contributing to moderate left-sided narrowing at C3-C4 level and moderate to severe bilateral n eural foraminal narrowing. Axial images at C4-C5 and C5-C6 level show uncovertebral facet degenerativ e changes contributing to moderate right-sided narrowing C4-C5 level and moderate left-sided narrowin g at C5-C6 level. Thyroid gland remains in normal limits. Lung apices remain clear. IMPRESSION: Multilevel degenerative changes as detailed above. No significant change from prior CT.
--- NOTE | 2020-07-29 13:16 | CT ---
EXAMINATION TYPE: CT thoracic spine wo con DATE OF EXAM: 07/29/2020 COMPARISON: None. HISTORY: mid back pain, thoracic spondylosis CT DLP: 1055.9 mGycm Automated exposure control for dose reduction was used. FINDINGS: Thoracic spine shows satisfactory alignment without evidence of acute fracture or dislocation. Verteb ral body heights and disc space heights are maintained. Spinal canal is grossly preserved. There is m oderate multilevel anterior and right lateral spurring in the mid to lower thoracic spine. Review of axial images shows no significant spinal canal stenosis or effacement. Visualized lungs are grossly clear. Visualized portion of the chest and upper abdomen are grossly unremarkable. IMPRESSION: As above.
== END | disposition home or self-care (01) ==
LOC: RADCTMAIN 12:30
PROVIDERS: ATTEND Anesthesiology
DX: M50.323 Other cervical disc degeneration at C6-C7 level (principal)
CPT/HCPCS: 72125; 72128

== ENCOUNTER → 2020-07-31 | Outpatient (CLI) | payer MEDICARE, OTHER ==
[2020-07-31 11:04] VITALS: BP 166/73; PULSE 73; RESP 16; TEMP 97.7
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
== END | disposition home or self-care (01) ==
LOC: PNWHC3 10:43
PROVIDERS: ATTEND Specialist
DX: M47.812 Spondylosis without myelopathy or radiculopathy, cervical region (principal); M51.34 Other intervertebral disc degeneration, thoracic region; M51.36 Other intervertebral disc degeneration, lumbar region; M47.816 Spondylosis without myelopathy or radiculopathy, lumbar region; G89.29 Other chronic pain; Z79.891 Long term (current) use of opiate analgesic; Z79.899 Other long term (current) drug therapy
CPT/HCPCS: 99211

== ENCOUNTER → 2020-09-04 | Outpatient (CLI) | payer MEDICARE, OTHER ==
[2020-09-04 10:26] VITALS: BP 144/82; PULSE 56; RESP 16; TEMP 97.5
--- NOTE | 2020-09-04 11:05 | P.PN ---
Subjective Progress Note Date: 09/04/20 This is follow-up visit for this patient with a history of severe and chronic low back pain secondary to lumbar degenerative disc diseases , lumbar spondylosis with facet arthropathy,and left hip artheralgia , his pain management between interventional pain management and medication management, pre viously we did RFA of the medial branch lumbar area, patient continued to have severe neck pain mainly on the left side, the neck pain interfere with the quality of life and needs constant increased with any neck movement, he did physical therapy without any significant improvement, he denies any motor or sensory deficit in the upper or lower extremities, the intensity of the pain interfere with the quality of life and activity of daily livings Patients currently on Percocet 10/325 every 8 hours, Lyrica 150 mg 3 times a day, Zanaflex 4 mg every 8 hours, Motrin 800 mg every 8 hours when necessary ,Patient denies any side effects of the medication, denies excessive drowsiness or sleepiness, denies suicidal ideation, and reports that the current pain medication is helping to control the pain ,Patient denies any motor or sensory deficit , patient denies any fever or night sweats, denies any change in the bowel movements or urination . Objective - Vital Signs Vital signs: Vital Signs Temp 97.5 F L 09/04/20 10:24 Pulse 56 L 09/04/20 10:24 Resp 16 09/04/20 10:24 BP 144/82 09/04/20 10:24 Pulse Ox 96 09/04/20 10:24 - Exam -Constitutiona : Cooperative , not in acute distress . -HEENT : nech : supple , no Lymphadenopathy , normal thyroid size . : eyes : no ptosis , no icterus, no photophobia . - neurologic : Cranial nerve II to XII intact , no focal neurological deffecit . -psychatric : alert , oriented X 3 , appropriate affect , intact judgment and insight . -Lymphatic : no Lymphadenopathy . - musculoskeltal : Cervical Spine motor stregnth in the deltoid and biceps, normal right side , normal Left side motor stregnth biceps and the wrist extensors normal right side ,normal left side . motor stregnth in the triceps muscle . normal Right side , normal Left side deep tendon reflexes normal at the biceps , normal at Brachioradialis , normal at triceps. cervical facet loading test= Positive on the left side Spurling test= positive bilaterally. Neck distraction test= positive bilaterally. Kori sign= positive bilaterally. Thoracic spine= Positive facet loading test upper and mid thoracic area Multiple trigger point identified in the thoracic paraspinal muscles. Lumber spine moter stegnth lower extremities ,thigh and legs 5/5 Right side , 5/5 Left side deep tendon reflexes : normal Knee Jerk , normal ankle Jerk lumber facet Loading Test =positive Right , positive Left Range of motion of the lumbar spine Flexion 30 degrees, extension 10 degrees strait leg raising test = positive at 45 degree Fabere test= positive Right , and positive LT . tenderness over the Sacroiliac joint on the Right , and Left sides Computed tomography scan of the cervical spine degenerative disc disease. Facet degeneration and neuroforaminal narrowing at C4- 5 and C5- 6. Computed tomography scan of the thoracic spine anterior and right lateral spurring in the mid and low thoracic area Assessment and Plan Plan: Assessment and Plan Chronic low back pain secondary to lumbar degenerative disc disease , lumbar spondylosis with facet arthropathy without myelopathy We will onset of severe neck pain secondary to cervical spondylosis and lumbar spondylosis , thoracic degenerative disc disease chronic and current use of high-risk medication (Opioids). The patient was counseled about risk of opioid use, psychological risk associated with opioids and was orally counseled to not overuse , divert,or sell dictations to take medications as prescribed only , and to restore medication in safe location , the patient counseled against driving while using narcotic medications, and also not to use alcohol or any illicit recreational drugs, patient's verbalized understanding that the lack of compliance will result in failure to renew narcotic prescription and possible discharge from the clinic - diagnoses, prognosis, and treatment options including but not limited to physical therapy, surgical interventions, interventional therapies , and medication management including narcotics and adjuvant medication were discussed with the patient and all the questions answered MAPS reviewed and it was apropriate Prescription refill for Percocet 10/325 every 8 hours dispense 90 with 1 refill, Lyrica 150 mg 3 times a day dispense 90 with 1 refill, Zanaflex 4 mg every 8 hours when necessary Motrin 800 mg every 8 hours when necessary dispense 90 with 1 refill Patient continued to have severe left-sided neck pain after physical therapy. Will schedule patient to have diagnostic medial branch block cervical area Left side C3, C45 ,C5 C6 PQRS Measure Charge Sheet Measure #130: Documentation of Current Meds in Medical Chart: Patient's medications documented in chart Measure #226: Tobacco Use: Screen & Cessation Intervention: Pt screened for tobacco use AND intervention given Measure #111: Pneumonia Vaccination: Pneumococcal vaccine NOT administered or previously given Measure #47: Advance Care Plan: Advance care planning discussed & documented, pt chose/unable to give Measure #412: Opioid Treatment Agreement: Documented signed opioid trtmnt agreemnt min once during opioid trtmnt Measure #408: Opioid Therapy Follow-up Evaluation: Patient had f/u eval minimum every 3 months during opioid therapy Measure #317: Preventitive Care & Scrn High Bld Press & F/U: elevated blood pressure, f/u with PCP Measure #128: Body Mass Index (BMI) Screening & Follow-up: BMI documented ABOVE normal parameters - f/u documented Measure #131: Pain Assessment & Follow-up: Pain positive & plan documented, Follow-up scheduled Measure #431: Unhealthy Alcohol Use Preventative Care & Scrn: Patient not identified as an unhealthy alcohol user PQRS Narrative: Time with Patient: Less than 30 Time with Patient: Less than 30
== END | disposition home or self-care (01) ==
LOC: PNWHC3 10:05
PROVIDERS: ATTEND Specialist
DX: M47.812 Spondylosis without myelopathy or radiculopathy, cervical region (principal); M47.814 Spondylosis without myelopathy or radiculopathy, thoracic region; M47.816 Spondylosis without myelopathy or radiculopathy, lumbar region; M51.36 Other intervertebral disc degeneration, lumbar region; Z79.1 Long term (current) use of non-steroidal anti-inflammatories (NSAID); Z79.891 Long term (current) use of opiate analgesic; Z79.899 Other long term (current) drug therapy
CPT/HCPCS: 80307; G0482; G0463; 99211; 99212

== ENCOUNTER 2020-09-20 11:56 | Day surgery (SDC) | payer MEDICARE, OTHER ==
[2020-09-16 14:24] VITALS: BMI 29.7
[2020-09-20 12:30] VITALS: RESP 16; TEMP 97.8
[2020-09-20] MEDS ORDERED: methylPREDNISolone ACETATE 40 MG/ML 1 ML VIAL ONE (12:55)
[2020-09-20] MEDS ORDERED: ROPIVACAINE 5MG/ML 20ML VIAL ONE (12:55)
[2020-09-20] MEDS ORDERED: MIDAZOLAM 2 MG/2 ML VIAL ONE (12:56)
[2020-09-20] MEDS ORDERED: fentaNYL (PF) 50 MCG/ML 2 ML AMP ONE (12:56)
--- NOTE | 2020-09-20 13:18 | P.PCN ---
Date of Procedure: 09/20/20 Procedure(s) Performed: PREOPERATIVE DIAGNOSIS: Cervical Spondylosis with Facet Arthropathy.without myelopathy POSTOPERATIVE DIAGNOSIS: Cervical Spondylosis Facet Arthropathy. Without myelopathy PROCEDURES: Diagnostic , left . C3, C4 , C5 , and C6 medial branch blocks, with fluoroscopic guidance (fluoroscopy images available in radiology department ) ( to target the facet joint at left C3-4 , C4- 5 , C5- 6 ) ANESTHESIA: Monitored anesthesia care as per anesthesia department. EBL: Minimal PROCEDURE INDICATION: The patient with neck pain secondary to cervical arthropathy unresponsive to more conservative treatments. PROCEDURE DESCRIPTION / TECHNIQUE: The patient was seen and identified in the preoperative area. Risks, benefits, complications, and alternatives were discussed with the patient, the patient agreed to proceed with the procedure and signed the consent. IV was started. Vital signs remained stable throughout the procedure. Patient was taken to the OR and time out was completed. The patient was placed in the prone position on the procedure table. A pillow was placed under the patients chest to increase the cervical interlaminar space. The cervical area was prepped and draped in the usual sterile fashion. Critical pause was taken. Vital signs were closely monitored during the procedure. Conscious sedation was used during the procedure to decrease patients anxiety. Using cross-table lateral fluoroscopy, the centroid of the trapezoid of Left C3, C4 , C5 and C6, was identified, marked, and localized with 1% lidocaine 1 ml at each level for skin and Sub Q infiltrations . Subsequently, a 22 G 4 s elizabet needle was advanced guided by fluoroscopy to the centroid of the trapezoid of Left C3, C4 , C5, C6 . [place] tip position was confirmed at the centroid of the trapezoids of Left C3 , C4 , C5 ,C6 with anteroposterior fluoroscopy. Subsequently, 2 ml of preservative-free Ropivacaine 0.5% mixed with Depo- Medrol 40 mg and half ml of the mixture was injected after negative aspiration for blood and CSF. [place] was then removed intact.. COMPLICATIONS: No acute complications. DISPOSITION / PLANS: The patient was placed in a supine position and transferred to the recovery area in a stable condition for observation and was discharged from the recovery room after meeting discharge criteria. Home discharge instructions given to the patient by the staff. The patient was reexamined prior to discharge. The patient will schedule a follow up in the clinic in 2-4 weeks.
[2020-09-20 13:43] VITALS: BP 139/78; PULSE 66
[2020-09-20] MEDS ORDERED: IV FLUID CONTINUATION 1,000 ML IV ONE (13:45)
--- NOTE | 2020-09-20 13:46 | FL ---
Fluoroscopy HISTORY: Pain 23 seconds fluoroscopy time supplied to the referring clinician. 1 intraoperative C-arm images docum ent the procedure. See dictated report from anesthesia.
== END 2020-09-20 13:54 | disposition home or self-care (01) ==
LOC: ORPAIN 11:56
PROVIDERS: ATTEND Specialist
DX: M47.812 Spondylosis without myelopathy or radiculopathy, cervical region (principal); I10 Essential (primary) hypertension; E78.5 Hyperlipidemia, unspecified; K21.9 Gastro-esophageal reflux disease without esophagitis; Z79.899 Other long term (current) drug therapy
CPT/HCPCS: 64490; 64491; 64492; J2250; J1030; J3010; J2795

== ENCOUNTER 2020-10-02 08:33 | Day surgery (SDC) | payer MEDICARE, OTHER ==
[2020-09-30 11:10] VITALS: BMI 29.7
[~2020-10-02 08:33] MED LIST changes: +LIDOCAINE 1% (10MG/ML) FOR IV START INTRADERMA PRN
[2020-10-02 08:57] VITALS: TEMP 97
[2020-10-02] MEDS ORDERED: LIDOCAINE 1% INJ 10MG/ML (20 ML MDV) ONE (09:54)
[2020-10-02] MEDS ORDERED: PROPOFOL 10 MG/ML 20 ML VIAL IV ONE (09:54)
--- NOTE | 2020-10-02 10:13 | P.PCN ---
Date of Procedure: 10/02/20 Procedure(s) Performed: Brief history: Patient is a pleasant 60-year-old white male scheduled for an elective upper endoscopy as well as colonoscopy as a part of evaluation of GERD and prior history of colon polyps. He is on Prilosec 40 mg daily and is doing much better. He was 8 years ago and was noted to have colon polyps Procedure performed: Esophagogastroduodenoscopy with biopsy Colonoscopy Preoperative diagnosis: GERD history of colon polyps Anesthesia: MAC Procedure: After informed consent was obtained from the patient was brought into the endoscopy unit and IV sedation was administered by anesthesia under continuous monitoring. Initially upper endoscopy was done. The Olympus GF 160 video endoscope was inserted inserted into the mouth and esophagus intubated without any difficulty and was gradually advanced into the stomach and duodenum and carefully examined. The bulb and second part of the duodenum appeared normal. The scope was then withdrawn into the stomach adequately insufflated with air and upon careful examination the antrum and body, cardia and fundus appeared normal. The scope was then withdrawn into the esophagus. Small hiatal hernia noted. The GE junction was located at 40 cm to the incisors. There was short segment of Urrutia's esophagus extending 5 mm proximal to the GE junction which was biopsied. It appeared regular with no erythema erosions or ulcerations. Rest of the esophagus appeared normal. Patient tolerated the procedure well. At this time the patient continued to remain sedation. Initial digital rectal examination was normal. Olympus CF 160 video colonoscope was then inserted into the rectum and gradually advanced to the cecum without any difficulty. Careful examination was performed as the scope was gradually being withdrawn. The prep was excellent. The cecum, ascending colon, transverse colon, descending colon,appeared normal. The sigmoid colon there was a 3 mm polyp that was removed by cold biopsy. Rest of the sigmoid colon and rectum appeared normal. Retroflexion was performed in the rectum and no lesions were noted. Patient tolerated the procedure well. Impression: 1. Upper Endoscopy revealed short segment Urrutia's esophagus and small hiatal hernia 2 Colonoscopy revealed a 3 mm sigmoid colon polyp status post removal by cold biopsy Recommendations: Findings of this examination were discussed with the patient as well a family. He was advised to follow with the biopsy results. He will continue with Prilosec 40 mg daily and follow antireflux measures. He can have a repeat colonoscopy in 5-10 years based on the biopsy results.
[2020-10-02 10:19] VITALS: RESP 18
[2020-10-02 10:44] VITALS: BP 137/80; PULSE 77
== END 2020-10-02 10:55 | disposition home or self-care (01) ==
LOC: ORWHC2ENDO 08:33
PROVIDERS: ATTEND Internal Medicine Gastroenterology
DX: Z12.11 Encounter for screening for malignant neoplasm of colon (principal); K63.5 Polyp of colon; K21.9 Gastro-esophageal reflux disease without esophagitis; K44.9 Diaphragmatic hernia without obstruction or gangrene; I10 Essential (primary) hypertension; J44.9 Chronic obstructive pulmonary disease, unspecified; F17.210 Nicotine dependence, cigarettes, uncomplicated; Z98.890 Other specified postprocedural states; Z97.2 Presence of dental prosthetic device (complete) (partial); Z79.1 Long term (current) use of non-steroidal anti-inflammatories (NSAID); Z79.02 Long term (current) use of antithrombotics/antiplatelets; Z79.891 Long term (current) use of opiate analgesic; Z79.899 Other long term (current) drug therapy
CPT/HCPCS: 88305; 45380; 43239; J2001; J2704

== ENCOUNTER 2020-10-18 08:00 | Day surgery (SDC) | payer MEDICARE, OTHER ==
[2020-10-15 08:49] VITALS: BMI 29.7
[2020-10-18 08:27] VITALS: TEMP 97.8
[2020-10-18] MEDS ORDERED: LIDOCAINE 1% (10MG/ML) FOR IV START INTRADERMA ONE (08:31)
[2020-10-18] MEDS ORDERED: LACTATED RINGERS 1,000 ML IV ONE (08:31)
[2020-10-18] MEDS ORDERED: DEXAMETHASONE SOD PHOSPHATE 10 MG/ML 1 ML VIAL ONE (09:04)
[2020-10-18] MEDS ORDERED: LIDOCAINE 4% (PF) 5 ML AMP ONE (09:04)
[2020-10-18] MEDS ORDERED: fentaNYL (PF) 50 MCG/ML 2 ML AMP ONE (09:04)
[2020-10-18] MEDS ORDERED: LIDOCAINE 1% INJ 10MG/ML (20 ML MDV) ONE (09:04)
[2020-10-18] MEDS ORDERED: MIDAZOLAM 2 MG/2 ML VIAL ONE (09:04)
--- NOTE | 2020-10-18 09:29 | P.PCN ---
Date of Procedure: 10/18/20 Description of Procedure: PREOPERATIVE DIAGNOSIS: Cervical Spondylosis with Facet Arthropathy.without myelopathy POSTOPERATIVE DIAGNOSIS: Cervical Spondylosis Facet Arthropathy. Without myelopathy PROCEDURES: Diagnostic , left . C3, C4 , C5 , and C6 medial branch blocks, with fluoroscopic guidance (fluoroscopy images available in radiology department ) ( to target the facet joint at left C3-4 , C4- 5 , C5- 6 ) #2 ANESTHESIA: Monitored anesthesia care as per anesthesia department. EBL: Minimal PROCEDURE INDICATION: The patient with neck pain secondary to cervical arthropathy unresponsive to more conservative treatments. Had Cervical medial branch block 2 weeks ago with >80% relief of cervical facet pain with improved ADL's and pain with work. PROCEDURE DESCRIPTION / TECHNIQUE: The patient was seen and identified in the preoperative area. Risks, benefits, complications, and alternatives were discussed with the patient, the patient agreed to proceed with the procedure and signed the consent. IV was started. Vital signs remained stable throughout the procedure. Patient was taken to the OR and time out was completed. The patient was placed in the prone position on the procedure table. A pillow was placed under the patients chest to increase the cervical interlaminar space. The cervical area was prepped and draped in the usual sterile fashion. Critical pause was taken. Vital signs were closely monitored during the procedure. Conscious sedation was used during the procedure to decrease patients anxiety. Using cross-table lateral fluoroscopy, the centroid of the trapezoid of Left C3, C4 , C5 and C6, was identified, marked, and localized with 1% lidocaine 1 ml at each level for skin and Sub Q infiltrations . Subsequently, a 22 G 4 spinal needle was advanced guided by fluoroscopy to the centroid of the trapezoid of Left C3, C4 , C5, C6 . [place] tip position was confirmed at the centroid of the trapezoids of Left C3 , C4 , C5 ,C6 with anteroposterior fluoroscopy. Subsequently, 2 ml of preservative-free Lidocaine 4% mixed with dexamethasone 10 mg and half ml of the mixture was injected after negative aspiration for blood and CSF. [place] was then removed intact.. COMPLICATIONS: No acute complications. DISPOSITION / PLANS: The patient was placed in a supine position and transferred to the recovery area in a stable condition for observation and was discharged from the recovery room after meeting discharge criteria. Home discharge instructions given to the patient by the staff. The patient was reexamined prior to discharge. The patient will schedule a follow up in the clinic in 2-4 weeks.
[2020-10-18] MEDS ORDERED: IV FLUID CONTINUATION 800 ML IV ONE (09:30)
[2020-10-18 09:56] VITALS: BP 125/77; PULSE 72; RESP 20
--- NOTE | 2020-10-18 15:33 | FL ---
Fluoroscopy HISTORY: Pain 58 seconds fluoroscopy time supplied to the referring clinician. 2 intraoperative C-arm images docum ent the procedure. See dictated report from anesthesia.
== END 2020-10-18 10:00 | disposition home or self-care (01) ==
LOC: ORPAIN 08:00
PROVIDERS: ATTEND Anesthesiology
DX: M47.812 Spondylosis without myelopathy or radiculopathy, cervical region (principal); I10 Essential (primary) hypertension; E78.5 Hyperlipidemia, unspecified; J44.9 Chronic obstructive pulmonary disease, unspecified; F17.210 Nicotine dependence, cigarettes, uncomplicated; Z86.19 Personal history of other infectious and parasitic diseases; K74.60 Unspecified cirrhosis of liver; Z79.1 Long term (current) use of non-steroidal anti-inflammatories (NSAID); Z79.82 Long term (current) use of aspirin; Z79.891 Long term (current) use of opiate analgesic; Z79.899 Other long term (current) drug therapy
CPT/HCPCS: 64490; 64491; 64492; J2001 ×2; J2250; J1100; J3010

== ENCOUNTER → 2020-10-30 | Outpatient (CLI) | payer MEDICARE, OTHER ==
[2020-10-30 14:15] VITALS: BP 144/81; PULSE 59; RESP 16; TEMP 97.7
--- NOTE | 2020-10-30 15:27 | P.PN ---
Subjective Progress Note Date: 10/30/20 This is follow-up visit for this patient with a history of severe and chronicneck pain ,and low back pain secondary to cervical spondylosis and cervical facet arthropathy , lumbar spondylosis with facet arthropathy, recently we did diagnostic medial branch block left side cervical area at C3, C4, C5, C6 x2 , patient reported that he got more than 80% of pain relief after each block the neck pain interfere with the quality of life , the intensity of the pain interfere with the quality of life and activity of daily livings Patients currently on Percocet 10/325 every 8 hours, Lyrica 150 mg 3 times a day, Zanaflex 4 mg every 8 hours, Motrin 800 mg every 8 hours when necessary ,Patient denies any side effects of the medication, denies excessive drowsiness or sleepiness, denies suicidal ideation, and reports that the current pain medication is helping to control the pain ,Patient denies any motor or sensory deficit , patient denies any fever or night sweats, denies any change in the bowel movements or urination . Physical examination -Constitutiona : Cooperative , not in acute distress . -HEENT : nech : supple , no Lymphadenopathy , normal thyroid size . : eyes : no ptosis , no icterus, no photophobia . - neurologic : Cranial nerve II to XII intact , no focal neurological deffecit . -psychatric : alert , oriented X 3 , appropriate affect , intact judgment and insight . -Lymphatic : no Lymphadenopathy . - musculoskeltal : Cervical Spine motor stregnth in the deltoid and biceps, normal right side , normal Left side motor stregnth biceps and the wrist extensors normal right side ,normal left side . motor stregnth in the triceps muscle . normal Right side , normal Left side deep tendon reflexes normal at the biceps , normal at Brachioradialis , normal at triceps. cervical facet loading test= Positive on the left side Spurling test= positive bilaterally. Neck distraction test= positive bilaterally. Kori sign= positive bilaterally. Thoracic spine= Positive facet loading test upper and mid thoracic area Multiple trigger point identified in the thoracic paraspinal muscles. Lumber spine moter stegnth lower extremities ,thigh and legs 5/5 Right side , 5/5 Left side deep tendon reflexes : normal Knee Jerk , normal ankle Jerk lumber facet Loading Test =positive Right , positive Left Range of motion of the lumbar spine Flexion 30 degrees, extension 10 degrees strait leg raising test = positive at 45 degree Fabere test= positive Right , and positive LT . tenderness over the Sacroiliac joint on the Right , and Left sides Computed tomography scan of the cervical spine degenerative disc disease. Facet degeneration and neuroforaminal narrowing at C4- 5 and C5- 6. Computed tomography scan of the thoracic spine anterior and right lateral spurring in the mid and low thoracic area Assessment and Plan Chronic low back pain secondary to lumbar degenerative disc disease , lumbar spondylosis with facet arthropathy without myelopathy neck pain secondary to cervical spondylosis with cervical facet arthropathy Patient had more than 80% improvement of his neck pain after diagnostic medial branch block cervical area, and the pain relief was for short-term , thoracic degenerative disc disease chronic and current use of high-risk medication (Opioids). The patient was counseled about risk of opioid use, psychological risk associated with opioids and was orally counseled to not overuse , divert,or sell dictations to take medications as prescribed only , and to restore medication in safe location , the patient counseled against driving while using narcotic medications, and also not to use alcohol or any illicit recreational drugs, patient's verbalized understanding that the lack of compliance will result in failure to renew narcotic prescription and possible discharge from the clinic - diagnoses, prognosis, and treatment options including but not limited to physical therapy, surgical interventions, interventional therapies , and medication management including narcotics and adjuvant medication were discussed with the patient and all the questions answered MAPS reviewed and it was apropriate Prescription refill for Percocet 10/325 every 8 hours dispense 90 with 1 refill, Lyrica 150 mg 3 times a day dispense 90 with 1 refill, Zanaflex 4 mg every 8 hours when necessary Motrin 800 mg every 8 hours when necessary dispense 90 with 1 refill Patient continued to have severe left-sided neck pain after physical therapy. Will schedule patient to have RFA medial branch block cervical area Left side C3, C4 , C5 , C6 PQRS Measure Charge Sheet Measure #130: Documentation of Current Meds in Medical Chart: Patient's medications documented in chart Measure #226: Tobacco Use: Screen & Cessation Intervention: Pt screened for tobacco use AND intervention given Measure #111: Pneumonia Vaccination: Pneumococcal vaccine NOT administered or previously given Measure #47: Advance Care Plan: Advance care planning discussed & documented, pt chose/unable to give Measure #412: Opioid Treatment Agreement: Documented signed opioid trtmnt agreemnt min once during opioid trtmnt Measure #408: Opioid Therapy Follow-up Evaluation: Patient had f/u eval minimum every 3 months during opioid therapy Measure #317: Preventitive Care & Scrn High Bld Press & F/U: elevated blood pressure, f/u with PCP Measure #128: Body Mass Index (BMI) Screening & Follow-up: BMI documented ABOVE normal parameters - f/u documented Measure #131: Pain Assessment & Follow-up: Pain positive & plan documented, Follow-up scheduled Measure #431: Unhealthy Alcohol Use Preventative Care & Scrn: Patient not identified as an unhealthy alcohol user Objective - Vital Signs Vital signs: Vital Signs Temp 97.7 F 10/30/20 14:10 Pulse 59 L 10/30/20 14:10 Resp 16 10/30/20 14:10 BP 144/81 10/30/20 14:10 Pulse Ox 96 10/30/20 14:10 Intake & Output 10/29/20 10/30/20 10/30/20 18:59 06:59 18:59 Weight 86.183 kg
== END ==
LOC: PNWHC3 13:03
PROVIDERS: ATTEND Specialist
DX: M51.36 Other intervertebral disc degeneration, lumbar region (principal); M47.816 Spondylosis without myelopathy or radiculopathy, lumbar region; M47.812 Spondylosis without myelopathy or radiculopathy, cervical region; M51.34 Other intervertebral disc degeneration, thoracic region; Z79.891 Long term (current) use of opiate analgesic; F17.200 Nicotine dependence, unspecified, uncomplicated; G89.29 Other chronic pain
CPT/HCPCS: 99211

== ENCOUNTER → 2020-11-22 | Day surgery (SDC) | payer MEDICARE, OTHER ==
[2020-11-20 11:20] VITALS: BMI 29.7
[~2020-11-22] MED LIST changes: +LACTATED RINGERS 1,000 ML IV ONE; -LACTATED RINGERS 1,000 ML IV SCH; -LIDOCAINE 1% (10MG/ML) FOR IV START INTRADERMA PRN; +LIDOCAINE 1% INJ 10MG/ML (20 ML MDV) ONE; +MIDAZOLAM 2 MG/2 ML VIAL ONE; +ROPIVACAINE 5MG/ML 20ML VIAL ONE; +fentaNYL (PF) 50 MCG/ML 2 ML AMP ONE
[2020-11-22 10:14] VITALS: TEMP 98.1
[2020-11-22 11:12] VITALS: RESP 17
--- NOTE | 2020-11-22 11:14 | FL ---
EXAMINATION TYPE: FL guided pain mgmt statistic DATE OF EXAM: 11/22/2020 CLINICAL HISTORY: Neck pain. TECHNIQUE: Fluoroscopy. COMPARISON: None. FINDINGS: Fluoroscopic guidance was provided during pain relief procedure performed by Dr. Lenz . A total of 24 seconds of fluoroscopic time was utilized during the procedure and 3 spot images are a cquired. Images acquired shows needle localization at several levels in the cervical spine. IMPRESSION: As Above.
[2020-11-22 11:22] VITALS: BP 131/62; PULSE 68
--- NOTE | 2020-11-25 10:26 | P.PCN ---
Date of Procedure: 11/22/20 Description of Procedure: PREOPERATIVE DIAGNOSIS: Cervicalgia POSTOPERATIVE DIAGNOSIS: Same Surgeon: Tariq Lenz M.D. PROCEDURE PERFORMED: Cervical Medial Branch Radiofrequency Ablation, at the following levels: left C3-4, C4-5, C5-6 ANESTHESIA: Lidocaine 1% 5 mL, MAC with anesthesia team ESTIMATED BLOOD LOSS: Minimal Fluoroscopy was used for the procedure and images were saved in the radiology portion of the chart. PROCEDURE INDICATION: The patient with neck pain secondary to cervical facet a rthropathy who had more than 50% relief of pain with previous diagnostic lumbar medial branch block X2. PROCEDURE DESCRIPTION / TECHNIQUE: The patient was seen and identified in the preoperative area. Risks, benefits, complications, including but not limited to risk of infection ,bleeding , allergic reactions to the medications and incomplete pain relief , and alternatives were discussed with the patient, the patient agreed to proceed with the procedure and signed the consent. IV was started. The operative site was marked. Patient was taken to the OR and time out was completed. The patient was placed in the prone position on the procedure table. The lumbar area was prepped and draped in the usual sterile fashion. . Vital signs were closely monitored during the procedure .IV sedation was used during the procedure to decrease patients anxiety. An AP fluoroscopic pediatric anesthesiologist film was taken to identify the dens, the [] vertebral bodies, and the waists of the articular pillars at the aforementioned levels levels. A pillar (caudal tilt) view was utilized to highlight the waists of the articular pillars at these levels. The skin was prepped with chlorhexidine and draped in the usual sterile fashion. The skin and subcutaneous tissue overlying the above levels were anesthetized using a 25-gauge 1-1/2-inch needle with 1% preservative free lidocaine for a total volume of 1 ml per level. An 18-gauge and []100 mm SMK needle with a 10 mm active tip was advanced, coaxially, in the pillar view until the needle tip was noted to slide into the groove of the articular pillar. A true lateral view was obtained and the needle tips were advanced to cover to the, lateral aspect of the articular pillar at left [] C[3, C4, C5, and C6, for corresponding medial branch ablation. The needles were advanced until bony contact was felt and the tip of the SMK needle was confirmed to be in the groove of the waist of the articular pillars at the aforementioned levels. The needle positions were confirmed with AP and lateral fluoroscopic views. Motor stimulation was then performed at 2 Hz and up to 2V with only paraspinal muscle contraction noted at each level and no upper extremity stimulation. At this point, after negative aspiration, Lidocaine 4% x 0.5 mL was injected at each level prior to radiofrequency ablation. Lesioning was then carried out at 85 degrees Celsius times 90 seconds with 1 cycles per level. Following lesioning the needles were removed. COMPLICATIONS: No acute complications. DISPOSITION / PLANS: The patient was placed in a supine position and transferred to the recovery area in a stable condition for observation and was discharged from the recovery room after meeting discharge criteria. Home discharge instructions given to the patient by the staff. The patient will follow up in clinic in 4 weeks.
== END ==
LOC: ORPAIN 09:52
PROVIDERS: ATTEND Anesthesiology
DX: M54.2 Cervicalgia (principal); I10 Essential (primary) hypertension; E78.5 Hyperlipidemia, unspecified; J44.9 Chronic obstructive pulmonary disease, unspecified; F41.9 Anxiety disorder, unspecified; F32.9 Major depressive disorder, single episode, unspecified; Z79.82 Long term (current) use of aspirin; Z79.899 Other long term (current) drug therapy
CPT/HCPCS: 64633; 64634; J2250; J2001; J3010; J2795

== ENCOUNTER → 2020-12-25 | Outpatient (CLI) | payer MEDICARE, OTHER ==
[2020-12-25 09:32] VITALS: BP 158/79; PULSE 63; RESP 16; TEMP 97.6
--- NOTE | 2020-12-25 10:03 | P.PN ---
Subjective Progress Note Date: 12/25/20 This is follow-up visit for this patient with a history of severe and chronic neck pain ,and low back pain secondary to cervical spondylosis and cervical facet arthropathy , lumbar spondylosis with facet arthropathy, recently we did RFA medial branch block left side cervical area at C3, C4, C5, C6 , patient reported that he got more than 80% of pain relief after each block the neck pain interfere with the quality of life , the intensity of the pain interfere with the quality of life and activity of daily livings Patients currently on Percocet 10/325 every 8 hours, Lyrica 150 mg 3 times a day, Zanaflex 4 mg every 8 hours, Motrin 800 mg every 8 hours when necessary ,Patient denies any side effects of the medication, denies excessive drowsiness or sleepiness, denies suicidal ideation, and reports that the current pain medication is helping to control the pain ,Patient denies any motor or sensory deficit , patient denies any fever or night sweats, denies any change in the bowel movements or urination . Physical examination -Constitutiona : Cooperative , not in acute distress . -HEENT : nech : supple , no Lymphadenopathy , normal thyroid size . : eyes : no ptosis , no icterus, no photophobia . - neurologic : Cranial nerve II to XII intact , no focal neurological deffecit . -psychatric : alert , oriented X 3 , appropriate affect , intact judgment and insight . -Lymphatic : no Lymphadenopathy . - musculoskeltal : Cervical Spine motor stregnth in the deltoid and biceps, normal right side , normal Left side motor stregnth biceps and the wrist extensors normal right side ,normal left side . motor stregnth in the triceps muscle . normal Right side , normal Left side Lumber spine moter stegnth lower extremities ,thigh and legs 5/5 Right side , 5/5 Left side Computed tomography scan of the cervical spine degenerative disc disease. Facet degeneration and neuroforaminal narrowing at C4- 5 and C5- 6. Computed tomography scan of the thoracic spine anterior and right lateral spurring in the mid and low thoracic area Assessment and Plan Chronic low back pain secondary to lumbar degenerative disc disease , lumbar spondylosis with facet arthropathy without myelopathy neck pain secondary to cervical spondylosis with cervical facet arthropathy Patient had more than 80% improvement of his neck pain after RFA medial branch block cervical area , thoracic degenerative disc disease chronic and current use of high-risk medication (Opioids). The patient was counseled about risk of opioid use, psychological risk a ssociated with opioids and was orally counseled to not overuse , divert,or sell dictations to take medications as prescribed only , and to restore medication in safe location , the patient counseled against driving while using narcotic medications, and also not to use alcohol or any illicit recreational drugs, patient's verbalized understanding that the lack of compliance will result in failure to renew narcotic prescription and possible discharge from the clinic - diagnoses, prognosis, and treatment options including but not limited to physical therapy, surgical interventions, interventional therapies , and medication management including narcotics and adjuvant medication were discussed with the patient and all the questions answered MAPS reviewed and it was apropriate Prescription refill for Percocet 10/325 every 8 hours dispense 90 with 1 refill, Lyrica 150 mg 3 times a day dispense 90 with 1 refill, Zanaflex 4 mg every 8 hours when necessary Motrin 800 mg every 8 hours when necessary dispense 90 with 1 refill Patient continued to have severe left-sided neck pain after physical therapy. PQRS Measure Charge Sheet Measure #130: Documentation of Current Meds in Medical Chart: Patient's medications documented in chart Measure #226: Tobacco Use: Screen & Cessation Intervention: Pt screened for tobacco use AND intervention given Measure #111: Pneumonia Vaccination: Pneumococcal vaccine NOT administered or previously given Measure #47: Advance Care Plan: Advance care planning discussed & documented, pt chose/unable to give Measure #412: Opioid Treatment Agreement: Documented signed opioid trtmnt agreemnt min once during opioid trtmnt Measure #408: Opioid Therapy Follow-up Evaluation: Patient had f/u eval minimum every 3 months during opioid therapy Measure #317: Preventitive Care & Scrn High Bld Press & F/U: elevated blood pressure, f/u with PCP Measure #128: Body Mass Index (BMI) Screening & Follow-up: BMI documented ABOVE normal parameters - f/u documented Measure #131: Pain Assessment & Follow-up: Pain positive & plan documented, Follow-up scheduled Measure #431: Unhealthy Alcohol Use Preventative Care & Scrn: Patient not identified as an unhealthy alcohol user Objective - Vital Signs Vital signs: Vital Signs Temp 97.6 F 12/25/20 09:30 Pulse 63 12/25/20 09:30 Resp 16 12/25/20 09:30 BP 158/79 12/25/20 09:30 Pulse Ox 98 12/25/20 09:30
== END ==
LOC: PNWHC3 09:19
PROVIDERS: ATTEND Specialist
DX: M47.812 Spondylosis without myelopathy or radiculopathy, cervical region (principal); M51.36 Other intervertebral disc degeneration, lumbar region; M47.816 Spondylosis without myelopathy or radiculopathy, lumbar region; G89.29 Other chronic pain; F17.200 Nicotine dependence, unspecified, uncomplicated; Z79.891 Long term (current) use of opiate analgesic; Z98.890 Other specified postprocedural states
CPT/HCPCS: 99211

== ENCOUNTER → 2021-02-26 | Outpatient (CLI) | payer MEDICARE, OTHER ==
[2021-02-26 09:36] VITALS: BP 129/73; PULSE 55; RESP 18; TEMP 97.7
--- NOTE | 2021-02-26 09:56 | P.PN ---
Subjective Progress Note Date: 02/26/21 This is follow-up visit for this patient with a history of severe and chronic neck pain ,and low back pain secondary to cervical spondylosis and cervical facet arthropathy , lumbar spondylosis with facet arthropathy, recently we did RFA medial branch block left side cervical area at C3, C4, C5, C6 , patient reported that he got more than 80% of pain relief after each block the neck pain interfere with the quality of life , the intensity of the pain interfere with the quality of life and activity of daily livings,, shouldn't reported that he is having severe muscle spasm in the cervical area in the left shoulder blade area Patients currently on Percocet 10/325 every 8 hours, Lyrica 150 mg 3 times a day, Zanaflex 4 mg every 8 hours, Motrin 800 mg every 8 hours when necessary ,Patient denies any side effects of the medication, denies excessive drowsiness or sleepiness, denies suicidal ideation, and reports that the current pain medication is helping to control the pain ,Patient denies any motor or sensory deficit , patient denies any fever or night sweats, denies any change in the bowel movements or urination . Physical examination -Constitutiona : Cooperative , not in acute distress . -HEENT : nech : supple , no Lymphadenopathy , normal thyroid size . : eyes : no ptosis , no icterus, no photophobia . - neurologic : Cranial nerve II to XII intact , no focal neurological deffecit . -psychatric : alert , oriented X 3 , appropriate affect , intact judgment and insight . -Lymphatic : no Lymphadenopathy . - musculoskeltal : Cervical Spine motor stregnth in the deltoid and biceps, normal right side , normal Left side motor stregnth biceps and the wrist extensors normal right side ,normal left side . motor stregnth in the triceps muscle . normal Right side , normal Left side Alterable trigger point identified in the left side cervical paraspinal muscles on the left side shoulder blade area Lumber spine moter stegnth lower extremities ,thigh and legs 5/5 Right side , 5/5 Left side Computed tomography scan of the cervical spine degenerative disc disease. Facet degeneration and neuroforaminal narrowing at C4- 5 and C5- 6. Computed tomography scan of the thoracic spine anterior and right lateral spurring in the mid and low thoracic area Assessment and Plan Chronic low back pain secondary to lumbar degenerative disc disease , lumbar spondylosis with facet arthropathy without myelopathy neck pain secondary to cervical spondylosis with cervical facet arthropathy, Especially pain syndrome and cervical and shoulder area left side , thoracic degenerative disc disease chronic and current use of high-risk medication (Opioids). The patient was counseled about risk of opioid use, psychological risk associated with opioids and was orally counseled to not overuse , divert,or sell dictations to take medications as prescribed only , and to restore medication in safe location , the patient counseled against driving while using narcotic medications, and also not to use alcohol or any illicit recreational drugs, patient's verbalized understanding that the lack of compliance will result in failure to renew narcotic prescription and possible discharge from the clinic - diagnoses, prognosis, and treatment options including but not limited to physical therapy, surgical interventions, interventional therapies , and medication management including narcotics and adjuvant medication were discussed with the patient and all the questions answered MAPS reviewed and it was apropriate, urine drug screen ordered today Prescription refill for Percocet 10/325 every 8 hours dispense 90 with 1 refill, Lyrica 150 mg 3 times a day dispense 90 with 1 refill, Zanaflex 4 mg every 8 hours when necessary Motrin 800 mg every 8 hours when necessary dispense 90 with 1 refill Patient could benefit from trigger point injections left-sided cervical paraspinal muscles and left shoulder blade area. - PQRS measures = - Patient's medications are documented in the chart. -Tobacco use is positive, and counseling.Given. -Patient's has not received pneumococcal vaccine. -Advanced care planning discussed, patient not eligible. -Opiate contract signed. -Pain positive and follow-up visit/procedure is scheduled. -Patient's blood pressure measured [ 129/73 ] , and documented in the record ,and patient will follow up with the primary care. -Patient's weight was measured and body mass index [ ] above the normal limits and counseling was done. and patient instructed to follow-up with the primary care physician. -Patient was not identified as an unhealthy alcohol user Objective - Vital Signs Vital signs: Vital Signs Temp 97.7 F 02/26/21 09:29 Pulse 55 L 02/26/21 09:29 Resp 18 02/26/21 09:29 BP 129/73 02/26/21 09:29 Pulse Ox 96 02/26/21 09:29
== END ==
LOC: PNWHC3 08:47
PROVIDERS: ATTEND Specialist
DX: M51.36 Other intervertebral disc degeneration, lumbar region (principal); M47.816 Spondylosis without myelopathy or radiculopathy, lumbar region; M47.812 Spondylosis without myelopathy or radiculopathy, cervical region; M51.34 Other intervertebral disc degeneration, thoracic region; G89.29 Other chronic pain; F17.200 Nicotine dependence, unspecified, uncomplicated; Z79.891 Long term (current) use of opiate analgesic
CPT/HCPCS: 80307; G0482; G0463; 99212

== ENCOUNTER 2021-03-27 07:24 | Day surgery (SDC) | payer MEDICARE, OTHER ==
[2021-03-20 14:41] VITALS: BMI 29.9
[~2021-03-27 07:24] MED LIST changes: -LACTATED RINGERS 1,000 ML IV ONE; +LACTATED RINGERS 1,000 ML IV SCH; -LIDOCAINE 1% INJ 10MG/ML (20 ML MDV) ONE; -MIDAZOLAM 2 MG/2 ML VIAL ONE; -ROPIVACAINE 5MG/ML 20ML VIAL ONE; -fentaNYL (PF) 50 MCG/ML 2 ML AMP ONE
[2021-03-27 07:50] VITALS: TEMP 97.3
[2021-03-27] MEDS ORDERED: methylPREDNISolone ACETATE 40 MG/ML 1 ML VIAL ONE (08:13)
[2021-03-27] MEDS ORDERED: ROPIVACAINE 5MG/ML 20ML VIAL ONE (08:13)
[2021-03-27] MEDS ORDERED: IV FLUID CONTINUATION 1,000 ML IV ONE (08:29)
--- NOTE | 2021-03-27 08:29 | P.PCN ---
Date of Procedure: 03/27/21 Procedure(s) Performed: . PROCEDURE 1. Lumbar point injections left-sided cervical paraspinal muscles, trabezies muscle, rhomboid muscle, left shoulder blade area. (Total of 5 trigger point injected ) PREOPERATIVE DIAGNOSIS: 1-myofascial pain syndrome left side cervical and shoulder blade area. 2-cervical spondylosis with cervical Facet arthropathy without myelopathy POSTOPERATIVE DIAGNOSIS: : Same as preoperative diagnosis. ANESTHESIA: none. EBL 0 PROCEDURE INDICATION: The patient with neck pain and left shoulder pain secondary to myofascial pain syndrome. PROCEDURE DESCRIPTION / TECHNIQUE: The patient was seen and identified in the preoperative area. Risks, benefits, complications, including but not limited to infections ,bleeding , allergic reactions to the medications ,and not complete pain releife, and alternatives were discussed with the patient, the patient agreed to proceed with the procedure and signed the consent. Patient was taken to the OR and time out was completed. The patient was placed in the sitting position on the procedure table. A pillow was placed under the patients chest to increase the cervical interlaminar space. The cervical area was prepped and draped in the usual sterile fashion. Vital signs were closely monitored during the procedure. Under sterile technique total of 5 trigger point injections in the left side cervical paraspinal muscles, left trapezius muscle and left rhomboid muscles and left shoulder blade area, total of 10 ML of ropivacaine 0.5% mixed with 40 mg of Depo-Medrol, 2 mL injected at each trigger point using 25-gauge needle injection done after negative aspiration and there was no paresthesia during the injection, and tolerated the procedure well without any complications Disposition= patient was placed in supine position and transferred to the recovery room area in stable condition and there was no evidence of upper or lower extremity motor or sensory deficit after the procedure patient was discharged from recovery room after discharge criteria met and home discharge instructions was given by the staff and patient will follow with the pain clinic in 2-4 weeks
[2021-03-27 08:35] VITALS: RESP 17
[2021-03-27 08:45] VITALS: BP 132/73; PULSE 65
== END 2021-03-27 09:00 | disposition home or self-care (01) ==
LOC: ORPAIN 07:24
PROVIDERS: ATTEND Specialist
DX: M47.812 Spondylosis without myelopathy or radiculopathy, cervical region (principal); M79.18 Myalgia, other site
CPT/HCPCS: 20553; J1030; J2795; 20550

== ENCOUNTER → 2021-04-23 | Outpatient (CLI) | payer MEDICARE, OTHER ==
[2021-04-23 09:53] VITALS: BP 138/82; PULSE 76; RESP 18; TEMP 97.8
--- NOTE | 2021-04-23 10:22 | P.PN ---
Subjective Progress Note Date: 04/23/21 This is follow-up visit for this patient with a history of severe and chronic neck pain ,and low back pain secondary to cervical spondylosis and cervical facet arthropathy , lumbar spondylosis with facet arthropathy, , simply we did trigger point injections cervical area ,and that helped for short term ,previously we did RFA medial branch block left side cervical area at C3, C4, C5, C6 , patient reported that he got more than 80% of pain relief after each block the neck pain interfere with the quality of life , the intensity of the pain interfere with the quality of life and activity of daily livings,, shouldn't reported that he is having severe muscle spasm in the cervical area in the left shoulder blade area, shouldn't done physical therapy in the past with minimal benefit from it. Patients currently on Percocet 10/325 every 8 hours, Lyrica 150 mg 3 times a day, Zanaflex 4 mg every 8 hours, Motrin 800 mg every 8 hours when necessary ,Patient denies any side effects of the medication, denies excessive drowsiness or sleepiness, denies suicidal ideation, and reports that the current pain medication is helping to control the pain ,Patient denies any motor or sensory deficit , patient denies any fever or night sweats, denies any change in the bowel movements or urination . Physical examination -Constitutiona : Cooperative , not in acute distress . -HEENT : nech : supple , no Lymphadenopathy , normal t hyroid size . : eyes : no ptosis , no icterus, no photophobia . - neurologic : Cranial nerve II to XII intact , no focal neurological deffecit . -psychatric : alert , oriented X 3 , appropriate affect , intact judgment and insight . -Lymphatic : no Lymphadenopathy . - musculoskeltal : Cervical Spine motor stregnth in the deltoid and biceps, normal right side , normal Left side motor stregnth biceps and the wrist extensors normal right side ,normal left side . motor stregnth in the triceps muscle . normal Right side , normal Left side Alterable trigger point identified in the left side cervical paraspinal muscles on the left side shoulder blade area Lumber spine moter stegnth lower extremities ,thigh and legs 5/5 Right side , 5/5 Left side Computed tomography scan of the cervical spine degenerative disc disease. Facet degeneration and neuroforaminal narrowing at C4- 5 and C5- 6. Computed tomography scan of the thoracic spine anterior and right lateral spurring in the mid and low thoracic area Assessment and Plan Chronic low back pain secondary to lumbar degenerative disc disease , lum bar spondylosis with facet arthropathy without myelopathy neck pain secondary to cervical spondylosis with cervical facet arthropathy, Especially pain syndrome and cervical and shoulder area left side , thoracic degenerative disc disease chronic and current use of high-risk medication (Opioids). The patient was counseled about risk of opioid use, psychological risk associated with opioids and was orally counseled to not overuse , divert,or sell dictations to take medications as prescribed only , and to restore medication in safe location , the patient counseled against driving while using narcotic medications, and also not to use alcohol or any illicit recreational drugs, patient's verbalized understanding that the lack of compliance will result in failure to renew narcotic prescription and possible discharge from the clinic - diagnoses, prognosis, and treatment options including but not limited to physical therapy, surgical interventions, interventional therapies , and medication management including narcotics and adjuvant medication were discussed with the patient and all the questions answered MAPS reviewed and it was apropriate, urine drug screen reviewed and it was appropriate Prescription refill for Percocet 10/325 every 8 hours dispense 90 with 1 refill, Lyrica 150 mg 3 times a day dispense 90 with 1 refill, Zanaflex 4 mg every 8 hours when necessary She had short-term benefit from trigger point injection - PQRS measures = - Patient's medications are documented in the chart. -Tobacco use is positive, and counseling.Given. -Patient's has not received pneumococcal vaccine. -Advanced care planning discussed, patient not eligible. -Opiate contract signed. -Pain positive and follow-up visit/procedure is scheduled. -Patient's blood pressure measured [ 138/82 ] , and documented in the record ,and patient will follow up with the primary care. -Patient's weight was measured and body mass index [30.2 ] above the normal limits and counseling was done. and patient instructed to follow-up with the primary care physician. -Patient was not identified as an unhealthy alcohol user Objective - Vital Signs Vital signs: Vital Signs Temp 97.8 F 04/23/21 09:48 Pulse 76 04/23/21 09:48 Resp 18 04/23/21 09:48 BP 138/82 04/23/21 09:48 Pulse Ox
== END ==
LOC: PNWHC3 09:10
PROVIDERS: ATTEND Specialist
DX: M51.36 Other intervertebral disc degeneration, lumbar region (principal); M51.34 Other intervertebral disc degeneration, thoracic region; M47.816 Spondylosis without myelopathy or radiculopathy, lumbar region; M47.812 Spondylosis without myelopathy or radiculopathy, cervical region; G89.29 Other chronic pain; F17.200 Nicotine dependence, unspecified, uncomplicated; Z79.891 Long term (current) use of opiate analgesic
CPT/HCPCS: 99211

== ENCOUNTER → 2021-06-18 | Outpatient (CLI) | payer MEDICARE, OTHER ==
[2021-06-18 09:59] VITALS: BP 136/72; PULSE 61; RESP 18; TEMP 97.3
--- NOTE | 2021-06-19 05:53 | P.PN ---
Subjective Progress Note Date: 06/18/21 This is follow-up visit for this patient with a history of severe and chronic neck pain ,and low back pain secondary to cervical spondylosis, and cervical facet arthropathy , lumbar spondylosis with facet arthropathy ,previously we did RFA medial branch block left side cervical area at C3, C4, C5, C6 , patient reported that he got more than 80% of pain relif. Patients currently on Percocet 10/325 every 8 hours, Lyrica 150 mg 3 times a day, Zanaflex 4 mg every 8 hours, Motrin 800 mg every 8 hours when necessary ,Patient denies any side effects of the medication, denies excessive drowsiness or sleepiness, denies suicidal ideation, and reports that the current pain medication is helping to control the pain ,Patient denies any motor or sensory deficit , patient denies any fever or night sweats, denies any change in the bowel movements or urination , patient tried physical therapy and tried home exercises and he continued to have pain. Physical examination -Constitutiona : Cooperative , not in acute distress . -HEENT : nech : supple , no Lymphadenopathy , normal thyroid size . : eyes : no ptosis , no icterus, no photophobia . - neurologic : Cranial nerve II to XII intact , no focal neurological deffecit . -psychatric : alert , oriented X 3 , appropriate affect , intact judgment and insight . -Lymphatic : no Lymphadenopathy . - musculoskeltal : Cervical Spine motor stregnth in the deltoid and biceps, normal right side , normal Left side motor stregnth biceps and the wrist extensors normal right side ,normal left side . motor stregnth in the triceps muscle . normal Right side , normal Left side Alterable trigger point identified in the left side cervical paraspinal muscles on the left side shoulder blade area Lumber spine moter stegnth lower extremities ,thigh and legs 5/5 Right side , 5/5 Left side Computed tomography scan of the cervical spine degenerative disc disease. Facet degeneration and neuroforaminal narrowing at C4- 5 and C5- 6. Computed tomography scan of the thoracic spine anterior and right lateral spurring in the mid and low thoracic area Assessment and Plan Chronic low back pain secondary to lumbar degenerative disc disease , lumbar spondylosis with facet arthropathy without myelopathy neck pain secondary to cervical spondylosis with cervical facet arthropathy, Especially pain syndrome and cervical and shoulder area left side , thoracic degenerative disc disease chronic and current use of high-risk medication (Opioids). The patient was counseled about risk of opioid use, psychological risk associated with opioids and was orally counseled to not overuse , divert,or sell dictations to take medications as prescribed only , and to restore medication in safe location , the patient counseled against driving while using narcotic medications, and also not to use alcohol or any illicit recreational drugs, patient's verbalized understanding that the lack of compliance will result in failure to renew narcotic prescription and possible discharge from the clinic - diagnoses, prognosis, and treatment options including but not limited to physical therapy, surgical interventions, interventional therapies , and medication management including narcotics and adjuvant medication were discussed with the patient and all the questions answered MAPS reviewed and it was apropriate, urine drug screen reviewed and it was appropriate Prescription refill for Percocet 10/325 every 8 hours dispense 90 with 1 refill, Lyrica 150 mg 3 times a day dispense 90 with 1 refill, Zanaflex 4 mg every 8 hours when necessary - PQRS measures = - Patient's medications are documented in the chart. -Tobacco use is positive, and counseling.Given. -Patient's has not received pneumococcal vaccine. -Advanced care planning discussed, patient not eligible. -Opiate contract signed. -Pain positive and follow-up visit/procedure is scheduled. -Patient's blood pressure measured [ 136/72 ] , and documented in the record ,and patient will follow up with the primary care. -Patient's weight was measured and body mass index [30.2 ] above the normal limits and counseling was done. and patient instructed to follow-up with the primary care physician. -Patient was not identified as an unhealthy alcohol user Objective - Vital Signs Vital signs: Vital Signs Temp 97.3 F L 06/18/21 09:47 Pulse 61 06/18/21 09:47 Resp 18 06/18/21 09:47 BP 136/72 06/18/21 09:47 Pulse Ox 99 06/18/21 09:47
== END ==
LOC: PNWHC3 08:57
PROVIDERS: ATTEND Specialist
DX: G89.29 Other chronic pain (principal); M51.36 Other intervertebral disc degeneration, lumbar region; M47.816 Spondylosis without myelopathy or radiculopathy, lumbar region; M47.812 Spondylosis without myelopathy or radiculopathy, cervical region; M25.512 Pain in left shoulder; M51.34 Other intervertebral disc degeneration, thoracic region; F17.200 Nicotine dependence, unspecified, uncomplicated; Z79.891 Long term (current) use of opiate analgesic
CPT/HCPCS: 99211

== ENCOUNTER → 2021-08-13 | Outpatient (CLI) | payer MEDICARE, OTHER ==
[2021-08-13 11:44] VITALS: BP 119/74; PULSE 74; RESP 20; TEMP 97.4
--- NOTE | 2021-08-13 11:49 | P.PN ---
Subjective Progress Note Date: 08/13/21 Principal diagnosis: A 61 yr old male with a history of severe and chronic neck pain secondary to cervical degenerative disc diseases and spondylosis with facet arthropathy presents today for medication refills and physical therapy. Pain level is currently at 6-7/10 in the lower aspects of his cervical spine, is dull/ achy in charater and is sharp/ shooting towards the bilateral shoulders. Pain is provoked by forward flexion, standing for prolonged periods of time. Pain is alleviated with medication, stretching, physical therapy, rest, heat, ice and a home based stretching routine. Interventional pain procedures completed include Patient is currently on Percocet, Ibuprofen, Lyrica, Zanaflex Patient denies any side effects of the medication(s), denies excessive drowsiness or sleepiness, denies suicidal ideation and reports that the current pain medication is helping to control the pain and improve activities of daily living. Patient denies any motor or sensory deficits. Patient denies any fever or night sweats, denies any change in the bowel movements or urination. Physical Examination: -Constitutional: Cooperative. Not in acute distress . -HEENT: Neck is supple. No lymphadenopathy. No thyromegaly. Normal thyroid size. Eyes: No ptosis , no icterus, no photophobia. ENT: No auditory deficits. Normal oropharynx. No Thrush. - Respiratory: Chest clear to auscultations bilaterally. No wheezing. No rhonchi. - Cardiovascular: Regular rate and rhythm. S1 / S2 , no S3 , no S4. - Gastrointestinal: Abdomen soft no tenderness. Bowel sounds positive in all four quadrants. No organomegaly. - Genitourinary: Deferred. - Neurologic: Cranial nerve II to XII intact. No focal neurological deficits. - Psychatric: Alert & oriented x 3. Matching mood & appropriate affect. Judgment and insight intact. - Lymphatic: No Lymphadenopathy. - Musculoskeletal: Cervical spine: Muscle bulk/ tone/ strength in the bilateral upper extremities normal. Facet loading test cervical area positive over C4-C7 bilaterally with minimal spasms Vertebral body tenderness to palpation over C5-C7 Spurling test positive Distraction test positive Lumbar spine: Motor bulk/ tone/ strength lower extremities , thigh and legs : 5/5 Deep tendon reflexes : Normal Knee Jerk. Normal Ankle Jerk . Lumbar Facet Loading Test positive Straight Leg Raise: positive at 30 degree right side/ left side Marce test: positive right side / left side Range of motion: Range of motion in flexion of the lumbar spine <60 degrees Range of motion: Extension of the lumbar spine <20 degrees Severe tenderness over the Sacroiliac joint: right side / left side Assessment and plan: Chronic neck pain secondary to cervical degenerative disc disease , spondylosis with facet arthropathy without myelopathy Recommendation of PT 3 times per week x 6 weeks Chronic and current use of high-risk medication (Opioids). The patient was counseled about risk of opioid use, psychological risk associated with opioids and was orally counseled to not overuse , divert or sell medications. Pt is to store medication in a safe location. The patient is counseled against driving while using narcotic medications and also not to use alcohol or any illicit recreational drugs. Patient verbalized understanding that the lack of compliance will result in failure to renew narcotic prescription(s) as well as possible discharge from the clinic Diagnoses, prognosis and treatment options including but not limited to physical therapy, surgical interventions, interventional therapies and medication management including narcotics and adjuvant medication were discussed . All patient questions answered MAPS reviewed and it was appropriate. Prescription refill for Szexcvgw58/325mg TID prn #90 with 1 refill, Motrin 800mg TID prn #90 with refill, Lyrica 150mg TID #90 with refill, Zanaflex 4mg TID prn #90 with refill I have spent 31 minutes on patient care today. Dr Tirado was available by phone for the evaluation of this patient. The time was used to review the medical records including relevant urine studies and Prescription history (MAPs), review of the available imaging, evaluation and examination of the patient, coordination of care with the medical staff and if applicable referring physicians, as well as creation of the medical record Objective - Vital Signs Vital signs: Vital Signs Temp 97.4 F L 08/13/21 11:41 Pulse 74 08/13/21 11:41 Resp 20 08/13/21 11:41 BP 119/74 08/13/21 11:41 Pulse Ox 96 08/13/21 11:41 PQRS Measure Charge Sheet Mode of Arrival: Ambulatory - Pain Location Back Non-Pharmacological Interventions: Inactivity, Meditation, Physical Therapy Pharmacological Interventions: Medication PQRS Narrative: Smoking Status Current every day smoker Narcotic Agreement Date Signed 02/26/21 Blood Pressure 119/74 Pain Intensity [Back] 8 Scale Used Numeric (1 - 10) Hx Alcohol Use (MH) Yes: NO LONGER USES Home Medications: Ambulatory Orders Lisinopril/Hydrochlorothiazide [Zestoretic 20-12.5] 1 tab PO DAILY 11/14/15 Tamsulosin HCl [Flomax] 0.4 mg PO DAILY 02/03/16 Atorvastatin [Lipitor] 10 mg PO DAILY 12/17/18 Folic Acid 1 mg PO DAILY 05/03/19 Omeprazole [PriLOSEC] 40 mg PO DAILY 09/16/20 Aspirin [Adult Low Dose Aspirin EC] 81 mg PO DAILY 10/04/20 Isosorbide Mononitrate ER [Imdur] 40 mg PO DAILY 10/04/20 Nitroglycerin 0.4 mg SL DIRECTED PRN 10/04/20 Ibuprofen [Motrin] 400 mg PO BID PRN #60 tab 02/26/21 Pregabalin 150 mg PO TID 30 Days #90 cap 06/18/21 oxyCODONE HCL/ACETAMINOPHEN [Percocet 10-325 mg] 1 tab PO Q8HR PRN 30 Days #90 tab 06/18/21 tiZANidine HCL [Zanaflex] 4 mg PO TID PRN 30 Days #90 cap 06/18/21
== END ==
LOC: PNWHC3 10:06
PROVIDERS: ATTEND Physician Assistant Medical
DX: G89.29 Other chronic pain (principal); M50.30 Other cervical disc degeneration, unspecified cervical region; M47.812 Spondylosis without myelopathy or radiculopathy, cervical region; Z79.891 Long term (current) use of opiate analgesic; F17.200 Nicotine dependence, unspecified, uncomplicated
CPT/HCPCS: 99211

== ENCOUNTER → 2021-10-08 | Outpatient (CLI) | payer MEDICARE, OTHER ==
[2021-10-08 10:48] VITALS: BP 164/79; PULSE 52; RESP 16; TEMP 97.9
--- NOTE | 2021-10-08 10:57 | P.PN ---
Subjective Progress Note Date: 10/08/21 Principal diagnosis: A 61 yr old male with a history of severe and chronic low back pain secondary to lumbar degenerative disc diseases and lumbar spondylosis with facet arthropathy presents today for lower back pain evaluation and medication refills. Pain level is 8/10 in intensity, dull/ achy in the lower aspects of the lumbar spine with occassional sharp/ shooting pain towards the lower extremites, R > L. Pain is provoked by bending, lifting and twisting. Pain is alleviated with medications, physical therapy in the past, home exercise regimen, massage and rest. Interventional pain procedures completed include RFA of cervical & lumbar spine (BL L3-L4, L4-L5, L5-S1) Patient is currently on Percocet 10/325 #90, Lyrica 150mg #90, Zanaflex 4mg #90 and Motrin 800mg #90 Patient denies any side effects of the medication(s), denies excessive drowsiness or sleepiness, denies suicidal ideation and reports that the current pain medication is helping to control the pain and improve activities of daily living. Patient denies any motor or sensory deficits. Patient denies any fever or night sweats, denies any change in the bowel movements or urination. Physical Examination: -Constitutional: Cooperative. Not in acute distress . -HEENT: Neck is supple. No lymphadenopathy. No thyromegaly. Normal thyroid size. Eyes: No ptosis , no icterus, no photophobia. ENT: No auditory deficits. Normal oropharynx. No Thrush. - Respiratory: Chest clear to auscultations bilaterally. No wheezing. No rhonchi. - Cardiovascular: Regular rate and rhythm. S1 / S2 , no S3 , no S4. - Gastrointestinal: Abdomen soft no tenderness. Bowel sounds positive in all four quadrants. No organomegaly. - Genitourinary: Deferred. - Neurologic: Cranial nerve II to XII intact. No focal neurological deficits. - Psychatric: Alert & oriented x 3. Matching mood & appropriate affect. Judgment and insight intact. - Lymphatic: No Lymphadenopathy. - Musculoskeletal: Cervical spine: Muscle bulk/ tone/ strength in the bilateral upper extremities normal. Facet loading test cervical area positive. Lumbar spine: Motor bulk/ tone/ strength lower extremities , thigh and legs : 5/5 Deep tendon reflexes : Normal Knee Jerk. Normal Ankle Jerk . Vertebral body tenderness to palpation over Lumbar Facet Loading Test positive with jump reflex over bilateral L4-L5, L5-S1 and accompanying paraspinal muscle spasms Straight Leg Raise: positive at 30 degrees right side/ left side Gaenslen's Test positive Sacral spine : Severe tenderness over the Sacroiliac joint: right side / left side Range of motion: Flexion of the lumbar spine <60 degrees Range of motion: Extension of the lumbar spine <20 degrees Gaenslen's Test positive Marce test: positive right side / left side Assessment and plan: Chronic low back pain secondary to lumbar degenerative disc disease , lumbar spondylosis with facet arthropathy without myelopathy Recommendation of BL RFA L4-L5, L5-S1. Risks, benefits of procedure discussed and pt verbalized understanding. Denies anticoagulant use. Denies medical history of diabetes. Chronic and current use of high-risk medication (Opioids). The patient was counseled about risk of opioid use, psychological risk associated with opioids and was orally counseled to not overuse , divert or sell medications. Pt is to store medication in a safe location. The patient is counseled against driving while using narcotic medications and also not to use alcohol or any illicit recreational drugs. Patient verbalized understanding that the lack of compliance will result in failure to renew narcotic prescription(s) as well as possible discharge from the clinic Diagnoses, prognosis and treatment options including but not limited to physical therapy, surgical interventions, interventional therapies and medication management including narcotics and adjuvant medication were discussed. All patient questions answered MAPS reviewed and it was appropriate. Prescription refill for Percocet 10/325 #90, Lyrica 150mg #90, Zanaflex 4mg #90 and Motrin 800mg #90 with 1 refill. I have spent 31 minutes on patient care today. Dr Tirado was available by phone for the evaluation of this patient. The time was used to review the medical records including relevant urine studies and Prescription history (MAPs), review of the available imaging, evaluation and examination of the patient, coordination of care with the medical staff and if applicable referring physicians, as well as creation of the medical record Objective - Vital Signs Vital signs: Vital Signs Temp 97.9 F 10/08/21 10:44 Pulse 52 L 10/08/21 10:44 Resp 16 10/08/21 10:44 BP 164/79 10/08/21 10:44 Pulse Ox 94 L 10/08/21 10:44 Intake & Output 10/07/21 10/08/21 10/08/21 18:59 06:59 18:59 Weight 95.254 kg PQRS Measure Charge Sheet Mode of Arrival: Ambulatory - Pain Location Lower Back Non-Pharmacological Interventions: Home Exercise, Inactivity, Physical Therapy, Position/Reposition Pharmacological Interventions: Block, Medication, PRN Medication, Scheduled Medication PQRS Narrative: Smoking Status Current every day smoker Narcotic Agreement Date Signed 02/26/21 Blood Pressure 164/79 Pain Intensity [Lower Back] 8 Scale Used Numeric (1 - 10) Hx Alcohol Use (MH) Yes: NO LONGER USES Home Medications: Ambulatory Orders Lisinopril/Hydrochlorothiazide [Zestoretic 20-12.5] 1 tab PO DAILY 11/14/15 Tamsulosin HCl [Flomax] 0.4 mg PO DAILY 02/03/16 Atorvastatin [Lipitor] 10 mg PO DAILY 12/17/18 Folic Acid 1 mg PO DAILY 05/03/19 Omeprazole [PriLOSEC] 40 mg PO DAILY 09/16/20 Aspirin [Adult Low Dose Aspirin EC] 81 mg PO DAILY 10/04/20 Isosorbide Mononitrate ER [Imdur] 40 mg PO DAILY 10/04/20 Nitroglycerin 0.4 mg SL DIRECTED PRN 10/04/20 Ibuprofen [Motrin] 800 mg PO TID PRN 30 Days #90 tab 10/08/21 Pregabalin 150 mg PO TID 30 Days #90 cap 10/08/21 oxyCODONE HCL/ACETAMINOPHEN [Percocet 10-325 mg] 1 tab PO Q8H PRN 30 Days #90 tab 10/08/21 oxyCODONE HCL/ACETAMINOPHEN [Percocet 10-325 mg] 1 tab PO Q8HR PRN 30 Days #90 tab 10/08/21 tiZANidine HCL [Zanaflex] 4 mg PO TID PRN 30 Days #90 cap 10/08/21
== END ==
LOC: PNWHC3 10:10
PROVIDERS: ATTEND Specialist
DX: M51.36 Other intervertebral disc degeneration, lumbar region (principal); M47.816 Spondylosis without myelopathy or radiculopathy, lumbar region; G89.29 Other chronic pain; Z79.891 Long term (current) use of opiate analgesic; F17.200 Nicotine dependence, unspecified, uncomplicated
CPT/HCPCS: 99211

== ENCOUNTER → 2021-12-03 | Outpatient (CLI) | payer MEDICARE, OTHER ==
--- NOTE | 2021-12-03 10:52 | P.PN ---
Subjective Progress Note Date: 12/03/21 Principal diagnosis: A 61 yr old male with a history of severe and chronic neck & low back pain secondary to cervical & lumbar degenerative disc diseases and spondylosis with facet arthropathy presents today for medication refills. Pain level is currently at 8 out of 10 in intensity, constant, sharp/stabbing/burning in character which is provoked with activity and cold weather. Denies radiation of pain of the lumbar spine. Pain is alleviated with medications (Percocet, Lyrica, Motrin, Zanaflex), physical therapy years ago, chiropractic treatments which he was told not to resume, massage therapy 1 year ago which provided no long-term relief, repositioning and rest. Interventional pain procedures completed include BL RFA L3-L5 Patient is currently on Percocet 10/325 #90, Lyrica 150mg #90, Motrin #90, Zanaflex prn. Patient denies any side effects of the medication(s), denies excessive drowsiness or sleepiness, denies suicidal ideation and reports that the current pain medication is helping to control the pain and improve activities of daily living. Patient denies any motor or sensory deficits. Patient denies any fever or night sweats, denies any change in the bowel movements or urination. Physical Examination: -Constitutional: Cooperative. Not in acute distress . -HEENT: Neck is supple. No lymphadenopathy. No thyromegaly. Normal thyroid size. Eyes: No ptosis , no icterus, no photophobia. ENT: No auditory deficits. Normal oropharynx. No Thrush. - Respiratory: Chest clear to auscultations bilaterally. No wheezing. No rhonchi. - Cardiovascular: Regular rate and rhythm. S1 / S2 , no S3 , no S4. - Gastrointestinal: Abdomen soft no tenderness. Bowel sounds positive in all four quadrants. No organomegaly. - Genitourinary: Deferred. - Neurologic: Cranial nerve II to XII intact. No focal neurological deficits. - Psychatric: Alert & oriented x 3. Matching mood & appropriate affect. Judgment and insight intact. - Lymphatic: No Lymphadenopathy. - Musculoskeletal: Cervical spine: Muscle bulk/ tone/ strength in the bilateral upper extremities normal. Vertebral body tenderness to palpation over Facet loading test cervical area positive. Lumbar spine: Motor bulk/ tone/ strength lower extremities , thigh and legs : 5/5 Deep tendon reflexes : Normal Knee Jerk. Normal Ankle Jerk . Vertebral body tenderness to palpation over Lumbar Facet Loading Test positive Straight Leg Raise: positive at 30 degrees right side/ left side Gaenslen's Test positive Sacral spine : Severe tenderness over the Sacroiliac joint: right side / left side Range of motion: Flexion of the lumbar spine <60 degrees Range of motion: Extension of the lumbar spine <20 degrees Gaenslen's Test positive Keegan's Test positive Marce test: positive right side / left side Assessment and plan: Chronic neck & low back pain secondary to cervical & lumbar degenerative disc disease , spondylosis with facet arthropathy without myelopathy Has repeat BL RFA L3-L5 scheduled. PT 3 times per week x 6 weeks re: cervical DDD, to focus on cervical traction Chronic and current use of high-risk medication (Opioids). The patient was counseled about risk of opioid use, psychological risk associated with opioids and was orally counseled to not overuse , divert or sell medications. Pt is to store medication in a safe location. The patient is counseled against driving while using narcotic medications and also not to use alcohol or any illicit recreational drugs. Patient verbalized understanding that the lack of compliance will result in failure to renew narcotic prescription(s) as well as possible discharge from the clinic Diagnoses, prognosis and treatment options including but not limited to physical therapy, surgical interventions, interventional therapies and medication management including narcotics and adjuvant medication were discussed. All patient questions answered MAPS reviewed and it was appropriate. Attempts for urine collection for UDS performed today 12/03/21 Script for blood tox screen re: medication refills/ inability to urinate provided if urination attempts fail. Prescription refill for Motrin, Baclofen w 1 refill. Will wait for tox screen sample collection for controlled substance refills. I have spent 31 minutes on patient care today. Dr Tirdao was available by phone for the evaluation of this patient. The time was used to review the medical records including relevant urine studies and Prescription history (MAPs), review of the available imaging, evaluation and examination of the patient, coordination of care with the medical staff and if applicable referring physicians, as well as creation of the medical record PQRS Measure Charge Sheet PQRS Narrative: Smoking Status Current every day smoker Narcotic Agreement Date Signed 02/26/21 Hx Alcohol Use (MH) Yes: NO LONGER USES Home Medications: Ambulatory Orders Lisinopril/Hydrochlorothiazide [Zestoretic 20-12.5] 1 tab PO DAILY 11/14/15 Tamsulosin HCl [Flomax] 0.4 mg PO DAILY 02/03/16 Atorvastatin [Lipitor] 10 mg PO DAILY 12/17/18 Folic Acid 1 mg PO DAILY 05/03/19 Omeprazole [PriLOSEC] 40 mg PO DAILY 09/16/20 Aspirin [Adult Low Dose Aspirin EC] 81 mg PO DAILY 10/04/20 Isosorbide Mononitrate ER [Imdur] 40 mg PO DAILY 10/04/20 Nitroglycerin 0.4 mg SL DIRECTED PRN 10/04/20 Ibuprofen [Motrin] 800 mg PO TID PRN 30 Days #90 tab 10/08/21 Pregabalin 150 mg PO TID 30 Days #90 cap 10/08/21 oxyCODONE HCL/ACETAMINOPHEN [Percocet 10-325 mg] 1 tab PO Q8HR PRN 30 Days #90 tab 10/08/21 tiZANidine HCL [Zanaflex] 4 mg PO TID PRN 30 Days #90 cap 10/08/21
[2021-12-03 14:47] VITALS: BP 131/75; PULSE 55; RESP 18; TEMP 97.8
== END ==
LOC: PNWHC3 09:53
PROVIDERS: ATTEND Specialist
DX: M51.36 Other intervertebral disc degeneration, lumbar region (principal); M47.816 Spondylosis without myelopathy or radiculopathy, lumbar region; G89.29 Other chronic pain; M50.30 Other cervical disc degeneration, unspecified cervical region; M47.812 Spondylosis without myelopathy or radiculopathy, cervical region; Z79.891 Long term (current) use of opiate analgesic; F17.200 Nicotine dependence, unspecified, uncomplicated
CPT/HCPCS: 80307; G0482; G0463; 99212

== ENCOUNTER 2021-12-26 07:47 | Day surgery (SDC) | payer MEDICARE, OTHER ==
[2021-12-25 08:39] VITALS: BMI 29.9
[~2021-12-26 07:47] MED LIST changes: +LIDOCAINE 1% (10MG/ML) FOR IV START INTRADERMA PRN
[2021-12-26 08:10] VITALS: TEMP 97.7
[2021-12-26] MEDS ORDERED: methylPREDNISolone ACETATE 40 MG/ML 1 ML VIAL ONE (08:20)
[2021-12-26] MEDS ORDERED: MIDAZOLAM 2 MG/2 ML VIAL ONE (08:20)
[2021-12-26] MEDS ORDERED: ROPIVACAINE 5MG/ML 20ML VIAL ONE (08:20)
[2021-12-26] MEDS ORDERED: fentaNYL (PF) 50 MCG/ML 2 ML AMP ONE (08:20)
--- NOTE | 2021-12-26 08:49 | P.PCN ---
Date of Procedure: 12/26/21 Procedure(s) Performed: PREOPERATIVE DIAGNOSIS: 1-Lumbar Spondylosis with Facet Arthropathy without myelopathy. 2- Lumber degenerative disc disease. POSTOPERATIVE DIAGNOSIS: 1- Lumbar Spondylosis with Facet Arthropathy without myelopathy. 2- Lumber degenerative disc disease. PROCEDURES : Bilateral Radiofrequency thermocoagulation, L3 , L4 , and L5 medial branch, with fluoroscopic guidance (fluoroscopy images available in the radiology department) ( to denervate the facet joint at Bilateral L4-5 ,and L5-S1 levels ). ANESTHESIA: Monitored anesthesia care as per anesthesia department. EBL: Minimal PROCEDURE INDICATION: The patient with low back pain secondary to lumbar facet arthropathy who had more than 50% relief of her pain with previous diagnostic lumbar medial branch block with bupivacaine. PROCEDURE DESCRIPTION / TECHNIQUE: The patient was seen and identified in the preoperative area. Risks, benefits, complications, including but not limited to risk of infection ,bleeding , allergic reactions to the medications and no complete pain releife , and alternatives were discussed with the patient, the patient agreed to proceed with the procedure and signed the consent. IV was started. Vital signs remained stable throughout the procedure. Patient was taken to the OR and time out was completed. The patient was placed in the prone position on the procedure table. The lumber area was prepped and draped in the usual sterile fashion. . Vital signs were closely monitored during the procedure .IV sedation was used during the procedure to decrease patients anxiety. Using AP and then oblique fluoroscopy, the ``eye of the Michael dog yu esponding to the connection between the superior and transverse articular processes of right L3, L4, and L5 were identified, marked, and localized with 1% lidocaine. Subsequently, a [id number] radiofrequency cannula with a 10- mm active tip was advanced guided by fluoroscopy to each of the``eyes of the Michael dog at right L3, L4, and L5. Each site then underwent sensory testing at 50 Hz and 0 to 1 volt and motor testing at 2.5 Hz and 0 to 3 volt with local stimulation, but no radicular symptoms down the legs. Thereafter each sites underwent radiofrequency thermocoagulation at 80 degrees celsius for 90 seconds after injecting 0.5 ml of PF Ropivacaine 1ml, then after the thermocoagulation done , 1 ml of the block solution containing Depo-Medrol 20 mg and 3 ml of Ropivacaine 0.5% was injected at the right L3 , L4 , and L5 , levels after negative aspiration of CSF and blood and with no paresthesias. Cannulas were retracted while injecting lidocaine 1% until the needle is out. The same procedure was repeated at the level of Left L3, L4, and L5 levels. At the end of the procedure, the skin was cleansed and bandages were applied. COMPLICATIONS: No acute complications. DISPOSITION / PLANS: The patient was placed in a supine position and transferred to the recovery area in a stable condition for observation and was discharged from the recovery room after meeting discharge criteria. Home discharge instructions given to the patient by the staff. The patient was reexamined prior to discharge. The patient will schedule a follow up in the clinic in 2-4 weeks.
[2021-12-26] MEDS ORDERED: IV FLUID CONTINUATION 1,000 ML IV ONE (08:52)
[2021-12-26 08:56] VITALS: RESP 15
[2021-12-26 09:08] VITALS: BP 139/72; PULSE 74
--- NOTE | 2021-12-28 13:23 | FL ---
EXAMINATION TYPE: FL guided pain mgmt statistic DATE OF EXAM: 12/26/2021 FLUOROSCOPY Fluoroscopy time of 31 seconds was used during bilateral lumbar radiofrequency ablation. 6 image/s d ocument/s the procedure.
== END 2021-12-26 09:15 | disposition home or self-care (01) ==
LOC: ORPAIN 07:47
PROVIDERS: ATTEND Specialist
DX: M54.9 Dorsalgia, unspecified (principal); M47.816 Spondylosis without myelopathy or radiculopathy, lumbar region; M51.36 Other intervertebral disc degeneration, lumbar region; I10 Essential (primary) hypertension; E78.5 Hyperlipidemia, unspecified; I49.9 Cardiac arrhythmia, unspecified; F17.210 Nicotine dependence, cigarettes, uncomplicated; N40.0 Benign prostatic hyperplasia without lower urinary tract symptoms; F41.9 Anxiety disorder, unspecified; F32.A Depression, unspecified; G43.909 Migraine, unspecified, not intractable, without status migrainosus; K70.30 Alcoholic cirrhosis of liver without ascites; K21.9 Gastro-esophageal reflux disease without esophagitis; Z79.1 Long term (current) use of non-steroidal anti-inflammatories (NSAID); Z79.891 Long term (current) use of opiate analgesic; Z79.899 Other long term (current) drug therapy
CPT/HCPCS: 64635; 64636; J2250; J1030; J3010; J2795

== ENCOUNTER → 2022-01-28 | Outpatient (CLI) | payer MEDICARE, OTHER ==
[2022-01-28 10:21] VITALS: BP 119/71; PULSE 52; RESP 18; TEMP 97.7
--- NOTE | 2022-01-28 10:23 | P.PAINPG ---
PQRS Measure Charge Sheet Comment: A 61 yr old male with a history of severe and chronic low back pain secondary to lumbar degenerative disc diseases and lumbar spondylosis with facet arthropathy presents today for evaluation of BL RFA L3-L5 and medication refills. 70% pain relief s/p procedure. Pain level is currently at 7/10 in intensity, localized to mid back with radiation L & R of midline, sharp/ shooting in pins & needles character. Pain is provoked by cold weather and overactivity. Pain is alleviated with PT currently for his cervical spine, medications (Percocet, Lyrica, Zanaflex), reclining, lay supine on L side, repositioning and rest. Interventional pain procedures completed include BL RFA L3-L5 Patient is currently on Percocet 10/325mg, Lyrica 150mg, Ibuprofen, Zanaflex Patient denies any side effects of the medication(s), denies excessive drowsiness or sleepiness, denies suicidal ideation and reports that the current pain medication is helping to control the pain and improve activities of daily living. Patient denies any motor or sensory deficits. Patient denies any fever or night sweats, denies any change in the bowel movements or urination. Physical Examination: -Constitutional: Cooperative. Not in acute distress . - Neurologic: Cranial nerve II to XII intact. No focal neurological deficits. - Psychatric: Alert & oriented x 3. Matching mood & appropriate affect. Judgment and insight intact. - Musculoskeletal: Cervical spine: Muscle bulk/ tone/ strength in the bilateral upper extremities normal Vertebral body tenderness to palpation over Spurling test positive Distraction test positive Facet loading test positive Thoracic spine Muscle bulk / tone/ strength in the bilateral paraspinal muscles normal Vertebral body tender to palpation over Facet loading test positive Lumbar spine: Motor bulk/ tone/ strength lower extremities , thigh and legs : 5/5 Deep tendon reflexes : Normal Knee Jerk. Normal Ankle Jerk . Vertebral body tenderness to palpation over L4 Lumbar Facet Loading Test positive Straight Leg Raise: positive at 30 degrees right side/ left side Gaenslen's Test positive Sacral spine : Severe tenderness over the Sacroiliac joint: right side / left side Range of motion: Flexion of the lumbar spine <60 degrees Range of motion: Extension of the lumbar spine <20 degrees Gaenslen's Test positive Keegan's Test positive Marce test: positive right side / left side Thigh Thrust Test Sacral Thrust Test Assessment and plan: Chronic low back pain secondary to lumbar degenerative disc disease , l umbar spondylosis with facet arthropathy without myelopathy Pt exhibited sufficient and satisfactory pain relief s/p procedure. Chronic and current use of high-risk medication (Opioids). The patient was counseled about risk of opioid use, psychological risk associated with opioids and was orally counseled to not overuse , divert or sell medications. Pt is to store medication in a safe location. The patient is counseled against driving while using narcotic medications and also not to use alcohol or any illicit recreational drugs. Patient verbalized understanding that the lack of compliance will result in failure to renew narcotic prescription(s) as well as possible discharge from the clinic Diagnoses, prognosis and treatment options including but not limited to physical therapy, surgical interventions, interventional therapies and medication management including narcotics and adjuvant medication were discussed. All patient questions answered MAPS reviewed and it was appropriate. UDS 12/03/21 reviewed and consistent Prescription refill for Percocet 10/325mg #90, Lyrica 150mg #90 and Zanaflex w 1 refill I have spent less than 30 minutes on patient care today. Dr Tirado was available by phone for the evaluation of this patient. The time was used to review the medical records including relevant urine studies and Prescription history (MAPs), review of the available imaging, evaluation and examination of the patient, coordination of care with the medical staff and if applicable referring physicians, as well as creation of the medical record - Pain Location Bilateral Lower Back Non-Pharmacological Interventions: Inactivity, Physical Therapy, Position/Reposition, Sitting Pharmacological Interventions: Block, Medication, Scheduled Medication PQRS Narrative: Smoking Status Current every day smoker Narcotic Agreement Date Signed 02/26/21 Hx Alcohol Use (MH) Yes: NO LONGER USES Home Medications: Ambulatory Orders Lisinopril/Hydrochlorothiazide [Zestoretic 20-12.5] 1 tab PO DAILY 11/14/15 Tamsulosin HCl [Flomax] 0.4 mg PO DAILY 02/03/16 Atorvastatin [Lipitor] 10 mg PO DAILY 12/17/18 Folic Acid 1 mg PO DAILY 05/03/19 Omeprazole [PriLOSEC] 40 mg PO DAILY 09/16/20 Aspirin [Adult Low Dose Aspirin EC] 81 mg PO DAILY 10/04/20 Isosorbide Mononitrate ER [Imdur] 40 mg PO DAILY 10/04/20 Nitroglycerin 0.4 mg SL DIRECTED PRN 10/04/20 tiZANidine HCL [Zanaflex] 4 mg PO TID PRN 30 Days #90 cap 12/03/21 Ibuprofen [Motrin] 800 mg PO TID PRN 30 Days #90 tab 01/28/22 Pregabalin 150 mg PO TID 30 Days #90 cap 01/28/22 oxyCODONE HCL/ACETAMINOPHEN [Percocet 10-325 mg] 1 tab PO Q8HR PRN 30 Days #90 tab 01/28/22 oxyCODONE-APAP 10-325MG [Percocet 10-325 mg] 1 tab PO Q8HR PRN 30 Days #90 tab 01/28/22 tiZANidine HCL [Zanaflex] 4 mg PO TID PRN 30 Days #90 capsule 01/28/22 Controlled Substance Measures - Controlled Substance Measures Is patient prescribed a controlled substance at discharge?: Yes When asked, does pt state using other controlled substances?: No If prescribed controlled substance>3 days was MAPS reviewed?: Yes If Rx opioid, was Start Talking consent form obtained?: Yes Was information provided regarding opioid addiction?: Yes
== END ==
LOC: PNWHC3 09:52
PROVIDERS: ATTEND Specialist
DX: M51.36 Other intervertebral disc degeneration, lumbar region (principal); M47.816 Spondylosis without myelopathy or radiculopathy, lumbar region; G89.29 Other chronic pain; Z79.891 Long term (current) use of opiate analgesic; F17.200 Nicotine dependence, unspecified, uncomplicated
CPT/HCPCS: 99211

== ENCOUNTER → 2022-02-28 | Outpatient (CLI) | payer MEDICARE, OTHER ==
[2022-02-28 17:18] LABS: HCT 40.6 % (39.6-50.0); HGB 13.6 g/dL (13.0-17.0); MCH 28.7 pg (27.0-32.0); MCHC 33.5 g/dL (32.0-37.0); MCV 85.7 fL (80.0-97.0); Mean Platelet Volume 11.5 fL (9.5-12.2); NRBC Per 100 WBC 0 /100 WBCS (0.0-0.0); Platelet Count 282 X 10*3/uL (140-440); RBC 4.74 X 10*6/uL (4.40-5.60); RDW 13.5 % (11.5-14.5); WBC 8.87 X 10*3/uL (4.50-10.00)
[2022-02-28 19:07] LABS: African American GFR (CKD) 75.7 (60.0-200.0); Anion Gap 9.5 mmol/L (10.00-18.00); Blood Urea Nitrogen 25.5 mg/dL (9.0-27.0); Carbon Dioxide 28.5 mmol/L (20.0-27.5); Non-African American GFR(CKD) 65.3 (60.0-200.0); Potassium 4.1 mmol/L (3.5-5.5)
== END | disposition home or self-care (01) ==
LOC: LABPAT 08:55
PROVIDERS: ATTEND Internal Medicine
DX: Z01.812 Encounter for preprocedural laboratory examination (principal); R07.9 Chest pain, unspecified
CPT/HCPCS: 80051; 82565; 84520; 85027

== ENCOUNTER → 2022-03-02 | Day surgery (SDC) | payer MEDICARE, OTHER ==
[~2022-03-02] MED LIST changes: +ALPRAZolam 0.25 MG TAB PO PRN; +ALPRAZolam 0.5 MG TAB PO PRN; +ASPIRIN 325 MG TAB PO STA; +ATORVASTATIN 80 MG TAB PO STA; +HEPARIN SODIUM,PORCINE 10,000 UNIT in SODIUM CHLORIDE 0.9% 1,000 ML IRRIGATION PRN; +HEPARIN SODIUM,PORCINE 2,500 UNIT in SODIUM CHLORIDE 0.9% 250 ML IRRIGATION PRN; -LACTATED RINGERS 1,000 ML IV SCH; -LIDOCAINE 1% (10MG/ML) FOR IV START INTRADERMA PRN; +NITROGLYCERIN SL TABS 0.4 MG TAB SUBLINGUAL PRN; +SODIUM CHLORIDE 0.9% 1,000 ML in EMPTY BAG 1 BAG IV SCH
== END ==
LOC: CATHCVL 08:48
PROVIDERS: ATTEND Internal Medicine
DX: R07.9 Chest pain, unspecified (principal); Z53.29 Procedure and treatment not carried out because of patient's decision for other reasons; R06.00 Dyspnea, unspecified; I10 Essential (primary) hypertension; E78.5 Hyperlipidemia, unspecified; R42 Dizziness and giddiness; R00.1 Bradycardia, unspecified; Z79.899 Other long term (current) drug therapy; F17.210 Nicotine dependence, cigarettes, uncomplicated; Z79.82 Long term (current) use of aspirin

== ENCOUNTER → 2022-03-25 | Outpatient (CLI) | payer MEDICARE, OTHER ==
[2022-03-25 10:29] VITALS: BP 118/62; PULSE 54; RESP 16; TEMP 97.9
--- NOTE | 2022-03-25 10:39 | P.PN ---
Subjective Progress Note Date: 03/25/22 This is 61 yrs old give me 1 minute old male with a history of severe ,and chronic low back pain secondary to lumbar degenerative disc diseases and lumbar spondylosis with facet arthropathy presents today for evaluation of BL RFA L3- L5 and medication refills. 70% pain relief s/p procedure. also patient had been diagnosed with cervical spondylosis with cervical facet arthropathy , recently patient had fallen and he had multiple rib fractures , on the right side of the chest , he reports over the last few weeks his pain intensified in the mid back area at the location of the rib fractures , patient was evaluated by urgent clinic , and he had x-rays done and showed the fractures we don't have any report available Pain level is currently at 7/10 in intensity,. Pain is alleviated with PT currently for his cervical spine, medications (Percocet, Lyrica, Zanaflex), reclining, lay supine on L side, repositioning and rest. Interventional pain procedures completed include BL RFA L3-L5, RFA of the cervical spine Patient is currently on Percocet 10/325mg, Lyrica 150mg, Ibuprofen, Zanaflex Patient denies any side effects of the medication(s), denies excessive drowsiness or sleepiness, denies suicidal ideation and reports that the current pain medication is helping to control the pain and improve activities of daily living. Patient denies any motor or sensory deficits. Patient denies any fever or night sweats, denies any change in the bowel movements or urination. Physical Examination: -Constitutional: Cooperative. Not in acute distress . - Neurologic: Cranial nerve II to XII intact. No focal neurological deficits. - Psychatric: Alert & oriented x 3. Matching mood & appropriate affect. Judgment and insight intact. - Musculoskeletal: Cervical spine: Muscle bulk/ tone/ strength in the bilateral upper extremities normal Vertebral body tenderness to palpation over Spurling test positive Distraction test positive Facet loading test positive Thoracic spine Severe tenderness over the midthoracic spine on the right side from T7 ,8 ,9, 10 Vertebral body tender to palpation over Facet loading test positive Lumbar spine: Motor bulk/ tone/ strength lower extremities , thigh and legs : 5/5 Deep tendon reflexes : Normal Knee Jerk. Normal Ankle Jerk . Vertebral body tenderness to palpation over L4 Lumbar Facet Loading Test positive Straight Leg Raise: positive at 30 degrees right side/ left side Gaenslen's Test positive Sacral spine : Severe tenderness over the Sacroiliac joint: right side / left side Range of motion: Flexion of the lumbar spine <60 degrees Range of motion: Extension of the lumbar spine <20 degrees Gaenslen's Test positive Keegan's Test positive Marce test: positive right side / left side Thigh Thrust Test Sacral Thrust Test Assessment and plan: Acute mid back pain secondary to multiple RIB fractures right side Chronic low back pain secondary to lumbar degenerative disc disease , lumbar spondylosis with facet arthropathy without myelopathy Chronic neck pain secondary to cervical spondylosis Pt exhibited sufficient and satisfactory pain relief s/p procedure. Chronic and current use of high-risk medication (Opioids). The patient was counseled about risk of opioid use, psychological risk associated with opioids and was orally counseled to not overuse , divert or sell medications. Pt is to store medication in a safe location. The patient is counseled against driving while using narcotic medications and also not to use alcohol or any illicit recreational drugs. Patient verbalized understanding that the lack of compliance will result in failure to renew narcotic prescription(s) as well as possible discharge from the clinic Diagnoses, prognosis and treatment options including but not limited to physical therapy, surgical interventions, interventional therapies and me dication management including narcotics and adjuvant medication were discussed. All patient questions answered MAPS reviewed and it was appropriate. UDS 12/03/21 reviewed and consistent Prescription refill for Percocet 10/325mg #90, Lyrica 150mg #90 and Zanaflex w 1 refill, Motrin 800 mg 3 times a day when necessary Prescription for Lidoderm patch to be applied to the right-sided mid back area at the location of the pain. Prescription for physical therapy and evaluation regarding cervical neck pain, Objective - Vital Signs Vital signs: Vital Signs Temp 97.9 F 03/25/22 10:19 Pulse 54 L 03/25/22 10:19 Resp 16 03/25/22 10:19 BP 118/62 03/25/22 10:19 Pulse Ox 96 03/25/22 10:19 FiO2 Intake & Output 03/24/22 03/25/22 03/25/22 18:59 06:59 18:59 Weight 87.997 kg
== END ==
LOC: PNWHC3 10:00
PROVIDERS: ATTEND Specialist
DX: S22.41XA Multiple fractures of ribs, right side, initial encounter for closed fracture (principal); M51.36 Other intervertebral disc degeneration, lumbar region; G89.29 Other chronic pain; M47.812 Spondylosis without myelopathy or radiculopathy, cervical region; Z79.891 Long term (current) use of opiate analgesic; F17.200 Nicotine dependence, unspecified, uncomplicated
CPT/HCPCS: 99211

== ENCOUNTER 2022-04-03 14:36 | Emergency (ER) | payer MEDICARE, OTHER ==
[2022-04-03 14:44] VITALS: RESP 18; TEMP 97.8
[2022-04-03] MEDS ORDERED: ASPIRIN 81 MG PO STA (14:52)
[2022-04-03] MEDS ORDERED: NITROGLYCERIN OINT 1 INCH/GM PACKET TOPICAL STA (14:52)
[2022-04-03] MEDS ORDERED: MORPHINE SULFATE 4 MG/ML SYRINGE IVP STA (14:52)
--- NOTE | 2022-04-03 14:56 | ED ---
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 Patient does get this at times. Patient was walking up steps a couple of days ago and had some crease of her back discomfort and syncopal episode. Patient did fall and has some discomfort of his left ribs. Patient does not recall falling and believes he passed out. No head injury or loss of consciousness. Patient also at times gets back discomfort that radiates to his chest. Patient was at his doctor's office today and did have this. Patient states chest discomfort is now resolved however still has some upper back discomfort. - Related Data Home Medications Medication Instructions Recorded Confirmed Lisinopril/Hydrochlorothiazide 1 tab PO DAILY 11/14/15 04/03/22 [Zestoretic 20-12.5] Omeprazole [PriLOSEC] 40 mg PO DAILY 09/16/20 04/03/22 Aspirin [Adult Low Dose Aspirin EC] 81 mg PO DAILY 10/04/20 04/03/22 Isosorbide Mononitrate ER [Imdur] 30 mg PO DAILY 10/04/20 04/03/22 Nitroglycerin 0.4 mg SUBLINGUAL Q5M PRN 10/04/20 04/03/22 DULoxetine HCL [Cymbalta] 60 mg PO DAILY 02/27/22 04/03/22 Furosemide [Lasix] 20 mg PO AC-SUPPER 02/27/22 04/03/22 Zinc 100 mg PO QAM 02/27/22 04/03/22 Atorvastatin [Lipitor] 20 mg PO HS 04/03/22 04/03/22 Furosemide [Lasix] 40 mg PO QAM 04/03/22 04/03/22 Zinc Gluconate [Zinc] 50 mg PO HS 04/03/22 04/03/22 tiZANidine HCL [Zanaflex] 4 mg PO QID PRN 04/03/22 04/03/22 Previous Rx's Medication Instructions Recorded oxyCODONE-APAP 10-325MG [Percocet 1 tab PO Q8HR PRN 30 Days #90 tab 01/28/22 10-325 mg] Pregabalin 150 mg PO TID 30 Days #90 cap 03/25/22 Allergies Allergy/AdvReac Type Severity Reaction Status Date / Time No Known Allergies Allergy Verified 04/03/22 17:34 Review of Systems ROS Statement: Those systems with pertinent positive or pertinent negative responses have been documented in the HPI. ROS Other: All systems not noted in ROS Statement are negative. Constitutional: Denies: fever Eyes: Denies: eye pain ENT: Denies: ear pain Respiratory: Denies: cough, dyspnea Cardiovascular: Reports: as per HPI, chest pain. Denies: palpitations Endocrine: Denies: fatigue Gastrointestinal: Denies: abdominal pain Genitourinary: Denies: dysuria Musculoskeletal: Reports: as per HPI Skin: Denies: rash Neurological: Denies: weakness Past Medical History Past Medical History: Asthma, Chest Pain / Angina, COPD, GERD/Reflux, Hyperlipidemia, Hypertension, Liver Disease, Osteoarthritis (OA), Prostate Disorder Additional Past Medical History / Comment(s): Hx Heart Murmur. Hx Head Injury. Migraines, Sciatica, Scoliosis. [place] bilateral legs, feet. Alcoholic cirrhosis, Enlarged Prostate. fx Lt ribs 2019-fell on roof of a barn, hiatal HERNIA, DDD, recent change in BP, back pain through to chest History of Any Multi-Drug Resistant Organisms: None Reported Past Surgical History: Hernia Repair, Orthopedic Surgery Additional Past Surgical History / Comment(s): "11/29/18 Had fluid drained from around brain." Rt hand surgery, AC SEPARATION RIGHT COLLAR BONE -GRAFT FROM ELBOW, COLONOSCOPY, Lt HIP SURGERY, Rt INGUINAL HERNIA REPAIR, MULTIPLE PAIN PROCEDURES. Past Anesthesia/Blood Transfusion Reactions: No Reported Reaction Additional Past Anesthesia/Blood Transfusion Reaction / Comment(s): adopted-no family hx Past Psychological History: Anxiety, Depression Smoking Status: Current every day smoker - Past Family History Mother History Unknown: Yes Family Medical History: Unable to Obtain Additional Family Medical History / Comment(s): Pt was adopted. General Exam Limitations: no limitations General appearance: alert, in no apparent distress Head exam: Present: normocephalic Eye exam: Present: normal appearance, PERRL, EOMI Neck exam: Present: normal inspection. Absent: tenderness Respiratory exam: Present: normal lung sounds bilaterally, chest wall tenderness (Mild left lower lateral ribs) Cardiovascular Exam: Present: regular rate, normal rhythm, normal heart sounds Expanded Peripheral pulses: 2+: Radial (R), Radial (L), Posterior Tibialis (R), Posterior Tibialis (L) GI/Abdominal exam: Present: soft. Absent: distended, tenderness, guarding, rebound, rigid Extremities exam: Present: normal inspection. Absent: pedal edema, calf tenderness Back exam: Present: tenderness (moderate tenderness T1 through T6 region.) Neurological exam: Present: alert, oriented X3, CN II-XII intact. Absent: motor sensory deficit Psychiatric exam: Present: normal affect, normal mood Skin exam: Present: normal color Course Vital Signs 04/03/22 14:39 Temperature 97.8 F Pulse Rate 60 Respiratory 18 Rate Blood Pressure 143/74 O2 Sat by Pulse 97 Oximetry EKG Findings - EKG Comments: EKG Findings:: Sinus bradycardia with 359. OK 137. QRS 100. QT 384. QTC 33. Normal axis. Normal QRS. No acute ST change. Medical Decision Making - Medical Decision Making Patient reevaluated and resting comfortably in bed. I did review computed tomography scan and have concern for left lower rib fracture. Patient updated. Patient recommended admission however refuses. Patient does demonstrate medical decision making and will leave AGAINST MEDICAL ADVICE. Patient is made aware of limitations of tests in the emergency department including troponin - Lab Data Result diagrams: 04/03/22 15:20 04/03/22 15:20 Lab Results 04/03/22 04/03/22 04/03/22 Range/Units 15:20 15:20 15:20 WBC 8.6 (3.8-10.6) k/uL RBC 4.74 (4.30-5.90) m/uL Hgb 14.0 (13.0-17.5) gm/dL Hct 41.7 (39.0-53.0) % MCV 87.9 (80.0-100.0) fL MCH 29.6 (25.0-35.0) pg MCHC 33.6 (31.0-37.0) g/dL RDW 13.7 (11.5-15.5) % Plt Count 297 (150-450) k/uL MPV 8.5 Neutrophils % 63 % Lymphocytes % 23 % Monocytes % 7 % Eosinophils % 5 % Basophils % 1 % Neutrophils # 5.4 (1.3-7.7) k/uL Lymphocytes # 2.0 (1.0-4.8) k/uL Monocytes # 0.6 (0-1.0) k/uL Eosinophils # 0.4 (0-0.7) k/uL Basophils # 0.0 (0-0.2) k/uL PT 10.7 (9.0-12.0) sec INR 1.0 (<1.2) APTT 23.8 (22.0-30.0) sec D-Dimer 0.44 (<0.60) mg/L FEU Sodium 137 (137-145) mmol/L Potassium 3.9 (3.5-5.1) mmol/L Chloride 96 L (98-107) mmol/L Carbon Dioxide 30 (22-30) mmol/L Anion Gap 11 mmol/L BUN 17 (9-20) mg/dL Creatinine 1.09 (0.66-1.25) mg/dL Est GFR (CKD-EPI)AfAm 84 (>60 ml/min/1.73 sqM) Est GFR (CKD-EPI)NonAf 73 (>60 ml/min/1.73 sqM) Glucose 111 H (74-99) mg/dL Calcium 9.5 (8.4-10.2) mg/dL Magnesium 2.1 (1.6-2.3) mg/dL Total Bilirubin 0.3 (0.2-1.3) mg/dL AST 20 (17-59) U/L ALT 17 (4-49) U/L Alkaline Phosphatase 100 (38-126) U/L Troponin I (0.000-0.034) ng/mL Total Protein 6.4 (6.3-8.2) g/dL Albumin 4.0 (3.5-5.0) g/dL 04/03/22 Range/Units 15:20 WBC (3.8-10.6) k/uL RBC (4.30-5.90) m/uL Hgb (13.0-17.5) gm/dL Hct (39.0-53.0) % MCV (80.0-100.0) fL MCH (25.0-35.0) pg MCHC (31.0-37.0) g/dL RDW (11.5-15.5) % Plt Count (150-450) k/uL MPV Neutrophils % % Lymphocytes % % Monocytes % % Eosinophils % % Basophils % % Neutrophils # (1.3-7.7) k/uL Lymphocytes # (1.0-4.8) k/uL Monocytes # (0-1.0) k/uL Eosinophils # (0-0.7) k/uL Basophils # (0-0.2) k/uL PT (9.0-12.0) sec INR (<1.2) APTT (22.0-30.0) sec D-Dimer (<0.60) mg/L FEU Sodium (137-145) mmol/L Potassium (3.5-5.1) mmol/L Chloride (98-107) mmol/L Carbon Dioxide (22-30) mmol/L Anion Gap mmol/L BUN (9-20) mg/dL Creatinine (0.66-1.25) mg/dL Est GFR (CKD-EPI)AfAm (>60 ml/min/1.73 sqM) Est GFR (CKD-EPI)NonAf (>60 ml/min/1.73 sqM) Glucose (74-99) mg/dL Calcium (8.4-10.2) mg/dL Magnesium (1.6-2.3) mg/dL Total Bilirubin (0.2-1.3) mg/dL AST (17-59) U/L ALT (4-49) U/L Alkaline Phosphatase (38-126) U/L Troponin I <0.012 (0.000-0.034) ng/mL Total Protein (6.3-8.2) g/dL Albumin (3.5-5.0) g/dL - Radiology Data Radiology results: report reviewed (Computed tomography scan negative for pulmonary embolism or aortic dissection or aneurysm) Disposition Clinical Impression: Chest pain, Back pain, Syncope Disposition: Left Against Medical Advice Instructions (If sedation given, give patient instructions): Chest Pain (ED), Back Pain (ED), Syncope (ED) Additional Instructions: Please do follow-up to primary care physician in the next day or 2 for recheck. Return for increased pain, passing out, difficulty breathing, worsening or changing symptoms or any other concerns. You are leaving AGAINST MEDICAL ADVIC E. Is patient prescribed a controlled substance at d/c from ED?: No Referrals: Ariel Guerra DO [Primary Care Provider] - 1-2 days Time of Disposition: 17:48
[2022-04-03 15:31] LABS: Basophils % (A) 1 %; Eosinophils # (A) 0.4 k/uL (0-0.7); Eosinophils % (A) 5 %; HCT 41.7 % (39.0-53.0); Lymphocytes % (A) 23 %; MCH 29.6 pg (25.0-35.0); MCHC 33.6 g/dL (31.0-37.0); MCV 87.9 fL (80.0-100.0); Mean Platelet Volume 8.5; Monocytes # (A) 0.6 k/uL (0-1.0); Monocytes % (A) 7 %; Neutrophils # (A) 5.4 k/uL (1.3-7.7); Neutrophils % (A) 63 %; Platelet Count 297 k/uL (150-450); RBC 4.74 m/uL (4.30-5.90); RDW 13.7 % (11.5-15.5); WBC 8.6 k/uL (3.8-10.6)
[2022-04-03 15:38] LABS: Calcium 9.5 mg/dL (8.4-10.2); Magnesium 2.1 mg/dL (1.6-2.3); Potassium 3.9 mmol/L (3.5-5.1); Total Bilirubin 0.3 mg/dL (0.2-1.3); Total Protein 6.4 g/dL (6.3-8.2)
[2022-04-03 15:43] LABS: Partial Thromboplastin Time 23.8 sec (22.0-30.0); Prothrombin Time 10.7 sec (9.0-12.0)
--- NOTE | 2022-04-03 16:57 | CT ---
EXAMINATION TYPE: CT angio thor/abd pel aorta DATE OF EXAM: 04/03/2022 COMPARISON: None HISTORY: back and chect pain CT DLP: 1684.1 mGycm Automated exposure control for dose reduction was used. CONTRAST: Performed with IV Contrast, patient injected with 100 mL of Isovue 370. Images obtained from the thoracic inlet to the floor the pelvis without and subsequently with the IV contrast Isovue 100 mL. There are Three-D postprocessed images. The lungs are clear of consolidation. No pleural effusion. Heart size is normal. No mediastinal adeno mini. There are no hilar masses. Thoracic aorta is intact. No aneurysm or dissection. There is no ev idence of filling defect in the pulmonary arteries. Liver spleen and stomach pancreas and gallbladder appear intact. The bile ducts are not dilated. There is no adrenal mass. Kidneys have normal size and contour. No hydronephrosis. There is 4.5 cm co rtical cyst anterior left kidney. There is some fullness of the left renal pelvis. The left ureter is not dilated the bladder distends smoothly. No inguinal hernia. No free fluid in the pelvis. No pelvi c mass. There is short appendix appears normal. There is no mesenteric edema. No ascites or free air. No sign of a bowel obstruction. There are scatt ered sigmoid diverticula. No diverticulitis. Abdominal aorta is intact. There is atherosclerotic plaque in the abdominal aorta. There is arterial flow in the celiac artery and superior mesenteric artery. There is arterial flow in both renal arteri es. There is arterial flow in the iliac and femoral arteries. No evidence of aneurysm or dissection. No evidence of hemodynamic stenosis. IMPRESSION: Atherosclerotic plaque formation in the abdominal aorta and the branches. No evidence of hemodynamic stenosis. No dissection. No evidence of pulmonary embolism. No evidence of pulmonary mass.
[2022-04-03 18:11] VITALS: BP 136/78; PULSE 75
== END 2022-04-03 18:11 | disposition left against medical advice (07) ==
LOC: EC 14:36
DX: R07.9 Chest pain, unspecified (principal); R55 Syncope and collapse; M54.9 Dorsalgia, unspecified; J45.909 Unspecified asthma, uncomplicated; K21.9 Gastro-esophageal reflux disease without esophagitis; E78.5 Hyperlipidemia, unspecified; I10 Essential (primary) hypertension; M19.90 Unspecified osteoarthritis, unspecified site; F41.9 Anxiety disorder, unspecified; F32.A Depression, unspecified; F17.200 Nicotine dependence, unspecified, uncomplicated; Z79.82 Long term (current) use of aspirin; Z79.899 Other long term (current) drug therapy; Z53.29 Procedure and treatment not carried out because of patient's decision for other reasons
CPT/HCPCS: 36415; 93005; 85379; 80053; 83735; 84484; 85025; 85610; 85730; 71275; 74174; 99285; 96374; J2270; Q9967

== ENCOUNTER → 2022-05-20 | Outpatient (CLI) | payer MEDICARE, OTHER ==
[2022-05-20 11:09] VITALS: BP 156/80; PULSE 55; RESP 18; TEMP 98.2
--- NOTE | 2022-05-20 14:10 | P.PAINPG ---
PQRS Measure Charge Sheet Comment: A 62 yr old male with a history of severe and chronic low back pain secondary to lumbar degenerative disc diseases and lumbar spondylosis with facet arthropathy without myelopathy presents today for medication refills. He states he underwent BL RFA L3-L5 recently and experienced greater than 50% pain relief for 4 months status post procedure. Pain level is currently at 9/10 in intensity, constant, localized in the lower aspect of his lumbar spine, sharp in character with shooting towards the BLEs. Pain is provoked by bending/lifting. Pain is alleviated with medications (ibuprofen, Percocet, Lyrica, Zanaflex), Lidoderm patches, injections, ice, heat, PT which he could not resume due to recent rib fractures, repositioning and rest. Interventional pain procedures completed include BL RFA L3-L5 Patient is currently on Percocet 10/325 #90, Lyrica 150 mg #90 Patient denies any side effects of the medication(s), denies excessive drowsiness or sleepiness, denies suicidal ideation and reports that the current pain medication is helping to control the pain and improve activities of daily living. Patient denies any motor or sensory deficits. Patient denies any fever or night sweats, denies any change in the bowel movements or urination. Physical Examination: -Constitutional: Cooperative. Not in acute distress . - Neurologic: Cranial nerve II to XII intact. No focal neurological deficits. - Psychatric: Alert & oriented x 3. Matching mood & appropriate affect. Judgment and insight intact. - Musculoskeletal: Cervical spine: Muscle bulk/ tone/ strength in the bilateral upper extremities normal Vertebral body tenderness to palpation over Spurling test positive Distraction test positive Facet loading test positive Thoracic spine Muscle bulk / tone/ strength in the bilateral paraspinal muscles normal Vertebral body tender to palpation over Facet loading test positive Lumbar spine: Motor bulk/ tone/ strength lower extremities , thigh and legs : 5/5 Deep tendon reflexes : Normal Knee Jerk. Normal Ankle Jerk . Vertebral body tenderness to palpation over jump reflex with palpation over BL L4-L5, L5-S1 Lumbar Facet Loading Test positive Straight Leg Raise: positive at 30 degrees right side/ left side Gaenslen's Test positive Sacral spine : Severe tenderness over the Sacroiliac joint: right side / left side Range of motion: Flexion of the lumbar spine <60 degrees Range of motion: Extension of the lumbar spine <20 degrees Gaenslen's Test positive Keegan's Test positive Marce test: positive right side / left side Thigh Thrust Test Sacral Thrust Test Assessment and plan: Chronic low back pain secondary to lumbar degenerative disc disease , lumbar spondylosis with facet arthropathy without myelopathy Recommendation of BL RFA L forL5, L5-S1. Patient exhibited sufficient and substantial pain relief with prior RFA procedure. Risks, benefits of procedure discussed and patient verbalized understanding. Chronic and current use of high-risk medication (Opioids). The patient was counseled about risk of opioid use, psychological risk associated with opioids and was orally counseled to not overuse , divert or sell medications. Pt is to store medication in a safe location. The patient is counseled against driving while using narcotic medications and also not to use alcohol or any illicit recreational drugs. Patient verbalized understanding that the lack of compliance will result in failure to renew narcotic prescription(s) as well as possible discharge from the clinic Diagnoses, prognosis and treatment options including but not limited to physical therapy, surgical interventions, interventional therapies and medication management including narcotics and adjuvant medication were discussed. All patient questions answered MAPS reviewed and it was appropriate. Prescription refill for Percocet 10/325 #90, Lyrica 150 mg #90, Zanaflex, Ibuprofen w 1 RF I have spent less than 30 minutes on patient care today. Dr Tirado was available by phone for the evaluation of this patient. The time was used to review the medical records including relevant urine studies and Prescription history (MAPs), review of the available imaging, evaluation and examination of the patient, coordination of care with the medical staff and if applicable referring physicians, as well as creation of the medical record PQRS Narrative: Smoking Status Current every day smoker Narcotic Agreement Date Signed 02/26/21 Hx Alcohol Use (MH) Yes: NO LONGER USES Home Medications: Ambulatory Orders Lisinopril/Hydrochlorothiazide [Zestoretic 20-12.5] 1 tab PO DAILY 11/14/15 Omeprazole [PriLOSEC] 40 mg PO DAILY 09/16/20 Aspirin [Adult Low Dose Aspirin EC] 81 mg PO DAILY 10/04/20 Isosorbide Mononitrate ER [Imdur] 30 mg PO DAILY 10/04/20 Nitroglycerin 0.4 mg SUBLINGUAL Q5M PRN 10/04/20 oxyCODONE-APAP 10-325MG [Percocet 10-325 mg] 1 tab PO Q8HR PRN 30 Days #90 tab 01/28/22 DULoxetine HCL [Cymbalta] 60 mg PO DAILY 02/27/22 Furosemide [Lasix] 20 mg PO AC-SUPPER 02/27/22 Zinc 100 mg PO QAM 02/27/22 Pregabalin 150 mg PO TID 30 Days #90 cap 03/25/22 Atorvastatin [Lipitor] 20 mg PO HS 04/03/22 Furosemide [Lasix] 40 mg PO QAM 04/03/22 Zinc Gluconate [Zinc] 50 mg PO HS 04/03/22 tiZANidine HCL [Zanaflex] 4 mg PO QID PRN 04/03/22 Controlled Substance Measures - Controlled Substance Measures Is patient prescribed a controlled substance at discharge?: Yes When asked, does pt state using other controlled substances?: No If prescribed controlled substance>3 days was MAPS reviewed?: Yes If Rx opioid, was Start Talking consent form obtained?: Yes Was information provided regarding opioid addiction?: Yes
== END ==
LOC: PNWHC3 09:49
PROVIDERS: ATTEND Specialist
DX: M47.816 Spondylosis without myelopathy or radiculopathy, lumbar region (principal); M51.36 Other intervertebral disc degeneration, lumbar region; G89.29 Other chronic pain; Z79.891 Long term (current) use of opiate analgesic; F17.200 Nicotine dependence, unspecified, uncomplicated
CPT/HCPCS: 99211

== ENCOUNTER → 2022-07-15 | Outpatient (CLI) | payer MEDICARE, OTHER ==
[2022-07-15 10:20] VITALS: BP 121/66; PULSE 51; RESP 18; TEMP 97.6
--- NOTE | 2022-07-15 10:40 | P.PN ---
Subjective Progress Note Date: 07/15/22 This is 62 yr old male with a history of severe and chronic low back pain secondary to lumbar degenerative disc diseases and lumbar spondylosis with facet arthropathy without myelopathy presents today for medication refills. Pain level is currently at 9/10 in intensity, constant, localized in the lower aspect of his lumbar spine, sharp in character with shooting towards the BLEs. Pain is provoked by bending/lifting. Pain is alleviated with medications (ibuprofen, Percocet, Lyrica, Zanaflex), Lidoderm patches, injections, ice, heat, PT which he could not resume due to recent rib fractures, repositioning and rest. Interventional pain procedures completed include BL RFA L3-L5 Patient is currently on Percocet 10/325 #90, Lyrica 150 mg #90, Zanaflex 4 mg every 6 hours when necessary and Motrin 800 mg 3 times a day when necessary Patient denies any side effects of the medication(s), denies excessive drowsiness or sleepiness, denies suicidal ideation and reports that the current pain medication is helping to control the pain and improve activities of daily living. Patient denies any motor or sensory deficits. Patient denies any fever or night sweats, denies any change in the bowel movements or urination. Physical Examination: -Constitutional: Cooperative. Not in acute distress . - Neurologic: Cranial nerve II to XII intact. No focal neurological deficits. - Psychatric: Alert & oriented x 3. Matching mood & appropriate affect. Judgment and insight intact. - Musculoskeletal: Cervical spine: Muscle bulk/ tone/ strength in the bilateral upper extremities normal Vertebral body tenderness to palpation over Spurling test positive Distraction test positive Facet loading test positive Thoracic spine Muscle bulk / tone/ strength in the bilateral paraspinal muscles normal Vertebral body tender to palpation over Facet loading test positive Lumbar spine: Motor bulk/ tone/ strength lower extremities , thigh and legs : 5/5 Deep tendon reflexes : Normal Knee Jerk. Normal Ankle Jerk . Vertebral body tenderness to palpation over jump reflex with palpation over BL L4-L5, L5-S1 Lumbar Facet Loading Test positive Straight Leg Raise: positive at 30 degrees right side/ left side Gaenslen's Test positive Sacral spine : Severe tenderness over the Sacroiliac joint: right side / left side Range of motion: Flexion of the lumbar spine <60 degrees Range of motion: Extension of the lumbar spine <20 degrees Gaenslen's Test positive Keegan's Test positive Marce test: positive right side / left side Thigh Thrust Test Sacral Thrust Test Assessment and plan: Chronic low back pain secondary to lumbar degenerative disc disease , lumbar spondylosis with facet arthropathy without myelopathy Recommendation of BL RFA L forL5, L5-S1 in near future. Chronic and current use of high-risk medication (Opioids). The patient was counseled about risk of opioid use, psychological risk as sociated with opioids and was orally counseled to not overuse , divert or sell medications. Pt is to store medication in a safe location. The patient is counseled against driving while using narcotic medications and also not to use alcohol or any illicit recreational drugs. Patient verbalized understanding that the lack of compliance will result in failure to renew narcotic prescription(s) as well as possible discharge from the clinic Diagnoses, prognosis and treatment options including but not limited to physical therapy, surgical interventions, interventional therapies and medication management including narcotics and adjuvant medication were discussed. All patient questions answered MAPS reviewed and it was appropriate. urine drug screen ordered today Prescription refill for Percocet 10/325 #90, Lyrica 150 mg #90, Zanaflex 120 , Ibuprofen w 1 RF PQRS Narrative: Smoking Status Current every day smoker Narcotic Agreement Date Signed 02/26/21 Hx Alcohol Use (MH) Yes: NO LONGER USES Home Medications: Ambulatory Orders Lisinopril/Hydrochlorothiazide [Zestoretic 20-12.5] 1 tab PO DAILY 11/14/15 Omeprazole [PriLOSEC] 40 mg PO DAILY 09/16/20 Aspirin [Adult Low Dose Aspirin EC] 81 mg PO DAILY 10/04/20 Isosorbide Mononitrate ER [Imdur] 30 mg PO DAILY 10/04/20 Nitroglycerin 0.4 mg SUBLINGUAL Q5M PRN 10/04/20 oxyCODONE-APAP 10-325MG [Percocet 10-325 mg] 1 tab PO Q8HR PRN 30 Days #90 tab 01/28/22 DULoxetine HCL [Cymbalta] 60 mg PO DAILY 02/27/22 Furosemide [Lasix] 20 mg PO AC-SUPPER 02/27/22 Zinc 100 mg PO QAM 02/27/22 Pregabalin 150 mg PO TID 30 Days #90 cap 03/25/22 Atorvastatin [Lipitor] 20 mg PO HS 04/03/22 Furosemide [Lasix] 40 mg PO QAM 04/03/22 Zinc Gluconate [Zinc] 50 mg PO HS 04/03/22 tiZANidine HCL [Zanaflex] 4 mg PO QID PRN 04/03/22 Controlled Substance Measures - Controlled Substance Measures Is patient prescribed a controlled substance at discharge?: Yes When asked, does pt state using other controlled substances?: No If prescribed controlled substance>3 days was MAPS reviewed?: Yes If Rx opioid, was Start Talking consent form obtained?: Yes Was information provided regarding opioid addiction?: Yes Objective - Vital Signs Vital signs: Vital Signs Temp 97.6 F 07/15/22 10:11 Pulse 51 L 07/15/22 10:11 Resp 18 07/15/22 10:11 BP 121/66 07/15/22 10:11 Pulse Ox 97 07/15/22 10:11 FiO2 Intake & Output 07/14/22 07/15/22 07/15/22 18:59 06:59 18:59 Weight 81.193 kg
== END ==
LOC: PNWHC3 08:03
PROVIDERS: ATTEND Specialist
DX: M47.812 Spondylosis without myelopathy or radiculopathy, cervical region (principal); M51.36 Other intervertebral disc degeneration, lumbar region; Z79.891 Long term (current) use of opiate analgesic; F17.200 Nicotine dependence, unspecified, uncomplicated
CPT/HCPCS: 99211

== ENCOUNTER → 2022-07-15 | Outpatient (CLI) | payer MEDICARE, OTHER ==
[2022-07-16 12:38] LABS: Serum Amphetamine Negative; Serum Barbiturates Negative; Serum Benzodiazepine Negative; Serum Cocaine Negative; Serum Methadone Negative; Serum Opiates Negative; Serum Phencyclidine Negative; Serum Propoxyphene Negative; Serum THC (Cannabis) Negative
== END | disposition home or self-care (01) ==
LOC: LABWHC1 11:33
PROVIDERS: ATTEND Specialist
DX: Z79.891 Long term (current) use of opiate analgesic (principal)
CPT/HCPCS: 36415; 80307

== ENCOUNTER 2022-08-14 08:29 | Day surgery (SDC) | payer MEDICARE, OTHER ==
[~2022-08-14 08:29] MED LIST changes: -ALPRAZolam 0.25 MG TAB PO PRN; -ALPRAZolam 0.5 MG TAB PO PRN; -ASPIRIN 325 MG TAB PO STA; -ATORVASTATIN 80 MG TAB PO STA; -HEPARIN SODIUM,PORCINE 10,000 UNIT in SODIUM CHLORIDE 0.9% 1,000 ML IRRIGATION PRN; -HEPARIN SODIUM,PORCINE 2,500 UNIT in SODIUM CHLORIDE 0.9% 250 ML IRRIGATION PRN; +LACTATED RINGERS 1,000 ML IV SCH; +LIDOCAINE 1% (10MG/ML) FOR IV START INTRADERMA PRN; -NITROGLYCERIN SL TABS 0.4 MG TAB SUBLINGUAL PRN; -SODIUM CHLORIDE 0.9% 1,000 ML in EMPTY BAG 1 BAG IV SCH
[2022-08-14] MEDS ORDERED: LACTATED RINGERS 1,000 ML IV ONE (09:00)
[2022-08-14 09:04] VITALS: TEMP 96.8
[2022-08-14] MEDS ORDERED: fentaNYL (PF) 50 MCG/ML 2 ML AMP ONE (09:08)
[2022-08-14] MEDS ORDERED: ROPIVACAINE 5 MG/ML 20 ML AMPULE ONE (09:08)
[2022-08-14] MEDS ORDERED: MIDAZOLAM 2 MG/2 ML VIAL ONE (09:08)
[2022-08-14] MEDS ORDERED: methylPREDNISolone ACETATE 40 MG/ML 1 ML VIAL ONE (09:08)
--- NOTE | 2022-08-14 09:45 | P.PCN ---
Date of Procedure: 08/14/22 Procedure(s) Performed: PREOPERATIVE DIAGNOSIS: 1-Lumbar Spondylosis with Facet Arthropathy without myelopathy. 2- Lumber degenerative disc disease. POSTOPERATIVE DIAGNOSIS: 1- Lumbar Spondylosis with Facet Arthropathy without myelopathy. 2- Lumber degenerative disc disease. PROCEDURES : Bilateral Radiofrequency thermocoagulation, L3 , L4 , and L5 medial branch, with fluoroscopic guidance (fluoroscopy images available in the radiology department) ( to denervate the facet joint at Bilateral L4-5 ,and L5-S1 levels ). ANESTHESIA: Monitored anesthesia care as per anesthesia department. EBL: Minimal PROCEDURE INDICATION: The patient with low back pain secondary to lumbar facet arthropathy who had more than 50% relief of her pain with previous diagnostic lumbar medial branch block with bupivacaine. PROCEDURE DESCRIPTION / TECHNIQUE: The patient was seen and identified in the preoperative area. Risks, benefits, complications, including but not limited to risk of infection ,bleeding , allergic reactions to the medications and no complete pain releife , and alternatives were discussed with the patient, the patient agreed to proceed with the procedure and signed the consent. IV was started. Vital signs remained stable throughout the procedure. Patient was taken to the OR and time out was completed. The patient was placed in the prone position on the procedure table. The lumber area was prepped and draped in the usual sterile fashion. . Vital signs were closely monitored during the procedure .IV sedation was used during the procedure to decrease patients anxiety. Using AP and then oblique fluoroscopy, the ``eye of the Michael dog yu esponding to the connection between the superior and transverse articular processes of right L3, L4, and L5 were identified, marked, and localized with 1% lidocaine. Subsequently, a [id number] radiofrequency cannula with a 10- mm active tip was advanced guided by fluoroscopy to each of the``eyes of the Michael dog at right L3, L4, and L5. Each site then underwent sensory testing at 50 Hz and 0 to 1 volt and motor testing at 2.5 Hz and 0 to 3 volt with local stimulation, but no radicular symptoms down the legs. Thereafter each sites underwent radiofrequency thermocoagulation at 80 degrees celsius for 90 seconds after injecting 0.5 ml of PF Ropivacaine 1ml, then after the thermocoagulation done , 1 ml of the block solution containing Depo-Medrol 20 mg and 3 ml of Ropivacaine 0.5% was injected at the right L3 , L4 , and L5 , levels after negative aspiration of CSF and blood and with no paresthesias. Cannulas were retracted while injecting lidocaine 1% until the needle is out. The same procedure was repeated at the level of Left L3, L4, and L5 levels. At the end of the procedure, the skin was cleansed and bandages were applied. COMPLICATIONS: No acute complications. DISPOSITION / PLANS: The patient was placed in a supine position and transferred to the recovery area in a stable condition for observation and was discharged from the recovery room after meeting discharge criteria. Home discharge instructions given to the patient by the staff. The patient was reexamined prior to discharge. The patient will schedule a follow up in the clinic in 2-4 weeks.
[2022-08-14] MEDS ORDERED: IV FLUID CONTINUATION 1,000 ML IV ONE (09:50)
[2022-08-14 10:09] VITALS: BP 112/65; PULSE 73; RESP 18
--- NOTE | 2022-08-14 10:19 | FL ---
EXAMINATION TYPE: FL guided pain mgmt statistic DATE OF EXAM: 08/14/2022 CLINICAL HISTORY: Low back pain. TECHNIQUE: Fluoroscopy. COMPARISON: None. FINDINGS: Fluoroscopic guidance was provided during pain relief procedure performed by Dr. Tirado . A total of 18 seconds of fluoroscopic time was utilized during the procedure and 6 spot images are acquired. Images acquired shows needle localization at several levels in the lumbar spine. IMPRESSION: As Above.
== END 2022-08-14 10:20 | disposition home or self-care (01) ==
LOC: ORPAIN 08:29
PROVIDERS: ATTEND Specialist
DX: M47.816 Spondylosis without myelopathy or radiculopathy, lumbar region (principal); M51.36 Other intervertebral disc degeneration, lumbar region; I25.119 Atherosclerotic heart disease of native coronary artery with unspecified angina pectoris; I10 Essential (primary) hypertension; E78.5 Hyperlipidemia, unspecified; J44.9 Chronic obstructive pulmonary disease, unspecified; F17.200 Nicotine dependence, unspecified, uncomplicated; K74.60 Unspecified cirrhosis of liver; K56.609 Unspecified intestinal obstruction, unspecified as to partial versus complete obstruction; F10.288 Alcohol dependence with other alcohol-induced disorder; Z79.01 Long term (current) use of anticoagulants; Z79.02 Long term (current) use of antithrombotics/antiplatelets; Z79.811 Long term (current) use of aromatase inhibitors; Z79.899 Other long term (current) drug therapy
CPT/HCPCS: 64635; 64636 ×2; J2250; J1030; J3010; J2795

== ENCOUNTER → 2022-11-04 | Outpatient (CLI) | payer MEDICARE, OTHER ==
[2022-11-04 10:13] VITALS: BP 114/67; PULSE 59; RESP 18; TEMP 97.6
--- NOTE | 2022-11-04 14:50 | P.PAINPG ---
PQRS Measure Charge Sheet Comment: A 62 yr old male with a history of severe and chronic LBP secondary to lumbar DDD and spondylosis with facet arthropathy without myelopathy presents today for medication refills. Pain level is provoked at 7/10 in intensity, constant, localized in the lumbar spine, sharp in character w shooting towards the hips and BLEs. Pain is provoked by over activity. Pain is alleviated with PT years ago, medications, repositioning and rest. Patient is currently on Percocet, Lyrica, Zanaflex, Ibu Patient denies any side effects of the medication(s), denies excessive drowsiness or sleepiness, denies suicidal ideation and reports that the current pain medication is helping to control the pain and improve activities of daily living. Patient denies any motor or sensory deficits. Patient denies any fever or night sweats, denies any change in the bowel movements or urination. Physical Examination: -Constitutional: Cooperative. Not in acute distress . - Neurologic: Cranial nerve II to XII intact. No focal neurological deficits. - Psychatric: Alert & oriented x 3. Matching mood & appropriate affect. Judgment and insight intact. - Musculoskeletal: Cervical spine: Muscle bulk/ tone/ strength in the bilateral upper extremities normal Vertebral body tenderness to palpation over Spurling test positive Distraction test positive Facet loading test positive TTP Thoracic spine Muscle bulk / tone/ strength in the bilateral paraspinal muscles normal Vertebral body tender to palpation over Facet loading test positive TTP Lumbar spine: Motor bulk/ tone/ strength lower extremities , thigh and legs : 5/5 Deep tendon reflexes : Normal Knee Jerk. Normal Ankle Jerk . Vertebral body tenderness to palpation over L2- L5 Lumbar Facet Loading Test positive Straight Leg Raise: positive at 30 degrees right side/ left side Gaenslen's Test positive Sacral spine : Severe tenderness over the Sacroiliac joint: right side / left side Range of motion: Flexion of the lumbar spine <60 degrees Range of motion: Extension of the lumbar spine <20 degrees Gaenslen's Test positive right side / left side Marce test: positive right side / left side Thigh Thrust Test positive right side / left side Sacral Thrust Test positive right side / left side Assessment and plan: Chronic LBP secondary to lumbar DDD, spondylosis with facet arthropathy without myelopathy Chronic and current use of high-risk medication (Opioids). The patient was counseled about risk of opioid use, psychological risk associated with opioids and was orally counseled to not overuse , divert or sell medications. Pt is to store medication in a safe location. The patient is counseled against driving while using narcotic medications and also not to use alcohol or any illicit recreational drugs. Patient verbalized understanding that the lack of compliance will result in failure to renew narcotic prescription(s) as well as possible discharge from the clinic Diagnoses, prognosis and treatment options including but not limited to physical therapy, surgical interventions, interventional therapies and medication management including narcotics and adjuvant medication were discussed. All patient questions answered MAPS reviewed and it was appropriate. Blood tox screen from 07/09 revi ewed and consistent. Prescription refill for Percocet 10/325 #90, Lyrica 150mg #90, Zanaflex, Ibu w 1 RF I have spent less than 30 minutes on patient care today. Dr Tirado was available by phone for the evaluation of this patient. The time was used to review the medical records including relevant urine studies and Prescription history (MAPs), review of the available imaging, evaluation and examination of the patient, coordination of care with the medical staff and if applicable referring physicians, as well as creation of the medical record PQRS Narrative: Smoking Status Current every day smoker Narcotic Agreement Date Signed 05/20/22 Hx Alcohol Use (MH) Yes: NO LONGER USES Home Medications: Ambulatory Orders Lisinopril/Hydrochlorothiazide [Zestoretic 20-12.5] 1 tab PO DAILY 11/14/15 Omeprazole [PriLOSEC] 40 mg PO DAILY 09/16/20 Aspirin [Adult Low Dose Aspirin EC] 81 mg PO DAILY 10/04/20 Isosorbide Mononitrate ER [Imdur] 30 mg PO DAILY 10/04/20 Nitroglycerin 0.4 mg SUBLINGUAL Q5M PRN 10/04/20 DULoxetine HCL [Cymbalta] 60 mg PO DAILY 02/27/22 Furosemide [Lasix] 20 mg PO AC-SUPPER 02/27/22 Zinc 100 mg PO QAM 02/27/22 Atorvastatin [Lipitor] 20 mg PO HS 04/03/22 Furosemide [Lasix] 40 mg PO QAM 04/03/22 Zinc Gluconate [Zinc] 50 mg PO HS 04/03/22 Ibuprofen 400 mg PO Q8H PRN 30 Days #90 tab 11/04/22 Pregabalin 150 mg PO TID 30 Days #90 cap 11/04/22 oxyCODONE HCL/ACETAMINOPHEN [Percocet 10-325 mg] 1 tab PO Q8HR PRN 30 Days #90 tab 11/04/22 oxyCODONE HCL/ACETAMINOPHEN [Percocet 10-325 mg] 1 tab PO Q8HR PRN 30 Days #90 tab 11/04/22 tiZANidine HCL [Zanaflex] 4 mg PO QID PRN 30 Days #120 cap 11/04/22 Controlled Substance Measures - Controlled Substance Measures Is patient prescribed a controlled substance at discharge?: Yes When asked, does pt state using other controlled substances?: No If prescribed controlled substance>3 days was MAPS reviewed?: Yes
== END ==
LOC: PNWHC3 07:48
PROVIDERS: ATTEND Specialist
DX: M51.36 Other intervertebral disc degeneration, lumbar region (principal); M47.816 Spondylosis without myelopathy or radiculopathy, lumbar region; G89.29 Other chronic pain; F17.200 Nicotine dependence, unspecified, uncomplicated; Z79.891 Long term (current) use of opiate analgesic; Z79.82 Long term (current) use of aspirin
CPT/HCPCS: 99211

== ENCOUNTER → 2022-12-30 | Outpatient (CLI) | payer MEDICARE, OTHER ==
[2022-12-30 10:00] VITALS: BP 137/72; PULSE 69; RESP 18; TEMP 98
--- NOTE | 2022-12-30 15:01 | P.PAINPG ---
PQRS Measure Charge Sheet Comment: A 62 yr old male with a history of severe and chronic LBP secondary to lumbar DDD and spondylosis with facet arthropathy without myelopathy presents today for medication refills. Pain level is provoked at 8/10 in intensity, constant, localized in the lumbar spine, sharp in character w shooting towards the hips and BLEs, L > R. Pain is provoked by over activity. Pain is alleviated with PT years ago, heat & ice infrequently, medications, repositioning and rest. Interventional procedures includes BL RFA L4-L5, L5-S1 Patient is currently on Percocet, Lyrica, Zanaflex, Ibu Patient denies any side effects of the medication(s), denies excessive drowsiness or sleepiness, denies suicidal ideation and reports that the current pain medication is helping to control the pain and improve activities of daily living. Patient denies any motor or sensory deficits. Patient denies any fever or night sweats, denies any change in the bowel movements or urination. Physical Examination: -Constitutional: Cooperative. Not in acute distress . - Neurologic: Cranial nerve II to XII intact. No focal neurological deficit s. - Psychatric: Alert & oriented x 3. Matching mood & appropriate affect. Judgment and insight intact. - Musculoskeletal: Cervical spine: Muscle bulk/ tone/ strength in the bilateral upper extremities normal Vertebral body tenderness to palpation over Spurling test positive Distraction test positive Facet loading test positive TTP Thoracic spine Muscle bulk / tone/ strength in the bilateral paraspinal muscles normal Vertebral body tender to palpation over Facet loading test positive TTP Lumbar spine: Motor bulk/ tone/ strength lower extremities , thigh and legs : 5/5 Deep tendon reflexes : Normal Knee Jerk. Normal Ankle Jerk . Vertebral body tenderness to palpation over L2- L5 Lumbar Facet Loading Test positive Straight Leg Raise: positive at 30 degrees right side/ left side Gaenslen's Test positive Sacral spine : Severe tenderness over the Sacroiliac joint: right side / left side Range of motion: Flexion of the lumbar spine <60 degrees Range of motion: Extension of the lumbar spine <20 degrees Gaenslen's Test positive right side / left side Marce test: positive right side / left side Thigh Thrust Test positive right side / left side Sacral Thrust Test positive right side / left side Assessment and plan: Chronic LBP secondary to lumbar DDD, spondylosis with facet arthropathy without myelopathy Chronic and current use of high-risk medication (Opioids). The patient was counseled about risk of opioid use, psychological risk associated with opioids and was orally counseled to not overuse , divert or sell medications. Pt is to store medication in a safe location. The patient is counseled against driving while using narcotic medications and also not to use alcohol or any illicit recreational drugs. Patient verbalized understanding that the lack of compliance will result in failure to renew narcotic prescription(s) as well as possible discharge from the clinic Diagnoses, prognosis and treatment options including but not limited to physical therapy, surgical interventions, interventional therapies and medication management including narcotics and adjuvant medication were discussed. All patient questions answered MAPS reviewed and it was appropriate. UDS collected today 01/02/23. Prescription refill for Percocet 10/325 #90, Lyrica 150mg #90, Zanaflex, Ibu w 1 RF I have spent less than 30 minutes on patient care today. Dr Tirado was available by phone for the evaluation of this patient. The time was used to review the medical records including relevant urine studies and Prescription history (MAPs), review of the available imaging, evaluation and examination of the patient, coordination of care with the medical staff and if applicable referring physicians, as well as creation of the medical record PQRS Narrative: Smoking Status Current every day smoker Narcotic Agreement Date Signed 05/20/22 Hx Alcohol Use (MH) Yes: NO LONGER USES Home Medications: Ambulatory Orders Lisinopril/Hydrochlorothiazide [Zestoretic 20-12.5] 1 tab PO DAILY 11/14/15 Omeprazole [PriLOSEC] 40 mg PO DAILY 09/16/20 Aspirin [Adult Low Dose Aspirin EC] 81 mg PO DAILY 10/04/20 Isosorbide Mononitrate ER [Imdur] 30 mg PO DAILY 10/04/20 Nitroglycerin 0.4 mg SUBLINGUAL Q5M PRN 10/04/20 DULoxetine HCL [Cymbalta] 60 mg PO DAILY 02/27/22 Furosemide [Lasix] 20 mg PO AC-SUPPER 02/27/22 Zinc 100 mg PO QAM 02/27/22 Atorvastatin [Lipitor] 20 mg PO HS 04/03/22 Furosemide [Lasix] 40 mg PO QAM 04/03/22 Zinc Gluconate [Zinc] 50 mg PO HS 04/03/22 Ibuprofen 400 mg PO Q8H PRN 30 Days #90 tab 04/19/23 tiZANidine HCL [Zanaflex] 4 mg PO QID PRN 30 Days #120 cap 11/04/22 Pregabalin 150 mg PO TID 30 Days #90 cap 12/30/22 oxyCODONE HCL/ACETAMINOPHEN [Percocet 10-325 mg] 1 tab PO Q8HR PRN 30 Days #90 tab 12/30/22 oxyCODONE HCL/ACETAMINOPHEN [Percocet 10-325 mg] 1 tab PO Q8HR PRN 30 Days #90 tab 12/30/22 Controlled Substance Measures - Controlled Substance Measures Is patient prescribed a controlled substance at discharge?: Yes When asked, does pt state using other controlled substances?: Yes If prescribed controlled substance>3 days was MAPS reviewed?: Yes
== END ==
LOC: PNWHC3 07:44
PROVIDERS: ATTEND Specialist
DX: M51.36 Other intervertebral disc degeneration, lumbar region (principal); M47.816 Spondylosis without myelopathy or radiculopathy, lumbar region; G89.29 Other chronic pain; Z79.891 Long term (current) use of opiate analgesic; F17.200 Nicotine dependence, unspecified, uncomplicated; Z79.82 Long term (current) use of aspirin
CPT/HCPCS: 99212

== ENCOUNTER → 2023-02-24 | Outpatient (CLI) | payer MEDICARE, OTHER ==
[2023-02-24 08:15] VITALS: BP 174/86; PULSE 66; RESP 16; TEMP 98
--- NOTE | 2023-02-24 13:09 | P.PAINPG ---
PQRS Measure Charge Sheet Comment: A 62 yr old male with a history of severe and chronic LBP secondary to lumbar DDD and spondylosis with facet arthropathy without myelopathy presents today for medication refills. Pain level is provoked at 8/10 in intensity, constant, localized in the lumbar spine, sharp in character w shooting towards the hips and BLEs, L > R. Pain is provoked by over activity. Pain is alleviated with PT years ago, heat & ice infrequently, medications, repositioning and rest. Interventional procedures includes BL RFA L4-L5, L5-S1 Patient is currently on Percocet, Lyrica, Zanaflex, Ibu Patient denies any side effects of the medication(s), denies excessive drowsiness or sleepiness, denies suicidal ideation and reports that the current pain medication is helping to control the pain and improve activities of daily living. Patient denies any motor or sensory deficits. Patient denies any fever or night sweats, denies any change in the bowel movements or urination. Physical Examination: -Constitutional: Cooperative. Not in acute distress . - Neurologic: Cranial nerve II to XII intact. No focal neurological deficit s. - Psychatric: Alert & oriented x 3. Matching mood & appropriate affect. Judgment and insight intact. - Musculoskeletal: Cervical spine: Muscle bulk/ tone/ strength in the bilateral upper extremities normal Vertebral body tenderness to palpation over Spurling test positive Distraction test positive Facet loading test positive TTP Thoracic spine Muscle bulk / tone/ strength in the bilateral paraspinal muscles normal Vertebral body tender to palpation over Facet loading test positive TTP Lumbar spine: Motor bulk/ tone/ strength lower extremities , thigh and legs : 5/5 Deep tendon reflexes : Normal Knee Jerk. Normal Ankle Jerk . Vertebral body tenderness to palpation over L2- L5 Lumbar Facet Loading Test positive Straight Leg Raise: positive at 30 degrees right side/ left side Gaenslen's Test positive Sacral spine : Severe tenderness over the Sacroiliac joint: right side / left side Range of motion: Flexion of the lumbar spine <60 degrees Range of motion: Extension of the lumbar spine <20 degrees Gaenslen's Test positive right side / left side Marce test: positive right side / left side Thigh Thrust Test positive right side / left side Sacral Thrust Test positive right side / left side Assessment and plan: Chronic LBP secondary to lumbar DDD, spondylosis with facet arthropathy without myelopathy Chronic and current use of high-risk medication (Opioids). The patient was counseled about risk of opioid use, psychological risk associated with opioids and was orally counseled to not overuse , divert or sell medications. Pt is to store medication in a safe location. The patient is counseled against driving while using narcotic medications and also not to use alcohol or any illicit recreational drugs. Patient verbalized understanding that the lack of compliance will result in failure to renew narcotic prescription(s) as well as possible discharge from the clinic Diagnoses, prognosis and treatment options including but not limited to physical therapy, surgical interventions, interventional therapies and medication management including narcotics and adjuvant medication were discussed. All patient questions answered MAPS reviewed and it was appropriate. UDS from 12/31/22 reviewed and consistent. Prescription refill for Percocet 10/325 #90, Lyrica 150mg #90, Zanaflex, Ibu w 1 RF I have spent less than 30 minutes on patient care today. Dr Tirado was available by phone for the evaluation of this patient. The time was used to review the medical records including relevant urine studies and Prescription history (MAPs), review of the available imaging, evaluation and examination of the patient, coordination of care with the medical staff and if applicable referring physicians, as well as creation of the medical record PQRS Narrative: Smoking Status Current every day smoker Narcotic Agreement Date Signed 05/20/22 Hx Alcohol Use (MH) Yes: NO LONGER USES Home Medications: Ambulatory Orders Lisinopril/Hydrochlorothiazide [Zestoretic 20-12.5] 1 tab PO DAILY 11/14/15 Omeprazole [PriLOSEC] 40 mg PO DAILY 09/16/20 Aspirin [Adult Low Dose Aspirin EC] 81 mg PO DAILY 10/04/20 Isosorbide Mononitrate ER [Imdur] 30 mg PO DAILY 10/04/20 Nitroglycerin 0.4 mg SUBLINGUAL Q5M PRN 10/04/20 DULoxetine HCL [Cymbalta] 60 mg PO DAILY 02/27/22 Atorvastatin [Lipitor] 20 mg PO HS 04/03/22 Furosemide [Lasix] 40 mg PO QAM 04/03/22 Ibuprofen 400 mg PO Q8H PRN 30 Days #90 tab 02/24/23 Ibuprofen 800 mg PO Q8H 30 Days #90 tab 02/24/23 Pregabalin 150 mg PO TID 30 Days #90 cap 02/24/23 oxyCODONE HCL/ACETAMINOPHEN [Percocet 10-325 mg Tablet] 1 each PO TID PRN 30 Days #90 tab 02/24/23 oxyCODONE HCL/ACETAMINOPHEN [Percocet 10-325 mg] 1 tab PO Q8HR PRN 30 Days #90 tab 02/24/23 oxyCODONE HCL/ACETAMINOPHEN [Percocet 10-325 mg] 1 tab PO Q8HR PRN 30 Days #90 tab 02/24/23 oxyCODONE HCL/ACETAMINOPHEN [Percocet 10-325 mg] 1 tab PO TID PRN 30 Days #90 tab 02/24/23 tiZANidine HCL [Zanaflex] 4 mg PO QID PRN 30 Days #120 cap 02/24/23 Controlled Substance Measures - Controlled Substance Measures Is patient prescribed a controlled substance at discharge?: Yes When asked, does pt state using other controlled substances?: Yes If prescribed controlled substance>3 days was MAPS reviewed?: Yes
== END ==
LOC: PNWHC3 07:28
PROVIDERS: ATTEND Specialist
DX: M51.36 Other intervertebral disc degeneration, lumbar region (principal); M47.816 Spondylosis without myelopathy or radiculopathy, lumbar region; G89.29 Other chronic pain; F17.200 Nicotine dependence, unspecified, uncomplicated; Z79.891 Long term (current) use of opiate analgesic; Z79.82 Long term (current) use of aspirin
CPT/HCPCS: 99211

== ENCOUNTER → 2023-04-21 | Outpatient (CLI) | payer MEDICARE, OTHER ==
[2023-04-21 08:47] VITALS: BP 152/84; PULSE 63; RESP 16; TEMP 98.1
--- NOTE | 2023-04-21 14:40 | P.PAINPG ---
PQRS Measure Charge Sheet Comment: A 63 yr old male with a history of severe and chronic LBP secondary to lumbar DDD and spondylosis with facet arthropathy without myelopathy presents today for medication refills. Pain level is provoked at 7/10 in intensity, constant, localized in the lumbar spine, sharp in character w shooting towards the hips and BLEs, L > R. Pain is provoked by over activity and cold weather. Pain is alleviated with PT 3 years ago, heat & ice infrequently, medications, repositioning and rest. Interventional procedures includes BL RFA L4-L5/ L5-S1 Patient is currently on Percocet, Lyrica, Zanaflex, Ibu Patient denies any side effects of the medication(s), denies excessive drowsiness or sleepiness, denies suicidal ideation and reports that the current pain medication is helping to control the pain and improve activities of daily living. Patient denies any motor or sensory deficits. Patient denies any fever or night sweats, denies any change in the bowel movements or urination. Physical Examination: -Constitutional: Cooperative. Not in acute distress . - Neurologic: Cranial nerve II to XII intact. No focal neurological deficits. - Psychatric: Alert & oriented x 3. Matching mood & appropriate affect. Judgment and insight intact. - Musculoskeletal: Cervical spine: Muscle bulk/ tone/ strength in the bilateral upper extremities normal Vertebral body tenderness to palpation over Spurling test positive Distraction test positive Facet loading test positive TTP Thoracic spine Muscle bulk / tone/ strength in the bilateral paraspinal muscles normal Vertebral body tender to palpation over Facet loading test positive TTP Lumbar spine: Motor bulk/ tone/ strength lower extremities , thigh and legs : 5/5 Deep tendon reflexes : Normal Knee Jerk. Normal Ankle Jerk . Vertebral body tenderness to palpation over L2- L5 Lumbar Facet Loading Test positive Straight Leg Raise: positive at 30 degrees right side/ left side Gaenslen's Test positive Sacral spine : Severe tenderness over the Sacroiliac joint: right side / left side Range of motion: Flexion of the lumbar spine <60 degrees Range of motion: Extension of the lumbar spine <20 degrees Gaenslen's Test positive right side / left side Marce test: positive right side / left side Thigh Thrust Test positive right side / left side Sacral Thrust Test positive right side / left side Assessment and plan: Chronic LBP secondary to lumbar DDD, spondylosis with facet arthropathy without myelopathy Chronic and current use of high-risk medication (Opioids). The patient was counseled about risk of opioid use, psychological risk associated with opioids and was orally counseled to not overuse , divert or sell medications. Pt is to store medication in a safe location. The patient is counseled against driving while using narcotic medications and also not to use alcohol or any illicit recreational drugs. Patient verbalized understanding that the lack of compliance will result in failure to renew narcotic prescription(s) as well as possible discharge from the clinic Diagnoses, prognosis and treatment options including but not limited to physical therapy, surgical interventions, interventional therapies and medication management including narcotics and adjuvant medication were discussed. All patient questions answered . Opiate/ narcotic agreement renewed 04/21/23. MAPS reviewed and it was appropriate. UDS from 12/31/22 reviewed and consistent. Prescription refill for Percocet 10/325 #90, Lyrica 150mg #90, Zanaflex w2 1 RF I have spent less than 30 minutes on patient care today. Dr Tirado was available by phone for the evaluation of this patient. The time was used to rev iew the medical records including relevant urine studies and Prescription history (MAPs), review of the available imaging, evaluation and examination of the patient, coordination of care with the medical staff and if applicable referring physicians, as well as creation of the medical record PQRS Narrative: Smoking Status Current every day smoker Narcotic Agreement Date Signed 05/20/22 Hx Alcohol Use (MH) Yes: NO LONGER USES Home Medications: Ambulatory Orders Lisinopril/Hydrochlorothiazide [Zestoretic 20-12.5] 1 tab PO DAILY 11/14/15 Omeprazole [PriLOSEC] 40 mg PO DAILY 09/16/20 Aspirin [Adult Low Dose Aspirin EC] 81 mg PO DAILY 10/04/20 Isosorbide Mononitrate ER [Imdur] 30 mg PO DAILY 10/04/20 Nitroglycerin 0.4 mg SUBLINGUAL Q5M PRN 10/04/20 DULoxetine HCL [Cymbalta] 60 mg PO DAILY 02/27/22 Atorvastatin [Lipitor] 20 mg PO HS 04/03/22 Furosemide [Lasix] 40 mg PO QAM 04/03/22 Ibuprofen 400 mg PO Q8H PRN 30 Days #90 tab 02/24/23 Ibuprofen 800 mg PO Q8H 30 Days #90 tab 02/24/23 Pregabalin 150 mg PO TID 30 Days #90 cap 02/24/23 oxyCODONE HCL/ACETAMINOPHEN [Percocet 10-325 mg Tablet] 1 each PO TID PRN 30 Days #90 tab 02/24/23 oxyCODONE HCL/ACETAMINOPHEN [Percocet 10-325 mg] 1 tab PO Q8HR PRN 30 Days #90 tab 02/24/23 Pregabalin [Lyrica] 150 mg PO TID 30 Days #90 capsule 04/21/23 oxyCODONE HCL/ACETAMINOPHEN [Percocet 10-325 mg] 1 tab PO Q8HR PRN 30 Days #90 tab 04/21/23 oxyCODONE HCL/ACETAMINOPHEN [Percocet 10-325 mg] 1 tab PO TID PRN 30 Days #90 tab 04/21/23 tiZANidine HCL [Zanaflex] 4 mg PO QID PRN 30 Days #120 cap 04/21/23 Controlled Substance Measures - Controlled Substance Measures Is patient prescribed a controlled substance at discharge?: No
== END ==
LOC: PNWHC3 08:04
PROVIDERS: ATTEND Specialist
DX: M51.36 Other intervertebral disc degeneration, lumbar region (principal); M47.816 Spondylosis without myelopathy or radiculopathy, lumbar region; G89.29 Other chronic pain; F17.200 Nicotine dependence, unspecified, uncomplicated; Z79.891 Long term (current) use of opiate analgesic; Z79.82 Long term (current) use of aspirin
CPT/HCPCS: 99211

== ENCOUNTER → 2023-06-09 | Outpatient (CLI) | payer MEDICARE, OTHER ==
[2023-06-09 10:22] VITALS: RESP 16
[2023-06-09 10:50] VITALS: BP 186/84; PULSE 54; TEMP 97.7
--- NOTE | 2023-06-09 14:51 | P.PAINPG ---
PQRS Measure Charge Sheet Comment: A 63 yr old male with a history of severe and chronic LBP secondary to lumbar DDD and spondylosis with facet arthropathy without myelopathy presents today for medication refills. Pain level is provoked at 8/10 in intensity, constant, localized in the lumbar spine, sharp in character w shooting towards the hips and BLEs, L > R. Pain is provoked by over activity and cold weather. Pain is alleviated with PT 3 years ago, heat & ice infrequently, medications, repositioning and rest. Interventional procedures includes BL RFA L4-L5/ L5-S1 Patient is currently on Percocet, Lyrica, Zanaflex, Ibu Patient denies any side effects of the medication(s), denies excessive drowsiness or sleepiness, denies suicidal ideation and reports that the current pain medication is helping to control the pain and improve activities of daily living. Patient denies any motor or sensory deficits. Patient denies any fever or night sweats, denies any change in the bowel movements or urination. Physical Examination: -Constitutional: Cooperative. Not in acute distress . - Neurologic: Cranial nerve II to XII intact. No focal neurological deficits. - Psychatric: Alert & oriented x 3. Matching mood & appropriate affect. Judgment and insight intact. - Musculoskeletal: Cervical spine: Muscle bulk/ tone/ strength in the bilateral upper extremities normal Vertebral body tenderness to palpation over Spurling test positive Distraction test positive Facet loading test positive TTP Thoracic spine Muscle bulk / tone/ strength in the bilateral paraspinal muscles normal Vertebral body tender to palpation over Facet loading test positive TTP Lumbar spine: Motor bulk/ tone/ strength lower extremities , thigh and legs : 5/5 Deep tendon reflexes : Normal Knee Jerk. Normal Ankle Jerk . Vertebral body tenderness to palpation over L2- L5 Lumbar Facet Loading Test positive Straight Leg Raise: positive at 30 degrees right side/ left side Gaenslen's Test positive Sacral spine : Severe tenderness over the Sacroiliac joint: right side / left side Range of motion: Flexion of the lumbar spine <60 degrees Range of motion: Extension of the lumbar spine <20 degrees Gaenslen's Test positive right side / left side Marce test: positive right side / left side Thigh Thrust Test positive right side / left side Sacral Thrust Test positive right side / left side Assessment and plan: Chronic LBP secondary to lumbar DDD, spondylosis with facet arthropathy without myelopathy Chronic and current use of high-risk medication (Opioids). The patient was counseled about risk of opioid use, psychological risk associated with opioids and was orally counseled to not overuse , divert or sell medications. Pt is to store medication in a safe location. The patient is counseled against driving while using narcotic medications and also not to use alcohol or any illicit recreational drugs. Patient verbalized understanding that the lack of compliance will result in failure to renew narcotic prescription(s) as well as possible discharge from the clinic Diagnoses, prognosis and treatment options including but not limited to physical therapy, surgical interventions, interventional therapies and medication management including narcotics and adjuvant medication were discussed. All patient questions answered . Opiate/ narcotic agreement renewed 04/21/23. MAPS reviewed and it was appropriate. UDS from 12/31/22 reviewed and consistent. Prescription refill for Percocet 10/325 #90, Lyrica 150mg #90, Zanaflex w2 1 RF I have spent less than 30 minutes on patient care today. Dr Tirado was available by phone for the evaluation of this patient. The time was used to rev iew the medical records including relevant urine studies and Prescription history (MAPs), review of the available imaging, evaluation and examination of the patient, coordination of care with the medical staff and if applicable referring physicians, as well as creation of the medical record - Pain Location Bilateral Lower Back Non-Pharmacological Interventions: Heat, Ice, Inactivity, Physical Therapy, Position/Reposition, Sitting, Standing Pharmacological Interventions: Epidural, PRN Medication, Scheduled Medication, Topical Medication PQRS Narrative: Smoking Status Current every day smoker Narcotic Agreement Date Signed 05/20/22 Hx Alcohol Use (MH) Yes: NO LONGER USES Home Medications: Ambulatory Orders Lisinopril/Hydrochlorothiazide [Zestoretic 20-12.5] 1 tab PO DAILY 11/14/15 Omeprazole [PriLOSEC] 40 mg PO DAILY 09/16/20 Aspirin [Adult Low Dose Aspirin EC] 81 mg PO DAILY 10/04/20 Isosorbide Mononitrate ER [Imdur] 30 mg PO DAILY 10/04/20 Nitroglycerin 0.4 mg SUBLINGUAL Q5M PRN 10/04/20 DULoxetine HCL [Cymbalta] 60 mg PO DAILY 02/27/22 Atorvastatin [Lipitor] 20 mg PO HS 04/03/22 Furosemide [Lasix] 40 mg PO QAM 04/03/22 Ibuprofen 800 mg PO Q8H 30 Days #90 tab 02/24/23 Pregabalin 150 mg PO TID 30 Days #90 cap 02/24/23 oxyCODONE HCL/ACETAMINOPHEN [Percocet 10-325 mg Tablet] 1 each PO TID PRN 30 Days #90 tab 02/24/23 oxyCODONE HCL/ACETAMINOPHEN [Percocet 10-325 mg] 1 tab PO Q8HR PRN 30 Days #90 tab 02/24/23 Pregabalin [Lyrica] 150 mg PO TID 30 Days #90 capsule 04/21/23 Ibuprofen 400 mg PO Q8H PRN 30 Days #90 tab 06/09/23 oxyCODONE HCL/ACETAMINOPHEN [Percocet 10-325 mg] 1 tab PO Q8HR PRN 30 Days #90 tab 06/09/23 oxyCODONE HCL/ACETAMINOPHEN [Percocet 10-325 mg] 1 tab PO TID PRN 30 Days #90 tab 06/09/23 tiZANidine HCL [Zanaflex] 4 mg PO QID PRN 30 Days #120 cap 06/09/23 Controlled Substance Measures - Controlled Substance Measures Is patient prescribed a controlled substance at discharge?: Yes
== END ==
LOC: PNWHC3 09:51
PROVIDERS: ATTEND Specialist
DX: M47.816 Spondylosis without myelopathy or radiculopathy, lumbar region (principal); M51.36 Other intervertebral disc degeneration, lumbar region; F17.200 Nicotine dependence, unspecified, uncomplicated; Z79.899 Other long term (current) drug therapy; Z79.82 Long term (current) use of aspirin
CPT/HCPCS: 99211

== ENCOUNTER → 2023-08-04 | Outpatient (CLI) | payer MEDICARE, OTHER ==
[2023-08-04 10:49] VITALS: BP 142/76; PULSE 67; RESP 16; TEMP 97.1
--- NOTE | 2023-08-04 14:33 | P.PAINPG ---
PQRS Measure Charge Sheet Comment: A 63 yr old male with a history of severe and chronic LBP x 3 yrs secondary to lumbar DDD and spondylosis with facet arthropathy without myelopathy presents today for medication refills. Pain level is provoked at 9/10 in intensity, constant, localized in the lumbar spine, predominantly axial, sharp in character w shooting towards the hips and BLEs, L > R. Pain is provoked by over activity and cold weather. Pain is alleviated with PT 3 years ago, heat & ice infrequently, medications, repositioning and rest. Oswestry axial pain score of 27. Interventional procedures includes BL RFA L4-L5/ L5-S1 Patient is currently on Percocet, Lyrica, Zanaflex, Ibu Patient denies any side effects of the medication(s), denies excessive drowsiness or sleepiness, denies suicidal ideation and reports that the current pain medication is helping to control the pain and improve activities of daily living. Patient denies any motor or sensory deficits. Patient denies any fever or night sweats, denies any change in the bowel movements or urination. Physical Examination: -Constitutional: Cooperative. Not in acute distress . - Neurologic: Cranial nerve II to XII intact. No focal neurological deficits. - Psychatric: Alert & oriented x 3. Matching mood & appropriate affect. Judgment and insight intact. - Musculoskeletal: Cervical spine: Muscle bulk/ tone/ strength in the bilateral upper extremities normal Vertebral body tenderness to palpation over Spurling test positive Distraction test positive Facet loading test positive TTP Thoracic spine Muscle bulk / tone/ strength in the bilateral paraspinal muscles normal Vertebral body tender to palpation over Facet loading test positive TTP Lumbar spine: Motor bulk/ tone/ strength lower extremities , thigh and legs : 5/5 Deep tendon reflexes : Normal Knee Jerk. Normal Ankle Jerk . Vertebral body tenderness to palpation Lumbar Facet Loading Test positive over BL L4-L5, L5-S1 Straight Leg Raise: positive at 30 degrees right side/ left side Gaenslen's Test positive Sacral spine : Severe tenderness over the Sacroiliac joint: right side / left side Range of motion: Flexion of the lumbar spine <60 degrees Range of motion: Extension of the lumbar spine <20 degrees Gaenslen's Test positive right side / left side Marce test: positive right side / left side Thigh Thrust Test positive right side / left side Sacral Thrust Test positive right side / left side Assessment and plan: Chronic LBP secondary to lumbar DDD, spondylosis with facet arthropathy without myelopathy Chronic and current use of high-risk medication (Opioids). The patient was counseled about risk of opioid use, psychological risk associated with opioids and was orally counseled to not overuse , divert or sell medications. Pt is to store medication in a safe location. The patient is counseled against driving while using narcotic medications and also not to use alcohol or any illicit recreational drugs. Patient verbalized understanding that the lack of compliance will result in failure to renew narcotic prescription(s) as well as possible discharge from the clinic Diagnoses, prognosis and treatment options including but not limited to physical therapy, surgical interventions, interventional therapies and medication management including narcotics and adjuvant medication were discussed. All patient questions answered . Opiate/ narcotic agreement renewed 04/21/23. MAPS reviewed and it was appropriate. UDS collected 08/04/23. Prescription refill for Percocet 10/325 #90, Lyrica 150mg #90, Zanaflex 4mg #120, Ibu 800mg #90 w 1 RF I have spent less than 30 minutes on patient care today. Dr Tirado was av ailable by phone for the evaluation of this patient. The time was used to review the medical records including relevant urine studies and Prescription history (MAPs), review of the available imaging, evaluation and examination of the patient, coordination of care with the medical staff and if applicable referring physicians, as well as creation of the medical record PQRS Narrative: Smoking Status Current every day smoker Narcotic Agreement Date Signed 04/21/23 Hx Alcohol Use (MH) Yes: NO LONGER USES Home Medications: Ambulatory Orders Lisinopril/Hydrochlorothiazide [Zestoretic 20-12.5] 1 tab PO DAILY 11/14/15 Omeprazole [PriLOSEC] 40 mg PO DAILY 09/16/20 Aspirin [Adult Low Dose Aspirin EC] 81 mg PO DAILY 10/04/20 Isosorbide Mononitrate ER [Imdur] 30 mg PO DAILY 10/04/20 Nitroglycerin 0.4 mg SUBLINGUAL Q5M PRN 10/04/20 DULoxetine HCL [Cymbalta] 60 mg PO DAILY 02/27/22 Atorvastatin [Lipitor] 20 mg PO HS 04/03/22 Furosemide [Lasix] 40 mg PO QAM 04/03/22 Pregabalin 150 mg PO TID 30 Days #90 cap 02/24/23 oxyCODONE HCL/ACETAMINOPHEN [Percocet 10-325 mg Tablet] 1 each PO TID PRN 30 Days #90 tab 02/24/23 oxyCODONE HCL/ACETAMINOPHEN [Percocet 10-325 mg] 1 tab PO Q8HR PRN 30 Days #90 tab 02/24/23 Ibuprofen 400 mg PO Q8H PRN 30 Days #90 tab 06/09/23 Ibuprofen 800 mg PO Q8H 30 Days #90 tab 08/04/23 Pregabalin [Lyrica] 150 mg PO TID 30 Days #90 capsule 08/04/23 oxyCODONE HCL/ACETAMINOPHEN [Percocet 10-325 mg] 1 tab PO Q8HR PRN 30 Days #90 tab 08/04/23 oxyCODONE HCL/ACETAMINOPHEN [Percocet 10-325 mg] 1 tab PO TID PRN 30 Days #90 tab 08/04/23 tiZANidine HCL [Zanaflex] 4 mg PO QID PRN 30 Days #120 cap 08/04/23 Controlled Substance Measures - Controlled Substance Measures Is patient prescribed a controlled substance at discharge?: Yes When asked, does pt state using other controlled substances?: No If prescribed controlled substance>3 days was MAPS reviewed?: Yes
== END ==
LOC: PNWHC3 09:46
PROVIDERS: ATTEND Specialist
DX: M51.37 Other intervertebral disc degeneration, lumbosacral region (principal); M47.817 Spondylosis without myelopathy or radiculopathy, lumbosacral region; G89.29 Other chronic pain; F17.200 Nicotine dependence, unspecified, uncomplicated; Z79.891 Long term (current) use of opiate analgesic; Z51.81 Encounter for therapeutic drug level monitoring; Z79.82 Long term (current) use of aspirin
CPT/HCPCS: 80307; 99212

== ENCOUNTER → 2023-09-29 | Outpatient (CLI) | payer MEDICARE, OTHER ==
[2023-09-29 10:36] VITALS: BP 142/86; PULSE 89; RESP 15; TEMP 98.6
--- NOTE | 2023-09-29 12:42 | P.PAINPG ---
PQRS Measure Charge Sheet Comment: A 63 yr old male with a history of severe and chronic LBP x 3 yrs secondary to lumbar DDD and spondylosis with facet arthropathy without myelopathy presents today for medication refills. Pt states he experienced 60% pain relief x 7 mo s/p last BL RFA L3-L5 from Jul 2022. Pain level is provoked at 9/10 in in tensity, constant, localized in the lumbar spine, predominantly axial, sharp in character w shooting towards the hips and BLEs, L > R. Pain is provoked by over activity and cold weather. Pain is alleviated with PT 3 years ago, heat & ice infrequently, medications, repositioning and rest. Oswestry axial pain score of 27. Interventional procedures includes BL RFA L4-L5/ L5-S1 Patient is currently on Percocet, Lyrica, Zanaflex, Ibu Patient denies any side effects of the medication(s), denies excessive drowsiness or sleepiness, denies suicidal ideation and reports that the current pain medication is helping to control the pain and improve activities of daily living. Patient denies any motor or sensory deficits. Patient denies any fever or night sweats, denies any change in the bowel movements or urination. Physical Examination: -Constitutional: Cooperative. Not in acute distress . - Neurologic: Cranial nerve II to XII intact. No focal neurological deficits. - Psychatric: Alert & oriented x 3. Matching mood & appropriate affect. Judgment and insight intact. - Musculoskeletal: Cervical spine: Muscle bulk/ tone/ strength in the bilateral upper extremities normal Vertebral body tenderness to palpation over Spurling test positive Distraction test positive Facet loading test positive TTP Thoracic spine Muscle bulk / tone/ strength in the bilateral paraspinal muscles normal Vertebral body tender to palpation over Facet loading test positive TTP Lumbar spine: Motor bulk/ tone/ strength lower extremities , thigh and legs : 5/5 Deep tendon reflexes : Normal Knee Jerk. Normal Ankle Jerk . Vertebral body tenderness to palpation Lumbar Facet Loading Test positive over BL L4-L5, L5-S1 Straight Leg Raise: positive at 30 degrees right side/ left side Gaenslen's Test positive Sacral spine : Severe tenderness over the Sacroiliac joint: right side / left side Range of motion: Flexion of the lumbar spine <60 degrees Range of motion: Extension of the lumbar spine <20 degrees Gaenslen's Test positive right side / left side Marce test: positive right side / left side Thigh Thrust Test positive right side / left side Sacral Thrust Test positive right side / left side Assessment and plan: Chronic LBP secondary to lumbar DDD, spondylosis with facet arthropathy without myelopathy Recommendation of BL RFA L3-L5. Pt exhibited substantial pain relief w prior RFA of the lumbar spine from Jul 2022. Risks, benefits of procedure discussed and patient verbalized understanding. Protocol for discontinuation/continuation of medications discussed. Chronic and current use of high-risk medication (Opioids). The patient was counseled about risk of opioid use, psychological risk associated with opioids and was orally counseled to not overuse , divert or sell medications. Pt is to store medication in a safe location. The patient is counseled against driving while using narcotic medications and also not to use alcohol or any illicit recreational drugs. Patient verbalized understanding that the lack of compliance will result in failure to renew narcotic prescription(s) as well as possible discharge from the clinic Diagnoses, prognosis and treatment options including but not limited to physical therapy, surgical interventions, interventional therapies and medication management including narcotics and adjuvant medication were discussed. All patient questions answered . Opiate/ narcotic agreement renewed 04/21/23. MAPS reviewed and it was appropriate. UDS from 08/04/23 reviewed, positive for ETOH metabolites/ Percocet metabolites/ Lyrica metabolites. Will recheck UDS 09/29/23 Prescription refill for Percocet 10/325 #90, Lyrica 150mg #90, Zanaflex 4mg #120, Ibu 800mg #90 w 1 RF I have spent less than 30 minutes on patient care today. Dr Tirado was available by phone for the evaluation of this patient. The time was used to review the medical records including relevant urine studies and Prescription history (MAPs), review of the available imaging, evaluation and examination of the patient, coordination of care with the medical staff and if applicable referring physicians, as well as creation of the medical record PQRS Narrative: Smoking Status Current every day smoker Narcotic Agreement Date Signed 04/21/23 Hx Alcohol Use (MH) Yes: NO LONGER USES Home Medications: Ambulatory Orders Lisinopril/Hydrochlorothiazide [Zestoretic 20-12.5] 1 tab PO DAILY 11/14/15 Omeprazole [PriLOSEC] 40 mg PO DAILY 09/16/20 Aspirin [Adult Low Dose Aspirin EC] 81 mg PO DAILY 10/04/20 Isosorbide Mononitrate ER [Imdur] 30 mg PO DAILY 10/04/20 Nitroglycerin 0.4 mg SUBLINGUAL Q5M PRN 10/04/20 DULoxetine HCL [Cymbalta] 60 mg PO DAILY 02/27/22 Atorvastatin [Lipitor] 20 mg PO HS 04/03/22 Furosemide [Lasix] 40 mg PO QAM 04/03/22 Pregabalin 150 mg PO TID 30 Days #90 cap 02/24/23 oxyCODONE HCL/ACETAMINOPHEN [Percocet 10-325 mg Tablet] 1 each PO TID PRN 30 Days #90 tab 02/24/23 oxyCODONE HCL/ACETAMINOPHEN [Percocet 10-325 mg] 1 tab PO Q8HR PRN 30 Days #90 tab 02/24/23 Ibuprofen 400 mg PO Q8H PRN 30 Days #90 tab 06/09/23 Ibuprofen 800 mg PO Q8H 30 Days #90 tab 08/04/23 Pregabalin [Lyrica] 150 mg PO TID 30 Days #90 capsule 08/04/23 oxyCODONE HCL/ACETAMINOPHEN [Percocet 10-325 mg] 1 tab PO Q8HR PRN 30 Days #90 tab 08/04/23 oxyCODONE HCL/ACETAMINOPHEN [Percocet 10-325 mg] 1 tab PO TID PRN 30 Days #90 tab 08/04/23 tiZANidine HCL [Zanaflex] 4 mg PO QID PRN 30 Days #120 cap 08/04/23 Controlled Substance Measures - Controlled Substance Measures Is patient prescribed a controlled substance at discharge?: Yes When asked, does pt state using other controlled substances?: No If prescribed controlled substance>3 days was MAPS reviewed?: Yes
== END ==
LOC: PNWHC3 09:43
PROVIDERS: ATTEND Specialist
DX: M51.37 Other intervertebral disc degeneration, lumbosacral region (principal); M47.817 Spondylosis without myelopathy or radiculopathy, lumbosacral region; G89.29 Other chronic pain; F17.200 Nicotine dependence, unspecified, uncomplicated; Z79.891 Long term (current) use of opiate analgesic; Z79.82 Long term (current) use of aspirin
CPT/HCPCS: 80307; 99212

== ENCOUNTER → 2023-11-24 | Outpatient (CLI) | payer MEDICARE, OTHER ==
--- NOTE | 2023-11-24 11:13 | XR ---
EXAMINATION TYPE: XR knee complete LT DATE OF EXAM: 11/24/2023 COMPARISON: NONE HISTORY: Pain TECHNIQUE: Three views are submitted. FINDINGS: Mild narrowing in the medial compartment and patellofemoral compartment marginal spurring.. Osseous structures are intact. No acute fracture seen. Enthesophyte along the upper margin of the patella. There is a small suprapatellar bursal fluid collection. IMPRESSION: 1. Mild osteoarthritis. Small suprapatellar bursal fluid collection can be associated with internal d erangement of knee. Correlate with MRI as clinically warranted.
== END | disposition home or self-care (01) ==
LOC: RADXRMAIN 10:35
PROVIDERS: ATTEND Family Medicine
DX: M17.12 Unilateral primary osteoarthritis, left knee (principal)

== ENCOUNTER → 2024-02-17 | Outpatient (CLI) | payer MEDICARE, OTHER ==
--- NOTE | 2024-02-17 13:42 | MR ---
EXAMINATION TYPE: MR knee LT wo con DATE OF EXAM: 02/17/2024 COMPARISON: None HISTORY: Lt knee pain TECHNIQUE: Multiplanar, multisequence imaging of the left knee is performed without IV contrast. FINDINGS: There is no bone contusion or fracture. There is no joint effusion. There is mild osteoarthritic change in the lateral compartment and knee where there is mild subchondr al changes , mild thinning of the articular cartilage and mild hypertrophic spurring at the margins. A small vertical tear in the posterior horn of the lateral meniscus cannot be excluded. The medial meniscus is intact. The cruciate and collateral ligaments are intact. The patellar and quadriceps tendons are intact. IMPRESSION: 1. Mild osteoarthritic changes lateral compartment knee. 2. Cannot exclude small vertical tear of the posterior horn of the lateral meniscus. 3. No ligamentous injury.
[2024-02-17 16:14] LABS: HCT 41.2 % (39.6-50.0); HGB 13.6 g/dL (13.0-17.0); MCH 30.6 pg (27.0-32.0); MCV 92.8 FL (80.0-97.0); Mean Platelet Volume 10.3 FL (9.5-12.2); NRBC Per 100 WBC 0 X 10*3/uL (0.00-0.01); Platelet Count 372 X 10*3/uL (140-440); RBC 4.44 X 10*6/uL (4.40-5.60); RDW 14.3 % (11.5-14.5); WBC 10.37 X 10*3/uL (4.50-10.00)
[2024-02-17 16:20] LABS: Appearance,Urine Clear (Clear); Bilirubin,Urine Negative (Negative); Blood,Urine Negative (Negative); Color,Urine Yellow (Yellow); Ketones,Urine Negative (Negative); Nitrite,Urine Negative (Negative); PH, Urine 6.5; Specific Gravity,Urine 1.023 (1.001-1.030); Urobilinogen,Urine 0.2 E.U./DL
[2024-02-17 16:24] LABS: Bacteria,Urine None Seen (None Seen)
[2024-02-17 16:48] LABS: ALT 13 U/L (10-49); AST 16 U/L (14-35); Albumin 4.2 g/dL (3.8-4.9); Albumin/Globulin Ratio 1.75 Ratio (1.60-3.17); Alkaline Phosphatase 96 U/L (41-126); BUN/Creat Ratio 14.67 Ratio (12.00-20.00); Blood Urea Nitrogen 13.2 mg/dL (9.0-27.0); Calcium 9.8 mg/dL (8.7-10.3); Carbon Dioxide 25.1 mmol/L (21.6-31.8); Chloride 100 mmol/L (96-109); Chol/HDL Ratio 3.36 Ratio; Globulin 2.4 g/dL (1.6-3.3); Glucose 101 mg/dL (70-110); Potassium 3.9 mmol/L (3.5-5.5); Prostate Specific Antigen 2.98 ng/mL (0.000-4.500); Sodium 137 mmol/L (135-145); Total Bilirubin 0.5 mg/dL (0.3-1.2); Total Protein 6.6 g/dL (6.2-8.2)
== END | disposition home or self-care (01) ==
LOC: RADMRIMAIN 09:04
PROVIDERS: ATTEND Family Medicine
DX: M17.12 Unilateral primary osteoarthritis, left knee (principal)
CPT/HCPCS: 80053; 80061; 81001; 82306; 83036; 84153; 84443; 85027

== ENCOUNTER → 2024-10-18 | Outpatient (CLI) | payer MEDICARE, OTHER | END | disposition home or self-care (01) | LOC: RADXRMAIN 11:47 | PROVIDERS: ATTEND Physician Assistant | DX: Z53.9 Procedure and treatment not carried out, unspecified reason (principal) ==

== ENCOUNTER → 2024-10-24 | Outpatient (CLI) | payer MEDICARE, OTHER ==
--- NOTE | 2024-10-24 11:23 | XR ---
EXAMINATION TYPE: XR femur LT DATE OF EXAM: 10/24/2024 11:03 AM COMPARISON: Left knee x-ray 11/24/2023, MRI 12/10/2018 CLINICAL INDICATION: Male, 64 years old with history of T14.90XA INJURY, UNSPECIFIED, INITIAL ENCOUNT ER, pain TECHNIQUE: 2 view(s) obtained. FINDINGS: There is destruction of the femoral head. There is loss of the joint space. There is some lucency wit hin the femoral neck region. Findings may be related to chronic fracture with advanced degenerative c hanges of the femoral head. Report was provided to the office at time of interpretation. The diaphyseal femur and left knee appears intact. No acute or chronic fractures evident. No knee dao nt effusion is evident. Anterior superior patellar spurring is present. IMPRESSION: 1. 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 2. Chronic femoral neck fracture may be present. 3. Distal femur appears intact. [facility], , 10/24/2024 11:20 AM
== END | disposition home or self-care (01) ==
LOC: RADXRMAIN 10:09
PROVIDERS: ATTEND Family Medicine
DX: M87.052 Idiopathic aseptic necrosis of left femur (principal); T14.90XA Injury, unspecified, initial encounter

== ENCOUNTER → 2024-10-31 | Outpatient (CLI) | payer MEDICARE, OTHER ==
[2024-10-31 11:56] LABS: Partial Thromboplastin Time 22.1 sec (22.0-30.0)
[2024-10-31 15:07] LABS: HCT 44.7 % (39.6-50.0); HGB 15.1 g/dL (13.0-17.0); MCHC 33.8 g/dL (32.0-37.0); MCV 91.8 FL (80.0-97.0); Mean Platelet Volume 11.7 FL (9.5-12.2); NRBC Per 100 WBC 0 X 10*3/uL (0.00-0.01); Platelet Count 265 X 10*3/uL (140-440); RBC 4.87 X 10*6/uL (4.40-5.60); RDW 12.4 % (11.5-14.5); WBC 7.89 X 10*3/uL (4.50-10.00)
[2024-10-31 15:27] LABS: ALT 19 U/L (10-49); AST 19 U/L (14-35); Albumin 4.2 g/dL (3.8-4.9); Albumin/Globulin Ratio 1.62 Ratio (1.60-3.17); Alkaline Phosphatase 96 U/L (41-126); BUN/Creat Ratio 14.62 Ratio (12.00-20.00); Blood Urea Nitrogen 11.7 mg/dL (9.0-27.0); Calcium 9.9 mg/dL (8.7-10.3); Carbon Dioxide 26.2 mmol/L (21.6-31.8); Chloride 98 mmol/L (96-109); Globulin 2.6 g/dL (1.6-3.3); Glucose 102 mg/dL (70-110); Potassium 4.4 mmol/L (3.5-5.5); Sodium 136 mmol/L (135-145); Total Bilirubin 0.3 mg/dL (0.3-1.2); Total Protein 6.8 g/dL (6.2-8.2)
[2024-10-31 15:42] LABS: INR 0.9 (<1.2); Prothrombin Time 10.5 sec (10.0-12.5)
== END | disposition home or self-care (01) ==
LOC: LABPAT 10:01
PROVIDERS: ATTEND Orthopaedic Surgery
DX: Z01.818 Encounter for other preprocedural examination (principal); M16.12 Unilateral primary osteoarthritis, left hip; R00.1 Bradycardia, unspecified; Z22.322 Carrier or suspected carrier of Methicillin resistant Staphylococcus aureus
CPT/HCPCS: 80053; 83036; 85027; 85610; 85730; 86850; 86900; 86901; 87070; 93005

== ENCOUNTER 2024-11-17 14:27 | Day surgery (SDC) | payer MEDICARE, OTHER ==
[~2024-11-17 14:27] MED LIST changes: +HYDROmorphone 0.5 MG/0.5 ML SYRINGE IVP PRN; -LACTATED RINGERS 1,000 ML IV SCH; +ONDANSETRON 4 MG/2 ML VIAL IVP PRN; +TRANEXAMIC 1,000 MG/100ML-NACL 1,000 MG in SALINE 1 100ML.BAG IV PRN; +TRANEXAMIC 1,000 MG/100ML-NACL 1,000 MG in SALINE 1 100ML.BAG IVPB PRN; +fentaNYL (PF) 50 MCG/ML 2 ML AMP IVP PRN
[2024-11-17] MEDS: oxyCODONE ER 10 MG TAB.ER.12H PO PRN (14:55)
[2024-11-17] MEDS: ACETAMINOPHEN TAB 500 MG TAB PO PRN (14:55)
[2024-11-17] MEDS: DOCUSATE 100 MG CAP PO PRN (14:55)
[2024-11-17] MEDS: MIDAZOLAM 2 MG/2 ML VIAL IV PRN (15:01)
[2024-11-17] MEDS: ONDANSETRON 4 MG/2 ML VIAL IVP ONE (15:07)
[2024-11-17] MEDS: KETOROLAC 15 MG/ML 1 ML VIAL IVP PRN (15:08)
[2024-11-17] MEDS: DEXAMETHASONE SOD PHOSPHATE 10 MG/ML 1 ML VIAL IV PRN (15:11)
[2024-11-17] MEDS: FAMOTIDINE 20 MG/2 ML VIAL IVP PRN (15:11)
[2024-11-17] MEDS: LACTATED RINGERS 1,000 ML IV SCH ×2 (15:12→20:24)
[2024-11-17] MEDS: IV FLUID CONTINUATION 1,000 ML IV ONE (15:16)
[2024-11-17] MEDS ORDERED: MIDAZOLAM 2 MG/2 ML VIAL ONE (16:06)
[2024-11-17] MEDS ORDERED: ROCURONIUM 10 MG/ML (5 ML VIAL) IV ONE (16:06)
[2024-11-17] MEDS ORDERED: fentaNYL (PF) 50 MCG/ML 2 ML AMP ONE (16:06)
[2024-11-17] MEDS ORDERED: PHENYLEPHRINE-0.9% NACL SYG 1,000 MCG/10 ML SYRINGE ONE (16:06)
[2024-11-17] MEDS ORDERED: SUCCINYLCHOLINE CHLORIDE 200 MG/10 ML VIAL IV ONE (16:06)
[2024-11-17] MEDS ORDERED: TRANEXAMIC 1,000 MG/100ML-NACL PREMIX BAG ONE (16:06)
[2024-11-17] MEDS ORDERED: PROPOFOL 10 MG/ML 20 ML VIAL IV ONE (16:06)
[2024-11-17] MEDS ORDERED: GLYCOPYRROLATE 0.2 MG/ML 2 ML VIAL ONE (16:06)
[2024-11-17] MEDS ORDERED: NEOSTIGMINE 1 MG/ML 10 ML VIAL ONE (16:06)
[2024-11-17] MEDS ORDERED: DEXAMETHASONE SOD PHOSPHATE 4 MG/ML 1 ML VIAL ONE (16:06)
[2024-11-17] MEDS ORDERED: ROPIVACAINE 5 MG/ML 30 ML VIAL ONE (16:06)
[2024-11-17] MEDS: ceFAZolin 2 GM in DEXTROSE 5% IN WATER 50 ML IVPB PRN (16:10)
[2024-11-17] MEDS: ROPIVACAINE/EPI/CLONIDINE/KET 50 ML SYRINGE MISCELLANE PRN (16:41)
[2024-11-17] MEDS: VANCOMYCIN 1,000 MG VIAL MISCELLANE ONE (17:39)
[2024-11-17] MEDS: LACTATED RINGERS 1,000 ML IV ONE (17:42)
[2024-11-17] MEDS ORDERED: MAGNESIUM HYDROXIDE 2,400 MG/30 ML CUP PO PRN (17:50)
[2024-11-17] MEDS ORDERED: diazePAM 5 MG TAB PO PRN ×2 (17:50)
[2024-11-17] MEDS ORDERED: HYDROmorphone 1 MG/ML 1 ML SYRINGE IVP PRN (17:50)
[2024-11-17] MEDS ORDERED: NALOXONE 0.4 MG/ML 1 ML VIAL IV PRN (17:50)
[2024-11-17] MEDS ORDERED: HYDROmorphone 0.5 MG/0.5 ML SYRINGE IVP PRN ×2 (17:50)
[2024-11-17] MEDS ORDERED: hydrOXYzine pamoate 25 MG CAP PO PRN (17:50)
[2024-11-17] MEDS ORDERED: TEMAZEPAM 15 MG CAP PO PRN (17:50)
[2024-11-17] MEDS ORDERED: ONDANSETRON 4 MG/2 ML VIAL IVP PRN (17:50)
--- NOTE | 2024-11-17 17:50 | P.OP ---
Date of Procedure: 11/17/24 Preoperative Diagnosis: 1. Severe left hip osteoarthritis with likely avascular necrosis and collapse 2. History of alcohol abuse 3. History of cigarette smoking Postoperative Diagnosis: Same Procedure(s) Performed: Left direct anterior total hip arthroplasty Implants: 1. Mumford Trident II Acetabular Cup, Size #52 2. Mumford Insignia Size #3 Femoral Stem, High Offset 3. Biolox delta femoral head, 36 mm, -5 mm neck Anesthesia: VIVIA, regional Surgeon: Kana Sanders City Planning Engineer #1: Noel Nichols Estimated Blood Loss (ml): 300 IV fluids (ml): 800 Pathology: none sent Condition: stable Disposition: PACU Indications for Procedure: The patient is a very pleasant 64-year-old male with a medical history significant for cigarette smoking and alcohol abuse. He presented to my office with severe left hip arthritis and likely avascular necrosis and collapse of the femoral head. He was essentially wheelchair-bound due to his pain. The patient requested proceeding with a total hip replacement. He agreed to quit smoking. He understands his elevated risk of a complication. I had a long discussion with him and he understands the ramifications of complications from elective total joint replacement. We both agreed that his quality of life was so significantly diminished and his hip was so severely arthritic that proceeding with a total hip replacement would be within the patient's best interest. I had a long discussion with the patient in the office on the potential risks and complications of an elective total hip replacement through a direct anterior approach. Risks discussed include, but are certainly not limited to, risks from anesthesia, superficial infection requiring local wound care or antibiotics, deep tony-prosthetic joint infection and the treatment required to eradicate infection, intraoperative fracture, postoperative periprosthetic fracture, damage to local blood vessels or nerves particularly the lateral femoral cutaneous nerve, delayed wound healing requiring local wound care or possibly surgical debridement, hip dislocation, leg length discrepancy, soft tissue irritation around the total hip implant such as iliopsoas tendinitis or trochanteric bursitis, wear and osteolysis from the implants, squeaking or audible noises, groin pain, thigh pain, heterotopic ossification, stiffness, aseptic loosening of the implants, dissatisfaction with surgical outcome, need for revision surgery, DVT, PE, swelling of the operative extremity, acute coronary event, stroke, failure to thrive, and possibly loss of life or limb. The patient understands that while these are the most common complications after an elective hip replacement there are certainly other less common complications possible. They were given ample time to ask questions regarding the potential complications of a hip replacement. Following our discussion the patient provided their verbal and written consent to go forward with an elective total hip replacement. Operative Findings: There was severe arthritis and collapse of the femoral head. The femoral head was deformed with complete loss of articular cartilage. There was also diffuse arthritic changes and bone loss within the acetabulum. Description of Procedure: The patient was identified in the preoperative holding area and the correct hip was marked with my initials. I reviewed the procedure and consent with the patient. All of their questions were answered. The patient was then brought back into the operating room by anesthesia. While on the [facility] anesthesia was administered by the anesthesia team. Preoperative antibiotics and tranexamic acid were also given. After the patient was under anesthesia I examined their ankles to determine their preoperative leg length discrepancy. The skin over the anterior aspect of the hip was shaved to remove hair over the site of planned incision. Both feet and ankles were padded with webril and boots for the [place] were applied. The patient was then carefully transferred onto the [place] table. A perineal post was immediately placed. The arms were placed on arm holders and were well-padded. Both boots were secured to the spars on the [place] table. The patient was positioned so that the pelvis was centered over the post. Nonsterile drapes were applied. A timeout was performed identifying the correct patient, operative extremity, and procedure. At this point fluoroscopy was brought in to take preoperative images of the pelvis and operative hip. Using the standing AP pelvis from the office as a template, a comparable image was obtained with fluoroscopy. A metallic bar was used to create a bi-ischial line for use as a reference to leg length adjustments during the procedure. Global offset was also measured on both the operative and nonoperative leg. Fluoroscopy was then brought out and a pre-scrub using a chlorhexidine scrub brush was performed. The operative limb was then prepped and draped in the standard sterile fashion. An anterior longitudinal incision was made lateral and distal to the ASIS. The skin and subcutaneous tissues were incised sharply. The underlying tensor fascia was identified and incised in its midportion. The fascia was dissected free from the underlying muscle and the muscle belly was retracted. A blunt tipped cobra retractor was placed over the superior neck under the muscle fibers of the gluteus minimus. The deep enveloping fascia of the tensor was incised. The anterior leash of vessels were then identified and cauterized. The fascia between the rectus and the capsule was then incised and the pre-capsular fat was excised. A second Cobra was placed inferior to the neck. The interval between the rectus and iliocapsularis and the hip capsule was developed and a retractor was placed carefully over the anterior rim of the acetabulum. A T-shaped anterior capsulotomy was performed. The superior capsular leaflet was left in place in the inferior capsular flap was excised. The Cobra retractors were placed intracapsularly. We then made a femoral neck osteotomy according to preoperative and intraoperative templating and confirmed the level of the osteotomy using fluoroscopic imaging. The femoral head was removed, passed off to the back table, and sized. The superior capsular flap was excised. Retractors were placed circumferentially exposing the acetabulum. We then circumferentially debrided the acetabulum free of labrum and osteophytes. The pulvinar was removed to fully visualize the cotyloid fossa. We then sequentially reamed to achieve peripheral fit and excellent bleeding subchondral bone. The socket was thoroughly irrigated. The acetabular component was impacted into the appropriate position using fluoroscopy to guide version, inclination, and depth of insertion taking care to have a comparable image of the AP pelvis to the standing image taken in the office. An excellent press-fit was achieved and final position was confirmed using fluoroscopy. The press fit was augmented with a bony cancellus dome screw. The liner was then impacted into the socket. Attention was then turned to the femur. The remnant dorsal lateral capsule was excised. The short external rotators were visible and protected. A bone hook was used to confirm appropriate translation of the trochanter away from the acetabulum. The leg was then extended and adducted and the bone hook was used to elevate the femur for broaching. A box osteotome and blunt tipped canal sound was then utilized to gain access to the femoral canal. We then sequentially broached the femur in appropriate anteversion until excellent torsional stability was achieved. The neck cut was brought flush to the trial broach with a calcar planar. A trial neck and head were then placed onto the broach and the hip was atraumatically reduced under direct visualization. External rotation to 90 was performed to assess stability. Fluoroscopy was brought in. An AP and lateral fluoroscopic image of the proximal femur was obtained to assess position and fill of the trial broach. An AP of the pelvis was then obtained and matched to the preoperative image taken. A bi-ischial bar was then placed and measurements were taken to assess changes in length and offset. The hip was then carefully dislocated, the proximal femur was exposed, and the trial implants were removed. The wound and proximal femur was thoroughly irrigated using sterile saline and pulsatile lavage. The final femoral implant was dispensed and gently tapped into place generating an exce llent press-fit. The trunnion was cleansed and the final head was tapped into place to engage the Carreno taper. The acetabulum was irrigated and visualized to be free of debris. The hip was carefully reduced. Stability was checked clinically with external rotation to 90 and there was no evidence of instability. Final fluoroscopic images were taken. The wound was then thoroughly irrigated and soaked with a dilute Betadine rinse for 3 minutes. 3 L of sterile saline was irrigated through the wound using pulsatile lavage. Local anesthetic cocktail was injected into the soft tissues around the surgical field. 2 g of vancomycin powder was placed within the wound. The wound was then closed in layers. A sterile dressing was placed over the surgical incision. The drapes were taken down and the patient was carefully transferred off of the [place] table. Following removal of the boots the leg lengths felt acceptable. The patient was then taken to recovery room having tolerated the p rocedure well. Noel Nichols PA-C was required as a skilled phys assistant due to the complexity of surgery for patient positioning, draping, exposure, retraction, closure of wound and application of dressing. PLAN: The patient can weight-bear as tolerated on the operative extremity. 2 doses of postoperative antibiotics. DVT prophylaxis with aspirin 81 mg twice a day based on preoperative risk stratification. Doxycycline 100 mg twice daily until his incision heals. Physical therapy for gait training.
--- NOTE | 2024-11-17 19:05 | FL ---
EXAMINATION TYPE: FL guidance operating room, XR Hip Limited LT DATE OF EXAM: 11/17/2024 6:56 PM COMPARISON: Pre Operative Images if available both CT/MRI or plain film CLINICAL INDICATION: Male, 64 years old with history of LEFT HIP OA; TECHNIQUE: FL guidance operating room, XR Hip Limited LT, multiple fluoroscopic images provided for p rocedure. DAP: 1.5881 mGym2 Gycm2 uGym2 cGycm2 or equivalent. FINDINGS: Fluoroscopic images during arthroplasty demonstrate hardware in appropriate position. Hardware appear s intact. No immediate complication identified. IMPRESSION: 1. No evidence for intraoperative complication. 2. Please see the operative/procedural note for further details. [facility], , 11/17/2024 7:02 PM
[2024-11-17] MEDS: DEXAMETHASONE SOD PHOSPHATE 4 MG/ML 1 ML VIAL IV ONE (20:02)
[2024-11-17] MEDS: ASPIRIN 81 MG PO SCH (20:24)
[2024-11-17] MEDS: ATORVASTATIN 20 MG TAB PO SCH (20:24)
[2024-11-17] MEDS: SENNOSIDES-DOCUSATE SODIUM 1 EACH TAB PO SCH (20:24)
[2024-11-17] MEDS: ceFAZolin 2 GM in DEXTROSE 5% IN WATER 50 ML IVPB SCH (23:53)
[2024-11-17] MEDS: HYDROcodone/APAP 5-325MG 1 EACH TAB PO PRN (23:53)
[2024-11-18 02:10] VITALS: RESP 17
[2024-11-18 07:22] VITALS: BP 138/71; PULSE 63; TEMP 98
[2024-11-18] MEDS: FUROSEMIDE 40 MG TAB PO SCH (07:22)
[2024-11-18] MEDS: MULTIVITAMINS, THERA 1 EACH TAB PO SCH (07:22)
[2024-11-18] MEDS: PANTOPRAZOLE 40 MG TABLET PO SCH (07:22)
[2024-11-18] MEDS: ISOSORBIDE MONONITRATE ER 30 MG TAB.ER.24H PO SCH (07:22)
[2024-11-18] MEDS: FAMOTIDINE 20 MG TAB PO SCH (07:22)
[2024-11-18] MEDS: DULoxetine HCL 60 MG CAPSULE.DR PO SCH (07:22)
[2024-11-18] MEDS: LISINOPRIL-HCTZ 20-12.5 MG 1 EACH TAB PO SCH (07:23)
--- NOTE | 2024-11-18 07:48 | P.DS ---
Providers Date of admission: 11/17/2024 Attending physician: Kana Sanders Consults: 11/17/24 17:50 Consult Physician Routine Consulting Provider: Marshall Bañuelos Consult Reason/Comments: post op medical management Do you want consulting provider notified?: Yes Primary care physician: [facility] Course: The patient is a very pleasant 64-year-old male who was admitted under my care yesterday and underwent uncomplicated total hip replacement. Following surgery he was transferred to the orthopedic floor. He received 2 doses of postoperative antibiotics. He was transitioned from IV to oral pain medication. He was started on aspirin for DVT prophylaxis. He was seen by myself on postoperative day #1 and was doing well. His dressing was intact. Femoral nerve function was intact. He was able to actively plantarflex and dorsiflex his ankle and his toes. Physical therapy was ordered. Internal medicine has been consulted for perioperative medical management. Tentative plan was to discharge home today if he passes physical therapy. Patient Condition at Discharge: Good Plan - Discharge Summary Discharge Rx Participant: No New Discharge Prescriptions: New Aspirin 81 mg PO BID #60 tab Docusate [Colace] 100 mg PO BID #60 capsule Diclofenac Sodium [Voltaren] 75 mg PO BID #60 tab Doxycycline Monohydrate 100 mg PO BID #28 cap oxyCODONE-APAP 5-325MG [Percocet 5-325 mg] 1 tab PO Q6HR PRN 3 Days #18 tab PRN Reason: Pain Omeprazole 40 mg PO DAILY #30 cap No Action Lisinopril/Hydrochlorothiazide [Zestoretic 20-12.5] 1 tab PO DAILY Omeprazole [PriLOSEC] 40 mg PO DAILY Nitroglycerin 0.4 mg SUBLINGUAL Q5M PRN PRN Reason: Chest Pain Isosorbide Mononitrate ER [Imdur] 30 mg PO DAILY Aspirin [Adult Low Dose Aspirin EC] 81 mg PO DAILY Atorvastatin [Lipitor] 20 mg PO HS Furosemide [Lasix] 40 mg PO QAM oxyCODONE HCL/ACETAMINOPHEN [oxyCODONE HCL/ACETAMINOPHEN 5-325] 1 tab PO BID DULoxetine HCL [Cymbalta] 60 mg PO DAILY Ibuprofen 800 mg PO Q8H 30 Days #90 tab Discharge Medication List Lisinopril/Hydrochlorothiazide [Zestoretic 20-12.5] 1 tab PO DAILY 11/14/15 [History] Omeprazole [PriLOSEC] 40 mg PO DAILY 09/16/20 [History] Aspirin [Adult Low Dose Aspirin EC] 81 mg PO DAILY 10/04/20 [History] Isosorbide Mononitrate ER [Imdur] 30 mg PO DAILY 10/04/20 [History] Nitroglycerin 0.4 mg SUBLINGUAL Q5M PRN 10/04/20 [History] DULoxetine HCL [Cymbalta] 60 mg PO DAILY 02/27/22 [History] Atorvastatin [Lipitor] 20 mg PO HS 04/03/22 [History] Furosemide [Lasix] 40 mg PO QAM 04/03/22 [History] Ibuprofen 800 mg PO Q8H 30 Days #90 tab 08/04/23 [Rx] oxyCODONE HCL/ACETAMINOPHEN [oxyCODONE HCL/ACETAMINOPHEN 5-325] 1 tab PO BID 11/03/24 [History] Aspirin 81 mg PO BID #60 tab 11/18/24 [Rx] Diclofenac Sodium [Voltaren] 75 mg PO BID #60 tab 11/18/24 [Rx] Docusate [Colace] 100 mg PO BID #60 capsule 11/18/24 [Rx] Doxycycline Monohydrate 100 mg PO BID #28 cap 11/18/24 [Rx] Omeprazole 40 mg PO DAILY #30 cap 11/18/24 [Rx] oxyCODONE-APAP 5-325MG [Percocet 5-325 mg] 1 tab PO Q6HR PRN 3 Days #18 tab 11/18/24 [Rx] Follow up Appointment(s)/Referral(s): Kana Sanders MD [Medical Doctor] - 2 Weeks Activity/Diet/Wound Care/Special Instructions: 1. Weight-bear as tolerated on your operative extremity unless instructed otherwise. Use a walker or other assistive device to ambulate. 2. Leave surgical dressing in place. If your dressing becomes saturated with blood, there is drainage, or the dressing becomes loose please contact the office. 3. It is okay to shower with your surgical dressing, but do not submerge in water (no hot tubs, bath's, swimming etc.) 4. Make sure to take her blood clot prevention medication as prescribed (aspirin, Eliquis, Xarelto, and Plavix are commonly prescribed medications for blood clot prevention) 5. While taking Miracle or Percocet for pain make sure you're taking a stool softener (Colace) and drink lots of water. 6. Keep all follow-up appointments as scheduled. You will usually be seen in 1-2 weeks following surgery. 7. Please contact the office with any questions or concerns [phone] Discharge Disposition: HOME WITH HOME HEALTH SERVICES
[2024-11-18 10:18] LABS: Basophils # (A) 0.01 X 10*3/uL (0.00-0.10); Basophils % (A) 0.1 %; Eosinophils # (A) 0 X 10*3/uL (0.04-0.35); Eosinophils % (A) 0 %; HCT 38.2 % (39.6-50.0); HGB 12.8 g/dL (13.0-17.0); Lymphocytes # (A) 0.72 X 10*3/uL (0.90-5.00); Lymphocytes % (A) 4.7 %; MCH 30.3 pg (27.0-32.0); MCHC 33.5 g/dL (32.0-37.0); MCV 90.3 FL (80.0-97.0); Mean Platelet Volume 11.3 FL (9.5-12.2); Monocytes # (A) 0.67 X 10*3/uL (0.20-1.00); Monocytes % (A) 4.4 %; NRBC Per 100 WBC 0 X 10*3/uL (0.00-0.01); Neutrophils # (A) 13.91 X 10*3/uL (1.80-7.70); Neutrophils % (A) 90.3 %; Platelet Count 281 X 10*3/uL (140-440); RBC 4.23 X 10*6/uL (4.40-5.60); RDW 12.4 % (11.5-14.5); WBC 15.38 X 10*3/uL (4.50-10.00)
[2024-11-18] MEDS: HYDROcodone/APAP 10-325MG 1 EACH TAB PO PRN (11:23)
--- NOTE | 2024-11-18 19:32 | P.CONS ---
History of Present Illness - Reason for Consult Consult date: 11/18/24 Medical manage Requesting physician: Kana Sanders - Chief Complaint Hip surgery - History of Present Illness Pleasant 64-year-old patient follows Dr. Guerra. Patient just underwent left total hip arthroplasty. This morning pain controlled. Did ambulate. He tolerated diet. No dizziness lightheadedness. Denies any chest pain or shortness of breath. Review of systems: GEN.: None EYES: None HEENT: None NECK: None RESPIRATORY: None CARDIOVASCULAR: None GASTROINTESTINAL: None GENITOURINARY: None MUSCULOSKELETAL: Joint pains] LYMPHATICS: None HEMATOLOGICAL: None PSYCHIATRY: None Social history: Lives alone. Smokes averaging half a pack a day for last 55 years. Did drink excessive alcohol stopped in 2008 Physical examination: VITAL SIGNS: 98, 63, 17, 138 x 71, 97% room air GENERAL: BMI 2043.2, sitting at the edge of the bed awake comfortable. EYES: Pupils equal. Conjunctiva bandar l. HEENT: External appearance of nose and ears normal, oral cavity grossly normal. NECK: JVD not raised; masses not palpable. HEART: First and second heart sounds are normal; no edema. LUNGS: Respiratory rate normal; clear to auscultation. ABDOMEN: Soft, nontender, liver spleen not palpable, no masses palpable. PSYCH: Alert and oriented x3; mood and affect bandar l. MUSCULOSKELETAL:No Clubbing/cyanosis;muscles-grossly intact. OA NEUROLOGICAL: Cranial nerves grossly intact; no facial asymmetry, power and sensation grossly intact. LYMPHATICS: No lymph nodes palpable in the axilla and neck INVESTIGATIONS, reviewed in the clinical context: November 18, 2024: White count 15.3 hemoglobin 12.8 platelets 281 Assessment plan: - Left total hip arthroplasty. Percocet for pain control. Aspirin for DVT prophylaxis. - Primary osteoarthritis in other joints Voltaren - GERD Omeprazole - Hyperlipidemia Lipitor - Essential hypertension Zestoretic - COPD no current smoker Patient to use inhalers as needed - Alcoholic cirrhosis - BPH Care was discussed with patient. Patient to follow-up with Dr. Guerra next week. Thank you Dr. Sanders Past Medical History Past Medical History: Asthma, Chest Pain / Angina, COPD, GERD/Reflux, Hyperlipidemia, Hypertension, Liver Disease, Osteoarthritis (OA), Prostate Disorder Additional Past Medical History / Comment(s): Hx Heart Murmur. Hx Head Injury. Migraines, Sciatica, Scoliosis. Pins & Baker bilateral legs, feet. Alcoholic cirrhosis, Enlarged Prostate. fx Lt ribs 2019-fell on roof of a barn, hiatal HERNIA,, back pain through to chest, has boil like spot on left leg, states drs are aware. History of Any Multi-Drug Resistant Organisms: None Reported Past Surgical History: Hernia Repair, Orthopedic Surgery Additional Past Surgical History / Comment(s): "11/29/18 Had fluid drained from around brain." Rt hand surgery, AC SEPARATION RIGHT COLLAR BONE -GRAFT FROM ELBOW, COLONOSCOPY, Lt HIP SURGERY for hip dislocation, Rt INGUINAL HERNIA REPAIR, MULTIPLE PAIN PROCEDURES. Past Anesthesia/Blood Transfusion Reactions: No Reported Reaction Additional Past Anesthesia/Blood Transfusion Reaction / Comm: adopted-no family hx Past Psychological History: Anxiety, Depression Smoking Status: Current every day smoker Past Alcohol Use History: Rare Additional Past Alcohol Use History / Comment(s): SMOKER SINCE AGE 11, 1 pack per 2-3 days. Patient states he had problems with alcoholism, quit DRINKING in 2008 Past Drug Use History: None Reported - Past Family History Mother History Unknown: Yes Family Medical History: Unable to Obtain Additional Family Medical History / Comment(s): Pt was adopted. Medications and Allergies Home Medications Medication Instructions Recorded Confirmed Type Lisinopril/Hydrochlorothiazide 1 tab PO DAILY 11/14/15 11/17/24 History [Zestoretic 20-12.5] Omeprazole [PriLOSEC] 40 mg PO DAILY 09/16/20 11/13/24 History Aspirin [Adult Low Dose Aspirin EC] 81 mg PO DAILY 10/04/20 11/17/24 History Isosorbide Mononitrate ER [Imdur] 30 mg PO DAILY 10/04/20 11/17/24 History Nitroglycerin 0.4 mg SUBLINGUAL Q5M PRN 10/04/20 11/17/24 History DULoxetine HCL [Cymbalta] 60 mg PO DAILY 02/27/22 11/17/24 History Atorvastatin [Lipitor] 20 mg PO HS 04/03/22 11/17/24 History Furosemide [Lasix] 40 mg PO QAM 04/03/22 11/17/24 History Aspirin 81 mg PO BID #60 tab 11/18/24 Rx Diclofenac Sodium [Voltaren] 75 mg PO BID #60 tab 11/18/24 Rx Docusate [Colace] 100 mg PO BID #60 capsule 11/18/24 Rx Doxycycline Monohydrate 100 mg PO BID #28 cap 11/18/24 Rx Omeprazole 40 mg PO DAILY #30 cap 11/18/24 Rx oxyCODONE-APAP 5-325MG [Percocet 1 tab PO Q6HR PRN 3 Days #18 tab 11/18/24 Rx 5-325 mg] Allergies Allergy/AdvReac Type Severity Reaction Status Date / Time No Known Allergies Allergy Verified 11/03/24 13:20 Physical Exam Vitals: Vital Signs Temp Pulse Pulse Resp BP Pulse Ox 11/18/24 07:21 98.0 F 63 17 138/71 97 11/18/24 01:34 98.2 F 60 17 124/57 99 11/17/24 19:23 98.1 F 69 18 155/74 97 11/17/24 18:41 69 14 157/67 96 11/17/24 18:26 72 14 161/63 95 11/17/24 18:11 97.3 F L 84 12 169/74 100 11/17/24 15:13 77 17 114/63 99 11/17/24 14:50 97.1 F L 78 18 134/57 99 Intake and Output 11/17/24 11/18/24 11/18/24 22:59 06:59 14:59 Intake Total 1100 Output Total 300 Balance 800 Intake: IV 1100 Output: Estimated Blood Loss 300 Other: # Voids 1 2 # Bowel Movements 1 Weight 67.2 kg Results CBC & Chem 7: 11/18/24 04:02 Labs: Abnormal Lab Results - Last 24 Hours (Table) 11/18/24 Range/Units 04:02 WBC 15.38 H (4.50-10.00) X 10*3/uL RBC 4.23 L (4.40-5.60) X 10*6/uL Hgb 12.8 L (13.0-17.0) g/dL Hct 38.2 L (39.6-50.0) % Immature Gran # 0.07 H (0.00-0.04) X 10*3/uL Neutrophils # 13.91 H (1.80-7.70) X 10*3/uL Lymphocytes # 0.72 L (0.90-5.00) X 10*3/uL Eosinophils # 0 L (0.04-0.35) X 10*3/uL
[2024-11-18] MEDS ORDERED: TEMAZEPAM 15 MG CAP PO PRN (22:00)
--- NOTE | 2024-11-19 19:02 | P.ANPRN ---
Procedure Note - Anesthesia - Nerve Block Performed Left Celso Single Time Out Performed: Yes Date of Procedure: 11/17/24 Procedure Start Time: 15:01 Procedure Stop Time: 15:10 Location of Patient: PreOp Indication: Acute Post-Operative Pain, Requested by Surgeon Sedation Type: Sedate with meaningful contact maintained Preparation: Sterile Prep Position: Supine Needle Types: Pajunk Needle Gauge: 21 Ultrasound used to visualize needle placement: Yes Ultrasound used to observe medication spread: Yes Blood Aspirated: No Pain Paresthesia on Injection Noted: No Resistance on Injection: Normal Image Stored and Saved: Yes Events: Uneventful and Well Tolerated (Ropivacaine .5% 20 cc plus dexamethasone 4 mg)
== END 2024-11-18 13:01 | disposition home health service (06) ==
LOC: OR 14:27 → 4SSUR 18:00 → OR 11-18 13:01
PROVIDERS: ATTEND Orthopaedic Surgery
DX: M16.12 Unilateral primary osteoarthritis, left hip (principal); M41.9 Scoliosis, unspecified; E78.5 Hyperlipidemia, unspecified; F41.9 Anxiety disorder, unspecified; F17.210 Nicotine dependence, cigarettes, uncomplicated; F32.A Depression, unspecified; I10 Essential (primary) hypertension; J44.89 Other specified chronic obstructive pulmonary disease; K70.30 Alcoholic cirrhosis of liver without ascites; K21.9 Gastro-esophageal reflux disease without esophagitis; N40.0 Benign prostatic hyperplasia without lower urinary tract symptoms; Z96.642 Presence of left artificial hip joint; Z98.890 Other specified postprocedural states; Z79.82 Long term (current) use of aspirin; Z79.02 Long term (current) use of antithrombotics/antiplatelets; Z79.899 Other long term (current) drug therapy
CPT/HCPCS: 97161; 86900; 86901; 85025; 86850; 73501; 27130; 64473; J2250; J3370; J1100; J0690 ×2; J2405; J1885; J1308